=== PATIENT | male | born 1940 | race Caucasian/White ===

== ENCOUNTER 2016-11-05 21:16 | Inpatient (IN) | payer MEDICARE, BC ==
--- NOTE | 2016-11-05 21:35 | ED ---
General Adult HPI - General Chief complaint: Weakness Stated complaint: back pain, weakness, MARGOTH Time Seen by Provider: 11/05/16 21:19 Source: patient, RN notes reviewed, old records reviewed Mode of arrival: EMS Limitations: altered mental status, physical limitation - History of Present Illness Initial comments: This is a 76-year-old male the ER for evaluation. This patient is is reevaluation of continued weakness. Patient has multiple medical problems and multiple medical comorbidities. Patient brought in today by , patient is altered, not speaking or conversing appropriately. Patient's unable to give accurate history of why he is here in the hospital, patient is obtained from the , she states patient has multiple medical comorbidities from renal failure to heart failure to shortness of breath to multiple falls and chronic pain. She states the the heel [place] was unable to get back up. She admits to increasing edema, increasing shortness of breath. Patient's activity level severely decreased - Related Data Home Medications Medication Instructions Recorded Confirmed Albuterol Sulfate [Proair Hfa] 2 puff INHALATION RT-QID PRN 10/16/16 11/05/16 Allopurinol [Zyloprim] 100 mg PO QAM 10/16/16 11/05/16 Amiodarone HCl [Cordarone] 100 mg PO HS 10/16/16 11/05/16 Budesonide [Pulmicort Flexhaler] 2 puff INHALATION RT-DAILY 10/16/16 11/05/16 Cholecalciferol [Vitamin D3] 1,000 unit PO DAILY 10/16/16 11/05/16 Fish Oil/Dha/Epa [Fish Oil 1,200 1 cap PO HS 10/16/16 11/05/16 mg Fish Oil] Furosemide [Lasix] 20 mg PO DAILY 10/16/16 11/05/16 Lansoprazole [Prevacid] 15 mg PO DAILY 10/16/16 11/05/16 Lisinopril [Prinivil] 5 mg PO HS 10/16/16 11/05/16 Magnesium Oxide 400 mg PO BID 10/16/16 11/05/16 Metoprolol Tartrate [Lopressor] 25 mg PO BID 10/16/16 11/05/16 PARoxetine [Paxil] 20 mg PO DAILY 10/16/16 11/05/16 Pravastatin Sodium [Pravachol] 20 mg PO HS 10/16/16 11/05/16 Vit C/E/Zinc/Lutein/Zeaxanthin 1 tab PO BID 10/16/16 11/05/16 [[facility]] Vitamin E (Dl,Tocopheryl Acet) 400 unit PO BID 10/16/16 11/05/16 [Vitamin E] sitaGLIPtin [Januvia] 100 mg PO DAILY 10/16/16 11/05/16 Previous Rx's Medication Instructions Recorded Apixaban [Eliquis] 2.5 mg PO BID #60 tab 10/25/16 Tamsulosin [Flomax] 0.4 mg PO PC-BRKFST #30 cap.er.24h 10/25/16 Allergies Allergy/AdvReac Type Severity Reaction Status Date / Time No Known Allergies Allergy Verified 11/05/16 23:16 Review of Systems ROS Statement: Those systems with pertinent positive or pertinent negative responses have been documented in the HPI. ROS Other: All systems not noted in ROS Statement are negative. Past Medical History Past Medical History: Asthma, Coronary Artery Disease (CAD), Cancer, Heart Failure, COPD, Diabetes Mellitus, GERD/Reflux, Hyperlipidemia, Osteoarthritis ( OA), Sleep Apnea/CPAP/BIPAP Additional Past Medical History / Comment(s): kidney stones macular degeneration pt stated" past afib but none in 4 years", gout, benign polyps, chronic back pain, "disc problems", renal insuff,skin cancer(squamous cell), "trmors", occ trouble holding his bowels.? mvp per pat med hx. History of Any Multi-Drug Resistant Organisms: None Reported Past Surgical History: Coronary Bypass/CABG, Joint Replacement, Orthopedic Surgery, Tonsillectomy Additional Past Surgical History / Comment(s): cabg svg to om1 and svg to om2( as y graft), latoya cataracts,laser sx latoya eyes for macular degeneration, colonoscopy/polypectomy, latoya knee replacment, lower tear duct-implant latoya eyes, rt ankle broken-sx to repair,has a steel plate. Past Anesthesia/Blood Transfusion Reactions: No Reported Reaction Past Psychological History: Anxiety, Depression Additional Psychological History / Comment(s): paxil Smoking Status: Former smoker Past Alcohol Use History: Daily Additional Past Alcohol Use History / Comment(s): started smoking at age 17 later on in life swithced to cigars then quit 2008. pt admits to 3 drinks a day( whiskey) Past Drug Use History: None Reported - Past Family History Mother Family Medical History: Cancer Additional Family Medical History / Comment(s): kidney cancer Father Family Medical History: Cancer, Prostate Disorder Additional Family Medical History / Comment(s): prostate cancer General Exam Limitations: no limitations General appearance: alert, anxious, in distress, obese Head exam: Present: atraumatic, normocephalic, normal inspection Eye exam: Present: normal appearance, PERRL, EOMI. Absent: scleral icterus, conjunctival injection, periorbital swelling ENT exam: Present: normal exam, mucous membranes moist Neck exam: Present: normal inspection. Absent: tenderness, meningismus, lymphadenopathy Respiratory exam: Present: normal lung sounds bilaterally. Absent: respiratory distress, wheezes, rales, rhonchi, stridor Cardiovascular Exam: Present: regular rate, normal rhythm, normal heart sounds. Absent: systolic murmur, diastolic murmur, rubs, gallop, clicks GI/Abdominal exam: Present: soft, normal bowel sounds. Absent: distended, tenderness, guarding, rebound, rigid Extremities exam: Present: normal inspection, full ROM, normal capillary refill. Absent: tenderness, pedal edema, joint swelling, calf tenderness Back exam: Present: normal inspection Neurological exam: Present: alert, oriented X3, CN II-XII intact Psychiatric exam: Present: normal affect, normal mood Skin exam: Present: warm, dry, intact, normal color. Absent: rash Course Vital Signs 11/05/16 11/05/16 11/05/16 21:18 21:31 22:57 Temperature 96.1 F L 94.6 F L Pulse Rate 91 50 L Respiratory 20 18 Rate Blood Pressure 101/59 O2 Sat by Pulse 100 99 Oximetry 11/05/16 23:11 Temperature Pulse Rate 53 L Respiratory 18 Rate Blood Pressure 95/47 O2 Sat by Pulse Oximetry - Reevaluation(s) Reevaluation #1: 11/05/16 22:05 At this time patient's pain appears to be improved Reevaluation #2: 11/05/16 23:39 Blood pressure improving with bolus Reevaluation #3: 11/05/16 23:39 Patient will need admission for monitoring of renal failure and fluid overload EKG Findings - EKG Comments: EKG Findings:: EKG shows junctional rhythm rate of 45, QRS 80, QTC 446 Medical Decision Making - Medical Decision Making 76 veiled ER for evaluation. Patient closely for evaluation of continued weakness, severe weakness renal failure dehydration decreased appetite multiple falls and chronic pain. Patient will be admitted for recurrent evaluation of chronic renal failure continued evaluation rehydration and management of possible infection sepsis secondary to hypothermia, hypotension, symptoms improving with IV fluids. - Lab Data Result diagrams: 11/05/16 21:30 11/05/16 21:30 Lab Results 11/05/16 11/05/16 11/05/16 Range/Units 21:30 21:30 21:30 WBC 5.1 (3.8-10.6) k/uL RBC 3.06 L (4.30-5.90) m/uL Hgb 9.6 L (13.0-17.5) gm/dL Hct 31.3 L (39.0-53.0) % MCV 102.0 H (80.0-100.0) fL MCH 31.4 (25.0-35.0) pg MCHC 30.7 L (31.0-37.0) g/dL RDW 19.6 H (11.5-15.5) % Plt Count 141 L (150-450) k/uL Neutrophils % 74 % Lymphocytes % 15 % Monocytes % 7 % Eosinophils % 1 % Basophils % 0 % Neutrophils # 3.8 (1.3-7.7) k/uL Lymphocytes # 0.8 L (1.0-4.8) k/uL Monocytes # 0.4 (0-1.0) k/uL Eosinophils # 0.1 (0-0.7) k/uL Basophils # 0.0 (0-0.2) k/uL Hypochromasia Marked Anisocytosis Slight Macrocytosis Moderate PT (9.0-12.0) sec INR (<1.1) APTT (22.0-30.0) sec Sodium 144 (137-145) mmol/L Potassium 5.4 H (3.5-5.1) mmol/L Chloride 105 (98-107) mmol/L Carbon Dioxide 23 (22-30) mmol/L Anion Gap 16 mmol/L BUN 59 H (9-20) mg/dL Creatinine 8.23 H* (0.66-1.25) mg/dL Est GFR (MDRD) Af Amer 8 (>60 ml/min/1.73 sqM) Est GFR (MDRD) Non-Af 6 (>60 ml/min/1.73 sqM) Glucose 106 H (74-99) mg/dL Plasma Lactic Acid Raymundo (0.7-2.0) mmol/L Calcium 8.5 (8.4-10.2) mg/dL Phosphorus 6.3 H (2.5-4.5) mg/dL Magnesium 3.6 H (1.6-2.3) mg/dL Total Bilirubin 0.7 (0.2-1.3) mg/dL AST 24 (17-59) U/L ALT 35 (21-72) U/L Alkaline Phosphatase 134 H (38-126) U/L Total Creatine Kinase 38 L (55-170) U/L CK-MB (CK-2) 1.6 (0.0-2.4) ng/mL CK-MB (CK-2) Rel Index 4.2 Troponin I <0.012 (0.000-0.034) ng/mL Total Protein 5.8 L (6.3-8.2) g/dL Albumin 2.9 L (3.5-5.0) g/dL 11/05/16 11/05/16 Range/Units 21:30 21:30 WBC (3.8-10.6) k/uL RBC (4.30-5.90) m/uL Hgb (13.0-17.5) gm/dL Hct (39.0-53.0) % MCV (80.0-100.0) fL MCH (25.0-35.0) pg MCHC (31.0-37.0) g/dL RDW (11.5-15.5) % Plt Count (150-450) k/uL Neutrophils % % Lymphocytes % % Monocytes % % Eosinophils % % Basophils % % Neutrophils # (1.3-7.7) k/uL Lymphocytes # (1.0-4.8) k/uL Monocytes # (0-1.0) k/uL Eosinophils # (0-0.7) k/uL Basophils # (0-0.2) k/uL Hypochromasia Anisocytosis Macrocytosis PT 14.4 H (9.0-12.0) sec INR 1.5 (<1.1) APTT 28.4 (22.0-30.0) sec Sodium (137-145) mmol/L Potassium (3.5-5.1) mmol/L Chloride (98-107) mmol/L Carbon Dioxide (22-30) mmol/L Anion Gap mmol/L BUN (9-20) mg/dL Creatinine (0.66-1.25) mg/dL Est GFR (MDRD) Af Amer (>60 ml/min/1.73 sqM) Est GFR (MDRD) Non-Af (>60 ml/min/1.73 sqM) Glucose (74-99) mg/dL Plasma Lactic Acid Raymundo 1.9 (0.7-2.0) mmol/L Calcium (8.4-10.2) mg/dL Phosphorus (2.5-4.5) mg/dL Magnesium (1.6-2.3) mg/dL Total Bilirubin (0.2-1.3) mg/dL AST (17-59) U/L ALT (21-72) U/L Alkaline Phosphatase (38-126) U/L Total Creatine Kinase (55-170) U/L CK-MB (CK-2) (0.0-2.4) ng/mL CK-MB (CK-2) Rel Index Troponin I (0.000-0.034) ng/mL Total Protein (6.3-8.2) g/dL Albumin (3.5-5.0) g/dL - Radiology Data Radiology results: report reviewed (Chest x-ray and x-ray pelvis is negative for acute disease), image reviewed Disposition Clinical Impression: Weakness, Renal failure, Falls, Dehydration, Hypothermia Disposition: ADMITTED IP TO THIS [facility] Condition: Fair Referrals: Renato Titus MD [Primary Care Provider] - 1-2 days
[2016-11-05] MEDS ORDERED: SODIUM CHLORIDE 0.9% 500 ML IV STA ×2 (21:46→22:24)
[2016-11-05] MEDS ORDERED: SODIUM CHLORIDE 0.9% 1,000 ML IV STA (21:46)
[2016-11-05] MEDS: SODIUM CHLORIDE 0.9% 1,000 ML IV STA (21:50)
[2016-11-05] MEDS ORDERED: MORPHINE SULFATE 4 MG/ML SYRINGE IVP STA (21:54)
[2016-11-05] MEDS ORDERED: ACETAMINOPHEN IV (For NPO) 1,000 MG in EMPTY BAG 1 BAG IVPB STA (21:54)
[2016-11-05] MEDS ORDERED: LORazepam 2 MG/ML SYRINGE IV STA (21:54)
[2016-11-05 22:14] LABS: Anisocytosis Slight; Basophils % (A) 0 %; CH 30.3; Eosinophils # (A) 0.1 k/uL (0-0.7); Eosinophils % (A) 1 %; HCT 31.3 % (39.0-53.0); HDW 2.82; HGB 9.6 gm/dL (13.0-17.5); Hypochromasia Marked; Luc # (Auto) 0.12; Luc % (Auto) 2; Lymphocytes # (A) 0.8 k/uL (1.0-4.8); Lymphocytes % (A) 15 %; MCH 31.4 pg (25.0-35.0); MCHC 30.7 g/dL (31.0-37.0); Macrocytosis Moderate; Mean Platelet Volume 8.9; Monocytes # (A) 0.4 k/uL (0-1.0); Monocytes % (A) 7 %; Neutrophils # (A) 3.8 k/uL (1.3-7.7); Neutrophils % (A) 74 %; RBC 3.06 m/uL (4.30-5.90); RDW 19.6 % (11.5-15.5); WBC 5.1 k/uL (3.8-10.6); WBC (Perox) 5.91
[2016-11-05] MEDS ORDERED: ATROPINE SULFATE 0.1 MG/ML 10ML SYRINGE IV STA (22:24)
[2016-11-05 22:29] LABS: Creatine Kinase 38 U/L (55-170)
[2016-11-05 22:31] LABS: Calcium 8.5 mg/dL (8.4-10.2); Magnesium 3.6 mg/dL (1.6-2.3); Phosphorous 6.3 mg/dL (2.5-4.5); Potassium 5.4 mmol/L (3.5-5.1); Total Bilirubin 0.7 mg/dL (0.2-1.3); Total Protein 5.8 g/dL (6.3-8.2)
[2016-11-05 22:41] LABS: Creatine Kinase MB 1.6 ng/mL (0.0-2.4); Troponin I <0.012 ng/mL (0.000-0.034)
[2016-11-05 23:15] LABS: INR 1.5 (<1.1); Partial Thromboplastin Time 28.4 sec (22.0-30.0); Prothrombin Time 14.4 sec (9.0-12.0)
[2016-11-05] MEDS ORDERED: methylPREDNISolone SOD SUCCI 125 MG/2 ML VIAL IV STA (23:40)
[2016-11-05] MEDS ORDERED: SODIUM CHLORIDE 0.9% 1,000 ML IV ONE (23:52)
[2016-11-06] MEDS ORDERED: ATROPINE SULFATE 0.1 MG/ML 10ML SYRINGE IV STA (00:14)
[2016-11-06] MEDS ORDERED: NOREPINEPHRINE 4 MG in SODIUM CHLORIDE 0.9% 250 ML IV SCH (00:15)
[2016-11-06] MEDS ORDERED: NOREPINEPHRINE 4 MG in SODIUM CHLORIDE 0.9% 250 ML IV STA (01:00)
[2016-11-06] MEDS ORDERED: LEVOTHYROXINE IVP 100 MCG/5 ML VIAL IV STA (01:08)
[2016-11-06] MEDS ORDERED: PIPERACILLIN-TAZOBACTAM 3.375 GM in DEXTROSE/WATER 1 50ML.BAG IVPB STA (01:10)
--- NOTE | 2016-11-06 01:27 | ED ---
Medical Decision Making - Medical Decision Making 36 male the ER for evaluation of weakness, continued to be reevaluated secondary to persistent hypotension, persistent bradycardia, persistent hypothermia. Patient is getting warmed through by control as well as bear hugger, with minimal effect to systemic temperature, patient also tried with atropine for heart rate no improvement, no evidence of heart block on EKG likely junctional rhythm in the 40s, spoke with cardiology regarding probable need for pacemaker placement, patient is dialysis patient he is fluid overloaded although showing no hypoxia at this point. Patient was given copious IV fluids for blood pressure and is recently started on levo fed drip. Patient is remaining alert, able respond to questions. Patient does have right IJ Praveen catheter, secondary to this and probable need for probable possible permanent pacer we'll hold off on central venous access at this point this patient does not have many options. - Lab Data Result diagrams: 11/05/16 21:30 11/05/16 21:30 Lab Results 11/05/16 11/05/16 11/05/16 Range/Units 21:30 21:30 21:30 WBC 5.1 (3.8-10.6) k/uL RBC 3.06 L (4.30-5.90) m/uL Hgb 9.6 L (13.0-17.5) gm/dL Hct 31.3 L (39.0-53.0) % MCV 102.0 H (80.0-100.0) fL MCH 31.4 (25.0-35.0) pg MCHC 30.7 L (31.0-37.0) g/dL RDW 19.6 H (11.5-15.5) % Plt Count 141 L (150-450) k/uL Neutrophils % 74 % Lymphocytes % 15 % Monocytes % 7 % Eosinophils % 1 % Basophils % 0 % Neutrophils # 3.8 (1.3-7.7) k/uL Lymphocytes # 0.8 L (1.0-4.8) k/uL Monocytes # 0.4 (0-1.0) k/uL Eosinophils # 0.1 (0-0.7) k/uL Basophils # 0.0 (0-0.2) k/uL Hypochromasia Marked Anisocytosis Slight Macrocytosis Moderate PT (9.0-12.0) sec INR (<1.1) APTT (22.0-30.0) sec Sodium 144 (137-145) mmol/L Potassium 5.4 H (3.5-5.1) mmol/L Chloride 105 (98-107) mmol/L Carbon Dioxide 23 (22-30) mmol/L Anion Gap 16 mmol/L BUN 59 H (9-20) mg/dL Creatinine 8.23 H* (0.66-1.25) mg/dL Est GFR (MDRD) Af Amer 8 (>60 ml/min/1.73 sqM) Est GFR (MDRD) Non-Af 6 (>60 ml/min/1.73 sqM) Glucose 106 H (74-99) mg/dL Plasma Lactic Acid Raymundo (0.7-2.0) mmol/L Calcium 8.5 (8.4-10.2) mg/dL Phosphorus 6.3 H (2.5-4.5) mg/dL Magnesium 3.6 H (1.6-2.3) mg/dL Total Bilirubin 0.7 (0.2-1.3) mg/dL AST 24 (17-59) U/L ALT 35 (21-72) U/L Alkaline Phosphatase 134 H (38-126) U/L Total Creatine Kinase 38 L (55-170) U/L CK-MB (CK-2) 1.6 (0.0-2.4) ng/mL CK-MB (CK-2) Rel Index 4.2 Troponin I <0.012 (0.000-0.034) ng/mL Total Protein 5.8 L (6.3-8.2) g/dL Albumin 2.9 L (3.5-5.0) g/dL TSH (0.465-4.680) mIU/L Cortisol ug/dL 11/05/16 11/05/16 11/05/16 Range/Units 21:30 21:30 21:30 WBC (3.8-10.6) k/uL RBC (4.30-5.90) m/uL Hgb (13.0-17.5) gm/dL Hct (39.0-53.0) % MCV (80.0-100.0) fL MCH (25.0-35.0) pg MCHC (31.0-37.0) g/dL RDW (11.5-15.5) % Plt Count (150-450) k/uL Neutrophils % % Lymphocytes % % Monocytes % % Eosinophils % % Basophils % % Neutrophils # (1.3-7.7) k/uL Lymphocytes # (1.0-4.8) k/uL Monocytes # (0-1.0) k/uL Eosinophils # (0-0.7) k/uL Basophils # (0-0.2) k/uL Hypochromasia Anisocytosis Macrocytosis PT 14.4 H (9.0-12.0) sec INR 1.5 (<1.1) APTT 28.4 (22.0-30.0) sec Sodium (137-145) mmol/L Potassium (3.5-5.1) mmol/L Chloride (98-107) mmol/L Carbon Dioxide (22-30) mmol/L Anion Gap mmol/L BUN (9-20) mg/dL Creatinine (0.66-1.25) mg/dL Est GFR (MDRD) Af Amer (>60 ml/min/1.73 sqM) Est GFR (MDRD) Non-Af (>60 ml/min/1.73 sqM) Glucose (74-99) mg/dL Plasma Lactic Acid Raymundo 1.9 (0.7-2.0) mmol/L Calcium (8.4-10.2) mg/dL Phosphorus (2.5-4.5) mg/dL Magnesium (1.6-2.3) mg/dL Total Bilirubin (0.2-1.3) mg/dL AST (17-59) U/L ALT (21-72) U/L Alkaline Phosphatase (38-126) U/L Total Creatine Kinase (55-170) U/L CK-MB (CK-2) (0.0-2.4) ng/mL CK-MB (CK-2) Rel Index Troponin I (0.000-0.034) ng/mL Total Protein (6.3-8.2) g/dL Albumin (3.5-5.0) g/dL TSH 26.100 H (0.465-4.680) mIU/L Cortisol 23 ug/dL Critical Care Time Critical Care Time: Yes Total Critical Care Time: 65 Disposition Clinical Impression: Weakness, Renal failure, Falls, Dehydration, Hypothermia, Hypotension, Hypothyroid Disposition: ADMITTED IP TO THIS HOSP Condition: Fair
--- NOTE | 2016-11-06 02:11 | XR ---
EXAMINATION TYPE: XR chest 1V DATE OF EXAM: 11/06/2016 1:59 AM COMPARISON: 10/21/2016 HISTORY: Weakness TECHNIQUE: Single frontal view of the chest is obtained. FINDINGS: There is no heart failure nor confluent pneumonic infiltrate. There are no hilar masses. T here are chest leads. There are sternal wires. There is a right central venous catheter with the tip over the top of the right atrium. Trachea is midline. There is no sign of pleural effusion. IMPRESSION: No active cardiopulmonary disease. No change.
--- NOTE | 2016-11-06 02:12 | XR ---
EXAMINATION TYPE: XR pelvis AP view DATE OF EXAM: 11/06/2016 1:59 AM COMPARISON: 01/22/2012 HISTORY: Weakness and fall TECHNIQUE: Single view FINDINGS: The pelvic ring is intact. Proximal femurs and hip joints appear intact. There is vascular calcification. Sacroiliac joints appear normal. IMPRESSION: No acute abnormality of the pelvis. No fracture. No change. Atherosclerotic vascular dise ase.
--- NOTE | 2016-11-06 02:17 | CT ---
EXAMINATION TYPE: CT brain anabel wo con DATE OF EXAM: 11/06/2016 2:10 AM COMPARISON: 08/14/2010 HISTORY: weakness, fall, AMS, dialysis CT DLP: head 1150.50 [id number] mGycm Automated exposure control for dose reduction was used. TECHNIQUE: CT scan of the head and cervical spine are performed without contrast. FINDINGS: There is cerebral cortical atrophy. There is mild hypodensity in the periventricular whit e matter. There is no mass effect or midline shift. There is no sign of intracranial hemorrhage. The calvarium is intact. There is mild mucosal thickening in the ethmoid air cells. The cervical vertebra have normal alignment. Disc spaces are fairly normal for age. Posterior element s are intact. There is mild anterior spur formation. Skull base appears intact. I see no bony destruc tive process. IMPRESSION: There is cerebral atrophy and chronic small vessel ischemia that has progressed slightly compared to old exam of 08/14/2010. There are spondylotic changes in the cervical spine with anterior osteophyte formation. No fracture.
[2016-11-06 02:49] LABS: Glucose,Whole Blood 118 mg/dL (75-99)
[2016-11-06] MEDS: SODIUM CHLORIDE 0.9% 1,000 ML IV STA (03:45)
[2016-11-06 05:25] LABS: Anisocytosis Slight; Basophils % (A) 0 %; CH 29.6; CHCM 27.6; Eosinophils % (A) 0 %; HCT 34.1 % (39.0-53.0); HDW 2.67; HGB 9.9 gm/dL (13.0-17.5); Hypochromasia Marked; Luc # (Auto) 0.03; Luc % (Auto) 1; Lymphocytes # (A) 0.2 k/uL (1.0-4.8); Lymphocytes % (A) 4 %; MCH 31.5 pg (25.0-35.0); MCHC 29.1 g/dL (31.0-37.0); Macrocytosis Marked; Mean Platelet Volume 8.9; Monocytes # (A) 0.1 k/uL (0-1.0); Monocytes % (A) 1 %; Neutrophils # (A) 4.6 k/uL (1.3-7.7); Neutrophils % (A) 93 %; RBC 3.15 m/uL (4.30-5.90); RDW 19.5 % (11.5-15.5); WBC 4.9 k/uL (3.8-10.6); WBC (Perox) 5.39
[2016-11-06 05:53] LABS: MCV 108.2 fL (80.0-100.0)
[2016-11-06 06:02] LABS: Calcium 8.4 mg/dL (8.4-10.2); Magnesium 3.5 mg/dL (1.6-2.3); Potassium 5.8 mmol/L (3.5-5.1); Total Bilirubin 0.8 mg/dL (0.2-1.3); Total Protein 5.7 g/dL (6.3-8.2)
[2016-11-06] MEDS ORDERED: SODIUM POLYSTYRENE SULFONATE 15 GM/60 ML BOTTLE PO STA (06:23)
[2016-11-06] MEDS: methylPREDNISolone SOD SUCCI 125 MG/2 ML VIAL IV SCH ×4 (07:01→23:38)
[2016-11-06 07:19] LABS: Target Cells Present
[2016-11-06 07:51] LABS: Glucose,Whole Blood 162 mg/dL (75-99)
[2016-11-06] MEDS: PIPERACILLIN-TAZOBACTAM 3.375 GM in DEXTROSE/WATER 1 50ML.BAG IVPB SCH ×2 (09:04→15:41)
[2016-11-06] MEDS: METOPROLOL TARTRATE 25 MG TAB PO SCH ×2 (09:41→20:46)
[2016-11-06 09:42] LABS: Appearance,Urine Turbid (Clear); Bacteria,Urine Many /hpf; Bilirubin,Urine Negative (Negative); Glucose,Urine (UA) Negative (Negative); Ketones,Urine Negative (Negative); Leukocyte Esterase,Urine Large (Negative); Nitrite,Urine Positive (Negative); Particle Count 178972; Protein,Urine 2+ (Negative); RBC,Urine >182 /hpf (0-5); UA Billing (MACRO vs. MICRO) MICRO; Urobilinogen,Urine <2.0 mg/dL (<2.0); WBC,Urine >182 /hpf (0-5)
[2016-11-06 09:44] LABS: Specific Gravity,Urine 1.025 (1.001-1.035)
[2016-11-06] MEDS: PANTOPRAZOLE 40 MG TABLET PO SCH (09:50)
[2016-11-06] MEDS: MAGNESIUM OXIDE 400 MG TAB PO SCH ×3 (09:51→22:54)
[2016-11-06] MEDS: APIXABAN 2.5 MG TABLET PO SCH ×2 (09:51→20:47)
[2016-11-06] MEDS: ALLOPURINOL 100 MG TAB PO SCH (09:51)
[2016-11-06] MEDS: ALBUTEROL NEBULIZED 2.5 MG/3 ML INHALATION PRN ×2 (11:40→16:04)
[2016-11-06 12:10] LABS: Glucose,Whole Blood 185 mg/dL (75-99)
[2016-11-06] MEDS: CHOLECALCIFEROL 1,000 UNIT TAB PO SCH (13:15)
[2016-11-06] MEDS ORDERED: HYDROCORTISONE SUCCINATE 100 MG/2 ML VIAL IV STA (13:32)
--- NOTE | 2016-11-06 13:34 | XR ---
EXAMINATION TYPE: XR chest 1V portable DATE OF EXAM: 11/06/2016 12:39 PM COMPARISON: NONE INDICATION: Possible fluid, effusion TECHNIQUE: Single frontal view of the chest is obtained. FINDINGS: The heart size is normal. The pulmonary vasculature is normal. The lungs are clear. No obvious pleural effusion is evident. Cost phrenic angles are not blunted. Double-lumen catheter is present with tips in the superior vena cava region IMPRESSION: 1. No acute pulmonary process.
[2016-11-06] MEDS ORDERED: NALOXONE 0.4 MG/ML 1 ML VIAL IV PRN (13:38)
--- NOTE | 2016-11-06 14:11 | P.CRDCN ---
History of Present Illness Consult date: 11/06/16 History of present illness: This is a 76-year-old gentleman with history of ischemic heart disease and previous bypass surgery and also persistent atrial fibrillation being maintained in sinus rhythm with combination of amiodarone and beta lucy. He was in this hospital in October with kidney failure and acute kidney injury. His creatinine went up to 8.95 on that admission. Patient was brought to the hospital with weakness. He was found to be bradycardic, hypotensive and hypothermic in the hospital. Patient had a junctional rhythm with heart rates of 40. Patient was treated for her hyperkalemia. Patient was also found to be hypothyroid. This morning patient seemed to be alert but appears to be in respiratory distress. His heart rate has come up to 50-60 and seemed to be in sinus rhythm. Patient has renal failure and is being followed by entry level recruiter and there is a possibility that he may have dialysis done today. I do not see any acute need for temporary pacemaker at this time. His creatinine is in the results 8. He is poor urinary output. Further recommendation will depend upon the clinical course Review of Systems As per the chart Past Medical History Past Medical History: Asthma, Coronary Artery Disease (CAD), Cancer, Heart Failure, COPD, Diabetes Mellitus, GERD/Reflux, Hyperlipidemia, Osteoarthritis ( OA), Sleep Apnea/CPAP/BIPAP Additional Past Medical History / Comment(s): kidney stones macular degeneration pt stated" past afib but none in 4 years", gout, benign polyps, chronic back pain, "disc problems", renal insuff,skin cancer(squamous cell), "trmors", occ trouble holding his bowels.? mvp per pat med hx. History of Any Multi-Drug Resistant Organisms: None Reported Past Surgical History: Coronary Bypass/CABG, Joint Replacement, Orthopedic Surgery, Tonsillectomy Additional Past Surgical History / Comment(s): cabg svg to om1 and svg to om2( as y graft), latoya cataracts,laser sx latoya eyes for macular degeneration, colonoscopy/polypectomy, latoya knee replacment, lower tear duct-implant latoya eyes, rt ankle broken-sx to repair,has a steel plate. Past Anesthesia/Blood Transfusion Reactions: No Reported Reaction Past Psychological History: Anxiety, Depression Additional Psychological History / Comment(s): paxil Smoking Status: Former smoker Past Alcohol Use History: Daily Additional Past Alcohol Use History / Comment(s): started smoking at age 17 later on in life swithced to cigars then quit 2008. pt admits to 3 drinks a day( whiskey) Past Drug Use History: None Reported - Past Family History Mother Family Medical History: Cancer Additional Family Medical History / Comment(s): kidney cancer Father Family Medical History: Cancer, Prostate Disorder Additional Family Medical History / Comment(s): prostate cancer Medications and Allergies Home Medications Medication Instructions Recorded Confirmed Type Albuterol Sulfate [Proair Hfa] 2 puff INHALATION RT-QID PRN 10/16/16 11/05/16 History Allopurinol [Zyloprim] 100 mg PO QAM 10/16/16 11/05/16 History Amiodarone HCl [Cordarone] 100 mg PO HS 10/16/16 11/05/16 History Budesonide [Pulmicort Flexhaler] 2 puff INHALATION RT-DAILY 10/16/16 11/05/16 History Cholecalciferol [Vitamin D3] 1,000 unit PO DAILY 10/16/16 11/05/16 History Fish Oil/Dha/Epa [Fish Oil 1,200 1 cap PO HS 10/16/16 11/05/16 History mg Fish Oil] Furosemide [Lasix] 20 mg PO DAILY 10/16/16 11/05/16 History Lansoprazole [Prevacid] 15 mg PO DAILY 10/16/16 11/05/16 History Lisinopril [Prinivil] 5 mg PO HS 10/16/16 11/05/16 History Magnesium Oxide 400 mg PO BID 10/16/16 11/05/16 History Metoprolol Tartrate [Lopressor] 25 mg PO BID 10/16/16 11/05/16 History PARoxetine [Paxil] 20 mg PO DAILY 10/16/16 11/05/16 History Pravastatin Sodium [Pravachol] 20 mg PO HS 10/16/16 11/05/16 History Vit C/E/Zinc/Lutein/Zeaxanthin 1 tab PO BID 10/16/16 11/05/16 History [[facility]] Vitamin E (Dl,Tocopheryl Acet) 400 unit PO BID 10/16/16 11/05/16 History [Vitamin E] sitaGLIPtin [Januvia] 100 mg PO DAILY 10/16/16 11/05/16 History Allergies Allergy/AdvReac Type Severity Reaction Status Date / Time No Known Allergies Allergy Verified 11/05/16 23:16 Physical Exam Vitals: Vital Signs Temp Pulse Resp BP Pulse Ox 11/06/16 13:30 58 L 15 85/48 97 11/06/16 13:00 58 L 20 86/53 98 11/06/16 12:30 73 29 H 107/62 95 11/06/16 12:00 97.8 F 58 L 25 H 84/41 99 11/06/16 11:55 56 L 11/06/16 11:41 59 L 94 L 11/06/16 11:30 59 L 29 H 99 11/06/16 11:00 59 L 20 111/75 94 L 11/06/16 10:30 57 L 27 H 92/62 92 L 11/06/16 10:00 60 21 86/50 99 11/06/16 09:30 59 L 16 80/61 100 11/06/16 09:00 59 L 11 L 105/52 97 11/06/16 08:30 61 15 100/49 98 11/06/16 08:00 97.7 F 62 21 91/54 97 11/06/16 07:30 63 19 103/69 96 11/06/16 07:00 63 19 105/68 93 L 11/06/16 06:00 66 30 H 116/53 96 11/06/16 05:00 66 22 85/61 97 11/06/16 04:30 64 18 92/41 98 11/06/16 04:00 97.0 F L 61 33 H 91/47 97 11/06/16 03:30 64 27 H 93/82 98 11/06/16 03:05 79 18 122/62 98 11/06/16 03:04 62 18 117/72 11/06/16 03:00 94.6 F L 63 22 91/68 93 L 11/06/16 02:42 92 L 11/06/16 02:35 94.5 F L 68 18 121/75 96 11/06/16 02:29 65 18 140/71 11/06/16 02:15 68 18 117/72 11/06/16 01:45 86 20 126/60 11/05/16 23:59 48 L 18 87/57 100 Intake and Output 11/05/16 11/06/16 11/06/16 22:59 06:59 14:59 Intake Total 520.333 784.836 Output Total 0 23 Balance 520.333 761.836 Intake: IV 400 650 Sodium Chloride 0.9% 1, 400 650 000 ml @ 100 mls/hr IV . Q10H ONE Rx#:[id number] Intake, IV Titration 120.333 134.836 Amount Norepinephrine 4 mg In 84.836 Sodium Chloride 0.9% 250 ml @ Titrate IV .Q0M [facility] Rx#:[id number] Norepinephrine 4 mg In 120.333 Sodium Chloride 0.9% 250 ml @ Titrate IV .Q0M [facility] Rx#:[id number] Piperacillin-Tazobactam 3 50 .375 gm In Dextrose/Water 1 50ml.bag @ 12.5 mls/hr IVPB Q8HR [facility] Rx#: [id number] Output: Urine 0 23 Other: Weight 108.862 kg 108.862 kg Patient Weight 11/07/16 06:59 Weight 108.862 kg GENERAL EXAM: Patient is alert and oriented and in moderate distress HEENT: Normocephalic. Normal reaction of pupils, equal size NECK: No masses, no nuchal rigidity. CHEST: No chest wall deformity. LUNGS: Diminished breath sounds both bases HEART: S1 and S2 normal with no audible mumurs or gallops. Regular rhythm, femorals equal on both sides.. ABDOMEN: Protuberant and possible ascites SKIN: No rashes CENTRAL NERVOUS SYSTEM: No focal deficits. EXTREMITIES: 2+ edema. Results 11/06/16 04:39 11/06/16 04:39 Cardiac Enzymes 11/06/16 Range/Units 04:39 AST 28 (17-59) U/L CBC 11/06/16 Range/Units 04:39 WBC 4.9 (3.8-10.6) k/uL RBC 3.15 L (4.30-5.90) m/uL Hgb 9.9 L (13.0-17.5) gm/dL Hct 34.1 L (39.0-53.0) % Plt Count 149 L (150-450) k/uL Comprehensive Metabolic Panel 11/06/16 Range/Units 04:39 Sodium 142 (137-145) mmol/L Potassium 5.8 H (3.5-5.1) mmol/L Chloride 109 H (98-107) mmol/L Carbon Dioxide 18 L (22-30) mmol/L BUN 56 H (9-20) mg/dL Creatinine 8.00 H* (0.66-1.25) mg/dL Glucose 143 H (74-99) mg/dL Calcium 8.4 (8.4-10.2) mg/dL AST 28 (17-59) U/L ALT 33 (21-72) U/L Alkaline Phosphatase 128 H (38-126) U/L Total Protein 5.7 L (6.3-8.2) g/dL Albumin 2.9 L (3.5-5.0) g/dL Current Medications Generic Name Dose Route Start Last Admin Trade Name Freq PRN Reason Stop Dose Admin Albuterol Sulfate 2.5 mg 11/06/16 09:12 11/06/16 11:40 Ventolin Nebulized INHALATION 2.5 mg RT-QID PRN Administration Shortness Of Breath Allopurinol 100 mg 11/06/16 09:15 11/06/16 09:51 Zyloprim PO 100 mg QAM JAMES Administration Amiodarone HCl 100 mg 11/06/16 21:00 Cordarone PO HS JAMES Apixaban 2.5 mg 11/06/16 09:15 11/06/16 09:51 Eliquis PO 2.5 mg BID JAMES Administration Budesonide 1 mg 11/06/16 20:00 Pulmicort INHALATION RT-BID JAMES Cholecalciferol 1,000 unit 11/06/16 12:00 11/06/16 13:15 Vitamin D3 PO 1,000 unit 1200 JAMES Administration Furosemide 20 mg 11/07/16 09:00 Lasix PO DAILY [facility] Norepinephrine Bitartrate 4 mg 254 mls @ 0 mls/hr 11/06/16 01:15 / Sodium Chloride IV .Q0M [facility] Protocol Titrate Piperacillin/Tazobactam/ 50 mls @ 12.5 mls/hr 11/06/16 09:00 11/06/16 09:04 Dextrose 3.375 gm/ IV Solution IVPB 12.5 mls/hr Q8HR JAMES Administration Sodium Chloride 1,000 mls @ 50 mls/hr 11/06/16 13:45 Saline 0.9% IV .Q20H JAMES Levothyroxine Sodium 100 mcg 11/07/16 09:00 Synthroid Ivp IV DAILY [facility] Lisinopril 5 mg 11/06/16 21:00 Zestril PO HS [facility] Magnesium Oxide 400 mg 11/06/16 09:15 11/06/16 09:53 Mag-Ox PO Not Given BID [facility] Methylprednisolone Sodium Succinate 60 mg 11/06/16 06:00 11/06/16 13:14 Solu-Medrol IV 60 mg Q6HR [facility] Administration Metoprolol Tartrate 25 mg 11/06/16 09:15 11/06/16 09:41 Lopressor PO Not Given BID [facility] Multivitamins/Minerals 1 each 11/06/16 21:00 Ivite PO BID [facility] Naloxone HCl 0.2 mg 11/06/16 13:38 Narcan IV Q2M PRN Opioid Reversal Pantoprazole Sodium 40 mg 11/06/16 09:30 11/06/16 09:50 Protonix PO 40 mg AC-BRKFST [facility] Administration Paroxetine HCl 20 mg 11/07/16 09:00 Paxil PO DAILY [facility] Pravastatin Sodium 20 mg 11/06/16 21:00 Pravachol PO HS [facility] Tamsulosin HCl 0.4 mg 11/07/16 08:30 Flomax PO PC-BRKFST [facility] Vitamin E 400 unit 11/06/16 21:00 Vitamin E PO BID [facility] Intake and Output 11/05/16 11/06/16 11/06/16 22:59 06:59 14:59 Intake Total 520.333 784.836 Output Total 0 23 Balance 520.333 761.836 Intake: IV 400 650 Sodium Chloride 0.9% 1, 400 650 000 ml @ 100 mls/hr IV . Q10H [facility] Rx#:[id number] Intake, IV Titration 120.333 134.836 Amount Norepinephrine 4 mg In 84.836 Sodium Chloride 0.9% 250 ml @ Titrate IV .Q0M [facility] Rx#:[id number] Norepinephrine 4 mg In 120.333 Sodium Chloride 0.9% 250 ml @ Titrate IV .Q0M [facility] Rx#:[id number] Piperacillin-Tazobactam 3 50 .375 gm In Dextrose/Water 1 50ml.bag @ 12.5 mls/hr IVPB Q8HR [facility] Rx#: [id number] Output: Urine 0 23 Other: Weight 108.862 kg 108.862 kg Patient Weight 11/07/16 06:59 Weight 108.862 kg 11/06/16 04:39 11/06/16 04:39 EKG Interpretations (text) Shows junctional rhythm on admission Assessment and Plan (1) Bradycardia Status: Acute (2) Hypotension Status: Acute (3) Hypothermia Status: Acute (4) Hypothyroid Status: Acute (5) Renal failure Status: Acute (6) CAD (coronary artery disease) Status: Acute (7) Persistent atrial fibrillation Status: Acute Plan: Continue with current medical therapy. Patient is being considered for dialysis. No need for temporary pacemaker at this time and we'll hold beta lucy and amiodarone for now and resume them as tolerated in the future. Further recommendations depend upon the clinical course. Prognosis is guarded
--- NOTE | 2016-11-06 15:16 | P.CNPUL ---
History of Present Illness Consult date: 11/06/16 Requesting physician: Renato Titus Reason for consult: other (ICU management) Chief complaint: Generalized weakness History of present illness: This is a 76-year-old white male with history of multiple medical problems including ischemic heart disease and previous CABG, chronic atrial fibrillation , patient has been maintained on amiodarone and beta blockers, history of COPD, moderate to severe but asymptomatic based on previous evaluation in my office. I have actually seen this patient for many years even prior to his previous CABG. At any rate patient was admitted in early October, and for some reason we were not consulted on this patient when he was in the intensive care unit. And the clearly stated to the admitting physician that I usually see her on a regular basis for his pulmonary status. He was also seen in the past by Dr. Nettles for obstructive sleep apnea, and he was advised to go on CPAP. At any rate looking back at his last admission which was 10/16/2016, and he was discharged on 10/15/2016. He was seen by Dr. Benigno briones and I believe there was a confusion and the name by the admitting physician. He was also seen by the biztalk architect for coagulopathy. Based on the discharge summary dictation, patient was admitted at the time with acute renal failure and he required emergent dialysis. Also had some bleeding secondary to Xarelto. Patient was eventually discharged home on adequacy instead of Xarelto. Since his last admission, the patient has been gradually going downhill. He has been on dialysis on 3 times per week basis, history of functioning has been deteriorating, patient has been complaining of weakness all along, and upon this admission he was noted to be weak, bradycardic, hypotensive, hypothermic, and he was in junctional rhythm rate in the 40 range. Patient was also noted to be hyperkalemic, considering the rhythm was junctional, and considering the patient was scheduled for dialysis, no temporary pacemaker was felt to be necessary. Patient had elevated creatinine of 8.0, and he had a very poor urine output. Patient received Solu-Medrol, he was placed on his usual meds including Ventolin, Cordarone, and look was, Lasix, Synthroid, lisinopril, methylprednisolone, metoprolol, and he was placed on norepinephrine for low blood pressure he was also placed empirically on antibiotics in the form of Zosyn and Levaquin. Chest x-ray on this admission showed no evidence of congestive heart failure, no evidence of acute pulmonary process. Review of Systems 12 point review of systems were obtained, please refer to pertinent positives and negatives in HPI. Past Medical History Past Medical History: Asthma, Coronary Artery Disease (CAD), Cancer, Heart Failure, COPD, Diabetes Mellitus, GERD/Reflux, Hyperlipidemia, Osteoarthritis ( OA), Sleep Apnea/CPAP/BIPAP Additional Past Medical History / Comment(s): kidney stones macular degeneration pt stated" past afib but none in 4 years", gout, benign polyps, chronic back pain, "disc problems", renal insuff,skin cancer(squamous cell), "trmors", occ trouble holding his bowels.? mvp per pat med hx. History of Any Multi-Drug Resistant Organisms: None Reported Past Surgical History: Coronary Bypass/CABG, Joint Replacement, Orthopedic Surgery, Tonsillectomy Additional Past Surgical History / Comment(s): cabg svg to om1 and svg to om2( as y graft), latoya cataracts,laser sx latoya eyes for macular degeneration, colonoscopy/polypectomy, latoya knee replacment, lower tear duct-implant latoya eyes, rt ankle broken-sx to repair,has a steel plate. Past Anesthesia/Blood Transfusion Reactions: No Reported Reaction Past Psychological History: Anxiety, Depression Additional Psychological History / Comment(s): paxil Smoking Status: Former smoker Past Alcohol Use History: Daily Additional Past Alcohol Use History / Comment(s): started smoking at age 17 later on in life swithced to cigars then quit 2008. pt admits to 3 drinks a day( whiskey) Past Drug Use History: None Reported - Past Family History Mother Family Medical History: Cancer Additional Family Medical History / Comment(s): kidney cancer Father Family Medical History: Cancer, Prostate Disorder Additional Family Medical History / Comment(s): prostate cancer Medications and Allergies Home Medications Medication Instructions Recorded Confirmed Type Albuterol Sulfate [Proair Hfa] 2 puff INHALATION RT-QID PRN 10/16/16 11/05/16 History Allopurinol [Zyloprim] 100 mg PO QAM 10/16/16 11/05/16 History Amiodarone HCl [Cordarone] 100 mg PO HS 10/16/16 11/05/16 History Budesonide [Pulmicort Flexhaler] 2 puff INHALATION RT-DAILY 10/16/16 11/05/16 History Cholecalciferol [Vitamin D3] 1,000 unit PO DAILY 10/16/16 11/05/16 History Fish Oil/Dha/Epa [Fish Oil 1,200 1 cap PO HS 10/16/16 11/05/16 History mg Fish Oil] Furosemide [Lasix] 20 mg PO DAILY 10/16/16 11/05/16 History Lansoprazole [Prevacid] 15 mg PO DAILY 10/16/16 11/05/16 History Lisinopril [Prinivil] 5 mg PO HS 10/16/16 11/05/16 History Magnesium Oxide 400 mg PO BID 10/16/16 11/05/16 History Metoprolol Tartrate [Lopressor] 25 mg PO BID 10/16/16 11/05/16 History PARoxetine [Paxil] 20 mg PO DAILY 10/16/16 11/05/16 History Pravastatin Sodium [Pravachol] 20 mg PO HS 10/16/16 11/05/16 History Vit C/E/Zinc/Lutein/Zeaxanthin 1 tab PO BID 10/16/16 11/05/16 History [[employer] [facility]] Vitamin E (Dl,Tocopheryl Acet) 400 unit PO BID 10/16/16 11/05/16 History [Vitamin E] sitaGLIPtin [Januvia] 100 mg PO DAILY 10/16/16 11/05/16 History Allergies Allergy/AdvReac Type Severity Reaction Status Date / Time No Known Allergies Allergy Verified 11/05/16 23:16 Physical Exam Vitals: Vital Signs Temp Pulse Resp BP Pulse Ox 11/06/16 15:00 63 24 103/65 97 11/06/16 14:30 59 L 12 96/44 97 11/06/16 14:00 68 24 89/44 93 L 11/06/16 13:30 58 L 15 85/48 97 11/06/16 13:00 58 L 20 86/53 98 11/06/16 12:30 73 29 H 107/62 95 11/06/16 12:00 97.8 F 58 L 25 H 84/41 99 11/06/16 11:55 56 L 11/06/16 11:41 59 L 94 L 11/06/16 11:30 59 L 29 H 99 11/06/16 11:00 59 L 20 111/75 94 L 11/06/16 10:30 57 L 27 H 92/62 92 L 11/06/16 10:00 60 21 86/50 99 11/06/16 09:30 59 L 16 80/61 100 11/06/16 09:00 59 L 11 L 105/52 97 11/06/16 08:30 61 15 100/49 98 11/06/16 08:00 97.7 F 62 21 91/54 97 11/06/16 07:30 63 19 103/69 96 11/06/16 07:00 63 19 105/68 93 L 11/06/16 06:00 66 30 H 116/53 96 11/06/16 05:00 66 22 85/61 97 11/06/16 04:30 64 18 92/41 98 11/06/16 04:00 97.0 F L 61 33 H 91/47 97 11/06/16 03:30 64 27 H 93/82 98 11/06/16 03:05 79 18 122/62 98 11/06/16 03:04 62 18 117/72 11/06/16 03:00 94.6 F L 63 22 91/68 93 L 11/06/16 02:42 92 L 11/06/16 02:35 94.5 F L 68 18 121/75 96 11/06/16 02:29 65 18 140/71 11/06/16 02:15 68 18 117/72 11/06/16 01:45 86 20 126/60 11/05/16 23:59 48 L 18 87/57 100 Intake and Output 11/06/16 11/06/16 11/06/16 06:59 14:59 22:59 Intake Total 520.333 834.836 50 Output Total 0 23 5 Balance 520.333 811.836 45 Intake: IV 400 700 50 Sodium Chloride 0.9% 1, 400 700 50 000 ml @ 100 mls/hr IV . Q10H [facility] Rx#:[id number] Intake, IV Titration 120.333 134.836 Amount Norepinephrine 4 mg In 84.836 Sodium Chloride 0.9% 250 ml @ Titrate IV .Q0M [facility] Rx#:[id number] Norepinephrine 4 mg In 120.333 Sodium Chloride 0.9% 250 ml @ Titrate IV .Q0M [facility] Rx#:[id number] Piperacillin-Tazobactam 3 50 .375 gm In Dextrose/Water 1 50ml.bag @ 12.5 mls/hr IVPB Q8HR [facility] Rx#: [id number] Output: Urine 0 23 5 Other: Weight 108.862 kg 108.862 kg Patient Weight 11/07/16 06:59 Weight 108.862 kg GENERAL EXAM: Patient is alert and oriented and in moderate distress HEENT: Normocephalic. Normal reaction of pupils, equal size NECK: No masses, no nuchal rigidity. CHEST: No chest wall deformity. LUNGS: Diminished breath sounds both bases HEART: S1 and S2 normal with no audible mumurs or gallops. Regular rhythm, femorals equal on both sides.. ABDOMEN: Protuberant and possible ascites SKIN: No rashes CENTRAL NERVOUS SYSTEM: No focal deficits. EXTREMITIES: 2+ edema. Results - Laboratory Findings CBC and BMP: 11/06/16 04:39 11/06/16 04:39 PT/INR, D-dimer PT 14.4 sec (9.0-12.0) H 11/05/16 21:30 INR 1.5 (<1.1) 11/05/16 21:30 Abnormal lab findings: Abnormal Labs 11/06/16 11/06/16 11/06/16 02:46 04:39 04:39 RBC 3.15 L Hgb 9.9 L Hct 34.1 L MCV 108.2 H D MCHC 29.1 L RDW 19.5 H Plt Count 149 L Lymphocytes # 0.2 L Potassium 5.8 H Chloride 109 H Carbon Dioxide 18 L BUN 56 H Creatinine 8.00 H* Glucose 143 H POC Glucose (mg/dL) 118 H Phosphorus 7.0 H Magnesium 3.5 H Alkaline Phosphatase 128 H Total Protein 5.7 L Albumin 2.9 L Urine Protein Urine Blood Ur Leukocyte Esterase Urine RBC Urine WBC Urine WBC Clumps Urine Bacteria 11/06/16 11/06/16 11/06/16 07:47 09:08 12:07 RBC Hgb Hct MCV MCHC RDW Plt Count Lymphocytes # Potassium Chloride Carbon Dioxide BUN Creatinine Glucose POC Glucose (mg/dL) 162 H 185 H Phosphorus Magnesium Alkaline Phosphatase Total Protein Albumin Urine Protein 2+ H Urine Blood Large H Ur Leukocyte Esterase Large H Urine RBC >182 H Urine WBC >182 H Urine WBC Clumps Many H Urine Bacteria Many H - Diagnostic Findings Chest x-ray: image reviewed (No evidence of active disease noted on the chest x- ray) Assessment and Plan Plan: Impression: Acute presentation of chronic and profound weakness which seems to be multifactorial, I believe it is secondary to bradycardia/junctional rhythm on presentation, hypotension, hypothermia, hypothyroidism, acute on chronic renal failure, chronic atrial fibrillation, and history of coronary artery disease as well as history of moderate COPD which is usually asymptomatic based on my previous workup in the office. Possibility of sepsis isn't obtained, but felt to be less likely. Patient will be placed on empiric antibiotics for possible sepsis, most likely source will be urine. Recommendation: Continue present supportive care measures including empiric antibiotics, GI and DVT prophylaxis, hemodynamic support, correction of his renal failure by hemodialysis, stress doses of hydrocortisone, and close follow- up in the ICU. Prognosis is definitely guarded, will continue to follow closely. seem to be very pleased that time involved in the care of this patient on this admission. Time with Patient: Greater than 30
[2016-11-06] MEDS: SODIUM CHLORIDE 0.9% 1,000 ML IV SCH (15:41)
--- NOTE | 2016-11-06 15:55 | P.CONS ---
History of Present Illness - Reason for Consult Consult date: 11/06/16 Jerking - Chief Complaint Upper extremity movements - History of Present Illness This 76-year-old male being evaluated by the neurology service for jerking movements of the upper extremities. He reports this is been going on for at least 3-4 weeks. He is currently in the intensive care unit at [facility] for renal failure bradycardia hypotension and hypothermia. He is currently undergoing renal dialysis. He denies alteration of consciousness or history of seizures. At the time of my exam is resting comfortably in bed in no acute distress. Review of Systems All systems: negative Past Medical History Past Medical History: Asthma, Coronary Artery Disease (CAD), Cancer, Heart Failure, COPD, Diabetes Mellitus, GERD/Reflux, Hyperlipidemia, Osteoarthritis ( OA), Sleep Apnea/CPAP/BIPAP Additional Past Medical History / Comment(s): kidney stones macular degeneration pt stated" past afib but none in 4 years", gout, benign polyps, chronic back pain, "disc problems", renal insuff,skin cancer(squamous cell), "trmors", occ trouble holding his bowels.? mvp per pat med hx. History of Any Multi-Drug Resistant Organisms: None Reported Past Surgical History: Coronary Bypass/CABG, Joint Replacement, Orthopedic Surgery, Tonsillectomy Additional Past Surgical History / Comment(s): cabg svg to om1 and svg to om2( as y graft), latoya cataracts,laser sx latoya eyes for macular degeneration, colonoscopy/polypectomy, latoya knee replacment, lower tear duct-implant latoya eyes, rt ankle broken-sx to repair,has a steel plate. Past Anesthesia/Blood Transfusion Reactions: No Reported Reaction Past Psychological History: Anxiety, Depression Additional Psychological History / Comment(s): paxil Smoking Status: Former smoker Past Alcohol Use History: Daily Additional Past Alcohol Use History / Comment(s): started smoking at age 17 later on in life swithced to cigars then quit 2008. pt admits to 3 drinks a day( whiskey) Past Drug Use History: None Reported - Past Family History Mother Family Medical History: Cancer Additional Family Medical History / Comment(s): kidney cancer Father Family Medical History: Cancer, Prostate Disorder Additional Family Medical History / Comment(s): prostate cancer Medications and Allergies Home Medications Medication Instructions Recorded Confirmed Type Albuterol Sulfate [Proair Hfa] 2 puff INHALATION RT-QID PRN 10/16/16 11/05/16 History Allopurinol [Zyloprim] 100 mg PO QAM 10/16/16 11/05/16 History Amiodarone HCl [Cordarone] 100 mg PO HS 10/16/16 11/05/16 History Budesonide [Pulmicort Flexhaler] 2 puff INHALATION RT-DAILY 10/16/16 11/05/16 History Cholecalciferol [Vitamin D3] 1,000 unit PO DAILY 10/16/16 11/05/16 History Fish Oil/Dha/Epa [Fish Oil 1,200 1 cap PO HS 10/16/16 11/05/16 History mg Fish Oil] Furosemide [Lasix] 20 mg PO DAILY 10/16/16 11/05/16 History Lansoprazole [Prevacid] 15 mg PO DAILY 10/16/16 11/05/16 History Lisinopril [Prinivil] 5 mg PO HS 10/16/16 11/05/16 History Magnesium Oxide 400 mg PO BID 10/16/16 11/05/16 History Metoprolol Tartrate [Lopressor] 25 mg PO BID 10/16/16 11/05/16 History PARoxetine [Paxil] 20 mg PO DAILY 10/16/16 11/05/16 History Pravastatin Sodium [Pravachol] 20 mg PO HS 10/16/16 11/05/16 History Vit C/E/Zinc/Lutein/Zeaxanthin 1 tab PO BID 10/16/16 11/05/16 History [[facility]] Vitamin E (Dl,Tocopheryl Acet) 400 unit PO BID 10/16/16 11/05/16 History [Vitamin E] sitaGLIPtin [Januvia] 100 mg PO DAILY 10/16/16 11/05/16 History Allergies Allergy/AdvReac Type Severity Reaction Status Date / Time No Known Allergies Allergy Verified 11/05/16 23:16 Physical Exam Vitals: Vital Signs Temp Pulse Resp BP Pulse Ox 11/06/16 15:00 63 24 103/65 97 11/06/16 14:30 59 L 12 96/44 97 11/06/16 14:00 68 24 89/44 93 L 11/06/16 13:30 58 L 15 85/48 97 11/06/16 13:00 58 L 20 86/53 98 11/06/16 12:30 73 29 H 107/62 95 11/06/16 12:00 97.8 F 58 L 24 84/41 99 11/06/16 11:55 56 L 11/06/16 11:41 59 L 94 L 11/06/16 11:30 59 L 29 H 99 11/06/16 11:00 59 L 20 111/75 94 L 11/06/16 10:30 57 L 27 H 92/62 92 L 11/06/16 10:00 60 21 86/50 99 11/06/16 09:30 59 L 16 80/61 100 11/06/16 09:00 59 L 11 L 105/52 97 11/06/16 08:30 61 15 100/49 98 11/06/16 08:00 97.7 F 62 21 91/54 97 11/06/16 07:30 63 19 103/69 96 11/06/16 07:00 63 19 105/68 93 L 11/06/16 06:00 66 30 H 116/53 96 11/06/16 05:00 66 22 85/61 97 11/06/16 04:30 64 18 92/41 98 11/06/16 04:00 97.0 F L 61 33 H 91/47 97 11/06/16 03:30 64 27 H 93/82 98 11/06/16 03:05 79 18 122/62 98 11/06/16 03:04 62 18 117/72 11/06/16 03:00 94.6 F L 63 22 91/68 93 L 11/06/16 02:42 92 L 11/06/16 02:35 94.5 F L 68 18 121/75 96 11/06/16 02:29 65 18 140/71 11/06/16 02:15 68 18 117/72 11/06/16 01:45 86 20 126/60 11/05/16 23:59 48 L 18 87/57 100 Intake and Output 11/06/16 11/06/16 11/06/16 06:59 14:59 22:59 Intake Total 520.333 834.836 50 Output Total 0 23 5 Balance 520.333 811.836 45 Intake: IV 400 700 50 Sodium Chloride 0.9% 1, 400 700 50 000 ml @ 100 mls/hr IV . Q10H ONE Rx#:[id number] Intake, IV Titration 120.333 134.836 Amount Norepinephrine 4 mg In 84.836 Sodium Chloride 0.9% 250 ml @ Titrate IV .Q0M [facility] Rx#:[id number] Norepinephrine 4 mg In 120.333 Sodium Chloride 0.9% 250 ml @ Titrate IV .Q0M [facility] Rx#:[id number] Piperacillin-Tazobactam 3 50 .375 gm In Dextrose/Water 1 50ml.bag @ 12.5 mls/hr IVPB Q8HR [facility] Rx#: [id number] Output: Urine 0 23 5 Other: Weight 108.862 kg 108.862 kg Patient Weight 11/07/16 06:59 Weight 108.862 kg - Constitutional General appearance: obese - EENT Eyes: no abnormal pupil, EOMI, PERRLA, no ptosis ENT: hearing grossly normal - Neck Neck: normal ROM, no rigidity Thyroid: bilateral: normal size - Respiratory Respiratory: negative: prolonged expiration, prolonged inspiration - Cardiovascular Rhythm: irregularly irregular - Gastrointestinal General gastrointestinal: distended, no tenderness - Neurologic Patient is alert and oriented 3 speech and language are normal. There is no lateralizing weakness. There is no facial asymmetry. There is generalized weakness in all 4 extremities. Strength in bilateral upper and lower extremities is 4+ out of 5. There is no significant sensory deficit. Mild postural tremor is noticed with intermittent mild jerking movements mainly of the upper extremities and to a lesser extent lower extremities. There is mild dysmetria bilaterally. There is no resting tremor. Results CBC & Chem 7: 11/06/16 04:39 11/06/16 04:39 Labs: Abnormal Lab Results - Last 24 Hours (Table) 11/06/16 11/06/16 11/06/16 Range/Units 02:46 04:39 04:39 RBC 3.15 L (4.30-5.90) m/uL Hgb 9.9 L (13.0-17.5) gm/dL Hct 34.1 L (39.0-53.0) % MCV 108.2 H D (80.0-100.0) fL MCHC 29.1 L (31.0-37.0) g/dL RDW 19.5 H (11.5-15.5) % Plt Count 149 L (150-450) k/uL Lymphocytes # 0.2 L (1.0-4.8) k/uL Potassium 5.8 H (3.5-5.1) mmol/L Chloride 109 H (98-107) mmol/L Carbon Dioxide 18 L (22-30) mmol/L BUN 56 H (9-20) mg/dL Creatinine 8.00 H* (0.66-1.25) mg/dL Glucose 143 H (74-99) mg/dL POC Glucose (mg/dL) 118 H (75-99) mg/dL Phosphorus 7.0 H (2.5-4.5) mg/dL Magnesium 3.5 H (1.6-2.3) mg/dL Alkaline Phosphatase 128 H (38-126) U/L Total Protein 5.7 L (6.3-8.2) g/dL Albumin 2.9 L (3.5-5.0) g/dL Urine Protein (Negative) Urine Blood (Negative) Ur Leukocyte Esterase (Negative) Urine RBC (0-5) /hpf Urine WBC (0-5) /hpf Urine WBC Clumps (None) /hpf Urine Bacteria (None) /hpf 11/06/16 11/06/16 11/06/16 Range/Units 07:47 09:08 12:07 RBC (4.30-5.90) m/uL Hgb (13.0-17.5) gm/dL Hct (39.0-53.0) % MCV (80.0-100.0) fL MCHC (31.0-37.0) g/dL RDW (11.5-15.5) % Plt Count (150-450) k/uL Lymphocytes # (1.0-4.8) k/uL Potassium (3.5-5.1) mmol/L Chloride (98-107) mmol/L Carbon Dioxide (22-30) mmol/L BUN (9-20) mg/dL Creatinine (0.66-1.25) mg/dL Glucose (74-99) mg/dL POC Glucose (mg/dL) 162 H 185 H (75-99) mg/dL Phosphorus (2.5-4.5) mg/dL Magnesium (1.6-2.3) mg/dL Alkaline Phosphatase (38-126) U/L Total Protein (6.3-8.2) g/dL Albumin (3.5-5.0) g/dL Urine Protein 2+ H (Negative) Urine Blood Large H (Negative) Ur Leukocyte Esterase Large H (Negative) Urine RBC >182 H (0-5) /hpf Urine WBC >182 H (0-5) /hpf Urine WBC Clumps Many H (None) /hpf Urine Bacteria Many H (None) /hpf Assessment and Plan (1) Jerking movements of extremities Status: Acute (2) Bradycardia Status: Acute (3) CAD (coronary artery disease) Status: Acute (4) Dehydration Status: Acute (5) Hypotension Status: Acute (6) Hypothermia Status: Acute (7) Hypothyroid Status: Acute (8) Persistent atrial fibrillation Status: Acute Plan: His upper extremity movements are not a new finding. He has been experiencing this for the past month approximately. We feel this may be due to amiodarone which is been discontinued. No further workup is warranted at this point. We will see if his symptoms resolved or improved with discontinuation of amiodarone. Continue and evaluate and treat his multiple other issues in the ICU. We can be consulted on as-needed basis for worsening symptoms.
--- NOTE | 2016-11-06 16:11 | CONS ---
DATE OF CONSULTATION: REASON FOR CONSULTATION: Renal failure. HISTORY OF PRESENT ILLNESS: Patient is a 76-year-old white male who was admitted to the hospital with complaints of generalized weakness and not feeling well. He was found to be severely bradycardic with junctional rhythm; heart rate in the 30s; and he was started on Levophed. Patient's potassium was at 5.5 mEq/L. He currently has an IJ Perm-A-Cath which was placed on his last admission. According to the family, patient had 3 treatments of dialysis on his last admission and he was scheduled to see us as outpatient for further evaluation regarding removal of Perm-A-Cath depending on his renal function and urine output. Currently he has not had any significant urine output. His last creatinine was 4.2 in September. It had gone up to around 8 on his last admission. Creatinine had gone down to about 2.0 mg/dL. It was at 2.04 on 10/25/2016. Patient denies use of any non-steroidal anti-inflammatory agents prior to admission. PAST MEDICAL HISTORY: 1. CKD with acute kidney injury on last admission with serum creatinine going from about 8 to 2 and patient's creatinine stayed at around 2 post discontinuation of dialysis. 2. Coronary artery disease. 3. COPD. 4. Osteoarthritis. 5. Gastroesophageal reflux disease. 6. Obstructive sleep apnea. 7. History of kidney stones. 8. Macular degeneration. 9. Skin cancer. PAST SURGICAL HISTORY: 1. Coronary artery bypass surgery. 2. Colonoscopy. 3. Bilateral knee arthroplasty. 4. Right ankle surgery. SOCIAL HISTORY: Positive for patient being an ex-smoker. No history of drug abuse or alcohol abuse. Medications at home included: 1. Cordarone. 2. Zyloprim. 3. Lasix. 4. Prevacid. 5. Prinivil. 6. Magnesium oxide. 7. Lopressor. 8. Paxil. 9. Pravachol. 10. Januvia. ALLERGIES: NONE. REVIEW OF SYSTEMS: As per HPI. Other systems negative. On examination, patient is awake, comfortable. He is at times confused, not in any acute distress. Blood pressure is 103/65; had been 85/48. Heart rate about 53 to 63 beats per minute. EXAMINATION OF THE HEART: S1 and S2. EXAMINATION OF THE LUNGS: Bilateral breath sounds are heard. Decreased breath sounds in bases. ABDOMEN: Soft, distended, obese, nontender. Examination of lower extremities shows edema 2+ bilaterally. [employer] exam is grossly intact. Labs show sodium 142, potassium 5.8, BUN 56, serum creatinine 8.0; hemoglobin 9.9 g/dL. Phosphorus is 7. Magnesium 3.5. UA shows more than 182 WBCs. ASSESSMENT: 1. Acute kidney injury on top of chronic kidney disease. Serum creatinine is now at 8 mg/dL. Patient's serum creatinine had come down to around 2.0 and he had stayed there without dialysis on his last admission. At this time, given his hyperkalemia and advanced renal failure, we will proceed with dialysis since he does have the IJ Perm-A-Cath still in place. There is also no urine output noted at this time and patient appears to be volume-overloaded. We will re-evaluate again regarding his dialysis based on his response and progress over the next few days this admission. 2. Hyperkalemia associated with advanced renal failure. No history of use of NSAIDs. 3. Bradycardia, possibly related to the hyperkalemia. EF was at about 55% in October of 2016. 4. Volume overload with significant upper extremity edema. Repeat a chest x-ray today. Decrease IV fluids. Will try a small amount of ultrafiltration with hemodialysis today. 5. History of nephrolithiasis. 6. Mental status changes, possibly related to the advanced renal failure. 7. Coronary artery disease with a history of coronary artery bypass surgery. 8. Moderate chronic obstructive pulmonary disease. PLAN: Hemodialysis today. Repeat chest x-ray. Decrease IV fluids. Repeat labs in a.m. Patient may need dialysis again tomorrow.
--- NOTE | 2016-11-06 17:26 | P.HPIM ---
History of Present Illness H&P Date: 11/06/16 Chief Complaint: Acute on chronic renal failure. This is a readmission of 76-year-old white male who saw me in the office yesterday and seems slightly confused but significantly weak. He tried to go home after seeing me but his stated that he had significant weakness. I did do a compress metabolic panel and his creatinine at that time was 7.4. The laboratory called me but it was after he was readmitted by that time. He is still somewhat confused and has significant gesticulating behaviors. Neurology was consulted. No sniffing chest pain or shortness of breath is noted but he seems quite confused still. Yesterday the office, he was ruminating and obsessing about alcohol. Review of Systems ROS unobtainable: due to mental status Past Medical History Past Medical History: Asthma, Coronary Artery Disease (CAD), Cancer, Heart Failure, COPD, Diabetes Mellitus, GERD/Reflux, Hyperlipidemia, Osteoarthritis ( OA), Sleep Apnea/CPAP/BIPAP Additional Past Medical History / Comment(s): kidney stones macular degeneration pt stated" past afib but none in 4 years", gout, benign polyps, chronic back pain, "disc problems", renal insuff,skin cancer(squamous cell), "trmors", occ trouble holding his bowels.? mvp per pat med hx. History of Any Multi-Drug Resistant Organisms: None Reported Past Surgical History: Coronary Bypass/CABG, Joint Replacement, Orthopedic Surgery, Tonsillectomy Additional Past Surgical History / Comment(s): cabg svg to om1 and svg to om2( as y graft), latoya cataracts,laser sx latoya eyes for macular degeneration, colonoscopy/polypectomy, latoya knee replacment, lower tear duct-implant latoya eyes, rt ankle broken-sx to repair,has a steel plate. Past Anesthesia/Blood Transfusion Reactions: No Reported Reaction Past Psychological History: Anxiety, Depression Additional Psychological History / Comment(s): paxil Smoking Status: Former smoker Past Alcohol Use History: Daily Additional Past Alcohol Use History / Comment(s): started smoking at age 17 later on in life swithced to cigars then quit 2008. pt admits to 3 drinks a day( whiskey) Past Drug Use History: None Reported - Past Family History Mother Family Medical History: Cancer Additional Family Medical History / Comment(s): kidney cancer Father Family Medical History: Cancer, Prostate Disorder Additional Family Medical History / Comment(s): prostate cancer Medications and Allergies Home Medications Medication Instructions Recorded Confirmed Type Albuterol Sulfate [Proair Hfa] 2 puff INHALATION RT-QID PRN 10/16/16 11/05/16 History Allopurinol [Zyloprim] 100 mg PO QAM 10/16/16 11/05/16 History Amiodarone HCl [Cordarone] 100 mg PO HS 10/16/16 11/05/16 History Budesonide [Pulmicort Flexhaler] 2 puff INHALATION RT-DAILY 10/16/16 11/05/16 History Cholecalciferol [Vitamin D3] 1,000 unit PO DAILY 10/16/16 11/05/16 History Fish Oil/Dha/Epa [Fish Oil 1,200 1 cap PO HS 10/16/16 11/05/16 History mg Fish Oil] Furosemide [Lasix] 20 mg PO DAILY 10/16/16 11/05/16 History Lansoprazole [Prevacid] 15 mg PO DAILY 10/16/16 11/05/16 History Lisinopril [Prinivil] 5 mg PO HS 10/16/16 11/05/16 History Magnesium Oxide 400 mg PO BID 10/16/16 11/05/16 History Metoprolol Tartrate [Lopressor] 25 mg PO BID 10/16/16 11/05/16 History PARoxetine [Paxil] 20 mg PO DAILY 10/16/16 11/05/16 History Pravastatin Sodium [Pravachol] 20 mg PO HS 10/16/16 11/05/16 History Vit C/E/Zinc/Lutein/Zeaxanthin 1 tab PO BID 10/16/16 11/05/16 History [[facility]] Vitamin E (Dl,Tocopheryl Acet) 400 unit PO BID 10/16/16 11/05/16 History [Vitamin E] sitaGLIPtin [Januvia] 100 mg PO DAILY 10/16/16 11/05/16 History Allergies Allergy/AdvReac Type Severity Reaction Status Date / Time No Known Allergies Allergy Verified 11/05/16 23:16 Physical Exam Vitals: Vital Signs Temp Pulse Resp BP Pulse Ox 11/06/16 16:17 60 11/06/16 16:04 61 97 11/06/16 16:00 97.6 F 60 22 111/59 96 11/06/16 15:30 60 18 103/65 96 11/06/16 15:00 63 24 103/65 97 11/06/16 14:30 59 L 12 96/44 97 11/06/16 14:00 68 24 89/44 93 L 11/06/16 13:30 58 L 15 85/48 97 11/06/16 13:00 58 L 20 86/53 98 11/06/16 12:30 73 29 H 107/62 95 11/06/16 12:00 97.8 F 58 L 24 84/41 99 11/06/16 11:55 56 L 11/06/16 11:41 59 L 94 L 11/06/16 11:30 59 L 29 H 99 11/06/16 11:00 59 L 20 111/75 94 L 11/06/16 10:30 57 L 27 H 92/62 92 L 11/06/16 10:00 60 21 86/50 99 11/06/16 09:30 59 L 16 80/61 100 11/06/16 09:00 59 L 11 L 105/52 97 11/06/16 08:30 61 15 100/49 98 11/06/16 08:00 97.7 F 62 21 91/54 97 11/06/16 07:30 63 19 103/69 96 11/06/16 07:00 63 19 105/68 93 L 11/06/16 06:00 66 30 H 116/53 96 11/06/16 05:00 66 22 85/61 97 11/06/16 04:30 64 18 92/41 98 11/06/16 04:00 97.0 F L 61 33 H 91/47 97 11/06/16 03:30 64 27 H 93/82 98 11/06/16 03:05 79 18 122/62 98 11/06/16 03:04 62 18 117/72 11/06/16 03:00 94.6 F L 63 22 91/68 93 L 11/06/16 02:42 92 L 11/06/16 02:35 94.5 F L 68 18 121/75 96 11/06/16 02:29 65 18 140/71 11/06/16 02:15 68 18 117/72 11/06/16 01:45 86 20 126/60 11/05/16 23:59 48 L 18 87/57 100 Intake and Output 11/06/16 11/06/16 11/06/16 06:59 14:59 22:59 Intake Total 520.333 834.836 100 Output Total 0 23 5 Balance 520.333 811.836 95 Intake: IV 400 700 100 Sodium Chloride 0.9% 1, 400 700 100 000 ml @ 100 mls/hr IV . Q10H ONE Rx#:[id number] Intake, IV Titration 120.333 134.836 Amount Norepinephrine 4 mg In 84.836 Sodium Chloride 0.9% 250 ml @ Titrate IV .Q0M [facility] Rx#:[id number] Norepinephrine 4 mg In 120.333 Sodium Chloride 0.9% 250 ml @ Titrate IV .Q0M [facility] Rx#:[id number] Piperacillin-Tazobactam 3 50 .375 gm In Dextrose/Water 1 50ml.bag @ 12.5 mls/hr IVPB Q8HR [facility] Rx#: [id number] Output: Urine 0 23 5 Other: Weight 108.862 kg 108.862 kg 108.862 kg Patient Weight 11/07/16 06:59 Weight 108.862 kg - Constitutional General appearance: obese - EENT Eyes: no abnormal pupil - Respiratory Respiratory: bilateral: CTA - Cardiovascular Rhythm: irregularly irregular Heart sounds: normal: S1, S2 - Gastrointestinal General gastrointestinal: soft, no tenderness - Neurologic Neurologic: CNII-XII intact Results CBC & Chem 7: 11/06/16 04:39 11/06/16 04:39 Labs: Abnormal Lab Results - Last 24 Hours (Table) 11/06/16 11/06/16 11/06/16 Range/Units 02:46 04:39 04:39 RBC 3.15 L (4.30-5.90) m/uL Hgb 9.9 L (13.0-17.5) gm/dL Hct 34.1 L (39.0-53.0) % MCV 108.2 H D (80.0-100.0) fL MCHC 29.1 L (31.0-37.0) g/dL RDW 19.5 H (11.5-15.5) % Plt Count 149 L (150-450) k/uL Lymphocytes # 0.2 L (1.0-4.8) k/uL Potassium 5.8 H (3.5-5.1) mmol/L Chloride 109 H (98-107) mmol/L Carbon Dioxide 18 L (22-30) mmol/L BUN 56 H (9-20) mg/dL Creatinine 8.00 H* (0.66-1.25) mg/dL Glucose 143 H (74-99) mg/dL POC Glucose (mg/dL) 118 H (75-99) mg/dL Phosphorus 7.0 H (2.5-4.5) mg/dL Magnesium 3.5 H (1.6-2.3) mg/dL Alkaline Phosphatase 128 H (38-126) U/L Total Protein 5.7 L (6.3-8.2) g/dL Albumin 2.9 L (3.5-5.0) g/dL Urine Protein (Negative) Urine Blood (Negative) Ur Leukocyte Esterase (Negative) Urine RBC (0-5) /hpf Urine WBC (0-5) /hpf Urine WBC Clumps (None) /hpf Urine Bacteria (None) /hpf 11/06/16 11/06/16 11/06/16 Range/Units 07:47 09:08 12:07 RBC (4.30-5.90) m/uL Hgb (13.0-17.5) gm/dL Hct (39.0-53.0) % MCV (80.0-100.0) fL MCHC (31.0-37.0) g/dL RDW (11.5-15.5) % Plt Count (150-450) k/uL Lymphocytes # (1.0-4.8) k/uL Potassium (3.5-5.1) mmol/L Chloride (98-107) mmol/L Carbon Dioxide (22-30) mmol/L BUN (9-20) mg/dL Creatinine (0.66-1.25) mg/dL Glucose (74-99) mg/dL POC Glucose (mg/dL) 162 H 185 H (75-99) mg/dL Phosphorus (2.5-4.5) mg/dL Magnesium (1.6-2.3) mg/dL Alkaline Phosphatase (38-126) U/L Total Protein (6.3-8.2) g/dL Albumin (3.5-5.0) g/dL Urine Protein 2+ H (Negative) Urine Blood Large H (Negative) Ur Leukocyte Esterase Large H (Negative) Urine RBC >182 H (0-5) /hpf Urine WBC >182 H (0-5) /hpf Urine WBC Clumps Many H (None) /hpf Urine Bacteria Many H (None) /hpf Microbiology - Last 24 Hours (Table) 11/06/16 09:08 Urine Culture - Preliminary Urine,Catheterized Thrombosis Risk Factor Assmnt - Choose All That Apply Each Risk Factor Represents 3 Points: Age 75 years or older Thrombosis Risk Factor Assessment Total Risk Factor Score: 3 Thrombosis Risk Factor Assessment Level: Moderate Risk Assessment and Plan (1) Kjpkh-[id number]-jpediwd renal failure Status: Acute (2) Bradycardia Status: Acute (3) Dehydration Status: Acute (4) Hypotension Status: Acute (5) Hypothermia Status: Acute (6) Jerking movements of extremities Status: Acute Plan: Agree with appropriate admission. Multiple consultants including neurology, intensivists and nephrology. Serial CMP and dialysis. Prognosis is guarded secondary to his multiple comorbidities. Dr. Escamilla's group will be covering for me for the weekend.
[2016-11-06 17:44] LABS: Glucose,Whole Blood 162 mg/dL (75-99)
[2016-11-06] MEDS: CALCIUM ACETATE 667 MG CAP PO SCH (18:55)
[2016-11-06] MEDS: BUDESONIDE 1 MG/2 ML NEBU INHALATION SCH (19:08)
[2016-11-06] MEDS ORDERED: HEPARIN SODIUM,PORCINE 5,000 UNIT/ML 1 ML VIAL ONE (20:00)
[2016-11-06] MEDS: VIT A,C & E-LUTEIN-MINERALS 1 EACH TAB PO SCH (20:46)
[2016-11-06 20:47] LABS: Glucose,Whole Blood 152 mg/dL (75-99)
[2016-11-06] MEDS: VITAMIN E (DL,TOCOPHERYL ACET) 400 UNIT CAP PO SCH (20:47)
[2016-11-06] MEDS: PRAVASTATIN SODIUM 20 MG TAB PO SCH (20:47)
[2016-11-06] MEDS: NOREPINEPHRINE 4 MG in SODIUM CHLORIDE 0.9% 250 ML IV SCH (20:55)
[2016-11-06] MEDS ORDERED: LISINOPRIL 5 MG TAB PO SCH (21:00)
[2016-11-06] MEDS ORDERED: AMIODARONE 100 MG TAB PO SCH (21:00)
[2016-11-06] MEDS ORDERED: NON-FORMULARY DRUG (Fish Oil/Dha/Epa [Fish Oil 1,200 Mg Fish Oil] 1 CAP) PO SCH (21:00)
[2016-11-07] MEDS ORDERED: HEPARIN SODIUM,PORCINE 5,000 UNIT/ML 1 ML VIAL ONE (00:20)
[2016-11-07 06:07] LABS: Anisocytosis Slight; Basophils % (A) 0 %; CHCM 28.9; Eosinophils % (A) 0 %; HCT 34.1 % (39.0-53.0); HDW 2.65; HGB 10.4 gm/dL (13.0-17.5); Hypochromasia Marked; Luc # (Auto) 0.04; Luc % (Auto) 1; Lymphocytes # (A) 0.4 k/uL (1.0-4.8); Lymphocytes % (A) 6 %; MCH 31.8 pg (25.0-35.0); MCHC 30.3 g/dL (31.0-37.0); MCV 104.8 fL (80.0-100.0); Macrocytosis Marked; Mean Platelet Volume 8.1; Monocytes # (A) 0.4 k/uL (0-1.0); Monocytes % (A) 5 %; Neutrophils # (A) 5.9 k/uL (1.3-7.7); Neutrophils % (A) 88 %; RBC 3.26 m/uL (4.30-5.90); RDW 19.3 % (11.5-15.5); WBC 6.7 k/uL (3.8-10.6); WBC (Perox) 7.15
[2016-11-07 06:23] LABS: Calcium 8.1 mg/dL (8.4-10.2); Magnesium 2.9 mg/dL (1.6-2.3); Potassium 4.9 mmol/L (3.5-5.1); Total Bilirubin 0.8 mg/dL (0.2-1.3); Total Protein 5.7 g/dL (6.3-8.2)
[2016-11-07] MEDS: methylPREDNISolone SOD SUCCI 125 MG/2 ML VIAL IV SCH (06:40)
--- NOTE | 2016-11-07 07:12 | XR ---
EXAMINATION TYPE: XR chest 1V DATE OF EXAM: 11/07/2016 6:32 AM COMPARISON: 11/06/2016 HISTORY: Shortness of breath FINDINGS: There are bilateral pleural effusions with cardiomegaly and bibasilar infiltrate. There is a diffuse interstitial pattern. Postsurgical change and dialysis catheter noted. Arthropathy shoulders and vas cular calcification noted IMPRESSION: 1. Small bilateral effusions and basilar infiltrate seen. Correlate for mild venous congestion
[2016-11-07 07:54] LABS: Glucose,Whole Blood 159 mg/dL (75-99)
[2016-11-07] MEDS: BUDESONIDE 1 MG/2 ML NEBU INHALATION SCH ×2 (08:35→19:37)
[2016-11-07] MEDS: ALBUTEROL NEBULIZED 2.5 MG/3 ML INHALATION PRN ×3 (08:35→15:48)
[2016-11-07] MEDS: PIPERACILLIN-TAZOBACTAM 3.375 GM in DEXTROSE/WATER 1 50ML.BAG IVPB SCH (08:36)
[2016-11-07] MEDS: VIT A,C & E-LUTEIN-MINERALS 1 EACH TAB PO SCH (08:36)
[2016-11-07] MEDS: VITAMIN E (DL,TOCOPHERYL ACET) 400 UNIT CAP PO SCH (08:36)
[2016-11-07] MEDS: CALCIUM ACETATE 667 MG CAP PO SCH ×3 (08:37→17:28)
[2016-11-07] MEDS: ALLOPURINOL 100 MG TAB PO SCH (08:38)
[2016-11-07] MEDS: TAMSULOSIN 0.4 MG CAP.ER.24H PO SCH (08:38)
[2016-11-07] MEDS: PANTOPRAZOLE 40 MG TABLET PO SCH (08:38)
[2016-11-07] MEDS: METOPROLOL TARTRATE 25 MG TAB PO SCH ×2 (08:39→18:39)
[2016-11-07] MEDS: FUROSEMIDE 20 MG TAB PO SCH (08:39)
[2016-11-07] MEDS: MAGNESIUM OXIDE 400 MG TAB PO SCH ×2 (08:39→21:25)
[2016-11-07] MEDS: APIXABAN 2.5 MG TABLET PO SCH (08:39)
[2016-11-07] MEDS: PARoxetine 20 MG TAB PO SCH (08:40)
[2016-11-07] MEDS ORDERED: LEVOTHYROXINE IVP 100 MCG/5 ML VIAL IV SCH (09:00)
[2016-11-07] MEDS: CHOLECALCIFEROL 1,000 UNIT TAB PO SCH (11:39)
[2016-11-07 12:44] LABS: Glucose,Whole Blood 176 mg/dL (75-99)
--- NOTE | 2016-11-07 12:55 | P.PN ---
Subjective Principal diagnosis: Generalized weakness, acute on chronic renal failure, hypertension, possible sepsis. This is a 76-year-old white male with history of multiple medical problems including ischemic heart disease and previous CABG, chronic atrial fibrillation , patient has been maintained on amiodarone and beta blockers, history of COPD, moderate to severe but asymptomatic based on previous evaluation in my office. I have actually seen this patient for many years even prior to his previous CABG. At any rate patient was admitted in early October, and for some reason we were not consulted on this patient when he was in the intensive care unit. And the clearly stated to the admitting physician that I usually see her on a regular basis for his pulmonary status. He was also seen in the past by Dr. Nettles for obstructive sleep apnea, and he was advised to go on CPAP. At any rate looking back at his last admission which was 10/16/2016, and he was discharged on 10/15/2016. He was seen by Dr. Benigno briones and I believe there was a confusion and the name by the admitting physician. He was also seen by the office analyst for coagulopathy. Based on the discharge summary dictation, patient was admitted at the time with acute renal failure and he required emergent dialysis. Also had some bleeding secondary to Xarelto. Patient was eventually discharged home on adequacy instead of Xarelto. Since his last admission, the patient has been gradually going downhill. He has been on dialysis on 3 times per week basis, history of functioning has been deteriorating, patient has been complaining of weakness all along, and upon this admission he was noted to be weak, bradycardic, hypotensive, hypothermic, and he was in junctional rhythm rate in the 40 range. Patient was also noted to be hyperkalemic, considering the rhythm was junctional, and considering the patient was scheduled for dialysis, no temporary pacemaker was felt to be necessary. Patient had elevated creatinine of 8.0, and he had a very poor urine output. Patient received Solu-Medrol, he was placed on his usual meds including Ventolin, Cordarone, and look was, Lasix, Synthroid, lisinopril, methylprednisolone, metoprolol, and he was placed on norepinephrine for low blood pressure he was also placed empirically on antibiotics in the form of Zosyn and Levaquin. Chest x-ray on this admission showed no evidence of congestive heart failure, no evidence of acute pulmonary process. Patient was reevaluated today on 11/07/2016, he feels a bit better today compared to yesterday. Less weakness, no shortness of breath, no chest pain, no nausea no vomiting no abdominal pain, however the patient remains relatively hypotensive requiring 10 g of norepinephrine per minute, patient is a bit confused but not as confused as he was yesterday. I went ahead and cut down the dose of his Solu-Medrol. And I plan to cut it down further. His myoclonic jerks have improved since amiodarone was discontinued. Patient is scheduled to undergo dialysis today, his labs were all reviewed, CBC is normal except for hemoglobin of 10.4. Electrolytes showed anion gap metabolic acidosis of 15 however his BUN is 41 and creatinine is 5.6 urine cultures and blood cultures are negative so far. His medications were all reviewed. His Synthroid was switched to oral form, and his Solu-Medrol was cut down to 40 mg every 8 instead of 60 mg every 6. Objective - Vital Signs Vital signs: Vital Signs Temp 97.8 F 11/07/16 11:30 Pulse 66 11/07/16 12:22 Resp 25 H 11/07/16 11:30 BP 147/85 11/07/16 11:30 Pulse Ox 95 11/07/16 11:30 Intake & Output 11/06/16 11/07/16 11/07/16 18:59 06:59 18:59 Intake Total 1064.836 760 779.0 Output Total 33 90 50 Balance 1031.836 670 729.0 Weight 108.862 kg 109 kg 109 kg Intake: IV 880 580 200 Sodium Chloride 0.9% 1, 880 580 200 000 ml @ 100 mls/hr IV . Q10H [facility] Rx#:[id number] Intake, IV Titration 184.836 339.0 Amount Norepinephrine 4 mg In 84.836 Sodium Chloride 0.9% 250 ml @ Titrate IV .Q0M [facility] Rx#:[id number] Norepinephrine 4 mg In 261.5 Sodium Chloride 0.9% 250 ml @ Titrate IV .Q0M [facility] Rx#:[id number] Piperacillin-Tazobactam 3 37.5 .375 gm In Dextrose/Water 1 50ml.bag @ 12.5 mls/hr IVPB Q12HR [facility] Rx#: [id number] Piperacillin-Tazobactam 3 100 .375 gm In Dextrose/Water 1 50ml.bag @ 12.5 mls/hr IVPB Q8HR [facility] Rx#: [id number] Sodium Chloride 0.9% 1, 40 000 ml @ 50 mls/hr IV . Q20H [facility] Rx#:[id number] Oral 180 240 Output: Urine 33 90 50 Other: Voiding Method Indwelling Catheter Indwelling Catheter - Exam GENERAL EXAM: Patient is alert and oriented and in moderate distress HEENT: Normocephalic. Normal reaction of pupils, equal size NECK: No masses, no nuchal rigidity. CHEST: No chest wall deformity. LUNGS: Diminished breath sounds both bases HEART: S1 and S2 normal with no audible mumurs or gallops. Regular rhythm, femorals equal on both sides.. ABDOMEN: Protuberant and possible ascites SKIN: No rashes CENTRAL NERVOUS SYSTEM: No focal deficits. Except for the fact the patient is slightly confused EXTREMITIES: 2+ edema. - Labs CBC & Chem 7: 11/07/16 05:11 11/07/16 05:11 Labs: Abnormal Lab Results - Last 24 Hours (Table) 11/06/16 11/06/16 11/07/16 Range/Units 17:43 20:45 05:11 RBC 3.26 L (4.30-5.90) m/uL Hgb 10.4 L (13.0-17.5) gm/dL Hct 34.1 L (39.0-53.0) % MCV 104.8 H (80.0-100.0) fL MCHC 30.3 L (31.0-37.0) g/dL RDW 19.3 H (11.5-15.5) % Lymphocytes # 0.4 L (1.0-4.8) k/uL Carbon Dioxide (22-30) mmol/L BUN (9-20) mg/dL Creatinine (0.66-1.25) mg/dL Glucose (74-99) mg/dL POC Glucose (mg/dL) 162 H 152 H (75-99) mg/dL Calcium (8.4-10.2) mg/dL Phosphorus (2.5-4.5) mg/dL Magnesium (1.6-2.3) mg/dL Total Protein (6.3-8.2) g/dL Albumin (3.5-5.0) g/dL 11/07/16 11/07/16 11/07/16 Range/Units 05:11 07:52 12:42 RBC (4.30-5.90) m/uL Hgb (13.0-17.5) gm/dL Hct (39.0-53.0) % MCV (80.0-100.0) fL MCHC (31.0-37.0) g/dL RDW (11.5-15.5) % Lymphocytes # (1.0-4.8) k/uL Carbon Dioxide 19 L (22-30) mmol/L BUN 41 H (9-20) mg/dL Creatinine 5.60 H* (0.66-1.25) mg/dL Glucose 175 H (74-99) mg/dL POC Glucose (mg/dL) 159 H 176 H (75-99) mg/dL Calcium 8.1 L (8.4-10.2) mg/dL Phosphorus 6.0 H (2.5-4.5) mg/dL Magnesium 2.9 H (1.6-2.3) mg/dL Total Protein 5.7 L (6.3-8.2) g/dL Albumin 2.9 L (3.5-5.0) g/dL Microbiology - Last 24 Hours (Table) 11/06/16 09:08 Urine Culture - Preliminary Urine,Catheterized Assessment and Plan Plan: Impression: Acute presentation of chronic and profound weakness which seems to be multifactorial, I believe it is secondary to bradycardia/junctional rhythm on presentation, hypotension, hypothermia, hypothyroidism, acute on chronic renal failure, chronic atrial fibrillation, and history of coronary artery disease as well as history of moderate COPD which is usually asymptomatic based on my previous workup in the office. Possibility of sepsis isn't entirely ruled out but felt to be less likely. Patient will be placed on empiric antibiotics for possible sepsis, most likely source will be urine. Recommendation: Continue present supportive care measures including empiric antibiotics, GI and DVT prophylaxis, hemodynamic support, correction of his renal failure by hemodialysis, serum cortisone level on admission was normal. Continue close follow-up in the ICU. Prognosis is definitely guarded, will continue to follow closely. seem to be very pleased that time involved in the care of this patient on this admission. Time with Patient: Greater than 30
[2016-11-07] MEDS: NOREPINEPHRINE 4 MG in SODIUM CHLORIDE 0.9% 250 ML IV SCH (13:40)
--- NOTE | 2016-11-07 14:28 | PN ---
Patient is seen for followup for acute kidney injury on top of chronic kidney disease. He was admitted to the hospital with weakness, hypotension, severe bradycardia with a heart rate in the 30s. Patient has acute kidney injury and hyperkalemia at the time of admission. He has had no urine output. He did have hemodialysis yesterday, since he had the Perm-A-Cath from his last admission, which was placed for acute kidney injury. His serum creatinine at that time had come down to around 2 mg/dL on 10/25/2016 and on this admission he had been at about 8.2 mg/dL. Patient tolerated his treatment fairly well yesterday. He remains on a small dose of Levophed. His creatinine is now down to 5.6 and potassium is at 4.9. He has a lot of edema in the upper and lower extremities and chest x-ray from yesterday did not show significant CHF. Initially patient did receive IV fluids, but this has been decreased. On examination, blood pressure is 85/45, heart rate 95 per minute. He is afebrile. HEART: S1 and S2. LUNGS: Bilateral breath sounds are heard. Decreased breath sounds in bases with basal crackles heard. Abdomen is soft, nontender. Lower extremities show edema 3+ bilaterally in the upper and lower extremities. [employer] shows patient has been moving all 4 extremities. Labs show sodium 139, potassium 4.9, chloride 105. Hemoglobin 10.4. Calcium 8.1. phosphorus is at 6.0. ASSESSMENT: 1. Acute kidney injury, most likely acute tubular necrosis with serum creatinine going up from around 2 at the time of discharge to 8 mg/dL and no urine output. Patient will be dialyzed again today and we will try to increase ultrafiltration as tolerated. I will Hep-Lock the IV fluids and we can maintain him on a little bit higher dose of Lasix. 2. Hyperphosphatemia secondary to renal failure, maintained on PhosLo. 3. Bradycardia, status post atropine, currently doing fairly well. 4. History of atrial fibrillation. Patient had been on amiodarone and beta blockers. Amiodarone has been discontinued. PLAN: Hemodialysis today. Increase UF as tolerated today.
[2016-11-07] MEDS: methylPREDNISolone SOD SUCCI 40 MG/ML 1 ML VIAL IV SCH (16:51)
[2016-11-07 17:14] LABS: Glucose,Whole Blood 188 mg/dL (75-99)
--- NOTE | 2016-11-07 17:15 | P.PN ---
Subjective Principal diagnosis: Upper extremity movements This 76-year-old male continues to be evaluated by the neurology service for jerking movements of the upper extremities. He had reported these symptoms for at least 3-4 weeks. He is still currently in the intensive care unit for multiple other medical problems. He reports no problems with upper extremity movements today. We did believe that this may have been due to amiodarone which is been discontinued. At the time my exam he is resting comfortably in bed and very rare small twitching can be observed in bilateral upper extremities, which he says he doesn't even notice. Objective - Vital Signs Vital signs: Vital Signs Temp 98.2 F 11/07/16 16:30 Pulse 70 11/07/16 16:30 Resp 35 H 11/07/16 16:30 BP 84/39 11/07/16 16:30 Pulse Ox 96 11/07/16 16:30 Intake & Output 11/06/16 11/07/16 11/07/16 18:59 06:59 18:59 Intake Total 1064.836 760 972.016 Output Total 33 90 65 Balance 1031.836 670 907.016 Weight 108.862 kg 109 kg 109 kg Intake: IV 880 580 200 Sodium Chloride 0.9% 1, 880 580 200 000 ml @ 100 mls/hr IV . Q10H [facility] Rx#:[id number] Intake, IV Titration 184.836 492.016 Amount Norepinephrine 4 mg In 84.836 Sodium Chloride 0.9% 250 ml @ Titrate IV .Q0M [facility] Rx#:[id number] Norepinephrine 4 mg In 322.016 Sodium Chloride 0.9% 250 ml @ Titrate IV .Q0M [facility] Rx#:[id number] Piperacillin-Tazobactam 3 50.0 .375 gm In Dextrose/Water 1 50ml.bag @ 12.5 mls/hr IVPB Q12HR [facility] Rx#: [id number] Piperacillin-Tazobactam 3 100 .375 gm In Dextrose/Water 1 50ml.bag @ 12.5 mls/hr IVPB Q8HR [facility] Rx#: [id number] Sodium Chloride 0.9% 1, 120 000 ml @ 50 mls/hr IV . Q20H [facility] Rx#:[id number] Oral 180 280 Output: Urine 33 90 65 Other: Voiding Method Indwelling Catheter Indwelling Catheter - Constitutional General appearance: Present: obese - EENT Eyes: Present: PERRLA. Absent: abnormal pupil, ptosis ENT: Present: hearing grossly normal - Respiratory Respiratory: negative: prolonged expiration, prolonged inspiration - Neurologic Neurologic Comment(s): Patient is alert awake and oriented 3. Speech-language are normal. There is no lateralizing weakness. No seizures or tremors are seen. Mild intermittent twitching is observed in bilateral upper extremities. - Labs CBC & Chem 7: 11/07/16 05:11 11/07/16 05:11 Labs: Abnormal Lab Results - Last 24 Hours (Table) 11/06/16 11/06/16 11/07/16 Range/Units 17:43 20:45 05:11 RBC 3.26 L (4.30-5.90) m/uL Hgb 10.4 L (13.0-17.5) gm/dL Hct 34.1 L (39.0-53.0) % MCV 104.8 H (80.0-100.0) fL MCHC 30.3 L (31.0-37.0) g/dL RDW 19.3 H (11.5-15.5) % Lymphocytes # 0.4 L (1.0-4.8) k/uL Carbon Dioxide (22-30) mmol/L BUN (9-20) mg/dL Creatinine (0.66-1.25) mg/dL Glucose (74-99) mg/dL POC Glucose (mg/dL) 162 H 152 H (75-99) mg/dL Calcium (8.4-10.2) mg/dL Phosphorus (2.5-4.5) mg/dL Magnesium (1.6-2.3) mg/dL Total Protein (6.3-8.2) g/dL Albumin (3.5-5.0) g/dL 11/07/16 11/07/16 11/07/16 Range/Units 05:11 07:52 12:42 RBC (4.30-5.90) m/uL Hgb (13.0-17.5) gm/dL Hct (39.0-53.0) % MCV (80.0-100.0) fL MCHC (31.0-37.0) g/dL RDW (11.5-15.5) % Lymphocytes # (1.0-4.8) k/uL Carbon Dioxide 19 L (22-30) mmol/L BUN 41 H (9-20) mg/dL Creatinine 5.60 H* (0.66-1.25) mg/dL Glucose 175 H (74-99) mg/dL POC Glucose (mg/dL) 159 H 176 H (75-99) mg/dL Calcium 8.1 L (8.4-10.2) mg/dL Phosphorus 6.0 H (2.5-4.5) mg/dL Magnesium 2.9 H (1.6-2.3) mg/dL Total Protein 5.7 L (6.3-8.2) g/dL Albumin 2.9 L (3.5-5.0) g/dL Microbiology - Last 24 Hours (Table) 11/06/16 09:08 Urine Culture - Preliminary Urine,Catheterized Gram Neg Bacilli Assessment and Plan (1) Jerking movements of extremities Status: Acute (2) Bradycardia Status: Acute (3) CAD (coronary artery disease) Status: Acute (4) Dehydration Status: Acute (5) Hypotension Status: Acute (6) Hypothermia Status: Acute (7) Hypothyroid Status: Acute (8) Persistent atrial fibrillation Status: Acute Plan: His upper extremity movements are not a new finding. He has been experiencing this for the past month approximately. We feel this may be due to amiodarone which is been discontinued. His symptoms are resolving. No further workup is warranted at this point. Continue and evaluate and treat his multiple other issues in the ICU. We can be consulted on as-needed basis for worsening symptoms.
[2016-11-07] MEDS: INSULIN LISPRO (humaLOG) 300 UNIT/3 ML VIAL SQ SCH ×2 (17:28→21:25)
--- NOTE | 2016-11-07 18:00 | PN ---
Mr. Zayas is a 76-year-old male with a known history of coronary artery bypass grafting, history of paroxysmal atrial fibrillation, chronic kidney disease, who presented with episode of bradycardia and generalized fatigue. He underwent dialysis yesterday and is scheduled to undergo further dialysis today. Hemodynamically, he is more stable. He had no further episode of bradycardia. He denies any chest pain. His breathing has been stable. He denies any dizziness, palpitation. He denies any nausea. He continues to be on: 1. Eliquis 2.5 mg twice a day. 2. Pravastatin 20 mg daily. 3. Flomax 0.4 mg daily. 4. Metoprolol tartrate 25 mg twice a day. 5. His amiodarone has been on hold. PHYSICAL EXAMINATION: Blood pressure running in the high 90s to low 100s, heart rate in the 70s. LUNGS: With mild decreased breath sounds. HEART: Regular rate rhythm. S1, S2. No S3 with systolic ejection murmur. No rub. ABDOMEN: Soft, nontender. EXTREMITIES: +2 edema bilaterally. Lab data revealed BUN and creatinine 41 and 5.6 which is improved compared to yesterday. Potassium 4.9. Hemoglobin of 10.4. IMPRESSION: 1. Renal failure, end-stage, scheduled for dialysis today. 2. Status post coronary artery bypass grafting. 3. Bradycardia, resolved. 4. Prior history of paroxysmal atrial fibrillation, remains in sinus mechanism. RECOMMENDATIONS: At this time because of the worsening renal failure, I will stop his Plavix. With a GFR that low, he is not a good candidate for that. Depending on the progress of his renal function, then further recommendations can be made.
[2016-11-07] MEDS: SODIUM CHLORIDE 0.9% 1,000 ML IV SCH (18:25)
--- NOTE | 2016-11-07 19:34 | PN ---
DATE OF SERVICE: 11/07/2016 I am covering for Dr. Titus. This 76-year-old gentleman who was admitted with hypothermia also had acute on chronic renal failure. The patient is being closely monitored in ICU. The patient also has mild confusion. The patient also had severe bradycardia with heart rate in the 30s. The patient is undergoing hemodialysis. The patient had renal failure and hemodynamically previously, but the patient apparently lost for followup. Currently the patient is being closely monitored in ICU. PAST MEDICAL HISTORY: Reviewed. REVIEW OF SYSTEMS: CARDIOVASCULAR: No angina, palpitations. RESPIRATORY: As mentioned earlier. GI: As mentioned earlier. : As mentioned earlier. NERVOUS: Mild diffuse weakness. Current medications reviewed and include: 1. Ventolin 2.5 q.i.d. p.r.n. 2. Zyloprim 100 mg q.a.m. 3. Pulmicort 1 mg b.i.d. 4. PhosLo 667 p.o. t.i.d. 5. Vitamin D3 1000 units. 6. Lasix 20 mg daily. 7. Humalog. 8. Synthroid 200 mcg p.o. daily. 9. Magnesium oxide 400 mg b.i.d. 10. Solu-Medrol 40 IV q.8. 12. Multivitamin 1 daily. 13. Narcan 0.2 q.2 p.r.n. 14. Levophed drip. 15. Protonix 40 mg daily. 16. Paxil 20 mg daily. 17. Zosyn 3.375. 18. Flomax 4.4 mcg p.o. daily. 19. Vitamin E 400 mg daily. PHYSICAL EXAM: Patient is alert and oriented x2. Pulse 68, blood pressure 93/59, respirations 19, temperature normal, pulse ox 92% on 3L. HEENT: Conjunctivae normal. Oral mucosa is NECK: No jugular venous distension. No carotid bruits. No lymph node enlargement. PermCath present. CARDIOVASCULAR: S1 and S2 muffled. RESPIRATORY: Breath sounds diminished in the bases. A few scattered rhonchi and crackles. ABDOMEN: Soft, obese, nontender. LEGS: No edema. NERVOUS SYSTEM: Diffusely weak. Labs are WBC 6.6, hemoglobin is 10.4. Creatinine is 5.6. Magnesium is 2.1. Albumin is 2.9. ASSESSMENT: 1. Acute on chronic renal failure. 2. On hemodialysis. 3. Sinus bradycardia. 4. Dehydration. 5. Hypotension. 6. Hypothermia. 7. Jerky movements of the extremities. 8. Mild hypoalbuminemia. 9. Anemia, microcytic, possibly secondary from renal failure. 10. FULL CODE. RECOMMENDATIONS AND DISCUSSION: In this 76-year-old gentleman who presented with multiple complex medical issues, at this time I recommend to continue current medications. Continue symptomatic treatment. Continue with pressor support. Monitor blood pressure closely. Monitor blood sugars closely. Otherwise, continue with the hemodialysis, fluid- electrolyte balance. Closely follow with Nephrology, ICU. Guarded prognosis. Further recommendations to follow. MTDD
[2016-11-07] MEDS: PRAVASTATIN SODIUM 20 MG TAB PO SCH (21:25)
[2016-11-07 21:26] LABS: Glucose,Whole Blood 238 mg/dL (75-99)
[2016-11-08] MEDS: VIT A,C & E-LUTEIN-MINERALS 1 EACH TAB PO SCH ×3 (00:34→21:31)
[2016-11-08] MEDS: VITAMIN E (DL,TOCOPHERYL ACET) 400 UNIT CAP PO SCH ×3 (00:34→21:31)
[2016-11-08] MEDS: PIPERACILLIN-TAZOBACTAM 3.375 GM in DEXTROSE/WATER 1 50ML.BAG IVPB SCH ×3 (00:36→21:37)
[2016-11-08] MEDS: methylPREDNISolone SOD SUCCI 40 MG/ML 1 ML VIAL IV SCH ×3 (00:36→16:58)
--- NOTE | 2016-11-08 07:28 | XR ---
EXAMINATION TYPE: XR chest 1V DATE OF EXAM: 11/08/2016 6:06 AM COMPARISON: 11/07/2016 HISTORY: 76-year-old male assess fluid status TECHNIQUE: Single frontal view of the chest is obtained. FINDINGS: Double-lumen hemodialysis catheter on the right with tips in the lower SVC and cavoatrial junction. M edian sternotomy wires are present. Continued mild interstitial densities and hazy right greater than left lung basilar opacities. IMPRESSION: Overall stable findings suggesting mild pulmonary vascular congestion with small pleural effusions.
[2016-11-08 07:34] LABS: Glucose,Whole Blood 102 mg/dL (75-99)
[2016-11-08] MEDS: INSULIN LISPRO (humaLOG) 300 UNIT/3 ML VIAL SQ SCH ×4 (08:37→21:29)
[2016-11-08] MEDS: PANTOPRAZOLE 40 MG TABLET PO SCH (08:57)
[2016-11-08] MEDS: CALCIUM ACETATE 667 MG CAP PO SCH ×3 (08:57→17:31)
[2016-11-08] MEDS: TAMSULOSIN 0.4 MG CAP.ER.24H PO SCH (08:58)
[2016-11-08] MEDS: LEVOTHYROXINE 100 MCG TAB PO SCH (08:58)
[2016-11-08] MEDS: ALLOPURINOL 100 MG TAB PO SCH (08:58)
[2016-11-08] MEDS: METOPROLOL TARTRATE 25 MG TAB PO SCH ×2 (08:59→21:30)
[2016-11-08] MEDS: MAGNESIUM OXIDE 400 MG TAB PO SCH ×2 (08:59→21:30)
[2016-11-08] MEDS: FUROSEMIDE 20 MG TAB PO SCH (08:59)
[2016-11-08] MEDS: PARoxetine 20 MG TAB PO SCH (09:00)
[2016-11-08] MEDS ORDERED: LEVOFLOXACIN 500 MG TAB PO SCH (09:00)
[2016-11-08] MEDS: BUDESONIDE 1 MG/2 ML NEBU INHALATION SCH ×2 (09:15→21:27)
[2016-11-08] MEDS: ALBUTEROL NEBULIZED 2.5 MG/3 ML INHALATION PRN (09:15)
[2016-11-08 09:33] LABS: Anisocytosis Slight; Basophils % (A) 0 %; CH 30.3; CHCM 30.2; Eosinophils % (A) 1 %; HCT 29.2 % (39.0-53.0); HDW 2.72; HGB 9.1 gm/dL (13.0-17.5); Hypochromasia Marked; Luc # (Auto) 0.04; Luc % (Auto) 1; Lymphocytes # (A) 0.2 k/uL (1.0-4.8); Lymphocytes % (A) 4 %; MCH 31.6 pg (25.0-35.0); MCHC 31.2 g/dL (31.0-37.0); MCV 101.3 fL (80.0-100.0); Macrocytosis Moderate; Mean Platelet Volume 7.7; Monocytes # (A) 0.2 k/uL (0-1.0); Monocytes % (A) 4 %; Neutrophils # (A) 5.1 k/uL (1.3-7.7); Neutrophils % (A) 91 %; RBC 2.88 m/uL (4.30-5.90); RDW 19.4 % (11.5-15.5); WBC 5.7 k/uL (3.8-10.6)
[2016-11-08 09:41] LABS: Calcium 7.9 mg/dL (8.4-10.2); Magnesium 2.4 mg/dL (1.6-2.3); Phosphorous 3.9 mg/dL (2.5-4.5); Potassium 3.8 mmol/L (3.5-5.1)
[2016-11-08] MEDS: CHOLECALCIFEROL 1,000 UNIT TAB PO SCH (11:58)
[2016-11-08 12:03] LABS: Glucose,Whole Blood 178 mg/dL (75-99)
--- NOTE | 2016-11-08 13:09 | P.PN ---
Subjective Principal diagnosis: Generalized weakness, acute on chronic renal failure, hypertension, possible sepsis. This is a 76-year-old white male with history of multiple medical problems including ischemic heart disease and previous CABG, chronic atrial fibrillation , patient has been maintained on amiodarone and beta blockers, history of COPD, moderate to severe but asymptomatic based on previous evaluation in my office. I have actually seen this patient for many years even prior to his previous CABG. At any rate patient was admitted in early October, and for some reason we were not consulted on this patient when he was in the intensive care unit. And the clearly stated to the admitting physician that I usually see her on a regular basis for his pulmonary status. He was also seen in the past by Dr. Nettles for obstructive sleep apnea, and he was advised to go on CPAP. At any rate looking back at his last admission which was 10/16/2016, and he was discharged on 10/15/2016. He was seen by Dr. Benigno briones and I believe there was a confusion and the name by the admitting physician. He was also seen by the facing end trimmer for coagulopathy. Based on the discharge summary dictation, patient was admitted at the time with acute renal failure and he required emergent dialysis. Also had some bleeding secondary to Xarelto. Patient was eventually discharged home on adequacy instead of Xarelto. Since his last admission, the patient has been gradually going downhill. He has been on dialysis on 3 times per week basis, history of functioning has been deteriorating, patient has been complaining of weakness all along, and upon this admission he was noted to be weak, bradycardic, hypotensive, hypothermic, and he was in junctional rhythm rate in the 40 range. Patient was also noted to be hyperkalemic, considering the rhythm was junctional, and considering the patient was scheduled for dialysis, no temporary pacemaker was felt to be necessary. Patient had elevated creatinine of 8.0, and he had a very poor urine output. Patient received Solu-Medrol, he was placed on his usual meds including Ventolin, Cordarone, and look was, Lasix, Synthroid, lisinopril, methylprednisolone, metoprolol, and he was placed on norepinephrine for low blood pressure he was also placed empirically on antibiotics in the form of Zosyn and Levaquin. Chest x-ray on this admission showed no evidence of congestive heart failure, no evidence of acute pulmonary process. Patient was reevaluated today on 11/07/2016, he feels a bit better today compared to yesterday. Less weakness, no shortness of breath, no chest pain, no nausea no vomiting no abdominal pain, however the patient remains relatively hypotensive requiring 10 g of norepinephrine per minute, patient is a bit confused but not as confused as he was yesterday. I went ahead and cut down the dose of his Solu-Medrol. And I plan to cut it down further. His myoclonic jerks have improved since amiodarone was discontinued. Patient is scheduled to undergo dialysis today, his labs were all reviewed, CBC is normal except for hemoglobin of 10.4. Electrolytes showed anion gap metabolic acidosis of 15 however his BUN is 41 and creatinine is 5.6 urine cultures and blood cultures are negative so far. His medications were all reviewed. His Synthroid was switched to oral form, and his Solu-Medrol was cut down to 40 mg every 8 instead of 60 mg every 6. Reevaluated on 11/08/2016, patient is feeling much better today, he is completely off norepinephrine, and he seems to be hemodynamically stable in spite of no pressors. Labs were reviewed CBC is relatively unremarkable except for hemoglobin of 9.1 his renal profile showed a BUN of 3 to creatinine of 4.13 electrolytes are normal. Chest x-ray is showing mild pulmonary vascular congestion and tiny pleural effusion. Objective - Vital Signs Vital signs: Vital Signs Temp 98.1 F 11/08/16 12:00 Pulse 82 11/08/16 12:00 Resp 20 11/08/16 12:00 BP 92/55 11/08/16 12:00 Pulse Ox 97 11/08/16 12:00 Intake & Output 11/07/16 11/08/16 11/08/16 18:59 06:59 18:59 Intake Total 1040.020 395.217 120 Output Total 72 71 5 Balance 968.020 324.217 115 Weight 109 kg 108.6 kg 108.6 kg Intake: IV 200 Sodium Chloride 0.9% 1, 200 000 ml @ 100 mls/hr IV . Q10H [facility] Rx#:[id number] Intake, IV Titration 560.020 395.217 120 Amount Norepinephrine 4 mg In 350.020 85.217 Sodium Chloride 0.9% 250 ml @ Titrate IV .Q0M [facility] Rx#:[id number] Piperacillin-Tazobactam 3 50.0 50.0 50 .375 gm In Dextrose/Water 1 50ml.bag @ 12.5 mls/hr IVPB Q12HR [facility] Rx#: [id number] Sodium Chloride 0.9% 1, 160 260 70 000 ml @ 50 mls/hr IV . Q20H [facility] Rx#:[id number] Oral 280 Output: Urine 72 71 5 Other: Voiding Method Indwelling Catheter Indwelling Catheter Indwelling Catheter # Bowel Movements 1 1 - Exam GENERAL EXAM: Patient is alert and oriented and in moderate distress HEENT: Normocephalic. Normal reaction of pupils, equal size NECK: No masses, no nuchal rigidity. CHEST: No chest wall deformity. LUNGS: Diminished breath sounds both bases HEART: S1 and S2 normal with no audible mumurs or gallops. Regular rhythm, femorals equal on both sides.. ABDOMEN: Protuberant and possible ascites SKIN: No rashes CENTRAL NERVOUS SYSTEM: No focal deficits. Except for the fact the patient is slightly confused EXTREMITIES: 1+ edema. - Labs CBC & Chem 7: 11/08/16 09:03 11/08/16 09:03 Labs: Abnormal Lab Results - Last 24 Hours (Table) 11/07/16 11/07/16 11/08/16 Range/Units 17:13 21:23 07:32 RBC (4.30-5.90) m/uL Hgb (13.0-17.5) gm/dL Hct (39.0-53.0) % MCV (80.0-100.0) fL RDW (11.5-15.5) % Plt Count (150-450) k/uL Lymphocytes # (1.0-4.8) k/uL BUN (9-20) mg/dL Creatinine (0.66-1.25) mg/dL Glucose (74-99) mg/dL POC Glucose (mg/dL) 188 H 238 H 102 H (75-99) mg/dL Calcium (8.4-10.2) mg/dL Magnesium (1.6-2.3) mg/dL 11/08/16 11/08/16 11/08/16 Range/Units 09:03 09:03 12:02 RBC 2.88 L (4.30-5.90) m/uL Hgb 9.1 L (13.0-17.5) gm/dL Hct 29.2 L (39.0-53.0) % MCV 101.3 H (80.0-100.0) fL RDW 19.4 H (11.5-15.5) % Plt Count 101 L (150-450) k/uL Lymphocytes # 0.2 L (1.0-4.8) k/uL BUN 32 H (9-20) mg/dL Creatinine 4.13 H (0.66-1.25) mg/dL Glucose 156 H (74-99) mg/dL POC Glucose (mg/dL) 178 H (75-99) mg/dL Calcium 7.9 L (8.4-10.2) mg/dL Magnesium 2.4 H (1.6-2.3) mg/dL Microbiology - Last 24 Hours (Table) 11/06/16 09:08 Urine Culture - Final Urine,Catheterized Escherichia coli Assessment and Plan Plan: Impression: Acute presentation of chronic and profound weakness which seems to be multifactorial, I believe it is secondary to bradycardia/junctional rhythm on presentation, hypotension, hypothermia, hypothyroidism, acute on chronic renal failure, chronic atrial fibrillation, and history of coronary artery disease as well as history of moderate COPD which is usually asymptomatic based on my previous workup in the office. Possibility of sepsis isn't entirely ruled out but felt to be less likely. Patient will be placed on empiric antibiotics for possible sepsis, most likely source will be urine. His urine culture came back positive for E. coli, sensitive to most antibiotics. Resistant to quinolones. Hence I will go ahead and discontinue Levaquin. Recommendation: Continue present supportive care measures including empiric antibiotics, GI and DVT prophylaxis, hemodynamic support, correction of his renal failure by hemodialysis, serum cortisol level on admission was normal. Continue close follow-up in the ICU. Prognosis is definitely guarded, will continue to follow closely. Considering the patient is feeling much better today, and he is off pressors, I will likely transfer the patient to a monitored bed on selective today. Time with Patient: Less than 30
--- NOTE | 2016-11-08 14:35 | PN ---
Patient is seen for follow-up for acute kidney injury and chronic kidney disease. He was admitted to the hospital with a creatinine of 8, bradycardia, hypokalemia and severe oliguria. Patient was dialyzed 2 days in a row. He also had significant edema and fluid overload. Patient had been on pressors, which are now discontinued. He is currently feeling better. He is sitting up, awake. He is not in any acute distress; however, there continues to be no significant urine output. Patient does have an IJ Perm-A-Cath and he will be dialyzed again tomorrow. On examination today, blood pressure is 92/55, heart rate 82 per minute. He is afebrile. Examination of the heart S1 and S2 diminished. LUNGS: Decreased breath sounds in bases. ABDOMEN: Soft, nontender, obese. Examination of lower extremities shows edema 2+ bilaterally with chronic skin changes noted. Labs show sodium 139, potassium 3.8. Hemoglobin 9.1 g/dL. ASSESSMENT: 1. Acute kidney injury on top of chronic kidney disease. Currently patient remains oliguric. He will continue to remain hemodialysis dependent until there is some evidence of recovery of renal function. 2. Volume overload, slowly improving. Patient will be dialyzed again tomorrow with ultrafiltration as tolerated. I will start him on IV Lasix as well. 3. Bradycardia currently resolved. 4. Hypothyroidism. PLAN: Maintain patient on Lasix and maintain patient on IV push Lasix and arrange for hemodialysis in a.m.
[2016-11-08 16:51] LABS: Glucose,Whole Blood 131 mg/dL (75-99)
--- NOTE | 2016-11-08 17:47 | PN ---
DATE OF SERVICE: 11/08/2016 I am covering for Dr. Titus. This 76 -year-old gentleman who was admitted with hypothyroidism, also had acute on chronic renal failure, the patient had acute tubular necrosis and the patient and is on hemodialysis at this time. The patient also had abnormal movements of the extremities. The patient also has shortness of breath. The patient had severe bradycardia, heart rate was 130s. The patient seemed to be gradually improving. Multiple consultants including Dr. Romeo as well as Dr. Obando are following the patient closely. The most recent labs are hemoglobin 9.1, creatinine is still elevated at 4.13. PAST MEDICAL HISTORY: Reviewed. REVIEW OF SYSTEMS: CARDIOVASCULAR: S1, S2 muffled. RESPIRATORY: As mentioned earlier. GI: No nausea. No vomiting. : No dysuria. Nervous system: No numbness or weakness. Current medications are reviewed and include: 1. Ventolin 2.5 q.i.d. p.r.n. 2. Zyloprim 100 mg each morning. 3. Pulmicort 1 mg b.i.d. 4. PhosLo t.i.d. 5. Vitamin D3 1000 daily. 6. Lasix 60 mg b.i.d. 7. Synthroid 200 mcg p.o. daily. 8. Magnesium oxide. 9. Solu-Medrol 40 IV q8h. 10. Multivitamins. 11. Narcan. 12. Paxil. 13. Zosyn. 14. IV Pravachol. 15. Flomax. 16. Vitamin E. PHYSICAL EXAMINATION: The patient is alert and oriented times two. Pulse 82. Blood pressure 92/54. Respiratory rate 20, temperature 98.1. Pulse ox 97% on room air. HEENT: Conjunctivae normal. Oral mucosa moist. NECK: No jugular venous distention. No carotid bruit. No lymph node enlargement. CARDIOVASCULAR: S1, S2 muffled. RESPIRATORY: Breath sounds diminished at the bases. Bilateral scattered rhonchi and crackles. Expiratory wheezing also present. ABDOMEN: Soft, obese, nontender. No mass palpable. LEGS: No edema. No swelling. CENTRAL NERVOUS SYSTEM: No focal deficits. Labs: WBC 5.7, hemoglobin 9.1, creatinine is 4.12. Other labs are noted. ASSESSMENT: 1. Acute tubular necrosis with acute renal failure, possibly multifactorial. 2. History of chronic kidney disease. 3. On hemodialysis. 4. Sinus bradycardia. 5. Dehydration present on admission. 6. Hypotension. 8. Jerking movements of the extremities. 9. Mild hypoalbuminemia. 10. Anemia, microcytic possibly secondary to renal failure. 11. Obesity with body mass index of 34.4. 12. FULL CODE. RECOMMENDATIONS AND DISCUSSION: In this 76-year-old gentleman who presented with multiple complex medical issues, we will monitor the patient closely, continue the current medications, continue symptomatic treatment, resume the home medication. DVT prophylaxis. Otherwise, monitor blood sugars closely. Steroids, tapering steroids, bronchodilators. Closely follow with pulmonary. Further recommendations to follow. Prognosis guarded. Discussed with the patient. Monitor creatinine closely. Continue the hemodialysis for now. Dr. Titus will follow. [facility]
--- NOTE | 2016-11-08 17:52 | PN ---
Mr. Zayas is a 76-year-old male with known history of coronary artery disease, history of paroxysmal atrial fibrillation and who had evidence of progressive renal failure and end-stage renal disease. He is getting dialysis. He is feeling much better overall. His energy is better. His breathing is better. He has no further episode of bradyarrhythmia. He is on no pressors and his blood pressure is remaining stable. He continues to be at this time on: 1. Allopurinol. 2. Furosemide 60 mg IV q.12 hours. 3. He is on metoprolol 25 mg twice a day. 4. He is off his amiodarone. 5. His Eliquis was stopped yesterday because of the renal end-stage renal failure. PHYSICAL EXAMINATION: Blood pressure running in the 90s. Heart rate in the 70s. LUNGS: Clear. HEART: Regular rate rhythm. S1, S2, no S3, with systolic murmur and diastolic murmur. ABDOMEN: Soft, nontender. EXTREMITIES: With 1+ edema. Lab data revealed BUN and creatinine 32 and 4.13. Potassium 3.8. Hemoglobin of 9.1. IMPRESSION: 1. End-stage renal disease, receiving hemodialysis. 2. Bradycardia, resolved. 3. History of coronary artery disease. 4. Paroxysmal atrial fibrillation, remains in sinus mechanism. 5. Hyperlipidemia. RECOMMENDATIONS: From the cardiac standpoint, we will continue present therapy. Patient will require anticoagulation and Coumadin will be his only option since the novel anticoagulant are not preferred in end-stage renal disease, but we will observe his renal function and probably initiate anticoagulation depending on his status as soon.
[2016-11-08 20:46] LABS: Glucose,Whole Blood 211 mg/dL (75-99)
[2016-11-08] MEDS: FUROSEMIDE 10 MG/ML 10 ML VIAL IV SCH (21:30)
[2016-11-08] MEDS: PRAVASTATIN SODIUM 20 MG TAB PO SCH (21:31)
[2016-11-09] MEDS: methylPREDNISolone SOD SUCCI 40 MG/ML 1 ML VIAL IV SCH ×3 (00:29→23:23)
[2016-11-09] MEDS: INSULIN LISPRO (humaLOG) 300 UNIT/3 ML VIAL SQ SCH ×4 (06:40→23:24)
--- NOTE | 2016-11-09 07:34 | XR ---
EXAMINATION TYPE: XR chest 1V DATE OF EXAM: 11/09/2016 7:30 AM COMPARISON: NONE HISTORY: 76-year-old male assess fluid status TECHNIQUE: Single frontal view of the chest is obtained. FINDINGS: Double-lumen hemodialysis catheter on the right with tips in the lower SVC and cavoatrial j unction. Median sternotomy wires are present. Continued mild interstitial densities and hazy right gr eater than left lung basilar opacities. IMPRESSION: 1. Overall stable findings suggesting mild pulmonary vascular congestion with small pleural effusions .
[2016-11-09] MEDS: BUDESONIDE 1 MG/2 ML NEBU INHALATION SCH ×2 (08:04→19:31)
[2016-11-09] MEDS: HYDROcodone/APAP 5-325MG 1 EACH TAB PO PRN ×2 (08:56→15:11)
[2016-11-09] MEDS: LEVOTHYROXINE 100 MCG TAB PO SCH (08:58)
[2016-11-09] MEDS: CALCIUM ACETATE 667 MG CAP PO SCH ×3 (08:59→23:21)
[2016-11-09] MEDS: PANTOPRAZOLE 40 MG TABLET PO SCH (08:59)
[2016-11-09] MEDS: TAMSULOSIN 0.4 MG CAP.ER.24H PO SCH (09:01)
[2016-11-09] MEDS: ALLOPURINOL 100 MG TAB PO SCH (09:01)
[2016-11-09] MEDS: PIPERACILLIN-TAZOBACTAM 3.375 GM in DEXTROSE/WATER 1 50ML.BAG IVPB SCH ×2 (09:02→21:00)
[2016-11-09] MEDS: VITAMIN E (DL,TOCOPHERYL ACET) 400 UNIT CAP PO SCH ×2 (09:02→23:23)
[2016-11-09] MEDS: FUROSEMIDE 10 MG/ML 10 ML VIAL IV SCH ×2 (09:02→23:22)
[2016-11-09] MEDS: VIT A,C & E-LUTEIN-MINERALS 1 EACH TAB PO SCH ×2 (09:02→23:23)
[2016-11-09] MEDS: MAGNESIUM OXIDE 400 MG TAB PO SCH ×2 (09:03→23:22)
[2016-11-09] MEDS: METOPROLOL TARTRATE 25 MG TAB PO SCH ×2 (09:03→23:24)
[2016-11-09] MEDS: PARoxetine 20 MG TAB PO SCH (09:04)
[2016-11-09 11:12] LABS: Anisocytosis Slight; Basophils % (A) 0 %; CH 30.8; CHCM 30.7; Eosinophils % (A) 0 %; HCT 30.7 % (39.0-53.0); HGB 9.4 gm/dL (13.0-17.5); Hypochromasia Moderate; Luc # (Auto) 0.03; Luc % (Auto) 1; Lymphocytes # (A) 0.2 k/uL (1.0-4.8); Lymphocytes % (A) 4 %; MCH 30.9 pg (25.0-35.0); MCHC 30.5 g/dL (31.0-37.0); MCV 101.4 fL (80.0-100.0); Macrocytosis Moderate; Mean Platelet Volume 9.2; Monocytes # (A) 0.3 k/uL (0-1.0); Monocytes % (A) 7 %; Neutrophils # (A) 4.3 k/uL (1.3-7.7); Neutrophils % (A) 89 %; RBC 3.03 m/uL (4.30-5.90); RDW 19.6 % (11.5-15.5); WBC 4.9 k/uL (3.8-10.6); WBC (Perox) 5.19
[2016-11-09 11:22] LABS: Calcium 8.5 mg/dL (8.4-10.2); Magnesium 2.4 mg/dL (1.6-2.3); Potassium 3.8 mmol/L (3.5-5.1)
[2016-11-09 11:32] LABS: Manual Review Performed
[2016-11-09 11:34] LABS: Target Cells Present
[2016-11-09 11:45] LABS: Glucose,Whole Blood 123 mg/dL (75-99)
--- NOTE | 2016-11-09 12:01 | P.PN ---
Subjective Principal diagnosis: Acute on chronic renal failure. This continue progress on a 76-year-old white male essentially admitted for acute on chronic renal failure. Dialysis was instituted this past weekend. He is now much more stable. Last creatinine was 4.79. No significant chest pain or shortness of breath. We will transfer him to telemetry general medical floor because of his history of atrial fibrillation. No voiding symptoms noted. No sniffing nausea, vomiting or diarrhea. Objective - Vital Signs Vital signs: Vital Signs Temp 96.8 F L 11/09/16 08:00 Pulse 61 11/09/16 08:00 Resp 16 11/09/16 08:00 BP 114/57 11/09/16 08:00 Pulse Ox 92 L 11/09/16 08:04 Intake & Output 11/08/16 11/09/16 11/09/16 18:59 06:59 18:59 Intake Total 260 60 Output Total 305 Balance -45 60 Weight 108.6 kg 111 kg Intake: Intake, IV Titration 140 Amount Piperacillin-Tazobactam 3 50 .375 gm In Dextrose/Water 1 50ml.bag @ 12.5 mls/hr IVPB Q12HR [facility] Rx#: [id number] Sodium Chloride 0.9% 1, 90 000 ml @ 50 mls/hr IV . Q20H [facility] Rx#:[id number] Oral 120 60 Output: Urine 305 Other: Voiding Method Indwelling Catheter Indwelling Catheter Indwelling Catheter # Bowel Movements 1 3 - Constitutional General appearance: Present: average body habitus - EENT Eyes: Absent: abnormal pupil - Respiratory Respiratory: bilateral: CTA - Cardiovascular Rhythm: regular Heart sounds: normal: S1, S2 - Gastrointestinal General gastrointestinal: Present: soft. Absent: tenderness - Neurologic Neurologic: Present: focal deficits - Labs CBC & Chem 7: 11/09/16 10:53 11/09/16 10:53 Labs: Abnormal Lab Results - Last 24 Hours (Table) 11/08/16 11/08/16 11/08/16 Range/Units 12:02 16:47 20:45 RBC (4.30-5.90) m/uL Hgb (13.0-17.5) gm/dL Hct (39.0-53.0) % MCV (80.0-100.0) fL MCHC (31.0-37.0) g/dL RDW (11.5-15.5) % Plt Count (150-450) k/uL Lymphocytes # (1.0-4.8) k/uL BUN (9-20) mg/dL Creatinine (0.66-1.25) mg/dL Glucose (74-99) mg/dL POC Glucose (mg/dL) 178 H 131 H 211 H (75-99) mg/dL Magnesium (1.6-2.3) mg/dL 11/09/16 11/09/16 11/09/16 Range/Units 10:53 10:53 11:43 RBC 3.03 L (4.30-5.90) m/uL Hgb 9.4 L (13.0-17.5) gm/dL Hct 30.7 L (39.0-53.0) % MCV 101.4 H (80.0-100.0) fL MCHC 30.5 L (31.0-37.0) g/dL RDW 19.6 H (11.5-15.5) % Plt Count 83 L (150-450) k/uL Lymphocytes # 0.2 L (1.0-4.8) k/uL BUN 42 H (9-20) mg/dL Creatinine 4.78 H (0.66-1.25) mg/dL Glucose 126 H (74-99) mg/dL POC Glucose (mg/dL) 123 H (75-99) mg/dL Magnesium 2.4 H (1.6-2.3) mg/dL Microbiology - Last 24 Hours (Table) 11/06/16 09:08 Urine Culture - Final Urine,Catheterized Escherichia coli Assessment and Plan (1) [id number] renal failure Status: Acute (2) Bradycardia Status: Acute (3) Dehydration Status: Acute (4) Hypotension Status: Acute (5) Hypothermia Status: Acute (6) Jerking movements of extremities Status: Acute Plan: Continue check CMP. Multiple consultants are noted. See orders otherwise. Time with Patient: Less than 30
[2016-11-09] MEDS: CHOLECALCIFEROL 1,000 UNIT TAB PO SCH (12:03)
[2016-11-09 12:24] LABS: Hemoglobin A1C 5.1 % (4.2-6.1)
[2016-11-09] MEDS: SODIUM CHLORIDE 0.9% 1,000 ML IV SCH (14:47)
[2016-11-09 16:46] LABS: Glucose,Whole Blood 198 mg/dL (75-99)
[2016-11-09] MEDS ORDERED: WARFARIN 5 MG TAB PO ONE (18:00)
[2016-11-09] MEDS: ALBUTEROL NEBULIZED 2.5 MG/3 ML INHALATION PRN (19:31)
--- NOTE | 2016-11-09 19:42 | PN ---
Patient is seen for follow-up for acute kidney injury on top of chronic kidney disease. He was admitted to the hospital with severe advanced renal failure and oliguria. Patient has had dialysis since admission. His urine output remains poor. However, it seems to have picked up over the last 8 hours. He is scheduled for dialysis today. Patient is being transferred out of the ICU. He had been hypotensive and was maintained on pressors previously. On examination, blood pressure 93/50, heart rate 56 per minute. He is afebrile. Examination of the heart S1 and S2. Examination of the lungs decreased breath sounds at the bases. ABDOMEN: Soft obese. Examination of lower extremities shows edema 2+ bilaterally, upper and lower extremities. FOLDER INSPECTOR exam is grossly intact. Patient has been moving all 4 extremities. Labs show sodium 139, potassium 3.8, BUN 42, serum creatinine 4.78. Hemoglobin 9.4 g/dL. ASSESSMENT: 1. Acute kidney injury on top of chronic kidney disease, with oliguric renal failure, most likely acute tubular necrosis, currently with improved urine output; however, patient remains hemodialysis dependent and he will be dialyzed again today. We will continue to monitor over the course of his stay for any recovery of renal function. 2. History of dialysis-dependent renal failure on his last admission. 3. Fluid overload, slowly improving. 4. Chronic kidney disease, bone mineral disorder, maintained on PhosLo PLAN: 5. Continue with Lasix hemodialysis today. 6. Continue PhosLo.
[2016-11-09 20:10] LABS: Glucose,Whole Blood 116 mg/dL (75-99)
[2016-11-09] MEDS ORDERED: HEPARIN SODIUM,PORCINE 5,000 UNIT/ML 1 ML VIAL ONE (20:30)
--- NOTE | 2016-11-09 21:47 | PN ---
Mr. Zayas is a 76-year-old male with a known history of coronary artery disease, history of paroxysmal atrial fibrillation who presented with end stage renal disease, received hemodialysis. He is feeling better today. He still has some peripheral edema. He denies any chest pain. His appetite is better. His energy is better. He continues to be on Lasix 60 mg IV every 12 hours, insulin, metoprolol tartrate 25 mg twice a day, Protonix, pravastatin 20 mg daily, methylprednisolone. PHYSICAL EXAMINATION: Blood pressure 114/50 with a heart rate in 60s. LUNGS: No wheezes. HEART: Regular rate rhythm. S1, S2, no S3, no rub. ABDOMEN: Soft, nontender. EXTREMITIES: +1 edema. Lab data revealed BUN and creatinine 42 and 4.78. Potassium 3.8. Hemoglobin 9.4. IMPRESSION: 1. End-stage renal disease on hemodialysis. 2. History of coronary artery disease. 3. Paroxysmal atrial fibrillation. RECOMMENDATIONS: From the cardiac standpoint, I will start him on Coumadin since his Eliquis had to be stopped. Continue the rest of his medical regimen. Follow his INR and depending on his progress, further recommendations will be made.
[2016-11-09] MEDS: PRAVASTATIN SODIUM 20 MG TAB PO SCH (23:23)
[2016-11-10] MEDS: LEVOTHYROXINE 100 MCG TAB PO SCH (06:25)
[2016-11-10] MEDS: ALBUTEROL NEBULIZED 2.5 MG/3 ML INHALATION PRN ×2 (08:00→20:48)
[2016-11-10] MEDS: BUDESONIDE 1 MG/2 ML NEBU INHALATION SCH ×2 (08:00→20:48)
[2016-11-10 08:22] LABS: Glucose,Whole Blood 122 mg/dL (75-99)
[2016-11-10 08:30] LABS: Anisocytosis Slight; Basophils % (A) 0 %; CH 30.3; CHCM 30.3; Eosinophils % (A) 0 %; HCT 32.9 % (39.0-53.0); HDW 2.73; Hypochromasia Marked; Luc # (Auto) 0.03; Luc % (Auto) 1; Lymphocytes # (A) 0.3 k/uL (1.0-4.8); Lymphocytes % (A) 5 %; MCH 30.7 pg (25.0-35.0); MCHC 30.4 g/dL (31.0-37.0); Macrocytosis Moderate; Mean Platelet Volume 8.6; Monocytes # (A) 0.3 k/uL (0-1.0); Monocytes % (A) 6 %; Neutrophils # (A) 4.4 k/uL (1.3-7.7); Neutrophils % (A) 88 %; RBC 3.26 m/uL (4.30-5.90); RDW 19.1 % (11.5-15.5); WBC (Perox) 5.54
[2016-11-10 08:41] LABS: Calcium 8.4 mg/dL (8.4-10.2); Magnesium 2.2 mg/dL (1.6-2.3); Phosphorous 3.7 mg/dL (2.5-4.5); Potassium 3.6 mmol/L (3.5-5.1); Total Bilirubin 0.7 mg/dL (0.2-1.3); Total Protein 5.7 g/dL (6.3-8.2)
[2016-11-10 08:44] LABS: INR 1.4 (<1.1); Prothrombin Time 13.3 sec (9.0-12.0)
[2016-11-10] MEDS: INSULIN LISPRO (humaLOG) 300 UNIT/3 ML VIAL SQ SCH ×4 (09:05→21:03)
[2016-11-10] MEDS: TAMSULOSIN 0.4 MG CAP.ER.24H PO SCH (09:06)
[2016-11-10] MEDS: CALCIUM ACETATE 667 MG CAP PO SCH ×3 (09:06→16:49)
[2016-11-10] MEDS: CHOLECALCIFEROL 1,000 UNIT TAB PO SCH (09:06)
[2016-11-10] MEDS: METOPROLOL TARTRATE 25 MG TAB PO SCH ×2 (09:06→21:03)
[2016-11-10] MEDS: methylPREDNISolone SOD SUCCI 40 MG/ML 1 ML VIAL IV SCH (09:07)
[2016-11-10] MEDS: FUROSEMIDE 10 MG/ML 10 ML VIAL IV SCH (09:07)
[2016-11-10] MEDS: MAGNESIUM OXIDE 400 MG TAB PO SCH ×2 (09:07→21:03)
[2016-11-10] MEDS: ALLOPURINOL 100 MG TAB PO SCH (09:07)
[2016-11-10] MEDS: PANTOPRAZOLE 40 MG TABLET PO SCH (09:07)
[2016-11-10] MEDS: VITAMIN E (DL,TOCOPHERYL ACET) 400 UNIT CAP PO SCH ×2 (09:08→21:03)
[2016-11-10] MEDS: PARoxetine 20 MG TAB PO SCH (09:08)
[2016-11-10] MEDS: VIT A,C & E-LUTEIN-MINERALS 1 EACH TAB PO SCH ×2 (09:08→21:03)
[2016-11-10] MEDS: PIPERACILLIN-TAZOBACTAM 3.375 GM in DEXTROSE/WATER 1 50ML.BAG IVPB SCH ×2 (09:52→21:09)
--- NOTE | 2016-11-10 10:14 | P.PN ---
Subjective Principal diagnosis: Acute on chronic renal failure. This is a continue progress note on a 76-year-old white male essentially admitted for acute on chronic renal failure with history diabetes and atrial fibrillation. The patient is slowly recovering. He remains hemodialysis dependent at this time. No sniffing chest pain or shortness of breath. He seems more alert and oriented compared to his admission status. Objective - Vital Signs Vital signs: Vital Signs Temp 98.1 F 11/10/16 07:00 Pulse 68 11/10/16 08:10 Resp 16 11/10/16 07:00 BP 119/53 11/10/16 07:00 Pulse Ox 91 L 11/10/16 08:00 Intake & Output 11/09/16 11/10/16 11/10/16 18:59 06:59 18:59 Intake Total 1380 Balance 1380 Weight 111 kg Intake: Oral 1380 Other: Voiding Method Indwelling Catheter Indwelling Catheter # Bowel Movements 1 - Constitutional General appearance: Present: obese - EENT Eyes: Absent: abnormal pupil - Respiratory Respiratory: bilateral: CTA - Cardiovascular Rhythm: irregularly irregular Heart sounds: normal: S1, S2 - Gastrointestinal General gastrointestinal: Present: soft. Absent: tenderness - Integumentary Integumentary: Absent: cellulitis - Labs CBC & Chem 7: 11/10/16 07:55 11/10/16 07:55 Labs: Abnormal Lab Results - Last 24 Hours (Table) 11/09/16 11/09/16 11/09/16 Range/Units 10:53 10:53 11:43 RBC 3.03 L (4.30-5.90) m/uL Hgb 9.4 L (13.0-17.5) gm/dL Hct 30.7 L (39.0-53.0) % MCV 101.4 H (80.0-100.0) fL MCHC 30.5 L (31.0-37.0) g/dL RDW 19.6 H (11.5-15.5) % Plt Count 83 L (150-450) k/uL Lymphocytes # 0.2 L (1.0-4.8) k/uL PT (9.0-12.0) sec Chloride (98-107) mmol/L BUN 42 H (9-20) mg/dL Creatinine 4.78 H (0.66-1.25) mg/dL Glucose 126 H (74-99) mg/dL POC Glucose (mg/dL) 123 H (75-99) mg/dL Magnesium 2.4 H (1.6-2.3) mg/dL Total Protein (6.3-8.2) g/dL Albumin (3.5-5.0) g/dL 11/09/16 11/09/16 11/10/16 Range/Units 16:44 20:08 07:07 RBC (4.30-5.90) m/uL Hgb (13.0-17.5) gm/dL Hct (39.0-53.0) % MCV (80.0-100.0) fL MCHC (31.0-37.0) g/dL RDW (11.5-15.5) % Plt Count (150-450) k/uL Lymphocytes # (1.0-4.8) k/uL PT (9.0-12.0) sec Chloride (98-107) mmol/L BUN (9-20) mg/dL Creatinine (0.66-1.25) mg/dL Glucose (74-99) mg/dL POC Glucose (mg/dL) 198 H 116 H 122 H (75-99) mg/dL Magnesium (1.6-2.3) mg/dL Total Protein (6.3-8.2) g/dL Albumin (3.5-5.0) g/dL 11/10/16 11/10/16 11/10/16 Range/Units 07:55 07:55 07:55 RBC 3.26 L (4.30-5.90) m/uL Hgb 10.0 L (13.0-17.5) gm/dL Hct 32.9 L (39.0-53.0) % MCV 101.0 H (80.0-100.0) fL MCHC 30.4 L (31.0-37.0) g/dL RDW 19.1 H (11.5-15.5) % Plt Count 91 L (150-450) k/uL Lymphocytes # 0.3 L (1.0-4.8) k/uL PT 13.3 H (9.0-12.0) sec Chloride 97 L (98-107) mmol/L BUN 30 H (9-20) mg/dL Creatinine 3.45 H (0.66-1.25) mg/dL Glucose 147 H (74-99) mg/dL POC Glucose (mg/dL) (75-99) mg/dL Magnesium (1.6-2.3) mg/dL Total Protein 5.7 L (6.3-8.2) g/dL Albumin 2.8 L (3.5-5.0) g/dL Assessment and Plan (1) [id number] renal failure Status: Acute (2) Bradycardia Status: Acute (3) Dehydration Status: Acute (4) Hypotension Status: Acute (5) Hypothermia Status: Acute (6) Jerking movements of extremities Status: Acute Plan: Continue to follow with nephrology. From a cardiac standpoint he seems to be stabilizing. Creatinine is slowly going down. Check CMP in a.m. Prognosis is is definitely improving. Once cleared by cardiology and nephrology, we'll anticipate discharge in next 24 -48 hours. We will wean to oral Lasix and prednisone today. Diabetes-stable. Time with Patient: Less than 30
--- NOTE | 2016-11-10 10:31 | XR ---
EXAMINATION TYPE: XR chest 1V DATE OF EXAM: 11/10/2016 10:26 AM COMPARISON: Prior chest x-ray 09 November 2016 HISTORY: Renal failure, fluid status, abnormal chest x-ray TECHNIQUE: Single frontal view of the chest is obtained. FINDINGS: No significant interval change is evident. Right jugular central venous catheter is again noted with the distal tip overlying the right atrium. Patient is post median sternotomy. Abnormal inc reased density present at the lung bases, there is no evident pneumothorax. Pulmonary vascularity and benedicto are within normal limits. IMPRESSION: There may be basilar effusions and associated atelectasis, correlate to exclude pneumonia , edema. Follow-up as indicated.
[2016-11-10 11:15] LABS: Glucose,Whole Blood 176 mg/dL (75-99)
[2016-11-10] MEDS: predniSONE 20 MG TAB PO SCH (11:15)
--- NOTE | 2016-11-10 13:05 | CDI ---
In responding to this query, please exercise your independent professional judgment. The [facility] Coding Staff and Clinical Documentation Specialists appreciate your assistance in clarifying documentation, maintaining compliance with coding guidelines, accurately documenting patients condition and capturing severity of illness. The fact that a question is asked does not imply that any particular answer is desired or expected. Communication forms are a method of clarifying documentation and are not made part of the Legal Health Record. Thank you in advance for your clarification. Last Revision, January 2016 Eugene Hartman [address] [facility] [place] [address] Documentation Clarification Form Date: 11/10/2016 12:55:00 PM From: Klaudia Francois Admit Date: 11/05/2016 11:52:00 PM Patient Name: Shyam Zayas Visit Number: [id number] Dr. Renato Titus Patient history/risk factors: End stage Renal Failure Atrial Fibrillation CHF COPD DM Clinical Indicators: Vitals: bp 82/58, hr 45 on 11/05 Treatment: IV Levophed IV fluids with boluses x3 In your professional opinion, can you please specify if this signifies a diagnosis listed below: Septic Shock o Suspected or known causative organism o Any associated organ failure Cardiogenic Shock o Cause Hypovolemic Shock o Cause Other, please specify Unable to determine Please document in your progress notes and discharge summary in order to capture severity of illness and risk of mortality. Include clinical findings that support your diagnosis. FYI: Press F11 to launch patient chart. Place X here if this finding has no clinical significance, is not applicable or if you are not able to provide any additional documentation. MABLE
--- NOTE | 2016-11-10 13:18 | CDI ---
In responding to this query, please exercise your independent professional judgment. The [facility] Coding Staff and Clinical Documentation Specialists appreciate your assistance in clarifying documentation, maintaining compliance with coding guidelines, accurately documenting patients condition and capturing severity of illness. The fact that a question is asked does not imply that any particular answer is desired or expected. Communication forms are a method of clarifying documentation and are not made part of the Legal Health Record. Thank you in advance for your clarification. Last Revision, January 2016 Eugene Hartman [address] [facility] [place] [address] Documentation Clarification Form Date: 11/10/2016 1:06:00 PM From: Klaudia Francois Admit Date: 11/05/2016 11:52:00 PM Patient Name: Shyam Zayas Visit Number: [id number] Dr. Renato Titus 'Confusion' noted in the H&P. Patient history/risk factors: Renal Failure Diabetes Mellitus CHF COPD Hypotension Dehydration Bradycardia Clinical Indicators: Labs on admission: hgb 9.6, hct 31.3, bun 59, cr 8.23, Phosphorus 6.3, Magnesium 3.6, TSH 26.100 Urinalysis on 11/06: turbid, 2+ protein, large blood, + nitrate, large leuks, wbc >182 Urine Culture from 11/06: Escherichia Coli >100,000 X Ray: negative Treatment: IV fluids with boluses Updrafts IV Solu-Cortef IV Synthroid IV Levophed IV Zosyn In your professional opinion, please clarify the etiology of the altered mental status, if known. Dementia (if know, specify Type and if with/without Behavioral Disturbance) Encephalopathy (specify Type and Underlying Medical Illness) Other condition (please specify) Unable to determine Please document in your progress notes and discharge summary in order to capture severity of illness and risk of mortality. Include clinical findings that support your diagnosis. FYI: Press F11 to launch patient chart. Place X here if this finding has no clinical significance, is not applicable or if you are not able to provide any additional documentation. MTDD
--- NOTE | 2016-11-10 13:24 | CDI ---
In responding to this query, please exercise your independent professional judgment. The [facility] Coding Staff and Clinical Documentation Specialists appreciate your assistance in clarifying documentation, maintaining compliance with coding guidelines, accurately documenting patients condition and capturing severity of illness. The fact that a question is asked does not imply that any particular answer is desired or expected. Communication forms are a method of clarifying documentation and are not made part of the Legal Health Record. Thank you in advance for your clarification. Last Revision, September 2015 Eugeneghulam Hartman [address] [facility] [place] [address] Documentation Clarification Form Date: 11/10/2016 1:19:00 PM From: Klaudia Francois Admit Date: 11/05/2016 11:52:00 PM Patient Name: Shyam Zayas Visit Number: [id number] Dr. Renato Titus History/Risk Factors: Diabetes Mellitus Renal Failure on hemodialysis Clinical Indicators: Vital Signs: temp 96.1, hr 91, rr20, bp 101/59, sats 100% on 2L WBC: 5.1 Lactic Acid: 1.9 Urinalysis: turbid, 2+ protein, large blood, large leuks, wbc >182 Urine Culture: >100,000 Escherichia Coli Treatment: Antibiotics: IV Zosyn IV fluids with boluses x3 Please document the condition that these clinical indicators signify, whether Present on Admission, and cause if known: UTI Specify organism, if known Contaminated specimen Unable to determine Other (please specify) Please document in your progress notes and discharge summary in order to capture severity of illness and risk of mortality. Include clinical findings that support your diagnosis. FYI: Press F11 to launch patient chart. Place X here if this finding has no clinical significance, is not applicable or if you are not able to provide any additional documentation. MABLE
--- NOTE | 2016-11-10 15:20 | PN ---
This is a 75-year-old gentleman admitted by Dr. Renato Titus. Patient is doing reasonably well. Patient is known to have atherosclerotic heart disease, status post aortocoronary bypass surgery done in 2007 admitted to the hospital with history of paroxysmal atrial fibrillation, converted to sinus rhythm, remaining in sinus rhythm. Patient is known to have hypertension, hyperlipidemia, renal failure on dialysis. Patient still has some peripheral edema, receiving IV diuretics responding very well to urine output. Patient will be continued on current medications, which include Lasix 60 mg IV push every 12 hours, metoprolol 25 mg, Protonix and atorvastatin 20 mg methylprednisolone. Vital signs are stable. The patient denies any chest pain or pressure. The patient is moderately obese with a pulse rate of 61 beats per minute and regular, blood pressure of 119/53, respirations of 16. Head normocephalic. HEENT unremarkable. Neck is supple. No JVD. CARDIAC EXAMINATION: S1 and S2. Irregular rate and rhythm. No gallops or murmurs. LUNGS: Clinically clear to auscultation and percussion. ABDOMEN: Soft and nontender. EXTREMITIES: 1+ pedal edema. Patient is on dialysis ( ). IMPRESSION: 1. End stage renal disease on dialysis. 2. Atherosclerotic heart disease, status post aortocoronary bypass surgery ( ). 3. Paroxysmal atrial fibrillation, converted to sinus rhythm remaining in sinus rhythm on Coumadin for pro time. Patient's INR still not therapeutic yet. Patient will be seen ( ) in the future.
--- NOTE | 2016-11-10 15:52 | P.PN ---
Subjective Progress note dated 11/10/2016 76-year-old gentleman seen by Dr. Romeo last on the first. It appears that Dr. Lazo has sign off this patient at that time. His initial presentation was that of profound weakness which seemed to be multifactorial in part related to underlying bradycardia hypotension hypothermia hypothyroidism acute on chronic renal fire and chronic atrial fibrillation. Anyway the patient is doing much much better. Dr. Lazo thought sepsis is less likely a cause of his underlying medical problems. Anyway the antibiotic for begun and his urine culture did come back positive for E. coli. The patient was moved out of the ICU when he became more stable he was off pressors. He is currently on the oncology floor. Doing much better. Feeling much better. Objective - Vital Signs Vital signs: Vital Signs Temp 97.9 F 11/10/16 14:51 Pulse 60 11/10/16 14:51 Resp 16 11/10/16 14:51 BP 90/53 11/10/16 14:51 Pulse Ox 95 11/10/16 14:51 Intake & Output 11/09/16 11/10/16 11/10/16 18:59 06:59 18:59 Intake Total 1380 50 Balance 1380 50 Weight 111 kg 111 kg Intake: Intake, IV Titration 50 Amount Piperacillin-Tazobactam 3 50 .375 gm In Dextrose/Water 1 50ml.bag @ 12.5 mls/hr IVPB Q12HR [facility] Rx#: [id number] Oral 1380 Other: Voiding Method Indwelling Catheter Indwelling Catheter Indwelling Catheter # Bowel Movements 1 1 - Exam No acute distress, oriented 3. Laying flat in bed. No respiratory distress. HEENT examination is grossly unremarkable. Mucous membranes are moist. There are no oral lesions. TMs EACs are normal. Supple. Full range of motion. No adenopathy or thyromegaly. Cardiovascular examination reveals regular rhythm rate. S1-S2 normal. Lungs reveal a few scattered rhonchi. No wheezes or crackles. Abdomen soft bowel sounds are heard. Extremities are intact. - Labs CBC & Chem 7: 11/10/16 07:55 11/10/16 07:55 Labs: Abnormal Lab Results - Last 24 Hours (Table) 11/09/16 11/09/16 11/10/16 Range/Units 16:44 20:08 07:07 RBC (4.30-5.90) m/uL Hgb (13.0-17.5) gm/dL Hct (39.0-53.0) % MCV (80.0-100.0) fL MCHC (31.0-37.0) g/dL RDW (11.5-15.5) % Plt Count (150-450) k/uL Lymphocytes # (1.0-4.8) k/uL PT (9.0-12.0) sec Chloride (98-107) mmol/L BUN (9-20) mg/dL Creatinine (0.66-1.25) mg/dL Glucose (74-99) mg/dL POC Glucose (mg/dL) 198 H 116 H 122 H (75-99) mg/dL Total Protein (6.3-8.2) g/dL Albumin (3.5-5.0) g/dL 11/10/16 11/10/16 11/10/16 Range/Units 07:55 07:55 07:55 RBC 3.26 L (4.30-5.90) m/uL Hgb 10.0 L (13.0-17.5) gm/dL Hct 32.9 L (39.0-53.0) % MCV 101.0 H (80.0-100.0) fL MCHC 30.4 L (31.0-37.0) g/dL RDW 19.1 H (11.5-15.5) % Plt Count 91 L (150-450) k/uL Lymphocytes # 0.3 L (1.0-4.8) k/uL PT 13.3 H (9.0-12.0) sec Chloride 97 L (98-107) mmol/L BUN 30 H (9-20) mg/dL Creatinine 3.45 H (0.66-1.25) mg/dL Glucose 147 H (74-99) mg/dL POC Glucose (mg/dL) (75-99) mg/dL Total Protein 5.7 L (6.3-8.2) g/dL Albumin 2.8 L (3.5-5.0) g/dL 11/10/16 Range/Units 11:08 RBC (4.30-5.90) m/uL Hgb (13.0-17.5) gm/dL Hct (39.0-53.0) % MCV (80.0-100.0) fL MCHC (31.0-37.0) g/dL RDW (11.5-15.5) % Plt Count (150-450) k/uL Lymphocytes # (1.0-4.8) k/uL PT (9.0-12.0) sec Chloride (98-107) mmol/L BUN (9-20) mg/dL Creatinine (0.66-1.25) mg/dL Glucose (74-99) mg/dL POC Glucose (mg/dL) 176 H (75-99) mg/dL Total Protein (6.3-8.2) g/dL Albumin (3.5-5.0) g/dL Assessment and Plan (1) [id number] renal failure Status: Acute (2) Bradycardia Status: Acute (3) CAD (coronary artery disease) Status: Acute (4) Hypotension Status: Acute (5) Hypothermia Status: Acute (6) Hypothyroid Status: Acute (7) Persistent atrial fibrillation Status: Acute (8) Coagulopathy Status: Acute Plan: Plan dated 11/10/2016 The patient seemed be doing much better. We'll continue to follow. No additional recommendations are made. The patient's on appropriate antibiotics. Labs x-rays and so forth are reviewed. Time with Patient: Less than 30
[2016-11-10] MEDS: FUROSEMIDE 40 MG TAB PO SCH ×2 (16:49→21:03)
[2016-11-10 16:55] LABS: Glucose,Whole Blood 221 mg/dL (75-99)
--- NOTE | 2016-11-10 19:23 | PN ---
Patient is seen for follow-up for acute kidney injury on top of chronic kidney disease. Currently he remained on dialysis. Urine output has improved but his creatinine remains elevated. This morning, patient is sitting up in bed, comfortable. He is having his lunch. He denies any significant complaints of nausea or vomiting. On examination, blood pressure is 119/53, heart rate 60 per minute. He is afebrile. Examination of the heart S1 and S2. Examination of the lungs: Bilateral breath sounds are heard. Decreased breath sounds in bases. ABDOMEN: Soft, obese. Examination of lower extremities shows edema 2+ bilaterally with chronic skin changes. Labs show sodium 138, potassium 3.6, BUN 30, serum creatinine 3.5. Hemoglobin 10.0 g/dL. ASSESSMENT: 1. Acute kidney injury on top of chronic kidney disease, initially oliguric currently been improved urine output; however, patient remains on dialysis as her serum creatinine remains elevated. It is down to 3.5 from 4.7 yesterday without dialysis. I will arrange for dialysis tomorrow in the morning. 2. Volume overload, maintained on Lasix which had been IV and has been changed to p.o. at 40 mg b.i.d. 3. Repeat labs in a.m. PLAN: Repeat labs in a.m. Schedule for hemodialysis in a.m. Add 60 mg IV q.12 hours previously.
[2016-11-10 20:38] LABS: Glucose,Whole Blood 307 mg/dL (75-99)
[2016-11-10] MEDS: PRAVASTATIN SODIUM 20 MG TAB PO SCH (21:03)
[2016-11-11] MEDS: LEVOTHYROXINE 100 MCG TAB PO SCH (06:14)
[2016-11-11 07:15] LABS: Glucose,Whole Blood 128 mg/dL (75-99)
[2016-11-11 07:43] LABS: Anisocytosis Slight; Basophils % (A) 0 %; CH 30.3; CHCM 30.3; Eosinophils % (A) 1 %; HDW 2.73; Hypochromasia Marked; Luc # (Auto) 0.06; Luc % (Auto) 1; Lymphocytes # (A) 0.2 k/uL (1.0-4.8); Lymphocytes % (A) 4 %; MCH 31.4 pg (25.0-35.0); MCHC 31.1 g/dL (31.0-37.0); Macrocytosis Moderate; Mean Platelet Volume 8.1; Monocytes # (A) 0.4 k/uL (0-1.0); Monocytes % (A) 7 %; Neutrophils # (A) 5.4 k/uL (1.3-7.7); Neutrophils % (A) 88 %; RBC 3.17 m/uL (4.30-5.90); RDW 19.2 % (11.5-15.5); WBC 6.2 k/uL (3.8-10.6); WBC (Perox) 6.65
--- NOTE | 2016-11-11 07:56 | P.DS ---
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 Do you want consulting provider notified?: Yes 11/06/16 13:33 Consult Physician Routine Consulting Provider: Michelle Jensen Consult Reason/Comments: myoclonic jerking Do you want consulting provider notified?: Yes Primary care physician: Renato Titus - Discharge Diagnosis(es) (1) [id number] renal failure Current Visit: Yes Status: Acute (2) Bradycardia Current Visit: Yes Status: Acute (3) Dehydration Current Visit: Yes Status: Acute (4) Hypotension Current Visit: Yes Status: Acute (5) Hypothermia Current Visit: Yes Status: Acute (6) Jerking movements of extremities Current Visit: Yes Status: Acute Hospital Course: This is a discharge summary on a 76-year-old white male essentially admitted for acute on chronic renal failure. The patient was again dialyzed. He has not underlying history of atrial fibrillation. Diabetes also is noted. The patient will be discontinued on any type of nephrotoxic drugs. We will probably restart him on Tradjenta as an outpatient. He will restart Eliquis at the renal dosing. He is discharged once cleared by nephrology. Patient Condition at Discharge: Fair Plan - Discharge Summary New Discharge Prescriptions: predniSONE 40 mg PO DAILY #5 tab Discharge Medication List Albuterol Sulfate [Proair Hfa] 2 puff INHALATION RT-QID PRN 10/16/16 [History] Allopurinol [Zyloprim] 100 mg PO QAM 10/16/16 [History] Amiodarone HCl [Cordarone] 100 mg PO HS 10/16/16 [History] Budesonide [Pulmicort Flexhaler] 2 puff INHALATION RT-DAILY 10/16/16 [History] Cholecalciferol [Vitamin D3] 1,000 unit PO DAILY 10/16/16 [History] Fish Oil/Dha/Epa [Fish Oil 1,200 mg Fish Oil] 1 cap PO HS 10/16/16 [History] Furosemide [Lasix] 20 mg PO DAILY 10/16/16 [History] Lansoprazole [Prevacid] 15 mg PO DAILY 10/16/16 [History] Lisinopril [Prinivil] 5 mg PO HS 10/16/16 [History] Magnesium Oxide 400 mg PO BID 10/16/16 [History] Metoprolol Tartrate [Lopressor] 25 mg PO BID 10/16/16 [History] PARoxetine [Paxil] 20 mg PO DAILY 10/16/16 [History] Pravastatin Sodium [Pravachol] 20 mg PO HS 10/16/16 [History] Vit C/E/Zinc/Lutein/Zeaxanthin [[facility]] 1 tab PO BID [History] Vitamin E (Dl,Tocopheryl Acet) [Vitamin E] 400 unit PO BID 10/16/16 [History] Apixaban [Eliquis] 2.5 mg PO BID #60 tab 10/25/16 [Rx] Tamsulosin [Flomax] 0.4 mg PO PC-BRKFST #30 cap.er.24h 10/25/16 [Rx] predniSONE 40 mg PO DAILY #5 tab 11/11/16 [Rx] Follow up Appointment(s)/Referral(s): Renato Titus MD [Primary Care Provider] - 3 Days
[2016-11-11] MEDS: INSULIN LISPRO (humaLOG) 300 UNIT/3 ML VIAL SQ SCH ×4 (07:59→22:33)
[2016-11-11] MEDS: METOPROLOL TARTRATE 25 MG TAB PO SCH ×2 (08:00→22:50)
[2016-11-11] MEDS: FUROSEMIDE 40 MG TAB PO SCH ×3 (08:00→22:36)
[2016-11-11] MEDS: PANTOPRAZOLE 40 MG TABLET PO SCH (08:00)
[2016-11-11] MEDS: MAGNESIUM OXIDE 400 MG TAB PO SCH ×2 (08:01→22:34)
[2016-11-11] MEDS: TAMSULOSIN 0.4 MG CAP.ER.24H PO SCH (08:01)
[2016-11-11] MEDS: CALCIUM ACETATE 667 MG CAP PO SCH ×3 (08:01→17:37)
[2016-11-11] MEDS: ALLOPURINOL 100 MG TAB PO SCH (08:01)
[2016-11-11] MEDS: VIT A,C & E-LUTEIN-MINERALS 1 EACH TAB PO SCH ×2 (08:02→22:35)
[2016-11-11] MEDS: predniSONE 20 MG TAB PO SCH (08:02)
[2016-11-11] MEDS: PARoxetine 20 MG TAB PO SCH (08:02)
[2016-11-11] MEDS: VITAMIN E (DL,TOCOPHERYL ACET) 400 UNIT CAP PO SCH ×2 (08:03→22:35)
[2016-11-11] MEDS: PIPERACILLIN-TAZOBACTAM 3.375 GM in DEXTROSE/WATER 1 50ML.BAG IVPB SCH ×2 (08:06→23:52)
[2016-11-11 08:15] LABS: Calcium 8.7 mg/dL (8.4-10.2); Magnesium 2.3 mg/dL (1.6-2.3); Phosphorous 3.5 mg/dL (2.5-4.5); Potassium 3.3 mmol/L (3.5-5.1); Total Bilirubin 0.7 mg/dL (0.2-1.3); Total Protein 5.5 g/dL (6.3-8.2)
[2016-11-11] MEDS: BUDESONIDE 1 MG/2 ML NEBU INHALATION SCH ×2 (08:39→19:24)
[2016-11-11] MEDS: ALBUTEROL NEBULIZED 2.5 MG/3 ML INHALATION PRN ×2 (08:39→19:24)
--- NOTE | 2016-11-11 09:23 | XR ---
EXAMINATION TYPE: XR chest 1V DATE OF EXAM: 11/11/2016 8:24 AM HISTORY: Fluid overload. REFERENCE: Previous study dated 11/10/2016. FINDINGS: There has been a midline sternotomy. There is a large-bore, double-lumen catheter in place via a right internal jugular approach. Its tip is in the superior vena cava at the level of the cavoatrial junction. The lungs are clear. Pleural spaces are clear. There is no evidence of vascular congestion. Heart siz e is upper limits of normal. IMPRESSION: NO ACUTE INTRATHORACIC ABNORMALITY.
[2016-11-11 11:43] LABS: Glucose,Whole Blood 136 mg/dL (75-99)
[2016-11-11] MEDS: CHOLECALCIFEROL 1,000 UNIT TAB PO SCH (15:03)
[2016-11-11 15:30] LABS: Hepatitis B Surface Ag Index 0.05
--- NOTE | 2016-11-11 15:33 | P.PN ---
Subjective Progress note dated 11/10/2016 76-year-old gentleman seen by Dr. Romeo last on the first. It appears that Dr. Lazo has sign off this patient at that time. His initial presentation was that of profound weakness which seemed to be multifactorial in part related to underlying bradycardia hypotension hypothermia hypothyroidism acute on chronic renal fire and chronic atrial fibrillation. Anyway the patient is doing much much better. Dr. Lazo thought sepsis is less likely a cause of his underlying medical problems. Anyway the antibiotic for begun and his urine culture did come back positive for E. coli. The patient was moved out of the ICU when he became more stable he was off pressors. He is currently on the oncology floor. Doing much better. Feeling much better. Progress note dated 11/11/2016. The patient was admitted with a diagnosis of profound diffuse weakness. Relates a number of issues including bradycardia hypotension hypothermia hypothyroidism and renal failure. In addition he has history of chronic atrial fibrillation. The patient was in the ICU on pressors. Was discharged to couple days ago. He did develop an Escherichia coli urinary tract infection with urosepsis. The patient may be discharged home today. He looks much better. Sitting up in bed. No particular complaints. He was getting hemodialysis at the time of our evaluation today. Objective - Vital Signs Vital signs: Vital Signs Temp 97.3 F L 11/11/16 07:00 Pulse 66 11/11/16 08:55 Resp 18 11/11/16 07:00 BP 104/57 11/11/16 07:00 Pulse Ox 96 11/11/16 07:00 Intake & Output 11/10/16 11/11/16 11/11/16 18:59 06:59 18:59 Intake Total 50 170 50 Output Total 300 100 Balance 50 -130 -50 Weight 111 kg 109.5 kg Intake: IV 120 50 .9@20 120 Piperacillin-Tazobactam 3 50 .375 gm In Dextrose/Water 1 50ml.bag @ 12.5 mls/hr IVPB Q12HR [facility] Rx#: [id number] Intake, IV Titration 50 50 Amount Piperacillin-Tazobactam 3 50 50 .375 gm In Dextrose/Water 1 50ml.bag @ 12.5 mls/hr IVPB Q12HR [facility] Rx#: [id number] Output: Urine 300 100 Uretheral (Simeon) 300 100 Other: Voiding Method Indwelling Catheter Indwelling Catheter Indwelling Catheter # Bowel Movements 1 1 1 - Exam No acute distress, oriented 3. Laying flat in bed. No respiratory distress. HEENT examination is grossly unremarkable. Mucous membranes are moist. There are no oral lesions. TMs EACs are normal. Supple. Full range of motion. No adenopathy or thyromegaly. Cardiovascular examination reveals regular rhythm rate. S1-S2 normal. Lungs reveal a few scattered rhonchi. No wheezes or crackles. Abdomen soft bowel sounds are heard. Extremities are intact. - Labs CBC & Chem 7: 11/11/16 07:19 11/11/16 07:19 Labs: Abnormal Lab Results - Last 24 Hours (Table) 11/10/16 11/10/16 11/11/16 Range/Units 16:48 20:36 07:02 RBC (4.30-5.90) m/uL Hgb (13.0-17.5) gm/dL Hct (39.0-53.0) % MCV (80.0-100.0) fL RDW (11.5-15.5) % Plt Count (150-450) k/uL Lymphocytes # (1.0-4.8) k/uL Potassium (3.5-5.1) mmol/L BUN (9-20) mg/dL Creatinine (0.66-1.25) mg/dL Glucose (74-99) mg/dL POC Glucose (mg/dL) 221 H 307 H 128 H (75-99) mg/dL Total Protein (6.3-8.2) g/dL Albumin (3.5-5.0) g/dL 11/11/16 11/11/16 11/11/16 Range/Units 07:19 07:19 11:37 RBC 3.17 L (4.30-5.90) m/uL Hgb 10.0 L (13.0-17.5) gm/dL Hct 32.0 L (39.0-53.0) % MCV 101.0 H (80.0-100.0) fL RDW 19.2 H (11.5-15.5) % Plt Count 79 L (150-450) k/uL Lymphocytes # 0.2 L (1.0-4.8) k/uL Potassium 3.3 L (3.5-5.1) mmol/L BUN 41 H (9-20) mg/dL Creatinine 4.10 H (0.66-1.25) mg/dL Glucose 130 H (74-99) mg/dL POC Glucose (mg/dL) 136 H (75-99) mg/dL Total Protein 5.5 L (6.3-8.2) g/dL Albumin 2.7 L (3.5-5.0) g/dL Assessment and Plan (1) Xyncy-up-fusvuok renal failure Status: Acute (2) Bradycardia Status: Acute (3) CAD (coronary artery disease) Status: Acute (4) Hypotension Status: Acute (5) Hypothermia Status: Acute (6) Hypothyroid Status: Acute (7) Persistent atrial fibrillation Status: Acute (8) Coagulopathy Status: Acute Plan: Plan dated 11/10/2016 The patient seemed be doing much better. We'll continue to follow. No additional recommendations are made. The patient's on appropriate antibiotics. Labs x-rays and so forth are reviewed. Plan dated 11/11/2016 The patient is doing much better. Much more awake and alert. Lung sounds were excellent today. The patient is receiving hemodialysis. I noted that the primary service has discharged the patient. Time with Patient: Less than 30
[2016-11-11 15:36] LABS: Hepatitis B Core IgM Index 0.05
[2016-11-11 15:47] LABS: Hepatitis C Virus IgG Index 0.02
[2016-11-11 15:50] LABS: Hepatitis C Virus IgG Ab Negative (Negative)
[2016-11-11 17:12] LABS: Glucose,Whole Blood 173 mg/dL (75-99)
--- NOTE | 2016-11-11 18:12 | PN ---
Patient is seen for follow-up for acute kidney injury on top of chronic kidney disease. He is scheduled for hemodialysis today. Patient remains with some degree of edema. Overall his volume status has improved, renal function appears to be improving as well with significant improvement in his urine output. On examination, blood pressure is 117/54, heart rate 65 per minute. He is afebrile. Examination of the heart S1 and S2. Examination of the lungs: Bilateral breath sounds are heard. ABDOMEN: Soft, obese, nontender. Lower extremities shows edema 1+ bilaterally with chronic skin changes noted. LACEWORKER exam is grossly intact. Patient is moving all 4 extremities. Labs show sodium of 140, potassium 3.3, BUN 41, serum creatinine 4.1 mg/dL. ASSESSMENT: 1. Chronic kidney disease, currently at stage V and hemodialysis dependent. It seemed that there was some improvement in renal function; however, his serum creatinine is back up to 4.1 today, although his urine output has improved but we will continue to maintain patient on dialysis for now and we will continue to monitor his renal function as outpatient. 2. Volume overload, improved since admission. Continue with the Lasix and UF as tolerated. 3. Hyperphosphatemia, maintained on PhosLo. 4. Escherichia coli urinary tract infection, currently on Zosyn. PLAN: The patient will be maintained on dialysis as outpatient. He will be dialyzed today and we will monitor his labs as outpatient. Continue with the Lasix upon discharge.
[2016-11-11 21:16] LABS: Glucose,Whole Blood 203 mg/dL (75-99)
[2016-11-11] MEDS: PRAVASTATIN SODIUM 20 MG TAB PO SCH (22:35)
[2016-11-12] MEDS: APIXABAN 2.5 MG TABLET PO SCH ×2 (01:10→08:08)
[2016-11-12] MEDS: LEVOTHYROXINE 100 MCG TAB PO SCH (06:27)
[2016-11-12 07:59] LABS: Glucose,Whole Blood 99 mg/dL (75-99)
[2016-11-12] MEDS: INSULIN LISPRO (humaLOG) 300 UNIT/3 ML VIAL SQ SCH ×2 (08:05→12:00)
[2016-11-12] MEDS: METOPROLOL TARTRATE 25 MG TAB PO SCH (08:07)
[2016-11-12] MEDS: CALCIUM ACETATE 667 MG CAP PO SCH ×2 (08:07→12:50)
[2016-11-12] MEDS: predniSONE 20 MG TAB PO SCH (08:07)
[2016-11-12] MEDS: ALLOPURINOL 100 MG TAB PO SCH (08:08)
[2016-11-12] MEDS: FUROSEMIDE 40 MG TAB PO SCH (08:08)
[2016-11-12] MEDS: PANTOPRAZOLE 40 MG TABLET PO SCH (08:08)
[2016-11-12] MEDS: MAGNESIUM OXIDE 400 MG TAB PO SCH (08:08)
[2016-11-12] MEDS: VIT A,C & E-LUTEIN-MINERALS 1 EACH TAB PO SCH (08:08)
[2016-11-12] MEDS: TAMSULOSIN 0.4 MG CAP.ER.24H PO SCH (08:08)
[2016-11-12] MEDS: VITAMIN E (DL,TOCOPHERYL ACET) 400 UNIT CAP PO SCH (08:08)
[2016-11-12] MEDS: PARoxetine 20 MG TAB PO SCH (08:08)
[2016-11-12] MEDS: PIPERACILLIN-TAZOBACTAM 3.375 GM in DEXTROSE/WATER 1 50ML.BAG IVPB SCH (08:10)
[2016-11-12 08:25] VITALS: BP 118/59; PULSE 64; RESP 20; TEMP 97.8
[2016-11-12 11:47] LABS: Glucose,Whole Blood 107 mg/dL (75-99)
[2016-11-12] MEDS: CHOLECALCIFEROL 1,000 UNIT TAB PO SCH (12:49)
[2016-11-12] MEDS: BUDESONIDE 1 MG/2 ML NEBU INHALATION SCH (12:58)
--- NOTE | 2016-11-12 14:03 | P.PN ---
Subjective Progress note dated 11/10/2016 76-year-old gentleman seen by Dr. Romeo last on the first. It appears that Dr. Lazo has sign off this patient at that time. His initial presentation was that of profound weakness which seemed to be multifactorial in part related to underlying bradycardia hypotension hypothermia hypothyroidism acute on chronic renal fire and chronic atrial fibrillation. Anyway the patient is doing much much better. Dr. Lazo thought sepsis is less likely a cause of his underlying medical problems. Anyway the antibiotic for begun and his urine culture did come back positive for E. coli. The patient was moved out of the ICU when he became more stable he was off pressors. He is currently on the oncology floor. Doing much better. Feeling much better. Progress note dated 11/11/2016. The patient was admitted with a diagnosis of profound diffuse weakness. Relates a number of issues including bradycardia hypotension hypothermia hypothyroidism and renal failure. In addition he has history of chronic atrial fibrillation. The patient was in the ICU on pressors. Was discharged to couple days ago. He did develop an Escherichia coli urinary tract infection with urosepsis. The patient may be discharged home today. He looks much better. Sitting up in bed. No particular complaints. He was getting hemodialysis at the time of our evaluation today. Progress note dated 11/12/2016 The patient is doing much better. I the patient did not receive dialysis today. The patient will probably receive dialysis tomorrow. The patient is being discharged to [facility]. He likely will go today. The is at the bedside. He's feeling much better. Objective - Vital Signs Vital signs: Vital Signs Temp 97.8 F 11/12/16 07:00 Pulse 64 11/12/16 07:00 Resp 20 11/12/16 07:00 BP 118/59 11/12/16 07:00 Pulse Ox 97 11/12/16 07:00 Intake & Output 11/11/16 11/12/16 11/12/16 18:59 06:59 18:59 Intake Total 50 200 Output Total 100 200 Balance -50 0 Weight 110 kg Intake: IV 50 0 .9@20 0 Piperacillin-Tazobactam 3 50 0 .375 gm In Dextrose/Water 1 50ml.bag @ 12.5 mls/hr IVPB Q12HR [facility] Rx#: [id number] Oral 200 Output: Urine 100 200 Uretheral (Simeon) 100 Other: Voiding Method Bedpan Bedpan Bedpan Urinal Urinal Urinal # Voids 2 # Bowel Movements 1 3 - Exam No acute distress, oriented 3. Laying flat in bed. No respiratory distress. HEENT examination is grossly unremarkable. Mucous membranes are moist. There are no oral lesions. TMs EACs are normal. Supple. Full range of motion. No adenopathy or thyromegaly. Cardiovascular examination reveals regular rhythm rate. S1-S2 normal. Lungs reveal a few scattered rhonchi. No wheezes or crackles. Abdomen soft bowel sounds are heard. Extremities are intact. - Labs CBC & Chem 7: 11/11/16 07:19 11/11/16 18:08 Labs: Abnormal Lab Results - Last 24 Hours (Table) 11/11/16 11/11/16 11/12/16 Range/Units 17:06 21:14 11:45 POC Glucose (mg/dL) 173 H 203 H 107 H (75-99) mg/dL Assessment and Plan (1) [id number] renal failure Status: Acute (2) Bradycardia Status: Acute (3) CAD (coronary artery disease) Status: Acute (4) Hypotension Status: Acute (5) Hypothermia Status: Acute (6) Hypothyroid Status: Acute (7) Persistent atrial fibrillation Status: Acute (8) Coagulopathy Status: Acute Plan: Plan dated 11/10/2016 The patient seemed be doing much better. We'll continue to follow. No additional recommendations are made. The patient's on appropriate antibiotics. Labs x-rays and so forth are reviewed. Plan dated 11/11/2016 The patient is doing much better. Much more awake and alert. Lung sounds were excellent today. The patient is receiving hemodialysis. I noted that the primary service has discharged the patient. Plan dated 11/12/2016 The patient probably will be discharged today. He likely will go to [facility]. When he for bed there. His dialysis days of be Wednesday. He did receive dialysis yesterday. No dialysis today. He's feeling better. No additional recommendations are made. Time with Patient: Less than 30
[2016-11-12 14:40] VITALS: BMI 34.7
--- NOTE | 2016-11-12 19:33 | PN ---
Patient is seen for followup for chronic kidney disease and an element of acute kidney injury which did not improve and now patient is maintained on hemodialysis. He remains hemodialysis dependent. He did have CKD stage 4 with previous creatinine at about 2 mg/dL at the time of discharge from his last hospitalization. On examination today, blood pressure is 118/59, heart rate 58 per minute. He is afebrile. HEART: S1 and S2. LUNGS: Bilateral breath sounds are heard. Abdomen is soft, nontender. Lower extremities show edema 1+ bilaterally with chronic skin changes noted. Labs reviewed from yesterday. Serum potassium was 3.2. Repeat was 4.2. Serum creatinine 4.1 mg/dL. ASSESSMENT: 1. Chronic kidney disease, currently hemodialysis dependent. Will maintain patient on hemodialysis for now and we will monitor the renal function as outpatient. At this time given his volume overload and advanced chronic kidney disease of stage 4 prior to admission, he will be maintained on continued hemodialysis treatments. 2. Volume overload. Increase ultrafiltration as tolerated with hemodialysis as outpatient. 3. Hypokalemia, status post replacement. 4. Generalized debility. PLAN: Patient can be discharged from nephrology standpoint. He will be maintained on hemodialysis as outpatient on a Wednesday, Wednesday, Wednesday schedule. He will be going to [facility] and he will be coming to the [facility] unit for continued dialysis.
== END 2016-11-12 16:10 | DRG 871 ==
LOC: EC 21:16 → 6ICU 23:52 → 6SEL 11-08 15:21 → 5ONC 11-09 13:08
PROVIDERS: ADMIT Family Medicine; ATTEND Family Medicine
PROC: 5A1D60Z (ICD-10-PCS; principal; 2016-11-05)
DX: A41.9 Sepsis, unspecified organism (principal); N17.0 Acute kidney failure with tubular necrosis; R65.21 Severe sepsis with septic shock; G93.41 Metabolic encephalopathy; N18.6 End stage renal disease; I13.2 Hypertensive heart and chronic kidney disease with heart failure and with stage 5 chronic kidney disease, or end stage renal disease; E87.2 Acidosis; I48.1 Persistent atrial fibrillation; N39.0 Urinary tract infection, site not specified; I48.0 Paroxysmal atrial fibrillation; G25.3 Myoclonus; E11.22 Type 2 diabetes mellitus with diabetic chronic kidney disease; I50.9 Heart failure, unspecified; E88.09 Other disorders of plasma-protein metabolism, not elsewhere classified; E83.39 Other disorders of phosphorus metabolism; E87.5 Hyperkalemia; E86.0 Dehydration; B96.20 Unspecified Escherichia coli [E. coli] as the cause of diseases classified elsewhere; D50.9 Iron deficiency anemia, unspecified; E03.9 Hypothyroidism, unspecified; E66.9 Obesity, unspecified; E78.5 Hyperlipidemia, unspecified; E87.6 Hypokalemia; F32.9 Major depressive disorder, single episode, unspecified; F41.9 Anxiety disorder, unspecified; G47.33 Obstructive sleep apnea (adult) (pediatric); G89.29 Other chronic pain; M54.9 Dorsalgia, unspecified; H35.30 Unspecified macular degeneration; I25.10 Atherosclerotic heart disease of native coronary artery without angina pectoris; I48.2 Chronic atrial fibrillation; J44.9 Chronic obstructive pulmonary disease, unspecified; J45.909 Unspecified asthma, uncomplicated; K21.9 Gastro-esophageal reflux disease without esophagitis; M10.9 Gout, unspecified; M19.90 Unspecified osteoarthritis, unspecified site; R29.6 Repeated falls; D63.1 Anemia in chronic kidney disease; Z68.34 Body mass index [BMI] 34.0-34.9, adult; Z85.828 Personal history of other malignant neoplasm of skin; Z87.891 Personal history of nicotine dependence; Z95.1 Presence of aortocoronary bypass graft; Z99.2 Dependence on renal dialysis; Z96.653 Presence of artificial knee joint, bilateral; Z79.01 Long term (current) use of anticoagulants; Z79.84 Long term (current) use of oral hypoglycemic drugs; Z79.899 Other long term (current) drug therapy
CPT/HCPCS: 36415; 51702; 70450; 71010; 72125; 72170; 80048; 80053; 80074; 80299; 81001; 82533; 82550; 82553; 83036; 83605; 83735; 84100; 84132; 84439; 84443; 84484; 85025; 85610; 85730; 87040; 87077; 87086; 87186; 87324; 90935; 93005; 94640; 94760; 96361; 96365; 96375; 96376; 99285

== ENCOUNTER 2016-11-26 15:23 | Inpatient (IN) | payer MEDICARE, BC ==
[2016-11-26] MEDS ORDERED: ONDANSETRON 4 MG/2 ML VIAL IVP STA (15:42)
--- NOTE | 2016-11-26 15:53 | ED ---
Nausea/Vomiting/Diarrhea HPI - General Chief complaint: Nausea/Vomiting/Diarrhea Stated complaint: Hypertension Time Seen by Provider: 11/26/16 15:42 Source: patient, EMS Mode of arrival: EMS Limitations: no limitations - History of Present Illness Initial comments: Patient complains of generalized weakness. He has nausea, vomiting, diarrhea. He is a dialysis patient. He had a run of dialysis yesterday. He has no chest or back pain. He has no change in vision or hearing. He has not taken any medication for the symptoms. He does not recall any sick contacts. He has not been traveling anywhere. He has no palpitations. He has no blood in the stool. He has no black or tarry stool. He is unaware of anything different that he might of the. - Related Data Home Medications Medication Instructions Recorded Confirmed Albuterol Sulfate [Proair Hfa] 2 puff INHALATION RT-QID PRN 10/16/16 11/26/16 Allopurinol [Zyloprim] 100 mg PO QAM 10/16/16 11/26/16 Amiodarone HCl [Cordarone] 100 mg PO HS 10/16/16 11/26/16 Budesonide [Pulmicort Flexhaler] 2 puff INHALATION RT-DAILY 10/16/16 11/26/16 Cholecalciferol [Vitamin D3] 1,000 unit PO DAILY 10/16/16 11/26/16 Fish Oil/Dha/Epa [Fish Oil 1,200 1 cap PO HS 10/16/16 11/26/16 mg Fish Oil] Furosemide [Lasix] 20 mg PO SUTUTHSA 10/16/16 11/26/16 Lansoprazole [Prevacid] 15 mg PO DAILY 10/16/16 11/26/16 Lisinopril [Prinivil] 5 mg PO SUTUTHFR 10/16/16 11/26/16 Magnesium Oxide 400 mg PO BID 10/16/16 11/26/16 Metoprolol Tartrate [Lopressor] 25 mg PO SUTUTHSA 10/16/16 11/26/16 PARoxetine [Paxil] 20 mg PO DAILY 10/16/16 11/26/16 Pravastatin Sodium [Pravachol] 20 mg PO HS 10/16/16 11/26/16 Vit C/E/Zinc/Lutein/Zeaxanthin 1 tab PO BID 10/16/16 11/26/16 [Ocuvite [facility]] Vitamin E (Dl,Tocopheryl Acet) 400 unit PO BID 10/16/16 11/26/16 [Vitamin E] Albuterol Nebulized [Ventolin 2.5 mg INHALATION Q6H PRN 11/26/16 11/26/16 Nebulized] Hydrocodone/Acetaminophen [[place] 1 tab PO BID PRN 11/26/16 11/26/16 5-325] Previous Rx's Medication Instructions Recorded Apixaban [Eliquis] 2.5 mg PO BID #60 tab 10/25/16 Tamsulosin [Flomax] 0.4 mg PO PC-BRKFST #30 cap.er.24h 10/25/16 Allergies Allergy/AdvReac Type Severity Reaction Status Date / Time No Known Allergies Allergy Verified 11/26/16 16:00 Review of Systems ROS Statement: Those systems with pertinent positive or pertinent negative responses have been documented in the HPI. ROS Other: All systems not noted in ROS Statement are negative. Past Medical History Past Medical History: Asthma, Coronary Artery Disease (CAD), Cancer, Heart Failure, COPD, Diabetes Mellitus, GERD/Reflux, Hyperlipidemia, Osteoarthritis ( OA), Sleep Apnea/CPAP/BIPAP Additional Past Medical History / Comment(s): kidney stones macular degeneration pt stated" past afib but none in 4 years", gout, benign polyps, chronic back pain, "disc problems", renal insuff,skin cancer(squamous cell), "trmors", occ trouble holding his bowels.? mvp per pat med hx. History of Any Multi-Drug Resistant Organisms: None Reported Past Surgical History: Coronary Bypass/CABG, Joint Replacement, Orthopedic Surgery, Tonsillectomy Additional Past Surgical History / Comment(s): cabg svg to om1 and svg to om2( as y graft), latoya cataracts,laser sx latoya eyes for macular degeneration, colonoscopy/polypectomy, latoya knee replacment, lower tear duct-implant latoya eyes, rt ankle broken-sx to repair,has a steel plate. Past Anesthesia/Blood Transfusion Reactions: No Reported Reaction Past Psychological History: Anxiety, Depression Additional Psychological History / Comment(s): paxil Smoking Status: Former smoker Past Alcohol Use History: Daily Additional Past Alcohol Use History / Comment(s): started smoking at age 17 later on in life swithced to cigars then quit 2008. pt admits to 3 drinks a day( whiskey) Past Drug Use History: None Reported - Past Family History Mother Family Medical History: Cancer Additional Family Medical History / Comment(s): kidney cancer Father Family Medical History: Cancer, Prostate Disorder Additional Family Medical History / Comment(s): prostate cancer General Exam Limitations: no limitations General appearance: alert, in no apparent distress Head exam: Present: atraumatic, normocephalic, normal inspection Eye exam: Present: normal appearance, PERRL, EOMI. Absent: scleral icterus, conjunctival injection, periorbital swelling ENT exam: Present: normal exam, mucous membranes moist Neck exam: Present: normal inspection. Absent: tenderness, meningismus, lymphadenopathy Respiratory exam: Present: normal lung sounds bilaterally. Absent: respiratory distress, wheezes, rales, rhonchi, stridor Cardiovascular Exam: Present: regular rate, normal rhythm, normal heart sounds. Absent: systolic murmur, diastolic murmur, rubs, gallop, clicks GI/Abdominal exam: Present: soft, normal bowel sounds. Absent: distended, tenderness, guarding, rebound, rigid Extremities exam: Present: normal inspection, full ROM, normal capillary refill. Absent: tenderness, pedal edema, joint swelling, calf tenderness Back exam: Present: normal inspection Neurological exam: Present: alert, oriented X3, CN II-XII intact Psychiatric exam: Present: normal affect, normal mood Skin exam: Present: warm, dry, intact, normal color. Absent: rash Course Vital Signs 11/26/16 11/26/16 11/26/16 15:34 15:53 16:31 Temperature 97 F L Pulse Rate 55 L 60 56 L Respiratory 20 18 17 Rate Blood Pressure 89/45 84/45 96/50 O2 Sat by Pulse 99 100 Oximetry 11/26/16 11/26/16 17:48 18:05 Temperature Pulse Rate 61 62 Respiratory 16 16 Rate Blood Pressure 71/47 81/42 O2 Sat by Pulse 100 100 Oximetry Medical Decision Making - Medical Decision Making Patient presents with vomiting and diarrhea. He is intermittently hypotensive, however he is responded well to fluids. Patient will be admitted to the hospital. - Lab Data Result diagrams: 11/26/16 15:52 11/26/16 17:02 Lab Results 11/26/16 11/26/1617 Range/Units 15:52 15:52 17:02 WBC 5.8 (3.8-10.6) k/uL RBC 3.39 L (4.30-5.90) m/uL Hgb 10.8 L (13.0-17.5) gm/dL Hct 34.4 L (39.0-53.0) % MCV 101.4 H (80.0-100.0) fL MCH 31.9 (25.0-35.0) pg MCHC 31.4 (31.0-37.0) g/dL RDW 18.4 H (11.5-15.5) % Plt Count 122 L (150-450) k/uL Neutrophils % 80 % Lymphocytes % 12 % Monocytes % 5 % Eosinophils % 1 % Basophils % 0 % Neutrophils # 4.6 (1.3-7.7) k/uL Lymphocytes # 0.7 L (1.0-4.8) k/uL Monocytes # 0.3 (0-1.0) k/uL Eosinophils # 0.0 (0-0.7) k/uL Basophils # 0.0 (0-0.2) k/uL Hypochromasia Marked Anisocytosis Slight Macrocytosis Moderate Sodium 139 (137-145) mmol/L Potassium 4.1 (3.5-5.1) mmol/L Chloride 103 (98-107) mmol/L Carbon Dioxide 28 (22-30) mmol/L Anion Gap 8 mmol/L BUN 11 (9-20) mg/dL Creatinine 3.71 H (0.66-1.25) mg/dL Est GFR (MDRD) Af Amer 19 (>60 ml/min/1.73 sqM) Est GFR (MDRD) Non-Af 16 (>60 ml/min/1.73 sqM) Glucose 110 H (74-99) mg/dL Calcium 8.1 L (8.4-10.2) mg/dL Total Bilirubin 0.9 (0.2-1.3) mg/dL AST 213 H (17-59) U/L ALT 277 H (21-72) U/L Alkaline Phosphatase 122 (38-126) U/L Troponin I 0.046 H* (0.000-0.034) ng/mL Total Protein 5.2 L (6.3-8.2) g/dL Albumin 2.5 L (3.5-5.0) g/dL Lipase 29 (23-300) U/L 11/26/16 16:31 Twelve-lead EKG is obtained, interpreted by me showing ventricular rate 61 bpm, normal VT interval and QRS complexes, no ST elevation or depression, interpreted by me as sinus rhythm. Disposition Clinical Impression: Hypotension Disposition: ADMITTED IP TO THIS HOSP Condition: Serious Time of Disposition: 18:23
[2016-11-26] MEDS: SODIUM CHLORIDE 0.9% 500 ML IV STA ×2 (15:58→17:47)
[2016-11-26 16:28] LABS: Anisocytosis Slight; Basophils % (A) 0 %; CH 30.2; Eosinophils % (A) 1 %; HCT 34.4 % (39.0-53.0); HGB 10.8 gm/dL (13.0-17.5); Hypochromasia Marked; Luc # (Auto) 0.11; Luc % (Auto) 2; Lymphocytes # (A) 0.7 k/uL (1.0-4.8); Lymphocytes % (A) 12 %; MCH 31.9 pg (25.0-35.0); MCHC 31.4 g/dL (31.0-37.0); MCV 101.4 fL (80.0-100.0); Macrocytosis Moderate; Monocytes # (A) 0.3 k/uL (0-1.0); Monocytes % (A) 5 %; Neutrophils # (A) 4.6 k/uL (1.3-7.7); Neutrophils % (A) 80 %; RBC 3.39 m/uL (4.30-5.90); RDW 18.4 % (11.5-15.5); WBC 5.8 k/uL (3.8-10.6)
--- NOTE | 2016-11-26 16:35 | XR ---
EXAMINATION TYPE: XR chest 2V DATE OF EXAM: 11/26/2016 4:29 PM COMPARISON: 11/11/2016 HISTORY: Shortness of breath TECHNIQUE: Frontal and lateral views of the chest are obtained. FINDINGS: Central venous line is unchanged in position. Scattered senescent parenchymal changes noted. Hyperinflation compatible with COPD. No evidence for infiltrate. No evidence for atelectasis. Small right-sided pleural effusion. Heart size is stable. Mediastinal structures are stable and grossly unremarkable. No evidence for hilar prominence. Degenerative changes dorsal spine. IMPRESSION: 1. Small right-sided pleural effusion. Otherwise unremarkable study.
[2016-11-26 17:34] LABS: Calcium 8.1 mg/dL (8.4-10.2); Potassium 4.1 mmol/L (3.5-5.1); Total Bilirubin 0.9 mg/dL (0.2-1.3); Total Protein 5.2 g/dL (6.3-8.2)
[2016-11-26] MEDS ORDERED: NALOXONE 0.4 MG/ML 1 ML VIAL IV PRN (18:23)
[2016-11-26] MEDS ORDERED: ONDANSETRON 4 MG/2 ML VIAL IVP PRN (18:23)
[2016-11-26] MEDS ORDERED: ALBUTEROL NEBULIZED 2.5 MG/3 ML INHALATION PRN (18:26)
[2016-11-26] MEDS ORDERED: VANCOMYCIN 1,500 MG in SODIUM CHLORIDE 0.9% 250 ML IVPB STA (18:27)
--- NOTE | 2016-11-26 18:34 | CT ---
EXAMINATION TYPE: CT brain wo con DATE OF EXAM: 11/26/2016 6:15 PM COMPARISON: NONE HISTORY: Pt states of weakness. CT DLP: 926.5 mGycm Automated exposure control for dose reduction was used. FINDINGS: There is no acute intracranial hemorrhage, mass effect, or midline shift identified. A few nonspecif ic low attenuation foci are noted within the vasquez radiata and centrum semiovale bilaterally. Entire ly nonspecific, these usually reflect small vessel ischemic change seen frequently in this age group. The ventricles and sulci are within normal limits in size. The globes are intact and the visualized sinuses are clear. IMPRESSION: No acute process.
[2016-11-27] MEDS: PRAVASTATIN SODIUM 20 MG TAB PO SCH (00:09)
[2016-11-27] MEDS: APIXABAN 2.5 MG TABLET PO SCH ×2 (00:09→11:25)
[2016-11-27] MEDS: FAMOTIDINE 20 MG TAB PO SCH ×2 (00:09→11:26)
[2016-11-27] MEDS: AMIODARONE 100 MG TAB PO SCH (00:09)
[2016-11-27] MEDS ORDERED: HEPARIN SODIUM,PORCINE 5,000 UNIT/ML 1 ML VIAL ONE (00:25)
[2016-11-27] MEDS: ALBUTEROL NEBULIZED 2.5 MG/3 ML INHALATION PRN ×4 (08:30→20:39)
[2016-11-27] MEDS: BUDESONIDE 1 MG/2 ML NEBU INHALATION SCH (08:31)
--- NOTE | 2016-11-27 08:52 | P.HPIM ---
History of Present Illness H&P Date: 11/27/16 Chief Complaint: Generalized weakness with nausea and hypotension. This is a history of physical and a 76-year-old white male with known history of atrial fibrillation. The patient has renal failure requiring dialysis. He was recently discharged for similar readmission secondary to generalized weakness. At that visit, he had significant acute on chronic renal failure with creatinine of 8. He has been having dialysis intermittently at this time. He also has an underlying history diabetes which is fairly well-controlled otherwise. He has been at [facility] for the last week or so but is now having difficulty with generalized weakness and keeping by mouth intake down. No fever or chills are stated. But because of his comorbidities, he is admitted for hypotension weakness and renal failure. Again, underlying history of diabetes and atrial fibrillation as otherwise noted. He's having difficulty ambulating. We'll ask physical therapy to come and see the patient today. Review of Systems Constitutional: Reports weakness Eyes: denies blurred vision, denies pain Ears, nose, mouth and throat: Denies headache, Denies sore throat Cardiovascular: Denies chest pain, Denies shortness of breath Respiratory: Denies cough Gastrointestinal: Denies abdominal pain, Denies diarrhea, Denies nausea, Denies vomiting Musculoskeletal: Denies myalgias Integumentary: Denies pruritus, Denies rash Neurological: Denies numbness, Denies weakness Past Medical History Past Medical History: Asthma, Coronary Artery Disease (CAD), Cancer, Heart Failure, COPD, Diabetes Mellitus, GERD/Reflux, Hyperlipidemia, Osteoarthritis ( OA), Sleep Apnea/CPAP/BIPAP Additional Past Medical History / Comment(s): kidney stones macular degeneration pt stated" past afib but none in 4 years", gout, benign polyps, chronic back pain, "disc problems", renal insuff,skin cancer(squamous cell), "trmors", occ trouble holding his bowels.? mvp per pat med hx. History of Any Multi-Drug Resistant Organisms: None Reported Past Surgical History: Coronary Bypass/CABG, Joint Replacement, Orthopedic Surgery, Tonsillectomy Additional Past Surgical History / Comment(s): cabg svg to om1 and svg to om2( as y graft), latoya cataracts,laser sx latoya eyes for macular degeneration, colonoscopy/polypectomy, latoya knee replacment, lower tear duct-implant latoya eyes, rt ankle broken-sx to repair,has a steel plate. Past Anesthesia/Blood Transfusion Reactions: No Reported Reaction Past Psychological History: Anxiety, Depression Additional Psychological History / Comment(s): paxil Smoking Status: Former smoker Past Alcohol Use History: Daily Additional Past Alcohol Use History / Comment(s): started smoking at age 17 later on in life swithced to cigars then quit 2008. pt admits to 3 drinks a day( whiskey) Past Drug Use History: None Reported - Past Family History Mother Family Medical History: Cancer Additional Family Medical History / Comment(s): kidney cancer Father Family Medical History: Cancer, Prostate Disorder Additional Family Medical History / Comment(s): prostate cancer Brother(s) History Unknown: Yes Medications and Allergies Home Medications Medication Instructions Recorded Confirmed Type Albuterol Sulfate [Proair Hfa] 2 puff INHALATION RT-QID PRN 10/16/16 11/26/16 History Allopurinol [Zyloprim] 100 mg PO QAM 10/16/16 11/26/16 History Amiodarone HCl [Cordarone] 100 mg PO HS 10/16/16 11/26/16 History Budesonide [Pulmicort Flexhaler] 2 puff INHALATION RT-DAILY 10/16/16 11/26/16 History Cholecalciferol [Vitamin D3] 1,000 unit PO DAILY 10/16/16 11/26/16 History Fish Oil/Dha/Epa [Fish Oil 1,200 1 cap PO HS 10/16/16 11/26/16 History mg Fish Oil] Furosemide [Lasix] 20 mg PO SUTUTHSA 10/16/16 11/26/16 History Lansoprazole [Prevacid] 15 mg PO DAILY 10/16/16 11/26/16 History Lisinopril [Prinivil] 5 mg PO SUTUTHFR 10/16/16 11/26/16 History Magnesium Oxide 400 mg PO BID 10/16/16 11/26/16 History Metoprolol Tartrate [Lopressor] 25 mg PO SUTUTHSA 10/16/16 11/26/16 History PARoxetine [Paxil] 20 mg PO DAILY 10/16/16 11/26/16 History Pravastatin Sodium [Pravachol] 20 mg PO HS 10/16/16 11/26/16 History Vit C/E/Zinc/Lutein/Zeaxanthin 1 tab PO BID 10/16/16 11/26/16 History [Ocuvite [facility]umm[facility]] Vitamin E (Dl,Tocopheryl Acet) 400 unit PO BID 10/16/16 11/26/16 History [Vitamin E] Albuterol Nebulized [Ventolin 2.5 mg INHALATION Q6H PRN 11/26/16 11/26/16 History Nebulized] Hydrocodone/Acetaminophen [[place] 1 tab PO BID PRN 11/26/16 11/26/16 History 5-325] Allergies Allergy/AdvReac Type Severity Reaction Status Date / Time No Known Allergies Allergy Verified 11/26/16 16:00 Physical Exam Vitals: Vital Signs Temp Pulse Pulse Resp BP BP Pulse Ox 11/27/16 08:30 76 11/27/16 04:00 97.3 F L 62 18 104/50 98 11/27/16 01:00 97.8 F 62 18 104/54 97 11/27/16 00:58 97.7 F 64 20 101/53 97 11/26/16 23:59 97.4 F L 59 L 18 93/50 100 11/26/16 23:00 60 18 88/49 100 11/26/16 22:00 58 L 18 86/51 100 11/26/16 21:00 58 L 18 97/52 100 11/26/16 20:00 66 18 85/45 100 11/26/16 19:11 58 L 17 86/49 98 Intake and Output 11/26/16 11/27/16 11/27/16 22:59 06:59 14:59 Intake Total 490 Output Total 1 Balance 490 -1 Intake: Intake, IV Titration 250 Amount Vancomycin 1,500 mg In 250 Sodium Chloride 0.9% 250 ml @ 125 mls/hr IVPB ONCE [facility] Rx#:[id number] Oral 240 Output: Stool 1 Other: Voiding Method Urinal - Constitutional General appearance: average body habitus - EENT Eyes: EOMI - Neck Neck: no lymphadenopathy - Respiratory Respiratory: bilateral: CTA - Cardiovascular Rhythm: regular Heart sounds: normal: S1, S2 - Gastrointestinal General gastrointestinal: soft, no tenderness - Neurologic Neurologic: CNII-XII intact - Psychiatric Psychiatric: A&O x's 3 Results CBC & Chem 7: 11/26/16 15:52 11/26/16 17:02 Thrombosis Risk Factor Assmnt - Choose All That Apply Any of the Below Risk Factors Present?: Yes Each Factor Represents 1 point: Abnormal pulmonary function (COPD), Obesity ( BMI >25), Swollen legs (current) Other Risk Factors: Yes Each Risk Factor Represents 3 Points: Age 75 years or older Thrombosis Risk Factor Assessment Total Risk Factor Score: 6 Thrombosis Risk Factor Assessment Level: High Risk Assessment and Plan Plan: Hypertension. Chronic renal failure. Diabetes. Atrial fibrillation. We'll go ahead and check CMP in a.m. Dr. Escamilla's group will be covering for the weekend. Order discharge planning for probable placement. The family seems to be somewhat dissatisfied with his current ECF. Start physical therapy again. See orders otherwise
--- NOTE | 2016-11-27 08:53 | P.NPCON ---
History of Present Illness - Reason for Consult end stage renal disease - History of Present Illness Reason for consult: End-stage renal disease History of present illness: Patient is a 76-year-old male seen in renal consultation for end- stage renal disease. Patient was recently started on hemodialysis earlier this month. His last hemodialysis treatment was on Wednesday. Patient presented to the hospital with generalized weakness. States he was unable to stand. He also admits to having some diarrhea. Denies any nausea or vomiting. No fever or chills. Denies chest pain. Does get dyspneic with mild exertion. He does have diastolic CHF with moderate pulmonary hypertension. He hasn't made any significant urine this admission so far. He was also noted to be hypotensive with systolic blood pressure as low as 71/47 this admission. Currently improved. Overall feels better since admission. Vital signs are stable. General: The patient appeared well nourished and normally developed. HEENT: Head exam is unremarkable. Neck is without jugular venous distension. LUNGS: Lungs are clear to auscultation and percussion. Breath sounds decreased. HEART: Rate and Rhythm are regular. First and second heart sounds normal. No murmurs, rubs or gallops. ABDOMEN: Abdominal exam reveals normal bowel sounds. Mildly distended. No evidence of peritonitis. EXTREMITITES: No clubbing, cyanosis, or edema. Past Medical History Past Medical History: Asthma, Coronary Artery Disease (CAD), Cancer, Heart Failure, COPD, Diabetes Mellitus, GERD/Reflux, Hyperlipidemia, Osteoarthritis ( OA), Sleep Apnea/CPAP/BIPAP Additional Past Medical History / Comment(s): kidney stones macular degeneration pt stated" past afib but none in 4 years", gout, benign polyps, chronic back pain, "disc problems", renal insuff,skin cancer(squamous cell), "trmors", occ trouble holding his bowels.? mvp per pat med hx. History of Any Multi-Drug Resistant Organisms: None Reported Past Surgical History: Coronary Bypass/CABG, Joint Replacement, Orthopedic Surgery, Tonsillectomy Additional Past Surgical History / Comment(s): cabg svg to om1 and svg to om2( as y graft), latoya cataracts,laser sx latoya eyes for macular degeneration, colonoscopy/polypectomy, latoya knee replacment, lower tear duct-implant latoya eyes, rt ankle broken-sx to repair,has a steel plate. Past Anesthesia/Blood Transfusion Reactions: No Reported Reaction Past Psychological History: Anxiety, Depression Additional Psychological History / Comment(s): paxil Smoking Status: Former smoker Past Alcohol Use History: Daily Additional Past Alcohol Use History / Comment(s): started smoking at age 17 later on in life swithced to cigars then quit 2008. pt admits to 3 drinks a day( whiskey) Past Drug Use History: None Reported - Past Family History Mother Family Medical History: Cancer Additional Family Medical History / Comment(s): kidney cancer Father Family Medical History: Cancer, Prostate Disorder Additional Family Medical History / Comment(s): prostate cancer Brother(s) History Unknown: Yes Medications and Allergies Home Medications Medication Instructions Recorded Confirmed Type Albuterol Sulfate [Proair Hfa] 2 puff INHALATION RT-QID PRN 10/16/16 11/26/16 History Allopurinol [Zyloprim] 100 mg PO QAM 10/16/16 11/26/16 History Amiodarone HCl [Cordarone] 100 mg PO HS 10/16/16 11/26/16 History Budesonide [Pulmicort Flexhaler] 2 puff INHALATION RT-DAILY 10/16/16 11/26/16 History Cholecalciferol [Vitamin D3] 1,000 unit PO DAILY 10/16/16 11/26/16 History Fish Oil/Dha/Epa [Fish Oil 1,200 1 cap PO HS 10/16/16 11/26/16 History mg Fish Oil] Furosemide [Lasix] 20 mg PO SUTUTHSA 10/16/16 11/26/16 History Lansoprazole [Prevacid] 15 mg PO DAILY 10/16/16 11/26/16 History Lisinopril [Prinivil] 5 mg PO SUTUTHFR 10/16/16 11/26/16 History Magnesium Oxide 400 mg PO BID 10/16/16 11/26/16 History Metoprolol Tartrate [Lopressor] 25 mg PO SUTUTHSA 10/16/16 11/26/16 History PARoxetine [Paxil] 20 mg PO DAILY 10/16/16 11/26/16 History Pravastatin Sodium [Pravachol] 20 mg PO HS 10/16/16 11/26/16 History Vit C/E/Zinc/Lutein/Zeaxanthin 1 tab PO BID 10/16/16 11/26/16 History [uv[facility] Gummies] Vitamin E (Dl,Tocopheryl Acet) 400 unit PO BID 10/16/16 11/26/16 History [Vitamin E] Albuterol Nebulized [Ventolin 2.5 mg INHALATION Q6H PRN 11/26/16 11/26/16 History Nebulized] Hydrocodone/Acetaminophen [Marana 1 tab PO BID PRN 11/26/16 11/26/16 History 5-325] Allergies Allergy/AdvReac Type Severity Reaction Status Date / Time No Known Allergies Allergy Verified 11/26/16 16:00 Physical Exam Vitals: Vital Signs Temp Pulse Pulse Resp BP BP Pulse Ox 11/27/16 08:30 76 11/27/16 04:00 97.3 F L 62 18 104/50 98 11/27/16 01:00 97.8 F 62 18 104/54 97 11/27/16 00:58 97.7 F 64 20 101/53 97 11/26/16 23:59 97.4 F L 59 L 18 93/50 100 11/26/16 23:00 60 18 88/49 100 11/26/16 22:00 58 L 18 86/51 100 11/26/16 21:00 58 L 18 97/52 100 11/26/16 20:00 66 18 85/45 100 11/26/16 19:11 58 L 17 86/49 98 Intake and Output 11/26/16 11/27/16 11/27/16 22:59 06:59 14:59 Intake Total 490 Output Total 1 Balance 490 -1 Intake: Intake, IV Titration 250 Amount Vancomycin 1,500 mg In 250 Sodium Chloride 0.9% 250 ml @ 125 mls/hr IVPB ONCE STA Rx#:[id number] Oral 240 Output: Stool 1 Other: Voiding Method Urinal Results - Lab Results Most recent lab results Calcium 8.1 mg/dL (8.4-10.2) L 11/26/16 17:02 11/26/16 15:52 11/26/16 17:02 Assessment and Plan Plan: Assessment: #1. End-stage renal disease maintained on hemodialysis on a Wednesday schedule. He has a permacath. Relatively new to dialysis that was started earlier this month due to significant volume overload and and urea. He did have chronic kidney disease stage IV prior. #2. Hypotension. This may be related to his underlying cardiac status and intravascular volume depletion. Improved. #3. Diastolic CHF with moderate pulmonary hypertension. #4. Anemia of chronic kidney disease. Hemoglobin at goal. Plan: Hemodialysis today and again tomorrow with ultrafiltration as tolerated. Start Midodrin 5 mg 3 times daily. Check cortisol level. Check phosphorus level. Nephrocaps daily. Check postvoid residual and monitor urine output. Thank you for the consultation. I will continue to follow the patient with you during his hospital stay.
[2016-11-27 10:37] VITALS: BMI 34.8
[2016-11-27] MEDS: MIDODRINE 5 MG TAB PO SCH ×2 (11:26→15:44)
[2016-11-27] MEDS: FOLIC ACID-VIT B COMPLEX-VIT C 1 CAP PO SCH (11:26)
[2016-11-27] MEDS: PARoxetine 20 MG TAB PO SCH (11:27)
[2016-11-27] MEDS: ALLOPURINOL 100 MG TAB PO SCH (11:27)
[2016-11-27 11:29] LABS: Appearance,Urine Cloudy (Clear); Bacteria,Urine Occasional /hpf; Bilirubin,Urine 1+ (Negative); Glucose,Urine (UA) Negative (Negative); Ketones,Urine Trace (Negative); Leukocyte Esterase,Urine Large (Negative); Mucus,Urine Rare /hpf; Nitrite,Urine Negative (Negative); PH, Urine 5.5 (5.0-8.0); Particle Count 10535; Protein,Urine 1+ (Negative); RBC,Urine 4 /hpf (0-5); Specific Gravity,Urine 1.022 (1.001-1.035); UA Billing (MACRO vs. MICRO) MICRO; WBC,Urine 68 /hpf (0-5)
[2016-11-27] MEDS: metroNIDAZOLE 500 MG TAB PO SCH ×2 (13:03→15:44)
[2016-11-27 16:52] LABS: Glucose,Whole Blood 136 mg/dL (75-99)
[2016-11-27 22:15] LABS: Glucose,Whole Blood 120 mg/dL (75-99)
[2016-11-28] MEDS: AMIODARONE 100 MG TAB PO SCH (00:25)
[2016-11-28] MEDS: PRAVASTATIN SODIUM 20 MG TAB PO SCH ×2 (00:27→21:48)
[2016-11-28] MEDS: metroNIDAZOLE 500 MG TAB PO SCH ×5 (00:27→21:48)
[2016-11-28] MEDS: APIXABAN 2.5 MG TABLET PO SCH ×3 (02:04→21:48)
[2016-11-28 05:55] LABS: Anisocytosis Slight; CH 30.6; CHCM 30.2; HCT 30.6 % (39.0-53.0); HDW 2.57; HGB 9.5 gm/dL (13.0-17.5); Hypochromasia Moderate; MCH 31.6 pg (25.0-35.0); Macrocytosis Moderate; Mean Platelet Volume 8.4; RDW 18.4 % (11.5-15.5); WBC 4.9 k/uL (3.8-10.6)
[2016-11-28 06:09] LABS: ALT 236 U/L (21-72); AST 114 U/L (17-59); Alkaline Phosphatase 113 U/L (38-126); Anion Gap 8 mmol/L; Blood Urea Nitrogen 8 mg/dL (9-20); Calcium 7.8 mg/dL (8.4-10.2); Carbon Dioxide 27 mmol/L (22-30); Chloride 102 mmol/L (98-107); Glucose 109 mg/dL (74-99); Non-African American GFR(MDRD) 21 (>60 ml/min/1.73 sqM); Potassium 3.3 mmol/L (3.5-5.1); Sodium 137 mmol/L (137-145); Total Bilirubin 0.7 mg/dL (0.2-1.3); Total Protein 4.5 g/dL (6.3-8.2)
[2016-11-28] MEDS: MIDODRINE 5 MG TAB PO SCH ×4 (06:37→17:31)
[2016-11-28 06:38] LABS: Hepatitis B Surface Ag Index 0.07
[2016-11-28 06:43] LABS: Hepatitis B Core IgM Index 0.04
[2016-11-28 06:58] LABS: Hepatitis B Surface Antibody Negative (Negative)
--- NOTE | 2016-11-28 07:01 | P.PN ---
Subjective Shyam is feeling well. Had HD late last night, only 1500ml out. Cronin placed for presumed Urinary retention but minimal UOP all night. He is + Cdiff. Objective - Vital Signs Vital signs: Vital Signs Temp 98.5 F 11/28/16 04:00 Pulse 68 11/28/16 04:00 Resp 16 11/28/16 04:00 BP 86/50 11/28/16 04:00 Pulse Ox 94 L 11/28/16 04:00 Intake & Output 11/27/16 11/27/16 11/28/16 06:59 18:59 06:59 Intake Total 490 720 360 Output Total 501 200 Balance 490 219 160 Weight 97.976 kg 97 kg Intake: Intake, IV Titration 250 Amount Vancomycin 1,500 mg In 250 Sodium Chloride 0.9% 250 ml @ 125 mls/hr IVPB ONCE STA Rx#:[id number] Oral 240 720 360 Output: Urine 100 Post Void Residual 200 Stool 301 100 Other: Voiding Method Urinal Indwelling Catheter Indwelling Catheter # Voids 0 # Bowel Movements 0 1 - Constitutional General appearance: Present: cooperative, no acute distress - Respiratory Respiratory: bilateral: CTA - Cardiovascular Rhythm: regular Heart sounds: normal: S1, S2 - Peripheral edema leg Peripheral Edema: bilateral: 3+ - Gastrointestinal General gastrointestinal: Present: distended, soft - Labs CBC & Chem 7: 11/28/16 05:23 11/26/16 17:02 Labs: Abnormal Lab Results - Last 24 Hours (Table) 11/27/16 11/27/16 11/27/16 Range/Units 10:00 16:38 22:12 RBC (4.30-5.90) m/uL Hgb (13.0-17.5) gm/dL Hct (39.0-53.0) % MCV (80.0-100.0) fL RDW (11.5-15.5) % Plt Count (150-450) k/uL POC Glucose (mg/dL) 136 H 120 H (75-99) mg/dL Urine Protein 1+ H (Negative) Urine Ketones Trace H (Negative) Urine Blood Moderate H (Negative) Urine Bilirubin 1+ H (Negative) Ur Leukocyte Esterase Large H (Negative) Urine WBC 68 H (0-5) /hpf Urine WBC Clumps Many H (None) /hpf Urine Bacteria Occasional H (None) /hpf Hyaline Casts 37 H (0-2) /lpf Urine Mucus Rare H (None) /hpf 11/28/16 Range/Units 05:23 RBC 3.00 L (4.30-5.90) m/uL Hgb 9.5 L (13.0-17.5) gm/dL Hct 30.6 L (39.0-53.0) % MCV 102.0 H (80.0-100.0) fL RDW 18.4 H (11.5-15.5) % Plt Count 114 L (150-450) k/uL POC Glucose (mg/dL) (75-99) mg/dL Urine Protein (Negative) Urine Ketones (Negative) Urine Blood (Negative) Urine Bilirubin (Negative) Ur Leukocyte Esterase (Negative) Urine WBC (0-5) /hpf Urine WBC Clumps (None) /hpf Urine Bacteria (None) /hpf Hyaline Casts (0-2) /lpf Urine Mucus (None) /hpf Assessment and Plan Plan: #1. End-stage renal disease maintained on hemodialysis on a Wednesday schedule. He has a permacath. --Will dialyze again today. He has significant anasarca. #2. Hypotension- Chronic. --BP is still low. Will increase midodrine to 10mg tid. #3. Urinary Retention. PVR is a false positive. Likely due to ascites. --Overnight he has made only minimal urine output. Will d/c the cronin. #3. Diastolic CHF with moderate pulmonary hypertension. #4. Anemia of chronic kidney disease. Hemoglobin at goal.
[2016-11-28 07:08] LABS: Glucose,Whole Blood 110 mg/dL (75-99)
[2016-11-28] MEDS: BUDESONIDE 1 MG/2 ML NEBU INHALATION SCH (08:51)
[2016-11-28] MEDS: ALLOPURINOL 100 MG TAB PO SCH (11:14)
[2016-11-28] MEDS: PARoxetine 20 MG TAB PO SCH (11:15)
[2016-11-28] MEDS: FOLIC ACID-VIT B COMPLEX-VIT C 1 CAP PO SCH (11:15)
[2016-11-28] MEDS: FAMOTIDINE 20 MG TAB PO SCH (11:15)
[2016-11-28 11:53] LABS: Glucose,Whole Blood 89 mg/dL (75-99)
[2016-11-28] MEDS: ALBUTEROL NEBULIZED 2.5 MG/3 ML INHALATION PRN (15:59)
[2016-11-28 16:59] LABS: Glucose,Whole Blood 102 mg/dL (75-99)
[2016-11-28 20:49] LABS: Glucose,Whole Blood 123 mg/dL (75-99)
[2016-11-28] MEDS: VANCOMYCIN ORAL SOLUTION 250 MG/5 ML BOTTLE PO SCH (21:46)
[2016-11-29] MEDS: VANCOMYCIN ORAL SOLUTION 250 MG/5 ML BOTTLE PO SCH ×5 (00:25→23:28)
[2016-11-29 05:53] LABS: Glucose,Whole Blood 93 mg/dL (75-99)
[2016-11-29 05:55] LABS: Anisocytosis Slight; Basophils % (A) 0 %; CH 30.4; CHCM 29.9; Eosinophils # (A) 0.1 k/uL (0-0.7); Eosinophils % (A) 3 %; HCT 31.2 % (39.0-53.0); HDW 2.56; HGB 9.4 gm/dL (13.0-17.5); Hypochromasia Marked; Luc # (Auto) 0.15; Luc % (Auto) 4; Lymphocytes # (A) 1.1 k/uL (1.0-4.8); Lymphocytes % (A) 27 %; MCH 30.9 pg (25.0-35.0); MCHC 30.2 g/dL (31.0-37.0); MCV 102.5 fL (80.0-100.0); Macrocytosis Moderate; Mean Platelet Volume 8.2; Monocytes # (A) 0.4 k/uL (0-1.0); Monocytes % (A) 10 %; Neutrophils # (A) 2.2 k/uL (1.3-7.7); Neutrophils % (A) 57 %; RBC 3.04 m/uL (4.30-5.90); RDW 18.1 % (11.5-15.5); WBC (Perox) 4.04
[2016-11-29 06:15] LABS: Calcium 7.9 mg/dL (8.4-10.2); Potassium 3.5 mmol/L (3.5-5.1); Total Bilirubin 0.7 mg/dL (0.2-1.3); Total Protein 4.6 g/dL (6.3-8.2)
[2016-11-29] MEDS: MIDODRINE 5 MG TAB PO SCH ×3 (06:17→17:47)
--- NOTE | 2016-11-29 06:54 | P.PN ---
Subjective No issues overnight. Only 1000ml removed with HD due to hypotension. Increased midodrine to 10mg tid. Objective - Vital Signs Vital signs: Vital Signs Temp 97.8 F 11/29/16 04:00 Pulse 61 11/29/16 04:00 Resp 16 11/29/16 04:00 BP 88/45 11/29/16 04:00 Pulse Ox 94 L 11/28/16 04:00 Intake & Output 11/28/16 11/28/16 11/29/16 06:59 18:59 06:59 Intake Total 360 240 Output Total 200 50 300 Balance 160 -50 -60 Weight 97 kg 98 kg Intake: Oral 360 240 Output: Urine 100 50 100 Uretheral (Simeon) 50 Stool 100 200 Other: Voiding Method Indwelling Catheter Indwelling Catheter # Voids 0 # Bowel Movements 1 3 - Constitutional General appearance: Present: cooperative, no acute distress - Respiratory Respiratory: bilateral: CTA - Cardiovascular Rhythm: regular Heart sounds: normal: S1, S2 - Peripheral edema leg Peripheral Edema: bilateral: 2+ - Gastrointestinal General gastrointestinal: Present: soft - Labs CBC & Chem 7: 11/29/16 05:41 11/29/16 05:41 Labs: Abnormal Lab Results - Last 24 Hours (Table) 11/28/16 11/28/16 11/28/16 Range/Units 05:23 07:03 16:52 RBC (4.30-5.90) m/uL Hgb (13.0-17.5) gm/dL Hct (39.0-53.0) % MCV (80.0-100.0) fL MCHC (31.0-37.0) g/dL RDW (11.5-15.5) % Plt Count (150-450) k/uL Potassium 3.3 L (3.5-5.1) mmol/L BUN 8 L (9-20) mg/dL Creatinine 2.93 H (0.66-1.25) mg/dL Glucose 109 H (74-99) mg/dL POC Glucose (mg/dL) 110 H 102 H (75-99) mg/dL Calcium 7.8 L (8.4-10.2) mg/dL AST 114 H (17-59) U/L ALT 236 H (21-72) U/L Total Protein 4.5 L (6.3-8.2) g/dL Albumin 2.2 L (3.5-5.0) g/dL 11/28/16 11/29/16 11/29/16 Range/Units 20:47 05:41 05:41 RBC 3.04 L (4.30-5.90) m/uL Hgb 9.4 L (13.0-17.5) gm/dL Hct 31.2 L (39.0-53.0) % MCV 102.5 H (80.0-100.0) fL MCHC 30.2 L (31.0-37.0) g/dL RDW 18.1 H (11.5-15.5) % Plt Count 120 L (150-450) k/uL Potassium (3.5-5.1) mmol/L BUN 5 L (9-20) mg/dL Creatinine 2.49 H (0.66-1.25) mg/dL Glucose (74-99) mg/dL POC Glucose (mg/dL) 123 H (75-99) mg/dL Calcium 7.9 L (8.4-10.2) mg/dL AST 80 H (17-59) U/L ALT 194 H (21-72) U/L Total Protein 4.6 L (6.3-8.2) g/dL Albumin 2.2 L (3.5-5.0) g/dL Assessment and Plan Plan: #1. End-stage renal disease maintained on hemodialysis on a Wednesday schedule. He has a permacath. --Will dialyze on Wednesday. Cold bath, sodium modeling, all in an attempt to improve UF. #2. Hypotension- Chronic. --BP is still low. On midodrine to 10mg tid. #3. Urinary Retention. PVR is a false positive. Likely due to ascites. --Simeon removed yesterday. #3. Diastolic CHF with moderate pulmonary hypertension. #4. Anemia of chronic kidney disease. Hemoglobin at goal. #5. Cdiff colitis. On PO vanco and Flagyl. #6. Anasarca due to hypoalbuminemia. Limited with UF on HD due to hypotension.
[2016-11-29] MEDS: BUDESONIDE 1 MG/2 ML NEBU INHALATION SCH (09:07)
--- NOTE | 2016-11-29 09:21 | PN ---
DATE OF SERVICE: 11/28/2016 I am covering for Dr. Titus. This 76-year-old gentleman with a past medical history of multiple medical problems including coronary artery disease, history of COPD, CHF, GERD, history of degenerative joint disease, sleep apnea, history of renal stones, CAD, CABG, anxiety and depression. Patient also had stage V kidney failure and hemodialysis. The patient follows with Dr. Titus in the outpatient setting. The patient was admitted with generalized weakness and nausea and diarrhea and hypotension. The patient is found to have Clostridium difficile colitis and the patient is closely monitored at this time. The patient is complaining of continued diarrhea. PAST MEDICAL HISTORY: Reviewed. REVIEW OF SYSTEMS: CARDIOVASCULAR: No angina. RESPIRATORY: As mentioned earlier. GI: As mentioned earlier. : No dysuria. NERVOUS SYSTEM: As mentioned earlier. Current medications reviewed and include: 1. Ventolin 2.5 q.i.d. 3. [id number] mg q.h.s. 4. Eliquis 2.5 mg daily. 5. Pulmicort 1 b.i.d. 6. Pepcid 20 mg daily. 7. Flagyl 500 mg p.o. t.i.d. 8. ProAmatine. 9. Nephrocaps. 10. Narcan. 11. Zofran. 12. Paxil. 13. Pravachol. PHYSICAL EXAMINATION: Patient is alert and oriented x3. Pulse 68, blood pressure 86/50, respirations 16, temperature 98.4, pulse ox 94% on room air. HEENT: Conjunctivae normal. NECK: No jugular venous distention. CARDIOVASCULAR: S1 and S2, muffled. RESPIRATORY: Breath sounds diminished at the bases. Bilateral scattered rhonchi and crackles. ABDOMEN: Soft, obese, nontender. LEGS: No edema, no swelling. NERVOUS SYSTEM: Diffusely weak. LABS: WBC 4.5, hemoglobin 9.5, sodium 137, potassium 3.3, AST is 114 and ALT is 236. UA noted. ASSESSMENT: 1. Acute Clostridium difficile colitis with hypotension and dehydration prerenal. 2. Acute on chronic renal failure. 3. Chronic kidney disease, stage V on hemodialysis. 4. Hypokalemia. 5. Increased AST, ALT. 6. Hypoalbuminemia with mild to moderate protein calorie malnutrition. 7. Rule out urinary tract infection. 8. Urinary retention. 9. Anemia, macrocytic, 10. Thrombocytopenia. 11. History of asthma. 12. History of coronary artery disease. 13. History of congestive heart failure. 14. History of chronic obstructive pulmonary disease. 15. Diabetes mellitus type 2. 16. Gastroesophageal reflux disease. 17. Hypertensions. 18. Hyperlipidemia. 19. History of sleep apnea. 20. History of atrial fibrillation. 21. History of degenerative joint disease. 22. History of coronary artery disease, coronary artery bypass grafting. 23. Anxiety, depression. 24. Remote history of nicotine dependence. 25. FULL CODE. RECOMMENDATIONS AND DISCUSSION: In this 76-year-old gentleman who presented with multiple complex medical issues, we will monitor the patient closely. Continue the current medications, continue with symptomatic treatment. Otherwise at this time, I would continue with Nephrology consultation and cautious hydration. Otherwise, dialysis. Guarded prognosis because of multiple complex medical issues. Will check serum cortisol. Vancomycin. Further recommendations to follow. MTDD
[2016-11-29] MEDS: FOLIC ACID-VIT B COMPLEX-VIT C 1 CAP PO SCH (09:55)
[2016-11-29] MEDS: APIXABAN 2.5 MG TABLET PO SCH ×2 (09:55→20:38)
[2016-11-29] MEDS: FAMOTIDINE 20 MG TAB PO SCH (09:55)
[2016-11-29] MEDS: TAMSULOSIN 0.4 MG CAP.ER.24H PO SCH (09:55)
[2016-11-29] MEDS: ALLOPURINOL 100 MG TAB PO SCH (09:55)
[2016-11-29] MEDS: PARoxetine 20 MG TAB PO SCH (09:56)
[2016-11-29] MEDS: metroNIDAZOLE 500 MG TAB PO SCH ×4 (09:56→20:38)
[2016-11-29] MEDS: CHERRY FLAVOR 60 ML BOTTLE PO PRN ×3 (11:39→23:29)
[2016-11-29 12:18] LABS: Glucose,Whole Blood 79 mg/dL (75-99)
[2016-11-29 16:47] LABS: Glucose,Whole Blood 103 mg/dL (75-99)
[2016-11-29] MEDS: PRAVASTATIN SODIUM 20 MG TAB PO SCH (20:38)
[2016-11-29 20:51] LABS: Glucose,Whole Blood 125 mg/dL (75-99)
--- NOTE | 2016-11-29 22:38 | PN ---
DATE OF SERVICE: 11/29/2016 I am covering for Dr. Titus. This 76-year-old gentleman was admitted with acute C. Dif colitis, is being closely monitored. The patient is on Vancomycin and Flagyl and the diarrhea output is reducing at this time. Nephrology also following the patient closely. No chest pain. No palpitations. No fever. The patient also had relative hypotension, which is improving at this time. On exam, alert and oriented x3. Pulse 70, blood pressure 105/52, respirations 18, temperature 97.9, pulse ox 94% on room air. CARDIOVASCULAR: S1, S2 muffled. No S3, no S4. RESPIRATORY: Breath sounds diminished at the bases. A few scattered rhonchi. ABDOMEN: Soft, obese. Nontender. No mass palpable. No guarding, rigidity. Legs: Minimal edema. CENTRAL NERVOUS SYSTEM: No focal deficits. Labs: WBC 4, hemoglobin 9.4, creatinine 2.49. ASSESSMENT: 1. Acute Clostridium difficile colitis with hypotension and dehydration, prerenal. 2. Acute on chronic renal failure. 3. Chronic kidney disease, stage V on hemodialysis. 4. Hypokalemia. 5. Increased AST, ALT. 6. Hypoalbuminemia with mild to moderate protein calorie malnutrition. 7. Rule out urinary tract infection. 8. Urinary retention. 9. Anemia, macrocytic. 10. Thrombocytopenia. 11. History of asthma. 12. History of coronary artery disease. 13. History of congestive heart failure. 14. History of chronic obstructive pulmonary disease. 15. Diabetes mellitus type 2. 16. Gastroesophageal reflux disease. 17. Hypertension. 18. Hyperlipidemia. 19. History of sleep apnea. 20. History of atrial fibrillation. 21. History of degenerative joint disease . 22. History of coronary artery disease, coronary artery bypass grafting. 23. Anxiety, depression. 24. Remote history of nicotine dependence. 25. FULL CODE. RECOMMENDATIONS AND DISCUSSION: In this 76-year-old gentleman who presented with multiple complex medical issues, we will monitor the patient closely. Continue the current medications. Continue symptomatic treatment. Continue with vancomycin and Flagyl. Otherwise continue lactose-free diet and continue to monitor. Otherwise, Dr. Titus will follow. See orders for further details. Nephrology input appreciated.
[2016-11-30] MEDS: VANCOMYCIN ORAL SOLUTION 250 MG/5 ML BOTTLE PO SCH ×3 (06:16→18:40)
[2016-11-30] MEDS: CHERRY FLAVOR 60 ML BOTTLE PO PRN ×2 (06:16→12:38)
[2016-11-30] MEDS: MIDODRINE 5 MG TAB PO SCH ×3 (06:17→18:43)
[2016-11-30 06:19] LABS: Glucose,Whole Blood 91 mg/dL (75-99)
[2016-11-30 06:47] LABS: Potassium 3.3 mmol/L (3.5-5.1); Total Bilirubin 0.5 mg/dL (0.2-1.3); Total Protein 4.2 g/dL (6.3-8.2)
--- NOTE | 2016-11-30 08:02 | P.PN ---
Subjective Principal diagnosis: Clostridium difficile colitis with chronic renal failure. This is a continue process and 6-year-old white male essentially admitted for renal failure. The patient has had significant diarrhea which showed Clostridium difficile colitis. The patient is doing quite well but still not ambulating. He still probably needs to go to ECF. Objective - Vital Signs Vital signs: Vital Signs Temp 98.1 F 11/30/16 04:00 Pulse 57 L 11/30/16 04:00 Resp 18 11/30/16 04:00 BP 87/48 11/30/16 04:00 Pulse Ox 94 L 11/28/16 04:00 Intake & Output 11/29/16 11/30/16 11/30/16 18:59 06:59 18:59 Intake Total 200 Balance 200 Weight 97.5 kg Intake: Oral 200 Other: # Voids 1 # Bowel Movements 1 - Constitutional General appearance: Present: obese - EENT Eyes: Absent: abnormal pupil - Respiratory Respiratory: bilateral: CTA - Cardiovascular Rhythm: irregularly irregular Heart sounds: normal: S1, S2 Abnormal Heart Sounds: Absent: S3 Gallop - Gastrointestinal General gastrointestinal: Present: soft. Absent: tenderness - Labs CBC & Chem 7: 11/29/16 05:41 11/30/16 05:35 Labs: Abnormal Lab Results - Last 24 Hours (Table) 11/29/16 11/29/16 11/30/16 Range/Units 16:44 20:48 05:35 Potassium 3.3 L (3.5-5.1) mmol/L BUN 6 L (9-20) mg/dL Creatinine 3.20 H (0.66-1.25) mg/dL POC Glucose (mg/dL) 103 H 125 H (75-99) mg/dL Calcium 8.0 L (8.4-10.2) mg/dL ALT 154 H (21-72) U/L Total Protein 4.2 L (6.3-8.2) g/dL Albumin 1.9 L (3.5-5.0) g/dL Microbiology - Last 24 Hours (Table) 11/29/16 06:00 Urine Culture - Preliminary Urine,Catheterized Assessment and Plan (1) Hypotension Status: Acute (2) [id number] renal failure Status: Acute (3) Falls Status: Acute (4) Clostridium difficile colitis Status: Acute Plan: We'll continue to follow. He has element of hypokalemia but is going to be dialyzed today. Otherwise, most likely need ECF placement to different facility, as the patient was somewhat dissatisfied with the rehab at [facility]. Check CMP in a.m. Anticipate discharge in next 24-48 hours. Time with Patient: Less than 30
[2016-11-30] MEDS ORDERED: POTASSIUM CHLORIDE ER 20 MEQ TAB.ER PO STA (08:07)
[2016-11-30] MEDS: APIXABAN 2.5 MG TABLET PO SCH ×2 (08:29→20:12)
[2016-11-30] MEDS: metroNIDAZOLE 500 MG TAB PO SCH ×4 (08:29→20:12)
[2016-11-30] MEDS: FAMOTIDINE 20 MG TAB PO SCH (08:29)
[2016-11-30 08:32] LABS: Anisocytosis Slight; CH 30.4; CHCM 29.9; HCT 31.5 % (39.0-53.0); HDW 2.57; HGB 9.5 gm/dL (13.0-17.5); Hypochromasia Marked; MCH 30.9 pg (25.0-35.0); MCHC 30.2 g/dL (31.0-37.0); MCV 102.4 fL (80.0-100.0); Macrocytosis Moderate; RBC 3.07 m/uL (4.30-5.90); WBC 3.1 k/uL (3.8-10.6); WBC (Perox) 3.21
[2016-11-30] MEDS: BUDESONIDE 1 MG/2 ML NEBU INHALATION SCH (08:56)
--- NOTE | 2016-11-30 09:08 | P.PN ---
Subjective Patient is seen in follow-up for end-stage renal disease. He is maintained on hemodialysis on a Wednesday schedule via permacath. Currently being treated for C. diff colitis. Appetite is improved. Denies any vomiting. Denies chest pain or shortness of breath. Still feels quite weak. Vital signs are stable. General: The patient appeared well nourished and normally developed. HEENT: Head exam is unremarkable. Neck is without jugular venous distension. LUNGS: Lungs are clear to auscultation and percussion. Breath sounds decreased. HEART: Rate and Rhythm are regular. First and second heart sounds normal. No murmurs, rubs or gallops. ABDOMEN: Abdominal exam reveals normal bowel sounds. Moderately distended. No evidence of peritonitis. EXTREMITITES: 1+ edema. Objective - Vital Signs Vital signs: Vital Signs Temp 98 F 11/30/16 08:20 Pulse 68 11/30/16 08:20 Resp 20 11/30/16 08:20 BP 94/50 11/30/16 08:20 Pulse Ox 97 11/30/16 08:20 Intake & Output 11/29/16 11/30/16 11/30/16 18:59 06:59 18:59 Intake Total 200 120 Balance 200 120 Weight 97.5 kg Intake: Oral 200 120 Other: # Voids 1 # Bowel Movements 1 - Labs CBC & Chem 7: 11/30/16 05:35 11/30/16 05:35 Labs: Abnormal Lab Results - Last 24 Hours (Table) 11/29/16 11/29/16 11/30/16 Range/Units 16:44 20:48 05:35 WBC 3.1 L (3.8-10.6) k/uL RBC 3.07 L (4.30-5.90) m/uL Hgb 9.5 L (13.0-17.5) gm/dL Hct 31.5 L (39.0-53.0) % MCV 102.4 H (80.0-100.0) fL MCHC 30.2 L (31.0-37.0) g/dL RDW 18.0 H (11.5-15.5) % Plt Count 134 L (150-450) k/uL Potassium (3.5-5.1) mmol/L BUN (9-20) mg/dL Creatinine (0.66-1.25) mg/dL POC Glucose (mg/dL) 103 H 125 H (75-99) mg/dL Calcium (8.4-10.2) mg/dL ALT (21-72) U/L Total Protein (6.3-8.2) g/dL Albumin (3.5-5.0) g/dL 11/30/16 Range/Units 05:35 WBC (3.8-10.6) k/uL RBC (4.30-5.90) m/uL Hgb (13.0-17.5) gm/dL Hct (39.0-53.0) % MCV (80.0-100.0) fL MCHC (31.0-37.0) g/dL RDW (11.5-15.5) % Plt Count (150-450) k/uL Potassium 3.3 L (3.5-5.1) mmol/L BUN 6 L (9-20) mg/dL Creatinine 3.20 H (0.66-1.25) mg/dL POC Glucose (mg/dL) (75-99) mg/dL Calcium 8.0 L (8.4-10.2) mg/dL ALT 154 H (21-72) U/L Total Protein 4.2 L (6.3-8.2) g/dL Albumin 1.9 L (3.5-5.0) g/dL Microbiology - Last 24 Hours (Table) 11/29/16 06:00 Urine Culture - Preliminary Urine,Catheterized Assessment and Plan Plan: Assessment: #1. End-stage renal disease maintained on hemodialysis on a Wednesday schedule. He has a permacath. Relatively new to dialysis that was started earlier this month due to significant volume overload. He did have chronic kidney disease stage IV prior. #2. Hypotension. This may be related to his underlying cardiac status and intravascular volume depletion. Improved. #3. Diastolic CHF with moderate pulmonary hypertension. #4. Anemia of chronic kidney disease. Hemoglobin at goal. #5. Hypokalemia related to GI losses. #6. C. diff colitis maintained on antibiotics. Plan: Hemodialysis today with ultrafiltration as tolerated. Continue Midodrine. Replace potassium. 20 mEq today. Nephrocaps daily.
[2016-11-30] MEDS ORDERED: MIDODRINE 5 MG TAB PO STA (10:45)
[2016-11-30 11:42] VITALS: RESP 16
[2016-11-30 11:53] LABS: Glucose,Whole Blood 102 mg/dL (75-99)
[2016-11-30 12:04] LABS: Add Differential Manual Differential
[2016-11-30 12:07] LABS: Nucleated Red Blood Cells 0 /100 WBC (0-0); Total Cells Counted 100
[2016-11-30 12:11] LABS: Target Cells Present
[2016-11-30] MEDS: PARoxetine 20 MG TAB PO SCH (13:40)
[2016-11-30] MEDS: FOLIC ACID-VIT B COMPLEX-VIT C 1 CAP PO SCH (13:40)
[2016-11-30] MEDS: TAMSULOSIN 0.4 MG CAP.ER.24H PO SCH (13:40)
[2016-11-30] MEDS: ALLOPURINOL 100 MG TAB PO SCH (13:40)
[2016-11-30 17:33] LABS: Glucose,Whole Blood 83 mg/dL (75-99)
[2016-11-30] MEDS: PRAVASTATIN SODIUM 20 MG TAB PO SCH (20:12)
[2016-12-01] MEDS: VANCOMYCIN ORAL SOLUTION 250 MG/5 ML BOTTLE PO SCH ×3 (00:58→13:43)
[2016-12-01 07:29] LABS: Glucose,Whole Blood 101 mg/dL (75-99)
--- NOTE | 2016-12-01 08:01 | P.DS ---
Providers Date of admission: 11/26/16 18:23 Attending physician: Renato Titus Primary care physician: Renato Titus - Discharge Diagnosis(es) (1) Hypotension Current Visit: Yes Status: Acute (2) [id number] renal failure Current Visit: No Status: Acute (3) Falls Current Visit: No Status: Acute (4) Clostridium difficile colitis Current Visit: Yes Status: Acute Hospital Course: This is a discharge transfer summary on a 76-year-old white male with acute on chronic renal failure with significant weakness. He still has significant weakness requiring rehabilitation element. However, he has developed Clostridium difficile and super infection with Charley albicans in the urine secondary to multiple courses of antibiotic treatment which was necessary for his infection. He is now stabilizing. He still requires dialysis but because of his weakness he will transferred to [facility]. We will continue to follow as an outpatient hopefully in a couple of weeks once she is discharged. Patient Condition at Discharge: Serious Plan - Discharge Summary New Discharge Prescriptions: Fluconazole [Diflucan] 100 mg PO DAILY #10 tab Hydrocodone/Acetaminophen [[place] 5-325] 1 tab PO BID PRN #60 tablet PRN Reason: Pain metroNIDAZOLE [Flagyl] 500 mg PO QID #28 tab Discharge Medication List Albuterol Sulfate [Proair Hfa] 2 puff INHALATION RT-QID PRN 10/16/16 [History] Allopurinol [Zyloprim] 100 mg PO QAM 10/16/16 [History] Amiodarone HCl [Cordarone] 100 mg PO HS 10/16/16 [History] Budesonide [Pulmicort Flexhaler] 2 puff INHALATION RT-DAILY 10/16/16 [History] Cholecalciferol [Vitamin D3] 1,000 unit PO DAILY 10/16/16 [History] Fish Oil/Dha/Epa [Fish Oil 1,200 mg Fish Oil] 1 cap PO HS 10/16/16 [History] Furosemide [Lasix] 20 mg PO SUTUTHSA 10/16/16 [History] Lansoprazole [Prevacid] 15 mg PO DAILY 10/16/16 [History] Lisinopril [Prinivil] 5 mg PO SUTUTHFR 10/16/16 [History] Magnesium Oxide 400 mg PO BID 10/16/16 [History] Metoprolol Tartrate [Lopressor] 25 mg PO SUTUTHSA 10/16/16 [History] PARoxetine [Paxil] 20 mg PO DAILY 10/16/16 [History] Pravastatin Sodium [Pravachol] 20 mg PO HS 10/16/16 [History] Vit C/E/Zinc/Lutein/Zeaxanthin [Ocuvite Eye [facility] Gummies] 1 tab PO BID [History] Vitamin E (Dl,Tocopheryl Acet) [Vitamin E] 400 unit PO BID 10/16/16 [History] Apixaban [Eliquis] 2.5 mg PO BID #60 tab 10/25/16 [Rx] Tamsulosin [Flomax] 0.4 mg PO PC-BRKFST #30 cap.er.24h 10/25/16 [Rx] Albuterol Nebulized [Ventolin Nebulized] 2.5 mg INHALATION Q6H PRN 11/26/16 [ History] Fluconazole [Diflucan] 100 mg PO DAILY #10 tab 12/01/16 [Rx] Hydrocodone/Acetaminophen [[place] 5-325] 1 tab PO BID PRN #60 tablet 12/01/16 [Rx ] metroNIDAZOLE [Flagyl] 500 mg PO QID #28 tab 12/01/16 [Rx] Follow up Appointment(s)/Referral(s): Renato Titus MD [Primary Care Provider] - 2 Weeks Discharge Disposition: TRANSFER TO SNF/ECF
[2016-12-01] MEDS: ALLOPURINOL 100 MG TAB PO SCH (08:08)
[2016-12-01] MEDS: APIXABAN 2.5 MG TABLET PO SCH (08:08)
[2016-12-01] MEDS: MIDODRINE 5 MG TAB PO SCH ×2 (08:08→13:43)
[2016-12-01] MEDS: TAMSULOSIN 0.4 MG CAP.ER.24H PO SCH (08:08)
[2016-12-01] MEDS: FOLIC ACID-VIT B COMPLEX-VIT C 1 CAP PO SCH (08:09)
[2016-12-01] MEDS: metroNIDAZOLE 500 MG TAB PO SCH ×2 (08:09→13:43)
[2016-12-01] MEDS: PARoxetine 20 MG TAB PO SCH (08:09)
[2016-12-01] MEDS: FAMOTIDINE 20 MG TAB PO SCH (08:09)
[2016-12-01 08:47] LABS: Calcium 8.1 mg/dL (8.4-10.2); Potassium 3.8 mmol/L (3.5-5.1); Total Bilirubin 0.6 mg/dL (0.2-1.3); Total Protein 4.6 g/dL (6.3-8.2)
[2016-12-01 09:13] LABS: Anisocytosis Slight; Aty Lym Flag Slight; CH 30.4; CHCM 29.8; HCT 33.9 % (39.0-53.0); HDW 2.59; HGB 10.3 gm/dL (13.0-17.5); Hypochromasia Marked; MCHC 30.2 g/dL (31.0-37.0); MCV 102.7 fL (80.0-100.0); Macrocytosis Moderate; Mean Platelet Volume 8.2; RDW 18.1 % (11.5-15.5); WBC 3.1 k/uL (3.8-10.6); WBC (Perox) 3.16
[2016-12-01 10:41] LABS: Add Differential Manual Differential
[2016-12-01 10:47] LABS: Band Neutrophils % 0.5 %; Manual Review Performed; Myelocytes % 0.5 %; Nucleated Red Blood Cells 0 /100 WBC (0-0); Target Cells Present; Total Cells Counted 200
--- NOTE | 2016-12-01 11:19 | P.PN ---
Subjective Patient is seen in follow-up for end-stage renal disease. He is maintained on hemodialysis on a Wednesday schedule via permacath. Currently being treated for C. diff colitis. Appetite is improved. Denies any vomiting. Denies chest pain or shortness of breath. No active complaints at this time. Vital signs are stable. General: The patient appeared well nourished and normally developed. HEENT: Head exam is unremarkable. Neck is without jugular venous distension. LUNGS: Lungs are clear to auscultation and percussion. Breath sounds decreased. HEART: Rate and Rhythm are regular. First and second heart sounds normal. No murmurs, rubs or gallops. ABDOMEN: Abdominal exam reveals normal bowel sounds. Moderately distended. No evidence of peritonitis. EXTREMITITES: 1+ edema. Objective - Vital Signs Vital signs: Vital Signs Temp 97.5 F L 12/01/16 07:00 Pulse 69 12/01/16 08:00 Resp 16 12/01/16 08:00 BP 86/45 12/01/16 07:00 Pulse Ox 95 12/01/16 07:00 Intake & Output 11/30/16 12/01/16 12/01/16 18:59 06:59 18:59 Intake Total 320 380 Output Total 1100 100 Balance -780 380 -100 Weight 98.5 kg Intake: Oral 320 380 Output: Stool 100 100 Other 1000 Other: Voiding Method Indwelling Catheter Indwelling Catheter Indwelling Catheter # Voids 2 # Bowel Movements 1 - Labs CBC & Chem 7: 12/01/16 08:15 12/01/16 08:15 Labs: Abnormal Lab Results - Last 24 Hours (Table) 11/30/16 11/30/16 12/01/16 Range/Units 05:35 11:28 07:20 WBC 3.1 L (3.8-10.6) k/uL RBC 3.07 L (4.30-5.90) m/uL Hgb 9.5 L (13.0-17.5) gm/dL Hct 31.5 L (39.0-53.0) % MCV 102.4 H (80.0-100.0) fL MCHC 30.2 L (31.0-37.0) g/dL RDW 18.0 H (11.5-15.5) % Plt Count 134 L (150-450) k/uL Lymphocytes # (Manual) (1.0-4.8) k/uL BUN (9-20) mg/dL Creatinine (0.66-1.25) mg/dL Glucose (74-99) mg/dL POC Glucose (mg/dL) 102 H 101 H (75-99) mg/dL Calcium (8.4-10.2) mg/dL ALT (21-72) U/L Total Protein (6.3-8.2) g/dL Albumin (3.5-5.0) g/dL 12/01/16 12/01/16 Range/Units 08:15 08:15 WBC 3.1 L (3.8-10.6) k/uL RBC 3.30 L (4.30-5.90) m/uL Hgb 10.3 L (13.0-17.5) gm/dL Hct 33.9 L (39.0-53.0) % MCV 102.7 H (80.0-100.0) fL MCHC 30.2 L (31.0-37.0) g/dL RDW 18.1 H (11.5-15.5) % Plt Count 146 L (150-450) k/uL Lymphocytes # (Manual) 0.9 L (1.0-4.8) k/uL BUN 5 L (9-20) mg/dL Creatinine 2.99 H (0.66-1.25) mg/dL Glucose 101 H (74-99) mg/dL POC Glucose (mg/dL) (75-99) mg/dL Calcium 8.1 L (8.4-10.2) mg/dL ALT 143 H (21-72) U/L Total Protein 4.6 L (6.3-8.2) g/dL Albumin 2.1 L (3.5-5.0) g/dL Microbiology - Last 24 Hours (Table) 11/29/16 06:00 Urine Culture - Final Urine,Catheterized Charley albicans Assessment and Plan Plan: Assessment: #1. End-stage renal disease maintained on hemodialysis on a Wednesday schedule. He has a permacath. Relatively new to dialysis that was started earlier this month due to significant volume overload. He did have chronic kidney disease stage IV prior. #2. Hypotension. This may be related to his underlying cardiac status and intravascular volume depletion. Improved. #3. Diastolic CHF with moderate pulmonary hypertension. #4. Anemia of chronic kidney disease. Hemoglobin at goal. #5. Hypokalemia related to GI losses. Improved. #6. C. diff colitis maintained on antibiotics. Plan: Hemodialysis tomorrow with ultrafiltration as tolerated. Continue Midodrine. Nephrocaps stable to be discharged to rehab from nephrology standpoint.
[2016-12-01 11:31] LABS: Glucose,Whole Blood 90 mg/dL (75-99)
[2016-12-01] MEDS: BUDESONIDE 1 MG/2 ML NEBU INHALATION SCH (12:01)
[2016-12-01 16:14] VITALS: BP 86/46; PULSE 83; TEMP 98.4
== END 2016-12-01 17:10 | DRG 371 ==
LOC: EC 15:23 → 6SEL 18:23 → 3SUR 23:06 → 6SEL 11-27 14:21 → 5MS5E 11-30 14:15
PROVIDERS: ADMIT Family Medicine; ATTEND Family Medicine
PROC: 5A1D00Z (ICD-10-PCS; principal; 2016-11-29)
DX: A04.7 Enterocolitis due to Clostridium difficile (principal); N18.6 End stage renal disease; I13.2 Hypertensive heart and chronic kidney disease with heart failure and with stage 5 chronic kidney disease, or end stage renal disease; N17.9 Acute kidney failure, unspecified; E44.0 Moderate protein-calorie malnutrition; E11.22 Type 2 diabetes mellitus with diabetic chronic kidney disease; D69.6 Thrombocytopenia, unspecified; I50.32 Chronic diastolic (congestive) heart failure; B37.49 Other urogenital candidiasis; I27.2 Other secondary pulmonary hypertension; E86.0 Dehydration; D53.9 Nutritional anemia, unspecified; D63.1 Anemia in chronic kidney disease; E78.5 Hyperlipidemia, unspecified; E87.6 Hypokalemia; F32.9 Major depressive disorder, single episode, unspecified; F41.9 Anxiety disorder, unspecified; G47.30 Sleep apnea, unspecified; H35.30 Unspecified macular degeneration; Z99.2 Dependence on renal dialysis; I25.10 Atherosclerotic heart disease of native coronary artery without angina pectoris; I48.91 Unspecified atrial fibrillation; J44.9 Chronic obstructive pulmonary disease, unspecified; J45.909 Unspecified asthma, uncomplicated; K21.9 Gastro-esophageal reflux disease without esophagitis; M10.9 Gout, unspecified; M19.90 Unspecified osteoarthritis, unspecified site; R33.9 Retention of urine, unspecified; Z85.828 Personal history of other malignant neoplasm of skin; Z87.442 Personal history of urinary calculi; Z87.891 Personal history of nicotine dependence; Z95.1 Presence of aortocoronary bypass graft; Z79.899 Other long term (current) drug therapy
CPT/HCPCS: 36415; 70450; 71020; 80053; 80299; 81001; 82533; 83690; 84100; 84484; 85025; 85027; 86705; 86706; 87086; 87324; 87340; 90935; 93005; 94640; 96361; 96365; 96366; 96375; 99285

== ENCOUNTER 2016-12-09 10:30 | Inpatient (IN) | payer MEDICARE, BC ==
--- NOTE | 2016-12-09 10:57 | ED ---
General Adult HPI - General Stated complaint: Low B/P Time Seen by Provider: 12/09/16 10:48 Source: patient, family, RN notes reviewed Mode of arrival: EMS Limitations: no limitations - History of Present Illness Initial comments: Patient is a pleasant 76-year-old male presenting to the emergency Department with reported low blood pressure. Patient has been dealing with low blood pressure issues since the beginning of October. Patient was diagnosed with renal failure and has started dialysis. Last dialysis was Wednesday. Patient does normally have low blood pressure. This has been over the past couple of months. Patient does not normally get up to 100 systolic blood pressure. Patient otherwise feels fine. No chest pain. No dyspnea. No abdominal pain. No weakness or fatigue or confusion. - Related Data Home Medications Medication Instructions Recorded Confirmed Albuterol Sulfate [Proair Hfa] 2 puff INHALATION RT-QID PRN 10/16/16 12/09/16 Allopurinol [Zyloprim] 100 mg PO QAM 10/16/16 12/09/16 Amiodarone HCl [Cordarone] 100 mg PO HS 10/16/16 12/09/16 Budesonide [Pulmicort Flexhaler] 2 puff INHALATION RT-DAILY 10/16/16 12/09/16 Cholecalciferol [Vitamin D3] 1,000 unit PO DAILY 10/16/16 12/09/16 Fish Oil/Dha/Epa [Fish Oil 1,200 1 cap PO HS 10/16/16 12/09/16 mg Fish Oil] Furosemide [Lasix] 20 mg PO SUTUTHSA 10/16/16 12/09/16 Lansoprazole [Prevacid] 15 mg PO DAILY 10/16/16 12/09/16 Lisinopril [Prinivil] 5 mg PO SUTUTHFR 10/16/16 12/09/16 Magnesium Oxide 400 mg PO BID 10/16/16 12/09/16 Metoprolol Tartrate [Lopressor] 25 mg PO SUTUTHSA 10/16/16 12/09/16 PARoxetine [Paxil] 20 mg PO DAILY 10/16/16 12/09/16 Pravastatin Sodium [Pravachol] 20 mg PO HS 10/16/16 12/09/16 Vit C/E/Zinc/Lutein/Zeaxanthin 1 tab PO BID 10/16/16 12/09/16 [[facility]] Vitamin E (Dl,Tocopheryl Acet) 400 unit PO BID 10/16/16 12/09/16 [Vitamin E] Albuterol Nebulized [Ventolin 2.5 mg INHALATION RT-Q6H PRN 11/26/16 12/09/16 Nebulized] Ondansetron [Zofran] 4 mg PO Q8H PRN 12/09/16 12/09/16 Periguard Oint 1 applic TOPICAL TID 12/09/16 12/09/16 Previous Rx's Medication Instructions Recorded Apixaban [Eliquis] 2.5 mg PO BID #60 tab 10/25/16 Tamsulosin [Flomax] 0.4 mg PO PC-BRKFST #30 cap.er.24h 10/25/16 Fluconazole [Diflucan] 100 mg PO DAILY #10 tab 12/01/16 Hydrocodone/Acetaminophen [[place] 1 tab PO BID PRN #60 tablet 12/01/16 5-325] metroNIDAZOLE [Flagyl] 500 mg PO QID #28 tab 12/01/16 Allergies Allergy/AdvReac Type Severity Reaction Status Date / Time No Known Allergies Allergy Verified 12/09/16 10:35 Review of Systems ROS Statement: Those systems with pertinent positive or pertinent negative responses have been documented in the HPI. ROS Other: All systems not noted in ROS Statement are negative. Constitutional: Denies: fever Eyes: Denies: eye pain ENT: Denies: ear pain Respiratory: Denies: cough Cardiovascular: Denies: chest pain Endocrine: Denies: fatigue Gastrointestinal: Denies: abdominal pain Genitourinary: Denies: dysuria Musculoskeletal: Denies: back pain Skin: Denies: rash Neurological: Denies: weakness Past Medical History Past Medical History: Asthma, Coronary Artery Disease (CAD), Cancer, Heart Failure, COPD, Diabetes Mellitus, GERD/Reflux, Hyperlipidemia, Osteoarthritis ( OA), Sleep Apnea/CPAP/BIPAP Additional Past Medical History / Comment(s): kidney stones macular degeneration pt stated" past afib but none in 4 years", gout, benign polyps, chronic back pain, "disc problems", renal insuff,skin cancer(squamous cell), "trmors", occ trouble holding his bowels.? mvp per pat med hx. renal failure with dialysis History of Any Multi-Drug Resistant Organisms: C-DIFF Date of last positivie culture/infection: 11/27/16 MDRO Source:: Stool Past Surgical History: Coronary Bypass/CABG, Joint Replacement, Orthopedic Surgery, Tonsillectomy Additional Past Surgical History / Comment(s): cabg svg to om1 and svg to om2( as y graft), latoya cataracts,laser sx latoya eyes for macular degeneration, colonoscopy/polypectomy, latoya knee replacment, lower tear duct-implant latoya eyes, rt ankle broken-sx to repair,has a steel plate. hemodialysis port Past Anesthesia/Blood Transfusion Reactions: No Reported Reaction Past Psychological History: Anxiety, Depression Additional Psychological History / Comment(s): paxil Smoking Status: Former smoker Past Alcohol Use History: Daily Additional Past Alcohol Use History / Comment(s): started smoking at age 17 later on in life swithced to cigars then quit 2008. pt admits to 3 drinks a day( whiskey) Past Drug Use History: None Reported - Past Family History Mother Family Medical History: Cancer Additional Family Medical History / Comment(s): kidney cancer Father Family Medical History: Cancer, Prostate Disorder Additional Family Medical History / Comment(s): prostate cancer Brother(s) History Unknown: Yes General Exam Limitations: no limitations General appearance: alert, in no apparent distress Head exam: Present: atraumatic Eye exam: Present: normal appearance, PERRL ENT exam: Present: normal oropharynx Neck exam: Present: normal inspection Respiratory exam: Present: normal lung sounds bilaterally Cardiovascular Exam: Present: regular rate, normal rhythm GI/Abdominal exam: Present: soft. Absent: tenderness Extremities exam: Present: normal inspection Back exam: Present: normal inspection Neurological exam: Present: alert, oriented X3, CN II-XII intact. Absent: motor sensory deficit Expanded Speech: Present: fluid speech Motor strength exam: RUE: 5, LUE: 5, RLE: 5, LLE: 5 Psychiatric exam: Present: normal affect, normal mood Skin exam: Absent: rash Course Vital Signs 12/09/16 12/09/16 12/09/16 10:47 11:04 11:14 Temperature 97.0 F L Pulse Rate 83 71 Respiratory 18 18 16 Rate Blood Pressure 65/55 70/46 70/43 O2 Sat by Pulse 95 93 L 93 L Oximetry 12/09/16 12/09/1617 11:26 11:45 12:15 Temperature Pulse Rate 74 77 78 Respiratory 16 16 16 Rate Blood Pressure 64/31 85/49 74/47 O2 Sat by Pulse 97 96 97 Oximetry 12/09/16 12/09/16 12/09/16 13:07 13:26 13:33 Temperature Pulse Rate 73 73 68 Respiratory 16 16 18 Rate Blood Pressure 66/41 84/49 94/57 O2 Sat by Pulse 97 99 98 Oximetry 12/09/16 12/09/16 13:43 13:54 Temperature 97.4 F L Pulse Rate 76 Respiratory 18 Rate Blood Pressure 84/49 O2 Sat by Pulse 96 Oximetry EKG Findings - EKG Comments: EKG Findings:: Normal sinus rhythm at 80. MN 194. QRS 74. QT 440. QTc 507. Normal axis. Low voltage QRS. Inverted T waves leads V2 through V V6. Medical Decision Making - Medical Decision Making Patient reexamined and resting comfortably in bed. Patient remained symptom- free. Systolic blood pressure has increased to 84 following nearly 2 L fluid bolus. Case was discussed in detail with Dr. Titus, who will admit his patient with consult for nephrology. - Lab Data Result diagrams: 12/09/16 11:30 12/09/16 11:30 Lab Results 12/09/16 12/09/16 12/09/16 Range/Units 11:30 11:30 11:30 WBC 5.2 (3.8-10.6) k/uL RBC 3.41 L (4.30-5.90) m/uL Hgb 10.5 L (13.0-17.5) gm/dL Hct 34.9 L (39.0-53.0) % MCV 102.4 H (80.0-100.0) fL MCH 30.9 (25.0-35.0) pg MCHC 30.2 L (31.0-37.0) g/dL RDW 17.8 H (11.5-15.5) % Plt Count 151 (150-450) k/uL Neutrophils % 61 % Lymphocytes % 23 % Monocytes % 13 % Eosinophils % 1 % Basophils % 1 % Neutrophils # 3.2 (1.3-7.7) k/uL Lymphocytes # 1.2 (1.0-4.8) k/uL Monocytes # 0.7 (0-1.0) k/uL Eosinophils # 0.0 (0-0.7) k/uL Basophils # 0.0 (0-0.2) k/uL Manual Slide Review Performed Hypochromasia Moderate Poikilocytosis (manual Present Anisocytosis Slight Macrocytosis Moderate Target Cells Present PT (9.0-12.0) sec INR (<1.1) APTT (22.0-30.0) sec Sodium 137 (137-145) mmol/L Potassium 3.1 L (3.5-5.1) mmol/L Chloride 101 (98-107) mmol/L Carbon Dioxide 26 (22-30) mmol/L Anion Gap 10 mmol/L BUN 9 (9-20) mg/dL Creatinine 4.70 H (0.66-1.25) mg/dL Est GFR (MDRD) Af Amer 15 (>60 ml/min/1.73 sqM) Est GFR (MDRD) Non-Af 12 (>60 ml/min/1.73 sqM) Glucose 107 H (74-99) mg/dL Calcium 8.0 L (8.4-10.2) mg/dL Phosphorus 2.4 L (2.5-4.5) mg/dL Magnesium 2.0 (1.6-2.3) mg/dL Total Bilirubin 0.6 (0.2-1.3) mg/dL AST 29 (17-59) U/L ALT 70 (21-72) U/L Alkaline Phosphatase 97 (38-126) U/L Total Creatine Kinase 35 L (55-170) U/L CK-MB (CK-2) 7.2 H* (0.0-2.4) ng/mL CK-MB (CK-2) Rel Index 20.6 Troponin I <0.012 (0.000-0.034) ng/mL Total Protein 4.5 L (6.3-8.2) g/dL Albumin 2.1 L (3.5-5.0) g/dL TSH 15.900 H (0.465-4.680) mIU/L Free T4 1.35 (0.78-2.19) ng/dL Free T3 pg/mL 3.1 (2.8-5.3) pg/ml 02/01/17 Range/Units 11:30 WBC (3.8-10.6) k/uL RBC (4.30-5.90) m/uL Hgb (13.0-17.5) gm/dL Hct (39.0-53.0) % MCV (80.0-100.0) fL MCH (25.0-35.0) pg MCHC (31.0-37.0) g/dL RDW (11.5-15.5) % Plt Count (150-450) k/uL Neutrophils % % Lymphocytes % % Monocytes % % Eosinophils % % Basophils % % Neutrophils # (1.3-7.7) k/uL Lymphocytes # (1.0-4.8) k/uL Monocytes # (0-1.0) k/uL Eosinophils # (0-0.7) k/uL Basophils # (0-0.2) k/uL Manual Slide Review Hypochromasia Poikilocytosis (manual Anisocytosis Macrocytosis Target Cells PT 18.9 H (9.0-12.0) sec INR 2.0 (<1.1) APTT 29.6 (22.0-30.0) sec Sodium (137-145) mmol/L Potassium (3.5-5.1) mmol/L Chloride (98-107) mmol/L Carbon Dioxide (22-30) mmol/L Anion Gap mmol/L BUN (9-20) mg/dL Creatinine (0.66-1.25) mg/dL Est GFR (MDRD) Af Amer (>60 ml/min/1.73 sqM) Est GFR (MDRD) Non-Af (>60 ml/min/1.73 sqM) Glucose (74-99) mg/dL Calcium (8.4-10.2) mg/dL Phosphorus (2.5-4.5) mg/dL Magnesium (1.6-2.3) mg/dL Total Bilirubin (0.2-1.3) mg/dL AST (17-59) U/L ALT (21-72) U/L Alkaline Phosphatase (38-126) U/L Total Creatine Kinase (55-170) U/L CK-MB (CK-2) (0.0-2.4) ng/mL CK-MB (CK-2) Rel Index Troponin I (0.000-0.034) ng/mL Total Protein (6.3-8.2) g/dL Albumin (3.5-5.0) g/dL TSH (0.465-4.680) mIU/L Free T4 (0.78-2.19) ng/dL Free T3 pg/mL (2.8-5.3) pg/ml - Radiology Data Radiology results: image reviewed (Chest x-ray shows possible small effusion) Disposition Clinical Impression: Hypotension Disposition: ADMITTED IP TO THIS HOSP
[2016-12-09] MEDS: SODIUM CHLORIDE 0.9% 1,000 ML IV STA ×2 (11:17→13:05)
[2016-12-09 11:50] LABS: Phosphorous 2.4 mg/dL (2.5-4.5); Potassium 3.1 mmol/L (3.5-5.1); Total Bilirubin 0.6 mg/dL (0.2-1.3); Total Protein 4.5 g/dL (6.3-8.2)
--- NOTE | 2016-12-09 11:54 | XR ---
EXAMINATION TYPE: XR chest 2V DATE OF EXAM: 12/09/2016 11:47 AM HISTORY: Low blood pressure. REFERENCE: Previous study dated 11/26/2016. FINDINGS: There has been a midline sternotomy. There is a large bore double-lumen catheter in place v ia a right internal jugular approach. Its tip is at the cavoatrial junction. There is sclerotic change in the costochondral junction of the first rib on the right. The lungs are clear. There is a left-sided pleural effusion. This is small.. Heart size is normal. IMPRESSION: SMALL LEFT PLEURAL EFFUSION.
[2016-12-09 12:07] LABS: Partial Thromboplastin Time 29.6 sec (22.0-30.0); Prothrombin Time 18.9 sec (9.0-12.0)
[2016-12-09 12:08] LABS: Creatine Kinase 35 U/L (55-170)
[2016-12-09 12:16] LABS: Anisocytosis Slight; Basophils % (A) 1 %; CH 31.4; CHCM 30.9; Eosinophils % (A) 1 %; HCT 34.9 % (39.0-53.0); HDW 2.87; HGB 10.5 gm/dL (13.0-17.5); Hypochromasia Moderate; Luc # (Auto) 0.11; Luc % (Auto) 2; Lymphocytes # (A) 1.2 k/uL (1.0-4.8); Lymphocytes % (A) 23 %; MCH 30.9 pg (25.0-35.0); MCHC 30.2 g/dL (31.0-37.0); MCV 102.4 fL (80.0-100.0); Macrocytosis Moderate; Mean Platelet Volume 9.3; Monocytes # (A) 0.7 k/uL (0-1.0); Monocytes % (A) 13 %; Neutrophils # (A) 3.2 k/uL (1.3-7.7); Neutrophils % (A) 61 %; RBC 3.41 m/uL (4.30-5.90); RDW 17.8 % (11.5-15.5); WBC 5.2 k/uL (3.8-10.6); WBC (Perox) 4.94
[2016-12-09 12:22] LABS: Troponin I <0.012 ng/mL (0.000-0.034)
[2016-12-09 12:32] LABS: Manual Review Performed
[2016-12-09 12:33] LABS: Target Cells Present
[2016-12-09] MEDS ORDERED: HYDROcodone/APAP 5-325MG 1 EACH TAB PO STA (12:35)
[2016-12-09 12:37] LABS: Creatine Kinase MB 7.2 ng/mL (0.0-2.4)
[2016-12-09] MEDS ORDERED: NALOXONE 0.4 MG/ML 1 ML VIAL IV PRN (14:13)
[2016-12-09] MEDS ORDERED: POTASSIUM CHLORIDE ER 20 MEQ TAB.ER PO STA (14:15)
[2016-12-09] MEDS: SODIUM CHLORIDE 0.9% 1,000 ML IV SCH (14:37)
[2016-12-09 17:15] LABS: Glucose,Whole Blood 101 mg/dL (75-99)
[2016-12-09] MEDS ORDERED: ONDANSETRON 4 MG TAB PO PRN (18:12)
[2016-12-09] MEDS ORDERED: ALBUTEROL INHALER 60 PUFF/8 GM INHALER INHALATION PRN (18:12)
[2016-12-09 20:00] LABS: Hemoglobin A1C 5.4 % (4.2-6.1)
[2016-12-09] MEDS ORDERED: MIDODRINE 5 MG TAB PO ONE (20:18)
[2016-12-09] MEDS ORDERED: SODIUM CHLORIDE 0.9% 1,000 ML IV ONE (20:49)
[2016-12-09] MEDS: PRAVASTATIN SODIUM 20 MG TAB PO SCH (21:01)
[2016-12-09] MEDS: VITAMIN E (DL,TOCOPHERYL ACET) 400 UNIT CAP PO SCH (21:01)
[2016-12-09] MEDS: MAGNESIUM OXIDE 400 MG TAB PO SCH (21:02)
[2016-12-09] MEDS: VIT A,C & E-LUTEIN-MINERALS 1 EACH TAB PO SCH (21:02)
[2016-12-09] MEDS: APIXABAN 2.5 MG TABLET PO SCH (21:02)
[2016-12-09 21:06] LABS: Glucose,Whole Blood 129 mg/dL (75-99)
[2016-12-09] MEDS: INSULIN LISPRO (humaLOG) 300 UNIT/3 ML VIAL SQ SCH (21:07)
[2016-12-09] MEDS ORDERED: PERIGUARD TOPICAL SCH (22:00)
[2016-12-10] MEDS: AMIODARONE 100 MG TAB PO SCH ×2 (00:01→20:18)
[2016-12-10 00:20] LABS: Glucose,Whole Blood 116 mg/dL (75-99)
[2016-12-10] MEDS: NOREPINEPHRINE 4 MG in SODIUM CHLORIDE 0.9% 250 ML IV SCH ×2 (02:35→21:19)
[2016-12-10] MEDS: SODIUM CHLORIDE 0.9% 1,000 ML IV SCH ×2 (04:20→10:27)
[2016-12-10 05:26] LABS: Anisocytosis Slight; Basophils % (A) 1 %; CH 30.7; CHCM 29.7; Eosinophils # (A) 0.1 k/uL (0-0.7); Eosinophils % (A) 1 %; HCT 36.7 % (39.0-53.0); HDW 2.67; HGB 11.1 gm/dL (13.0-17.5); Hypochromasia Marked; Luc # (Auto) 0.18; Luc % (Auto) 4; Lymphocytes # (A) 1.4 k/uL (1.0-4.8); Lymphocytes % (A) 30 %; MCH 31.5 pg (25.0-35.0); MCHC 30.3 g/dL (31.0-37.0); Macrocytosis Moderate; Mean Platelet Volume 7.7; Monocytes # (A) 0.4 k/uL (0-1.0); Monocytes % (A) 9 %; Neutrophils # (A) 2.6 k/uL (1.3-7.7); Neutrophils % (A) 55 %; RBC 3.52 m/uL (4.30-5.90); RDW 17.4 % (11.5-15.5); WBC 4.8 k/uL (3.8-10.6); WBC (Perox) 5.48
[2016-12-10 05:35] LABS: Magnesium 1.9 mg/dL (1.6-2.3); Phosphorous 2.5 mg/dL (2.5-4.5); Potassium 3.4 mmol/L (3.5-5.1); Total Bilirubin 0.7 mg/dL (0.2-1.3); Total Protein 4.8 g/dL (6.3-8.2)
[2016-12-10 05:58] LABS: Manual Review Performed; Target Cells Present
[2016-12-10] MEDS: MAGNESIUM SULFATE-D5W PMX 1 GM in DEXTROSE/WATER 1 100ML.BAG IVPB SCH ×2 (06:46→08:35)
[2016-12-10] MEDS ORDERED: POTASSIUM CHLORIDE ER 20 MEQ TAB.ER PO SCH (07:00)
[2016-12-10] MEDS ORDERED: MIDODRINE 5 MG TAB PO SCH (07:30)
--- NOTE | 2016-12-10 07:41 | P.HPIM ---
History of Present Illness H&P Date: 12/10/16 Chief Complaint: Hypotension This is a 76-year-old white male very well-known to my practice who has been hospitalized multiple times in the last 6 months secondary to renal failure. He has an underlying history of atrial fibrillation. He has had significant mobility issues and he has been in the ECF. Significant hypertension was noticed and he was admitted because of his multiplicity of comorbidities. He is significantly tired this morning and arousable but not answering questions. Blood pressure is now stable after being admitted and started on Levothroid secondary to his significant hypotension. He has been on dialysis. Multiple consultants including nephrology, pulmonology and cardiology consulted. He has elevated CK and MB. The patient is not complaining of any chest pain. Review of Systems Constitutional: Denies chills, Denies fever Cardiovascular: Reports as per HPI Respiratory: Denies dyspnea Musculoskeletal: Denies myalgias Integumentary: Denies pruritus, Denies rash Past Medical History Past Medical History: Asthma, Coronary Artery Disease (CAD), Cancer, Heart Failure, COPD, Diabetes Mellitus, GERD/Reflux, Hyperlipidemia, Osteoarthritis ( OA), Sleep Apnea/CPAP/BIPAP Additional Past Medical History / Comment(s): kidney stones macular degeneration pt stated" past afib but none in 4 years", gout, benign polyps, chronic back pain, "disc problems", renal insuff,skin cancer(squamous cell), "trmors", occ trouble holding his bowels.? mvp per pat med hx. renal failure with dialysis History of Any Multi-Drug Resistant Organisms: C-DIFF Date of last positivie culture/infection: 11/27/16 MDRO Source:: Stool Past Surgical History: Coronary Bypass/CABG, Joint Replacement, Orthopedic Surgery, Tonsillectomy Additional Past Surgical History / Comment(s): cabg svg to om1 and svg to om2( as y graft), latoya cataracts,laser sx latoya eyes for macular degeneration, colonoscopy/polypectomy, latoya knee replacment, lower tear duct-implant latoya eyes, rt ankle broken-sx to repair,has a steel plate. hemodialysis port Past Anesthesia/Blood Transfusion Reactions: No Reported Reaction Past Psychological History: Anxiety, Depression Additional Psychological History / Comment(s): paxil Smoking Status: Former smoker Past Alcohol Use History: Daily Additional Past Alcohol Use History / Comment(s): started smoking at age 17 later on in life swithced to cigars then quit 2008. pt admits to 3 drinks a day( whiskey) Past Drug Use History: None Reported - Past Family History Mother Family Medical History: Cancer Additional Family Medical History / Comment(s): kidney cancer Father Family Medical History: Cancer, Prostate Disorder Additional Family Medical History / Comment(s): prostate cancer Brother(s) History Unknown: Yes Medications and Allergies Home Medications Medication Instructions Recorded Confirmed Type Albuterol Sulfate [Proair Hfa] 2 puff INHALATION RT-QID PRN 10/16/16 12/09/16 History Allopurinol [Zyloprim] 100 mg PO QAM 10/16/16 12/09/16 History Amiodarone HCl [Cordarone] 100 mg PO HS 10/16/16 12/09/16 History Budesonide [Pulmicort Flexhaler] 2 puff INHALATION RT-DAILY 10/16/16 12/09/16 History Cholecalciferol [Vitamin D3] 1,000 unit PO DAILY 10/16/16 12/09/16 History Fish Oil/Dha/Epa [Fish Oil 1,200 1 cap PO HS 10/16/16 12/09/16 History mg Fish Oil] Furosem[facility] [Lasix] [facility] 12/09/16 History Lansoprazole [Prevacid] 15 mg PO DAILY 10/16/16 12/09/16 History Lisinopril [Prinivil] 5 mg PO [facility] 10/16/16 12/09/16 History Magnesium Oxide 400 mg PO BID 10/16/16 12/09/16 History Metoprolol Tartrate [Lopressor] 25 mg PO [facility] 10/16/16 12/09/16 History PARoxetine [Paxil] 20 mg PO DAILY 10/16/16 12/09/16 History Pravastatin Sodium [Pravachol] 20 mg PO HS 10/16/16 12/09/16 History Vit C/E/Zinc/Lutein/Zeaxanthin 1 tab PO BID 10/16/16 12/09/16 History [Ocuvite [facility]] Vitamin E (Dl,Tocopheryl Acet) 400 unit PO BID 10/16/16 12/09/16 History [Vitamin E] Albuterol Nebulized [Ventolin 2.5 mg INHALATION RT-Q6H PRN 11/26/16 12/09/16 History Nebulized] Ondansetron [Zofran] 4 mg PO Q8H PRN 12/09/16 12/09/16 History Periguard Oint 1 applic TOPICAL TID 12/09/16 12/09/16 History Allergies Allergy/AdvReac Type Severity Reaction Status Date / Time No Known Allergies Allergy Verified 12/09/16 10:35 Physical Exam Vitals: Vital Signs Temp Pulse Pulse Resp BP BP BP 12/10/16 06:00 98 18 95/55 12/10/16 05:30 97 13 85/52 12/10/16 05:00 100 14 86/50 12/10/16 04:00 97.8 F 112 H 96 12 86/55 12/10/16 03:30 90 19 95/49 12/10/16 03:00 86 25 H 87/57 12/10/16 02:30 79 18 74/51 12/10/16 02:00 109 H 26 H 83/58 12/10/16 01:30 76 15 83/58 12/10/16 01:00 110 H 15 83/58 12/10/16 00:35 111 H 16 83/58 12/09/16 23:56 97.8 F 74 18 70/40 74/37 12/09/16 22:30 69/42 12/09/16 21:30 74 71/44 12/09/16 21:00 78 80/41 12/09/16 20:30 112 H 72/46 12/09/16 20:15 64/32 12/09/16 20:00 96.1 F L 72 18 61/38 12/09/16 18:59 81 18 12/09/16 18:00 81 18 67/44 12/09/16 16:00 97.5 F L 79 18 83/45 12/09/16 14:44 97.8 F 76 18 84/48 BP Pulse Ox 12/10/16 06:00 93 L 12/10/16 05:30 94 L 12/10/16 05:00 90 L 12/10/16 04:00 95 12/10/16 03:30 94 L 12/10/16 03:00 93 L 12/10/16 02:30 95 12/10/16 02:00 95 12/10/16 01:30 94 L 12/10/16 01:00 93 L 12/10/16 00:35 94 L 12/09/16 23:56 72/42 95 12/09/16 22:30 72/47 12/09/16 21:30 12/09/16 21:00 12/09/16 20:30 12/09/16 20:15 12/09/16 20:00 67/44 96 12/09/16 18:59 71/36 96 12/09/16 18:00 65/38 96 12/09/16 16:00 96 12/09/16 14:44 93 L Intake and Output 12/09/16 12/10/16 12/10/16 22:59 06:59 14:59 Intake Total 540 464.605 Output Total 0 Balance 540 464.605 Intake: IV 450 Sodium Chloride 0.9% 1, 450 000 ml @ 75 mls/hr IV . [id number] JAMES Rx#:[id number] Intake, IV Titration 14.605 Amount Norepinephrine 4 mg In 14.605 Sodium Chloride 0.9% 250 ml @ Titrate IV .Q0M JAMES Rx#:[id number] Oral 540 Output: Urine 0 Other: # Voids 0 # Bowel Movements 1 - Constitutional General appearance: obese - EENT Eyes: EOMI - Neck Neck: no lymphadenopathy - Respiratory Respiratory: bilateral: diminished - Cardiovascular Rhythm: irregularly irregular - Gastrointestinal General gastrointestinal: soft, no tenderness - Integumentary Edema noted in lower extremities. - Musculoskeletal Musculoskeletal: generalized weakness Results CBC & Chem 7: 12/10/16 05:01 12/10/16 05:01 Labs: Abnormal Lab Results - Last 24 Hours (Table) 12/09/16 12/09/16 12/10/16 Range/Units 17:12 21:04 00:19 RBC (4.30-5.90) m/uL Hgb (13.0-17.5) gm/dL Hct (39.0-53.0) % MCV (80.0-100.0) fL MCHC (31.0-37.0) g/dL RDW (11.5-15.5) % Potassium (3.5-5.1) mmol/L Creatinine (0.66-1.25) mg/dL Glucose (74-99) mg/dL POC Glucose (mg/dL) 101 H 129 H 116 H (75-99) mg/dL Calcium (8.4-10.2) mg/dL Total Protein (6.3-8.2) g/dL Albumin (3.5-5.0) g/dL 12/10/16 12/10/16 Range/Units 05:01 05:01 RBC 3.52 L (4.30-5.90) m/uL Hgb 11.1 L (13.0-17.5) gm/dL Hct 36.7 L (39.0-53.0) % MCV 104.0 H (80.0-100.0) fL MCHC 30.3 L (31.0-37.0) g/dL RDW 17.4 H (11.5-15.5) % Potassium 3.4 L (3.5-5.1) mmol/L Creatinine 4.95 H (0.66-1.25) mg/dL Glucose 111 H (74-99) mg/dL POC Glucose (mg/dL) (75-99) mg/dL Calcium 8.0 L (8.4-10.2) mg/dL Total Protein 4.8 L (6.3-8.2) g/dL Albumin 2.2 L (3.5-5.0) g/dL Thrombosis Risk Factor Assmnt - Choose All That Apply Any of the Below Risk Factors Present?: Yes Each Factor Represents 1 point: Abnormal pulmonary function (COPD), Medical pt on bed rest, Obesity (BMI >25), Swollen legs (current) Each Risk Factor Represents 2 Points: Malignancy Each Risk Factor Represents 3 Points: Age 75 years or older Thrombosis Risk Factor Assessment Total Risk Factor Score: 9 Thrombosis Risk Factor Assessment Level: High Risk Assessment and Plan (1) Hypotension Status: Acute (2) Ntlqi-ym-nfrldur renal failure Status: Acute (3) CAD (coronary artery disease) Status: Acute (4) Falls Status: Acute (5) Persistent atrial fibrillation Status: Acute (6) Weakness Status: Acute Plan: Continue Levophed at this time. Slowly wean per consultants. Watch PT/INR closely. History of atrial fibrillation. Now on Eliquis. Check CBC, CMP with magnesium level. Prognosis is guarded secondary to multiple comorbidities. Dialyze per nephrology given his edema and renal failure. Time with Patient: Greater than 30
[2016-12-10] MEDS: VIT A,C & E-LUTEIN-MINERALS 1 EACH TAB PO SCH ×2 (08:35→20:20)
[2016-12-10] MEDS: FLUCONAZOLE 100 MG TAB PO SCH (08:36)
[2016-12-10] MEDS: PANTOPRAZOLE 40 MG TABLET PO SCH (08:36)
[2016-12-10] MEDS: PARoxetine 20 MG TAB PO SCH (08:36)
[2016-12-10] MEDS: APIXABAN 2.5 MG TABLET PO SCH ×2 (08:36→20:19)
[2016-12-10] MEDS: MAGNESIUM OXIDE 400 MG TAB PO SCH ×2 (08:36→20:18)
[2016-12-10] MEDS: TAMSULOSIN 0.4 MG CAP.ER.24H PO SCH (08:37)
[2016-12-10] MEDS: ALLOPURINOL 100 MG TAB PO SCH (08:37)
[2016-12-10] MEDS: VITAMIN E (DL,TOCOPHERYL ACET) 400 UNIT CAP PO SCH ×2 (08:37→20:20)
[2016-12-10 08:43] LABS: Glucose,Whole Blood 154 mg/dL (75-99)
[2016-12-10 08:47] LABS: INR 1.9 (<1.1); Prothrombin Time 18.7 sec (9.0-12.0)
[2016-12-10] MEDS: BUDESONIDE 0.5 MG/2 ML NEBU INHALATION SCH ×2 (09:03→20:30)
[2016-12-10] MEDS: INSULIN LISPRO (humaLOG) 300 UNIT/3 ML VIAL SQ SCH ×4 (09:04→20:19)
[2016-12-10] MEDS: ALBUTEROL NEBULIZED 2.5 MG/3 ML INHALATION PRN (09:04)
--- NOTE | 2016-12-10 10:15 | CDI ---
In responding to this query, please exercise your independent professional judgment. The [facility] Coding Staff and Clinical Documentation Specialists appreciate your assistance in clarifying documentation, maintaining compliance with coding guidelines, accurately documenting patients condition and capturing severity of illness. The fact that a question is asked does not imply that any particular answer is desired or expected. Communication forms are a method of clarifying documentation and are not made part of the Legal Health Record. Thank you in advance for your clarification. Last Revision, January 2016 Eugene Hartman [address] [facility] [place] [address] Documentation Clarification Form Date: 12/10/2016 10:06:00 AM From: Klaudia Francois Admit Date: 12/09/2016 2:15:00 PM Patient Name: Shyam Zayas Visit Number: [id number] Dr. Renato Titus 'Hypotension' is documented in the H&P. Patient history/risk factors: Atrial Fibrillation Renal Failure on dialysis Diabetes Mellitus CHF Clinical Indicators: Vitals: bp 65/55 on presentation to ED Labs: hgb 10.5, hct 34.9, K+ 3.1, BUN 9, Cr 4.70, GFR 12, ckmb 7.2, protein 4.5, alb 2.1, TSH 15.900 Treatment: IV Levophed IV fluid boluses ICU placement In your professional opinion, can you please specify if this signifies a diagnosis listed below: Cardiogenic Shock o Cause (please specify) Hypovolemic Shock o Cause (please specify) Other Shock (please specify) Unable to determine Please document in your progress notes and discharge summary in order to capture severity of illness and risk of mortality. Include clinical findings that support your diagnosis. FYI: Press F11 to launch patient chart. Place X here if this finding has no clinical significance, is not applicable or if you are not able to provide any additional documentation. FRANCISCOD
--- NOTE | 2016-12-10 10:22 | CDI ---
In responding to this query, please exercise your independent professional judgment. The [facility] Coding Staff and Clinical Documentation Specialists appreciate your assistance in clarifying documentation, maintaining compliance with coding guidelines, accurately documenting patients condition and capturing severity of illness. The fact that a question is asked does not imply that any particular answer is desired or expected. Communication forms are a method of clarifying documentation and are not made part of the Legal Health Record. Thank you in advance for your clarification. Last Revision, January 2016 Eugene Hartman [address] [place] [address] Documentation Clarification Form Date: 12/10/2016 10:16:00 AM From: Klaudia Knoxmicky Admit Date: 12/09/2016 2:15:00 PM Patient Name: Shyam Zayas Visit Number: [id number] Discharge Date: Dr. Renato Titus Hypotension is documented in the H&P. History/Risk Factors: Atrial Fibrillation Renal Failure on dialysis Diabetes Mellitus CHF Clinical Indicators: Patients B/P: 65/55 Labs: hgb 10.5, hct 34.9, K+ 3.1, BUN 9, Cr 4.70, GFR 12, ckmb 7.2, protein 4.5, alb 2.1, TSH 15.900 Treatment: IV Levophed IV fluid boluses ICU placement In your professional opinion, can you please specify the etiology of the hypotension if known? Iatrogenic Hypotension Neurogenic Orthostatic Hypotension Orthostatic Hypotension Postural Hypotension Idiopathic Hypotension Drug Induced Hypotension Chronic Hypotension Hypotension due to hemodialysis Other Condition, please specify Unable to determine Please document in your progress notes and discharge summary in order to capture severity of illness and risk of mortality. Include clinical findings that support your diagnosis. FYI: Press F11 to launch patient chart Place X here if this finding has no clinical significance, is not applicable or if you are not able to provide any additional documentation. MABLE
[2016-12-10] MEDS: MIDODRINE 5 MG TAB PO SCH ×3 (10:27→20:19)
[2016-12-10] MEDS ORDERED: RX INFO: IV CONTRAST WAS GIVEN 1 EACH MISC MISCELLANE PRN (11:08)
[2016-12-10] MEDS ORDERED: IOHEXOL 350 MG/ML 25 ML BOTTLE (ORAL USE) PO PRN (11:08)
[2016-12-10] MEDS ORDERED: POTASSIUM CHLORIDE ER 20 MEQ TAB.ER PO STA (12:13)
[2016-12-10 12:14] LABS: Amylase <30 U/L (30-110)
[2016-12-10 12:35] LABS: Glucose,Whole Blood 139 mg/dL (75-99)
[2016-12-10] MEDS: CHOLECALCIFEROL 1,000 UNIT TAB PO SCH (12:40)
--- NOTE | 2016-12-10 13:49 | CONS ---
DATE OF CONSULTATION: 12/10/2016 HISTORY OF PRESENT ILLNESS: Patient is a 76-year-old white male with a history of end-stage renal disease, currently on dialysis on a Wednesday, Wednesday, Wednesday schedule. Patient was admitted to the hospital with hypotension. He was not dialyzed yesterday. He denies any other significant complaints. No chest pain. No significant shortness of breath. The patient had significant lower extremity edema and it has been challenging to dialyze him as outpatient. He denies any new rashes, no major abdominal pain. Patient's blood pressure systolic has been in the 60's yesterday and therefore he was transferred to the ICU and he is now maintained on Levophed which is down to about 4 mcg, systolic blood pressure at about 85 mm systolic. There is no discharge noted from his right IJ Perm-A-Cath. PAST MEDICAL HISTORY: End-stage renal disease, coronary artery disease, COPD, gastroesophageal reflux disease, osteoarthritis, obstructive sleep apnea, macular degeneration, history of C. diff. PAST SURGICAL HISTORY: Coronary artery bypass surgery, IJ Perm-A-Cath placement, tonsillectomy, colonoscopy, bilateral knee arthroplasty, ankle surgery. SOCIAL HISTORY: Patient is an ex-smoker. No history of drug abuse or alcohol abuse. Medications prior to admission included Zyloprim, amiodarone, fish oil, Lasix, Pravachol, Prinivil, Lopressor, Paxil, Prevacid, vitamin E. ALLERGIES: None. REVIEW OF SYSTEMS: As per HPI. Other systems negative. On examination, patient is currently comfortable, awake. He is not in any acute distress. Systolic blood pressure at 85 mmHg, heart rate 105 to 84 per minute. He is afebrile. Examination of the heart S1 and S2. Examination of the lungs, bilateral breath sounds are heard. Abdomen is soft, distended, nontender. Examination of lower extremities shows chronic edema bilaterally with some chronic skin changes noted. No draining wounds are noted at this time. SENIOR CONSTRUCTION ESTIMATOR exam shows patient has been moving all 4 extremities. Labs show sodium 138, potassium 3.4, chloride 103, BUN 11, serum creatinine 4.95, hemoglobin 11.1. UA has not been sent as we are awaiting for urine output. Chest x-ray shows small left pleural effusion. ASSESSMENT: 1. End-stage renal disease on hemodialysis on a Wednesday, Wednesday, Wednesday schedule. Patient was not dialyzed yesterday secondary to low blood pressure. We will attempt to dialyze him today as his blood pressure appears to be improved. He remains on Levophed, we will increase the midodrine to 10 mg t.i.d. that he was taking at home and try to wean down the Levophed. I will also check blood cultures, check urine culture, and I will order an echocardiogram to rule out pericardial effusion as an etiology for his hypotension. 2. Hypokalemia, will replace. 3. Generalized debility. 4. Lower extremity edema which is chronic. PLAN: Try hemodialysis today. Obtain work-up for hypotension, rule out underlying infection, try to wean off Levophed, increase midodrine to 10 mg t.i.d. Thank you for this consultation. Will continue to follow the patient during his hospitalization.
--- NOTE | 2016-12-10 15:02 | P.CNPUL ---
History of Present Illness Consult date: 12/10/16 Chief complaint: Hypotension History of present illness: 76-year-old male patient with end-stage renal disease is currently on hemodialysis. Note that the patient was started on hemodialysis earlier this year and he was being dialyzed 3 times a week. He is known to run a low blood pressure in general and his systolic blood pressure had been in the mid 80s and the patient had been treated with midodrine. He has a permacath in his right upper chest area/subclavian and the patient was being treated recently for a candidal urine checked infection with Diflucan and C. diff colitis with oral Flagyl. The patient comes in yesterday to the hospital because of feeling weak and he was also noted to be hypotensive above and beyond his usual blood pressure. At one point he was noted to have a systolic blood pressure in the mid 60s. His admission blood pressure was 71/47. Despite this, he was not having any significant change in mental status. He was given IV fluids and he was on a 75 mL an hour of normal saline which nephrology cut down to 50 mL an hour and he was started on norepinephrine infusion which was running this morning as 7 g. A critically consultation was requested. The patient was evaluated to the bedside. No change in mental status. He reported that he still had become more firm and less watery. However, the patient was noted to have exceeded abdominal distention with some increased firmness. No nausea. No vomiting. No fever. No chills. No change in mental status. No headaches. No cough or sputum production. No chest tightness. No wheezing. Chest x-ray shows limited effusion the lung bases bilaterally otherwise there is no evidence of any pneumonia or airspace disease. The patient had an echocardiogram earlier this morning that showed preserved LV function and the rest of the full report is still pending for now. No evidence of any pericardial effusion. He was not placed on any antibiotics. Blood cultures of been sent this morning. Diflucan was resumed. Review of Systems Full review of system was done and the positive findings are almost above in history of present illness Past Medical History Past Medical History: Asthma, Coronary Artery Disease (CAD), Cancer, Heart Failure, COPD, Diabetes Mellitus, GERD/Reflux, Hyperlipidemia, Osteoarthritis ( OA), Sleep Apnea/CPAP/BIPAP Additional Past Medical History / Comment(s): Coronary artery disease with a previous coronary artery bypass surgery, chronic atrial fibrillation maintained on anticoagulation, COPD, end-stage renal disease and the currently the patient is on hemodialysis, nephrolithiasis and kidney stones, Charley urinary tract infection along with previous E. coli urinary tract infection, macular degeneration, gout, chronic back pain, chronic degenerative disc disease, skin cancer of a squamous cell type, osteoarthritis, obstructive sleep apnea maintained on CPAP on outpatient basis, hyperlipidemia, diabetes mellitus, chronic hypotension maintained on midodrine on outpatient basis History of Any Multi-Drug Resistant Organisms: C-DIFF Date of last positivie culture/infection: 11/27/16 MDRO Source:: Stool Past Surgical History: Coronary Bypass/CABG, Joint Replacement, Orthopedic Surgery, Tonsillectomy Additional Past Surgical History / Comment(s): Coronary artery bypass surgery bilateral cataract surgery, laser eye surgery for macular degeneration, colonoscopy with polypectomy, bilateral knee replacement, eye surgery involving the tear ducts with placement of implants, ORIF for a right ankle fracture with insertion of plate and screws, insertion of a permacath for dialysis access. Past Anesthesia/Blood Transfusion Reactions: No Reported Reaction Past Psychological History: Anxiety, Depression Additional Psychological History / Comment(s): paxil Smoking Status: Former smoker Past Alcohol Use History: Daily Additional Past Alcohol Use History / Comment(s): started smoking at age 17 later on in life swithced to cigars then quit 2008. pt admits to 3 drinks a day( whiskey) Past Drug Use History: None Reported - Past Family History Mother Family Medical History: Cancer Additional Family Medical History / Comment(s): kidney cancer Father Family Medical History: Cancer, Prostate Disorder Additional Family Medical History / Comment(s): prostate cancer Brother(s) History Unknown: Yes Medications and Allergies Home Medications Medication Instructions Recorded Confirmed Type Albuterol Sulfate [Proair Hfa] 2 puff INHALATION RT-QID PRN 10/16/16 12/09/16 History Allopurinol [Zyloprim] 100 mg PO QAM 10/16/16 12/09/16 History Amiodarone HCl [Cordarone] 100 mg PO HS 10/16/16 12/09/16 History Budesonide [Pulmicort Flexhaler] 2 puff INHALATION RT-DAILY 10/16/16 12/09/16 History Cholecalciferol [Vitamin D3] 1,000 unit PO DAILY 10/16/16 12/09/16 History Fish Oil/Dha/Epa [Fish Oil 1,200 1 cap PO HS 10/16/16 12/09/16 History mg Fish Oil] Furosemide [Lasix] 20 mg PO SUTUTHSA 10/16/16 12/09/16 History Lansoprazole [Prevacid] 15 mg PO DAILY 10/16/16 12/09/16 History Lisinopril [Prinivil] 5 mg PO SUTUTHFR 10/16/16 12/09/16 History Magnesium Oxide 400 mg PO BID 10/16/16 12/09/16 History Metoprolol Tartrate [Lopressor] 25 mg PO SUTUTHSA 10/16/16 12/09/16 History PARoxetine [Paxil] 20 mg PO DAILY 10/16/16 12/09/16 History Pravastatin Sodium [Pravachol] 20 mg PO HS 10/16/16 12/09/16 History Vit C/E/Zinc/Lutein/Zeaxanthin 1 tab PO BID 10/16/16 12/09/16 History [[facility]] Vitamin E (Dl,Tocopheryl Acet) 400 unit PO BID 10/16/16 12/09/16 History [Vitamin E] Albuterol Nebulized [Ventolin 2.5 mg INHALATION RT-Q6H PRN 11/26/16 12/09/16 History Nebulized] Ondansetron [Zofran] 4 mg PO Q8H PRN 12/09/16 12/09/16 History Periguard Oint 1 applic TOPICAL TID 12/09/16 12/09/16 History Allergies Allergy/AdvReac Type Severity Reaction Status Date / Time No Known Allergies Allergy Verified 12/09/16 10:35 Physical Exam Vitals: Vital Signs Temp Pulse Pulse Resp BP BP BP 12/10/16 13:00 115 H 12 103/75 12/10/16 12:30 100 18 91/61 12/10/16 12:00 97.4 F L 127 H 18 91/61 12/10/16 11:30 106 H 32 H 91/52 12/10/16 11:00 105 H 17 96/55 12/10/16 10:30 84 16 77/43 12/10/16 10:00 95 18 85/51 12/10/16 09:30 93 24 77/46 12/10/16 09:20 104 H 12/10/16 09:04 94 12/10/16 09:00 99 11 L 93/52 12/10/16 08:30 104 H 14 109/60 12/10/16 08:00 97.8 F 88 14 102/56 12/10/16 07:30 93 14 105/54 12/10/16 07:00 124 H 23 106/65 12/10/16 06:30 99 12 111/51 12/10/16 06:00 98 18 95/55 12/10/16 05:30 97 13 85/52 12/10/16 05:00 100 14 86/50 12/10/16 04:00 97.8 F 112 H 96 12 86/55 12/10/16 03:30 90 19 95/49 12/10/16 03:00 86 25 H 87/57 12/10/16 02:30 79 18 74/51 12/10/16 02:00 109 H 26 H 83/58 12/10/16 01:30 76 15 83/58 12/10/16 01:00 110 H 15 83/58 12/10/16 00:35 111 H 16 83/58 12/09/16 23:56 97.8 F 74 18 70/40 74/37 12/09/16 22:30 69/42 12/09/16 21:30 74 71/44 12/09/16 21:00 78 80/41 12/09/16 20:30 112 H 72/46 12/09/16 20:15 64/32 12/09/16 20:00 96.1 F L 72 18 61/38 12/09/16 18:59 81 18 12/09/16 18:00 81 18 67/44 12/09/16 16:00 97.5 F L 79 18 83/45 BP Pulse Ox 12/10/16 13:00 92 L 12/10/16 12:30 96 12/10/16 12:00 96 12/10/16 11:30 96 12/10/16 11:00 95 12/10/16 10:30 94 L 12/10/16 10:00 93 L 12/10/16 09:30 95 12/10/16 09:20 12/10/16 09:04 12/10/16 09:00 94 L 12/10/16 08:30 94 L 12/10/16 08:00 93 L 12/10/16 07:30 93 L 12/10/16 07:00 93 L 12/10/16 06:30 94 L 12/10/16 06:00 93 L 12/10/16 05:30 94 L 12/10/16 05:00 90 L 12/10/16 04:00 95 12/10/16 03:30 94 L 12/10/16 03:00 93 L 12/10/16 02:30 95 12/10/16 02:00 95 12/10/16 01:30 94 L 12/10/16 01:00 93 L 12/10/16 00:35 94 L 12/09/16 23:56 72/42 95 12/09/16 22:30 72/47 12/09/16 21:30 12/09/16 21:00 12/09/16 20:30 12/09/16 20:15 12/09/16 20:00 67/44 96 12/09/16 18:59 71/36 96 12/09/16 18:00 65/38 96 12/09/16 16:00 96 Intake and Output 12/09/16 12/10/16 12/10/16 22:59 06:59 14:59 Intake Total 540 464.605 475 Output Total 0 3 Balance 540 464.605 472 Intake: IV 450 475 Magnesium Sulfate-D5w Pmx 100 1 gm In Dextrose/Water 1 100ml.bag @ 100 mls/hr IVPB Q1H JAMES Rx#: [id number] Sodium Chloride 0.9% 1, 150 000 ml @ 50 mls/hr IV . Q20H JAMES Rx#:[id number] Sodium Chloride 0.9% 1, 450 225 000 ml @ 75 mls/hr IV . [id number] JAMES Rx#:[id number] Intake, IV Titration 14.605 Amount Norepinephrine 4 mg In 14.605 Sodium Chloride 0.9% 250 ml @ Titrate IV .Q0M JAMES Rx#:[id number] Oral 540 Output: Urine 0 0 Stool 3 Other: # Voids 0 # Bowel Movements 1 Weight 97.069 kg Patient Weight 12/11/16 06:59 Weight 97.069 kg Head exam was generally normal. There was no scleral icterus or corneal arcus. Mucous membranes were moist.Neck was supple and without jugular venous distension, thyromegaly, or carotid bruits. Carotids were easily palpable bilaterally. There was no adenopathy. The permacath exit site over the right anterior chest is clean and intact.Cardiac exam revealed the PMI to be normally situated and sized. The rhythm was irregular and no extrasystoles were noted during several minutes of auscultation. The first and second heart sounds were normal and physiologic splitting of the second heart sound was noted. There were no murmurs, rubs, clicks, or gallops. Patient's rhythm is irregular secondary to atrial fibrillation.Lungs were clear to auscultation and percussion , and with normal diaphragmatic excursion. No wheezes or rales were noted. Abdomen is distended soft there is mild direct tenderness no rebound tenderness or guarding. Bowel sounds are hypoactive.Examination of the extremities revealed easily palpable radial, femoral and pedal pulses. There was no cyanosis , clubbing or edema. Results - Laboratory Findings CBC and BMP: 12/10/16 05:01 12/10/16 08:05 PT/INR, D-dimer PT 18.7 sec (9.0-12.0) H 12/10/16 08:11 INR 1.9 (<1.1) 12/10/16 08:11 Abnormal lab findings: Abnormal Labs 12/09/16 12/09/16 12/10/16 17:12 21:04 00:19 RBC Hgb Hct MCV MCHC RDW PT Potassium Creatinine Glucose POC Glucose (mg/dL) 101 H 129 H 116 H Plasma Lactic Acid Raymundo Calcium Total Protein Albumin Amylase 12/10/16 12/10/16 12/10/16 05:01 05:01 08:05 RBC 3.52 L Hgb 11.1 L Hct 36.7 L MCV 104.0 H MCHC 30.3 L RDW 17.4 H PT Potassium 3.4 L 3.1 L Creatinine 4.95 H Glucose 111 H POC Glucose (mg/dL) Plasma Lactic Acid Raymundo Calcium 8.0 L Total Protein 4.8 L Albumin 2.2 L Amylase 12/10/16 12/10/16 12/10/16 08:11 08:41 11:38 RBC Hgb Hct MCV MCHC RDW PT 18.7 H Potassium Creatinine Glucose POC Glucose (mg/dL) 154 H Plasma Lactic Acid Raymundo 3.2 H* Calcium Total Protein Albumin Amylase 12/10/16 12/10/16 11:38 12:33 RBC Hgb Hct MCV MCHC RDW PT Potassium Creatinine Glucose POC Glucose (mg/dL) 139 H Plasma Lactic Acid Raymundo Calcium Total Protein Albumin Amylase <30 L - Diagnostic Findings Chest x-ray: image reviewed Assessment and Plan Plan: Assessment 1 acute hypotension. The patient runs a low blood pressure at baseline however there has been further drop in his blood pressure and this obviously raises some concerns knowing that the patient become more weak and somewhat symptomatic. Currently the patient is on pressors and norepinephrine infusion is running at 7 mics. The exact cause for this further drop in the blood pressure is not known. Obviously septic causes need to be ruled out. Hypovolemia is not the cause specially the patient was having C. diff colitis and possibly getting intravascularly depleted. Cardiogenic causes of felt to be less likely. In terms of sepsis, potential sources could be lines, skin, abdomen nontender the patient's abdomen is somewhat distended compared to his baseline. This is to be further investigated in one concern is colitis secondary to C. diff. 2 coronary artery disease with previous bypass surgery 3 chronic atrial fibrillation 4 COPD 5 End stage renal disease on hemodialysis 6 nephrolithiasis and kidney stones 7 urine checked infection with previous infections with Charley and E. coli 8 macular degeneration 9 got 10 chronic back pain 11 COPD 12 diabetes mellitus 13 hyperlipidemia 14 skin cancer 15 impaired performance and functional status secondary to above-mentioned comorbidities. Plan Obtain urine Gram stain and culture. Obtain blood cultures. Continue Diflucan for now covering for the previous candidal UTI. No further antibiotics will be added for now. We'll obtain a CAT scan of the abdomen with by mouth contrast evaluating this patient's abdominal distention. Send stool for C. diff evaluation. Wean off levo fed as tolerated. Continue the normal saline infusion at the rate of 50 mL an hour. The rest of the outpatient medication will be ordered resume. We'll continue to follow this case along with aggressive the consultants.
--- NOTE | 2016-12-10 15:57 | CT ---
EXAMINATION TYPE: CT abdomen pelvis wo con DATE OF EXAM: 12/10/2016 3:21 PM COMPARISON: NONE HISTORY: Abdominal distension CT DLP: 1014.1 mGycm Automated exposure control for dose reduction was used. TECHNIQUE: Helical acquisition of images from the lung bases through the pelvis. No intravenous cont rast. Patient received oral contrast. FINDINGS: Lack of contrast may compromise sensitivity. LUNG BASES: There are bilateral pleural effusions right greater than left with associated atelectasis . Coronary artery calcifications are present. There is central venous catheter coursing towards the r ight atrium. Patient is post median sternotomy. AORTA: Extensive atheromatous change, no evident aneurysm. LIVER/GB: The liver is small and nodular. Gallbladder shows dependent hyperdensity compatible with st ones. PANCREAS: No significant abnormality is seen. SPLEEN: No significant abnormality is seen. ADRENALS: No significant abnormality is seen. KIDNEYS: No significant abnormality is seen. REPRODUCTIVE ORGANS: No significant abnormality is seen. URINARY BLADDER: Contracted BOWEL: Bowel loops show some areas of wall thickening. FREE AIR: No Free Air is visible. ASCITES: Extensive ascites is noted. PELVIC ADENOPATHY: None visualized. RETROPERITONEAL ADENOPATHY: No Retroperitoneal Adenopathy visible. OSSEOUS STRUCTURES: Degenerative disc changes in the visualized spine. Facet arthropathy changes als o present. IMPRESSION: CORRELATE FOR CIRRHOSIS, ASCITES. CHOLELITHIASIS. THERE MAY BE BOWEL WALL THICKENING DUE TO HYPOPROTE INEMIA, ASCITES. NONCONTRAST EXAM. PLEURAL EFFUSIONS RIGHT GREATER THAN LEFT, CORONARY ARTERY DISEASE . ADDITIONAL FINDINGS ABOVE.
[2016-12-10] MEDS ORDERED: ALBUMIN HUMAN 25% 50 ML in EMPTY BAG 1 BAG IVPB SCH (16:30)
[2016-12-10] MEDS ORDERED: HEPARIN SODIUM,PORCINE 5,000 UNIT/ML 1 ML VIAL ONE (16:30)
[2016-12-10] MEDS ORDERED: ALBUMIN HUMAN 25% 50 ML VIAL ONE (16:30)
[2016-12-10] MEDS: LEVOTHYROXINE 50 MCG TAB PO SCH (18:11)
[2016-12-10 19:27] LABS: Glucose,Whole Blood 82 mg/dL (75-99)
[2016-12-10 19:29] LABS: Hepatitis B Surface Ag Index 0.06
[2016-12-10 19:35] LABS: Hepatitis B Core IgM Index 0.05
[2016-12-10 20:09] LABS: Hepatitis B Surface Antibody Negative (Negative)
[2016-12-10 20:19] LABS: Glucose,Whole Blood 86 mg/dL (75-99)
[2016-12-10] MEDS: PRAVASTATIN SODIUM 20 MG TAB PO SCH (20:20)
[2016-12-11] MEDS ORDERED: DEXTROSE 5% IN WATER 100 ML with AMIODARONE 150 MG IV ONE (03:57)
[2016-12-11 05:18] LABS: Anisocytosis Slight; CH 30.7; CHCM 30.1; HCT 32.6 % (39.0-53.0); HDW 2.72; HGB 9.9 gm/dL (13.0-17.5); Hypochromasia Marked; MCH 31.3 pg (25.0-35.0); MCHC 30.4 g/dL (31.0-37.0); MCV 102.9 fL (80.0-100.0); Macrocytosis Moderate; Mean Platelet Volume 8.1; RBC 3.17 m/uL (4.30-5.90); RDW 17.6 % (11.5-15.5); WBC 3.7 k/uL (3.8-10.6)
[2016-12-11 05:29] LABS: Calcium 7.5 mg/dL (8.4-10.2); Magnesium 2.1 mg/dL (1.6-2.3); Total Bilirubin 0.7 mg/dL (0.2-1.3); Total Protein 4.6 g/dL (6.3-8.2)
[2016-12-11 05:30] LABS: Potassium 3.7 mmol/L (3.5-5.1)
[2016-12-11] MEDS ORDERED: Potassium Replacement Protocol 1 EACH MISC MISCELLANE PRN (05:49)
[2016-12-11] MEDS ORDERED: POTASSIUM CHLORIDE ER 20 MEQ TAB.ER PO SCH (06:00)
[2016-12-11] MEDS: AMIODARONE 450 MG in DEXTROSE 5% IN WATER 250 ML IV SCH ×6 (06:32→18:57)
[2016-12-11] MEDS: LEVOTHYROXINE 50 MCG TAB PO SCH (06:33)
[2016-12-11] MEDS: SODIUM CHLORIDE 0.9% 1,000 ML IV SCH (06:33)
--- NOTE | 2016-12-11 07:56 | XR ---
EXAMINATION TYPE: XR chest 1V DATE OF EXAM: 12/11/2016 6:40 AM CLINICAL HISTORY: Difficulty breathing progress study. History of COPD and cardiac bypass. TECHNIQUE: Single AP portable upright view of the chest is obtained. COMPARISON: Chest x-ray from 2 days earlier FINDINGS: Sternal wires are redemonstrated. There is right internal jugular dual-lumen dialysis cath eter which is stable. Cardiac silhouette size is stable and upper limits of normal with atherosclerot ic thoracic aorta. Lungs remain grossly clear without suspicious focal airspace opacity or pneumothor ax seen bilaterally. Tiny bilateral pleural effusions are likely still present. Osseous structures ar e intact. IMPRESSION: Overall stable findings, suspect tiny bilateral pleural effusions but no suspicious foc al infiltrate.
[2016-12-11] MEDS: ALBUTEROL NEBULIZED 2.5 MG/3 ML INHALATION PRN (07:58)
[2016-12-11] MEDS: BUDESONIDE 0.5 MG/2 ML NEBU INHALATION SCH ×2 (07:58→20:04)
--- NOTE | 2016-12-11 08:12 | P.HPIM ---
History of Present Illness H&P Date: 12/11/16 Chief Complaint: Weakness renal failure This is a continue process on 6-year-old white male essentially with chronic renal failure who was recently started dialysis in the last several months. Significant weakness is noted but, he is now in ICU secondary hypertension. I appreciate billing rep input. Appropriate workup for sepsis is noted. Cultures are pending. He seems more arousable today but states that he has no significant energy to increase ambulation or transfer. No voiding difficulties. No significant pain stated. Review of Systems Constitutional: Reports weakness Eyes: denies blurred vision, denies pain Ears, nose, mouth and throat: Denies headache, Denies sore throat Cardiovascular: Denies chest pain, Denies shortness of breath Respiratory: Denies cough Gastrointestinal: Denies abdominal pain, Denies diarrhea, Denies nausea, Denies vomiting Musculoskeletal: Denies myalgias Integumentary: Denies pruritus, Denies rash Neurological: Denies numbness, Denies weakness Past Medical History Past Medical History: Asthma, Coronary Artery Disease (CAD), Cancer, Heart Failure, COPD, Diabetes Mellitus, GERD/Reflux, Hyperlipidemia, Osteoarthritis ( OA), Sleep Apnea/CPAP/BIPAP Additional Past Medical History / Comment(s): Coronary artery disease with a previous coronary artery bypass surgery, chronic atrial fibrillation maintained on anticoagulation, COPD, end-stage renal disease and the currently the patient is on hemodialysis, nephrolithiasis and kidney stones, Charley urinary tract infection along with previous E. coli urinary tract infection, macular degeneration, gout, chronic back pain, chronic degenerative disc disease, skin cancer of a squamous cell type, osteoarthritis, obstructive sleep apnea maintained on CPAP on outpatient basis, hyperlipidemia, diabetes mellitus, chronic hypotension maintained on midodrine on outpatient basis History of Any Multi-Drug Resistant Organisms: C-DIFF Date of last positivie culture/infection: 11/27/16 MDRO Source:: Stool Past Surgical History: Coronary Bypass/CABG, Joint Replacement, Orthopedic Surgery, Tonsillectomy Additional Past Surgical History / Comment(s): Coronary artery bypass surgery bilateral cataract surgery, laser eye surgery for macular degeneration, colonoscopy with polypectomy, bilateral knee replacement, eye surgery involving the tear ducts with placement of implants, ORIF for a right ankle fracture with insertion of plate and screws, insertion of a permacath for dialysis access. Past Anesthesia/Blood Transfusion Reactions: No Reported Reaction Past Psychological History: Anxiety, Depression Additional Psychological History / Comment(s): paxil Smoking Status: Former smoker Past Alcohol Use History: Daily Additional Past Alcohol Use History / Comment(s): started smoking at age 17 later on in life swithced to cigars then quit 2008. pt admits to 3 drinks a day( whiskey) Past Drug Use History: None Reported - Past Family History Mother Family Medical History: Cancer Additional Family Medical History / Comment(s): kidney cancer Father Family Medical History: Cancer, Prostate Disorder Additional Family Medical History / Comment(s): prostate cancer Brother(s) History Unknown: Yes Medications and Allergies Home Medications Medication Instructions Recorded Confirmed Type Albuterol Sulfate [Proair Hfa] 2 puff INHALATION RT-QID PRN 10/16/16 12/09/16 History Allopurinol [Zyloprim] 100 mg PO QAM 10/16/16 12/09/16 History Amiodarone HCl [Cordarone] 100 mg PO HS 10/16/16 12/09/16 History Budesonide [Pulmicort Flexhaler] 2 puff INHALATION RT-DAILY 10/16/16 12/09/16 History Cholecalciferol [Vitamin D3] 1,000 unit PO DAILY 10/16/16 12/09/16 History Fish Oil/Dha/Epa [Fish Oil 1,200 1 cap PO HS 10/16/16 12/09/16 History mg Fish Oil] Furosemide [Lasix] 20 mg PO SUTUTHSA 10/16/16 12/09/16 History Lansoprazole [Prevacid] 15 mg PO DAILY 10/16/16 12/09/16 History Lisinopril [Prinivil] 5 mg PO SUTUTHFR 10/16/16 12/09/16 History Magnesium Oxide 400 mg PO BID 10/16/16 12/09/16 History Metoprolol Tartrate [Lopressor] 25 mg PO SUTUTHSA 10/16/16 12/09/16 History PARoxetine [Paxil] 20 mg PO DAILY 10/16/16 12/09/16 History Pravastatin Sodium [Pravachol] 20 mg PO HS 10/16/16 12/09/16 History Vit C/E/Zinc/Lutein/Zeaxanthin 1 tab PO BID 10/16/16 12/09/16 History [I AND [employer]] Vitamin E (Dl,Tocopheryl Acet) 400 unit PO BID 10/16/16 12/09/16 History [Vitamin E] Albuterol Nebulized [Ventolin 2.5 mg INHALATION RT-Q6H PRN 11/26/16 12/09/16 History Nebulized] Ondansetron [Zofran] 4 mg PO Q8H PRN 12/09/16 12/09/16 History Periguard Oint 1 applic TOPICAL TID 12/09/16 12/09/16 History Allergies Allergy/AdvReac Type Severity Reaction Status Date / Time No Known Allergies Allergy Verified 12/09/16 10:35 Physical Exam Vitals: Vital Signs Temp Pulse Resp BP Pulse Ox 12/11/16 08:00 74 98 12/11/16 07:00 86 14 86/60 98 12/11/16 06:00 81 92/58 95 12/11/16 05:00 82 10 L 98/60 99 12/11/16 04:00 97.3 F L 91 19 102/64 96 12/11/16 03:00 91 24 84/58 98 12/11/16 02:00 74 14 74/54 98 12/11/16 01:00 92 12 102/64 97 12/11/16 00:00 97.9 F 90 14 100/60 97 12/10/16 23:00 139 H 18 96/62 97 12/10/16 22:00 112 H 18 82/60 98 12/10/16 21:20 70 18 99 12/10/16 21:00 81 12 70/42 99 12/10/16 20:39 94 12/10/16 20:30 93 12/10/16 20:00 75.3 F L 86 20 82/56 91 L 12/10/16 19:00 71 14 95/60 95 12/10/16 18:30 75 12 98 12/10/16 18:00 73 12 75/50 96 12/10/16 17:30 76 14 86/58 96 12/10/16 17:00 86 23 78/60 95 12/10/16 16:30 75 15 80/59 96 12/10/16 16:00 79 15 72/46 96 12/10/16 15:30 90 15 85/52 95 12/10/16 15:00 95 14 94/59 96 12/10/16 14:30 118 H 19 82/56 93 L 12/10/16 14:00 98 15 95/52 96 12/10/16 13:30 99 12 87/53 95 12/10/16 13:00 115 H 12 103/75 92 L 12/10/16 12:30 100 18 91/61 96 12/10/16 12:00 97.4 F L 127 H 18 91/61 96 12/10/16 11:30 106 H 32 H 91/52 96 12/10/16 11:00 105 H 17 96/55 95 12/10/16 10:30 84 16 77/43 94 L 12/10/16 10:00 95 18 85/51 93 L 12/10/16 09:30 93 24 77/46 95 12/10/16 09:20 104 H 12/10/16 09:04 94 12/10/16 09:00 99 11 L 93/52 94 L 12/10/16 08:30 104 H 14 109/60 94 L Intake and Output 12/10/16 12/11/16 12/11/16 22:59 06:59 14:59 Intake Total 764.395 515.252 50 Output Total 1001 0 Balance -236.605 515.252 50 Intake: IV 400 400 50 Sodium Chloride 0.9% 1, 400 400 50 000 ml @ 50 mls/hr IV . Q20H JAMES Rx#:[id number] Intake, IV Titration 239.395 115.252 Amount Norepinephrine 4 mg In 239.395 115.252 Sodium Chloride 0.9% 250 ml @ Titrate IV .Q0M JAMES Rx#:[id number] Oral 125 Output: Urine 0 0 Stool 1 Other 1000 Other: Weight 104.2 kg - Constitutional General appearance: obese - EENT Eyes: no abnormal pupil - Neck Neck: no lymphadenopathy - Respiratory Respiratory: bilateral: diminished - Cardiovascular Rhythm: irregularly irregular Heart sounds: normal: S1, S2 - Gastrointestinal General gastrointestinal: soft, no tenderness Results CBC & Chem 7: 12/11/16 05:04 12/11/16 05:04 Labs: Abnormal Lab Results - Last 24 Hours (Table) 12/10/16 12/10/16 12/10/16 Range/Units 08:05 08:11 08:41 WBC (3.8-10.6) k/uL RBC (4.30-5.90) m/uL Hgb (13.0-17.5) gm/dL Hct (39.0-53.0) % MCV (80.0-100.0) fL MCHC (31.0-37.0) g/dL RDW (11.5-15.5) % Plt Count (150-450) k/uL PT 18.7 H (9.0-12.0) sec Sodium (137-145) mmol/L Potassium 3.1 L (3.5-5.1) mmol/L BUN (9-20) mg/dL Creatinine (0.66-1.25) mg/dL POC Glucose (mg/dL) 154 H (75-99) mg/dL Plasma Lactic Acid Raymundo (0.7-2.0) mmol/L Calcium (8.4-10.2) mg/dL Total Protein (6.3-8.2) g/dL Albumin (3.5-5.0) g/dL Amylase (30-110) U/L 12/10/16 12/10/16 12/10/16 Range/Units 11:38 11:38 12:33 WBC (3.8-10.6) k/uL RBC (4.30-5.90) m/uL Hgb (13.0-17.5) gm/dL Hct (39.0-53.0) % MCV (80.0-100.0) fL MCHC (31.0-37.0) g/dL RDW (11.5-15.5) % Plt Count (150-450) k/uL PT (9.0-12.0) sec Sodium (137-145) mmol/L Potassium (3.5-5.1) mmol/L BUN (9-20) mg/dL Creatinine (0.66-1.25) mg/dL POC Glucose (mg/dL) 139 H (75-99) mg/dL Plasma Lactic Acid Raymundo 3.2 H* (0.7-2.0) mmol/L Calcium (8.4-10.2) mg/dL Total Protein (6.3-8.2) g/dL Albumin (3.5-5.0) g/dL Amylase <30 L (30-110) U/L 12/11/16 12/11/16 Range/Units 05:04 05:04 WBC 3.7 L (3.8-10.6) k/uL RBC 3.17 L (4.30-5.90) m/uL Hgb 9.9 L (13.0-17.5) gm/dL Hct 32.6 L (39.0-53.0) % MCV 102.9 H (80.0-100.0) fL MCHC 30.4 L (31.0-37.0) g/dL RDW 17.6 H (11.5-15.5) % Plt Count 137 L (150-450) k/uL PT (9.0-12.0) sec Sodium 134 L (137-145) mmol/L Potassium (3.5-5.1) mmol/L BUN 7 L (9-20) mg/dL Creatinine 3.20 H (0.66-1.25) mg/dL POC Glucose (mg/dL) (75-99) mg/dL Plasma Lactic Acid Raymundo (0.7-2.0) mmol/L Calcium 7.5 L (8.4-10.2) mg/dL Total Protein 4.6 L (6.3-8.2) g/dL Albumin 2.2 L (3.5-5.0) g/dL Amylase (30-110) U/L Thrombosis Risk Factor Assmnt - Choose All That Apply Any of the Below Risk Factors Present?: Yes Each Factor Represents 1 point: Abnormal pulmonary function (COPD), Medical pt on bed rest, Obesity (BMI >25), Swollen legs (current) Each Risk Factor Represents 2 Points: Malignancy Each Risk Factor Represents 3 Points: Age 75 years or older Thrombosis Risk Factor Assessment Total Risk Factor Score: 9 Thrombosis Risk Factor Assessment Level: High Risk Assessment and Plan (1) Hypotension Status: Acute (2) Ilxaa-[id number] renal failure Status: Acute (3) CAD (coronary artery disease) Status: Acute (4) Falls Status: Acute (5) Persistent atrial fibrillation Status: Acute (6) Weakness Status: Acute Plan: Continue pressors at this time. We'll defer weaning parameter for this with pulmonology. Check CMP in a.m. with CBC. Dr. Avalos will be covering for the weekend. Otherwise, we will await cultures. Continue current regimen of treatment. See orders otherwise.
--- NOTE | 2016-12-11 08:40 | ECHOF ---
Referral Reason:r/o pericardial effusion MEASUREMENTS -------- HEIGHT: 167.6 cm WEIGHT: 97.1 kg BP: 99/58 RVIDd: 3.5 cm (< 3.3) IVSd: 1.2 cm (0.6 - 1.1) LVIDd: 4.4 cm (3.9 - 5.3) LVPWd: 1.1 cm (0.6 - 1.1) IVSs: 1.6 cm LVIDs: 2.9 cm LVPWs: 2.7 cm LA Diam: 4.3 cm (2.7 - 3.8) FINDINGS -------- Sinus rhythm. This was a technically difficult study with suboptimal views. Limited Study There is borderline concentric left ventricular hypertrophy. Overall left ventricular systolic function is low-normal with, an EF between 50 - 55 %. The right ventricle is mildly enlarged. The left atrium is mildly dilated. area of interest seen in subcostal view near MV Large Pleural Effusion. CONCLUSIONS -------- 1. Sinus rhythm. 2. This was a technically difficult study with suboptimal views. 3. Limited Study 4. There is borderline concentric left ventricular hypertrophy. 5. Overall left ventricular systolic function is low-normal with, an EF between 50 - 55 %. 6. The right ventricle is mildly enlarged. 7. The left atrium is mildly dilated. 8. Large Pleural Effusion. FUEL VERIFICATION TECHNICIAN: Lucian Trotter RDCS
[2016-12-11] MEDS: INSULIN LISPRO (humaLOG) 300 UNIT/3 ML VIAL SQ SCH ×3 (09:22→17:43)
[2016-12-11 09:23] LABS: Glucose,Whole Blood 99 mg/dL (75-99)
[2016-12-11] MEDS: MIDODRINE 5 MG TAB PO SCH ×3 (09:43→17:41)
[2016-12-11] MEDS: APIXABAN 2.5 MG TABLET PO SCH (09:43)
[2016-12-11] MEDS: PARoxetine 20 MG TAB PO SCH (09:43)
[2016-12-11] MEDS: ALLOPURINOL 100 MG TAB PO SCH (09:43)
[2016-12-11] MEDS: TAMSULOSIN 0.4 MG CAP.ER.24H PO SCH (09:43)
[2016-12-11] MEDS: VITAMIN E (DL,TOCOPHERYL ACET) 400 UNIT CAP PO SCH (09:43)
[2016-12-11] MEDS: VIT A,C & E-LUTEIN-MINERALS 1 EACH TAB PO SCH (09:43)
[2016-12-11] MEDS: MAGNESIUM OXIDE 400 MG TAB PO SCH (09:44)
[2016-12-11] MEDS: PANTOPRAZOLE 40 MG TABLET PO SCH (09:44)
[2016-12-11] MEDS: FLUCONAZOLE 100 MG TAB PO SCH (09:44)
--- NOTE | 2016-12-11 11:22 | PN ---
Patient is seen for followup for end-stage renal disease. He was dialyzed yesterday; however, we were not able to get much fluid off. Patient had been on Levophed, which was eventually discontinued and was restarted back as systolic blood pressure had dropped again. Currently patient is at 2 mcg on the Levophed. He is awake, comfortable, not in any acute distress. His belly seems to be more distended today. Patient did have a CT of the abdomen yesterday, which shows evidence of ascites. On examination today, patient is comfortable, awake. He is not in any acute distress. Blood pressure 90/50, heart rate 76 per minute. He is afebrile. EXAMINATION OF THE HEART: S1 and S2. EXAMINATION OF THE LUNGS: Decreased breath sounds at the bases. Abdomen is soft, distended, nontender. Examination of lower extremities shows edema 2+ bilaterally. Labs show sodium 134, potassium 3.7, chloride 101. Hemoglobin 9.9 g/dL. ASSESSMENT: 1. End-stage renal disease on hemodialysis. Patient was dialyzed yesterday. We will try again tomorrow; however, we have not been able to get much fluid off given his persistent hypotension. 2. Hypotension. No evidence of infection yet. Perm-A-Cath site seems a bit erythematous. We will check blood cultures with dialysis again tomorrow. 3. Abdominal distention, status post CAT scan, which showed evidence of ascites. He may need paracentesis. PLAN: Try hemodialysis again tomorrow, follow up on all the cultures and try to wean off Levophed.
--- NOTE | 2016-12-11 12:29 | CONS ---
DATE OF CONSULTATION: A 76-year-old gentleman we were consulted for shortness of breath. He has swelling in his belly and is undergoing thoracentesis. He denies any chest discomfort. No dizziness or lightheadedness. He is legally blind. On examination, his heart sounds are normal. Lungs sounds are reduced bilaterally. His abdomen is distended and fluid is being drained. IMPRESSION: 1. Acute on chronic renal failure. 2. Persistent rate controlled atrial fibrillation. 3. Liver disease. 4. Underlying coronary artery disease. SUGGEST: From a cardiac standpoint, I would not pursue any further cardiac evaluation. He is being treated for his liver disease and for his kidney disease. I will sign off and please call only if there are any specific cardiac questions.
[2016-12-11 12:40] LABS: Glucose,Whole Blood 136 mg/dL (75-99)
[2016-12-11] MEDS: CHOLECALCIFEROL 1,000 UNIT TAB PO SCH (12:41)
[2016-12-11 14:07] LABS: RBC, Body Fluid 18 /uL
[2016-12-11 15:02] LABS: HCV Qualitative Result Not detected (Not detected)
--- NOTE | 2016-12-11 16:39 | P.PN ---
Subjective 76-year-old male patient with end-stage renal disease is currently on hemodialysis. Note that the patient was started on hemodialysis earlier this year and he was being dialyzed 3 times a week. He is known to run a low blood pressure in general and his systolic blood pressure had been in the mid 80s and the patient had been treated with midodrine. He has a permacath in his right upper chest area/subclavian and the patient was being treated recently for a candidal urine checked infection with Diflucan and C. diff colitis with oral Flagyl. The patient comes in yesterday to the hospital because of feeling weak and he was also noted to be hypotensive above and beyond his usual blood pressure. At one point he was noted to have a systolic blood pressure in the mid 60s. His admission blood pressure was 71/47. Despite this, he was not having any significant change in mental status. He was given IV fluids and he was on a 75 mL an hour of normal saline which nephrology cut down to 50 mL an hour and he was started on norepinephrine infusion which was running this morning as 7 g. A critically consultation was requested. The patient was evaluated to the bedside. No change in mental status. He reported that he still had become more firm and less watery. However, the patient was noted to have exceeded abdominal distention with some increased firmness. No nausea. No vomiting. No fever. No chills. No change in mental status. No headaches. No cough or sputum production. No chest tightness. No wheezing. Chest x-ray shows limited effusion the lung bases bilaterally otherwise there is no evidence of any pneumonia or airspace disease. The patient had an echocardiogram earlier this morning that showed preserved LV function and the rest of the full report is still pending for now. No evidence of any pericardial effusion. He was not placed on any antibiotics. Blood cultures of been sent this morning. Diflucan was resumed. On 12/11/2016 the patient is being seen in follow-up. After coming off pressors , this morning the patient was placed back on 2 mics of norepinephrine infusion. His systolic blood pressures the mid 90s. His abdomen is still distended and there is large amount of ascites on the CAT scan of the abdomen along with changes consistent with liver cirrhosis. As such, a large fold and paracentesis was done in total of 6 L of ascitic fluid was drained. The fluid will be sent for analysis. We will also check for spontaneous bacterial bacterial peritonitis. The patient is afebrile. The stool for C. diff came back negative. The candidal urinary tract infection is being treated with Diflucan. The patient has normalized his lactic acid level. No other significant events over the past 24 hours. Objective - Vital Signs Vital signs: Vital Signs Temp 97.6 F 12/11/16 16:00 Pulse 134 H 12/11/16 16:00 Resp 28 H 12/11/16 16:00 BP 78/41 12/11/16 16:00 Pulse Ox 92 L 12/11/16 16:00 Intake & Output 12/10/16 12/11/16 12/11/16 18:59 06:59 18:59 Intake Total 1014.395 815.252 602.108 Output Total 3 1001 1 Balance 1011.395 -185.748 601.108 Weight 97.069 kg 104.2 kg Intake: IV 725 600 500 Magnesium Sulfate-D5w Pmx 100 1 gm In Dextrose/Water 1 100ml.bag @ 100 mls/hr IVPB Q1H JAMES Rx#: [id number] Sodium Chloride 0.9% 1, 400 600 500 000 ml @ 50 mls/hr IV . Q20H JAMES Rx#:[id number] Sodium Chloride 0.9% 1, 225 000 ml @ 75 mls/hr IV . [id number] JAMES Rx#:[id number] Intake, IV Titration 239.395 115.252 102.108 Amount Norepinephrine 4 mg In 239.395 115.252 102.108 Sodium Chloride 0.9% 250 ml @ Titrate IV .Q0M JAMES Rx#:[id number] Oral 50 100 Output: Urine 0 0 0 Stool 3 1 1 Other 1000 Other: # Bowel Movements 1 - Exam Head exam was generally normal. There was no scleral icterus or corneal arcus. Mucous membranes were moist.Neck was supple and without jugular venous distension, thyromegaly, or carotid bruits. Carotids were easily palpable bilaterally. There was no adenopathy. The permacath exit site over the right anterior chest is clean and intact.Cardiac exam revealed the PMI to be normally situated and sized. The rhythm was irregular and no extrasystoles were noted during several minutes of auscultation. The first and second heart sounds were normal and physiologic splitting of the second heart sound was noted. There were no murmurs, rubs, clicks, or gallops. Patient's rhythm is irregular secondary to atrial fibrillation.Lungs were clear to auscultation and percussion , and with normal diaphragmatic excursion. No wheezes or rales were noted. Abdomen is less distended soft there is mild direct tenderness no rebound tenderness or guarding. Bowel sounds are hypoactive.Examination of the extremities revealed easily palpable radial, femoral and pedal pulses. There was no cyanosis, clubbing or edema. - Labs CBC & Chem 7: 12/11/16 05:04 12/11/16 05:04 Labs: Abnormal Lab Results - Last 24 Hours (Table) 12/11/16 12/11/16 12/11/16 Range/Units 05:04 05:04 12:38 WBC 3.7 L (3.8-10.6) k/uL RBC 3.17 L (4.30-5.90) m/uL Hgb 9.9 L (13.0-17.5) gm/dL Hct 32.6 L (39.0-53.0) % MCV 102.9 H (80.0-100.0) fL MCHC 30.4 L (31.0-37.0) g/dL RDW 17.6 H (11.5-15.5) % Plt Count 137 L (150-450) k/uL Sodium 134 L (137-145) mmol/L BUN 7 L (9-20) mg/dL Creatinine 3.20 H (0.66-1.25) mg/dL POC Glucose (mg/dL) 136 H (75-99) mg/dL Calcium 7.5 L (8.4-10.2) mg/dL Total Protein 4.6 L (6.3-8.2) g/dL Albumin 2.2 L (3.5-5.0) g/dL Microbiology - Last 24 Hours (Table) 12/10/16 10:09 Blood Culture - Preliminary Blood No Growth after 24 hours Assessment and Plan Plan: Assessment 1 acute hypotension. The patient runs a low blood pressure at baseline however there has been further drop in his blood pressure and this obviously raises some concerns knowing that the patient become more weak and somewhat symptomatic. Currently the patient is on pressors and norepinephrine infusion is running at 7 mics. The exact cause for this further drop in the blood pressure is not known. Obviously septic causes need to be ruled out. Hypovolemia is not the cause specially the patient was having C. diff colitis and possibly getting intravascularly depleted. Cardiogenic causes of felt to be less likely. In terms of sepsis, potential sources could be lines, skin, abdomen nontender the patient's abdomen is somewhat distended compared to his baseline. This is to be further investigated in one concern is colitis secondary to C. diff. On 12/11/2016, the patient is on minimal amount of pressors. He is well resuscitated. No evidence of any underlying septicemia. Echocardiogram was done and there is no evidence of any LV dysfunction or pericardial effusion. We are in the process of weaning the pressors at this point. 2 coronary artery disease with previous bypass surgery 3 chronic atrial fibrillation 4 COPD 5 End stage renal disease on hemodialysis 6 nephrolithiasis and kidney stones 7 urine checked infection with previous infections with Charley and E. coli 8 macular degeneration 9 gout 10 chronic back pain 11 COPD 12 diabetes mellitus 13 hyperlipidemia 14 skin cancer 15 impaired performance and functional status secondary to above-mentioned comorbidities. 16 abdominal distention with liver cirrhosis and massive ascites status post large volume paracentesis. The abdominal fluid was sent for analysis. Plan Still awaiting the final cultures. The abdominal fluid was sent for analysis and the culture is still pending for now. We'll check for spontaneous bacterial peritoniti. Continue Diflucan for now covering for the previous candidal UTI. The C. diff evaluation was negative. We will wean off the pressors. Keep patient in ICU for another 24 hours for further monitoring.
--- NOTE | 2016-12-11 16:41 | P.PCN ---
Date of Procedure: 12/11/16 Preoperative Diagnosis: Ascites Postoperative Diagnosis: Ascites Procedure(s) Performed: Paracentesis Anesthesia: local Surgeon: Valdo Nettles Supervisor [employer]: Marian Estevez Estimated Blood Loss (ml): 0 Condition: stable Disposition: ICU Operative Findings: The procedure including the potential Complications were expected to the patient at length. A consent was signed. Under sterile techniques, the right lower quadrant area of the abdomen was cleaned using chlorhexidine to is in a surgical percent lidocaine. Following that a safety thoracentesis/paracentesis catheter was inserted into the abdominal cavity and a total of 6 days of ascitic fluid was drained. The fluid was turbid dark yellowish in color. No bleeding. The drainage stopped spontaneously and the patient felt significantly better and abdomen was quite deflated following the procedure. Appropriate dressing was applied after the catheter was removed. The patient remained hemodynamically stable without any hypotension at the time of the procedure.
[2016-12-11 17:43] LABS: Glucose,Whole Blood 160 mg/dL (75-99)
[2016-12-11] MEDS: NOREPINEPHRINE 4 MG in SODIUM CHLORIDE 0.9% 250 ML IV SCH (18:57)
[2016-12-11 23:36] LABS: Glucose,Whole Blood 136 mg/dL (75-99)
[2016-12-12] MEDS: VIT A,C & E-LUTEIN-MINERALS 1 EACH TAB PO SCH ×3 (02:10→20:18)
[2016-12-12] MEDS: MAGNESIUM OXIDE 400 MG TAB PO SCH ×3 (02:10→20:17)
[2016-12-12] MEDS: APIXABAN 2.5 MG TABLET PO SCH ×3 (02:10→20:17)
[2016-12-12] MEDS: AMIODARONE 100 MG TAB PO SCH (02:10)
[2016-12-12] MEDS: VITAMIN E (DL,TOCOPHERYL ACET) 400 UNIT CAP PO SCH ×3 (02:10→20:18)
[2016-12-12] MEDS: PRAVASTATIN SODIUM 20 MG TAB PO SCH ×2 (02:10→20:17)
[2016-12-12] MEDS: AMIODARONE 450 MG in DEXTROSE 5% IN WATER 250 ML IV SCH ×6 (02:18→22:14)
[2016-12-12] MEDS: INSULIN LISPRO (humaLOG) 300 UNIT/3 ML VIAL SQ SCH ×5 (02:19→20:18)
[2016-12-12 05:26] LABS: Calcium 7.7 mg/dL (8.4-10.2); Phosphorous 2.3 mg/dL (2.5-4.5); Potassium 3.3 mmol/L (3.5-5.1)
[2016-12-12 05:34] LABS: Anisocytosis Slight; Basophils % (A) 1 %; CH 30.8; CHCM 29.7; Eosinophils % (A) 1 %; HCT 34.7 % (39.0-53.0); HDW 2.64; HGB 10.5 gm/dL (13.0-17.5); Hypochromasia Marked; Luc # (Auto) 0.18; Luc % (Auto) 4; Lymphocytes # (A) 1.4 k/uL (1.0-4.8); Lymphocytes % (A) 29 %; MCH 31.5 pg (25.0-35.0); MCHC 30.2 g/dL (31.0-37.0); MCV 104.4 fL (80.0-100.0); Macrocytosis Moderate; Mean Platelet Volume 7.8; Monocytes # (A) 0.5 k/uL (0-1.0); Monocytes % (A) 12 %; Neutrophils # (A) 2.5 k/uL (1.3-7.7); Neutrophils % (A) 54 %; RBC 3.32 m/uL (4.30-5.90); RDW 17.4 % (11.5-15.5); WBC 4.7 k/uL (3.8-10.6); WBC (Perox) 5.06
[2016-12-12] MEDS: LEVOTHYROXINE 50 MCG TAB PO SCH (05:59)
[2016-12-12] MEDS: SODIUM CHLORIDE 0.9% 1,000 ML IV SCH ×2 (06:00→22:00)
[2016-12-12 06:29] LABS: Manual Review Performed
[2016-12-12 06:30] LABS: Target Cells Present
[2016-12-12 07:32] LABS: Glucose,Whole Blood 154 mg/dL (75-99)
--- NOTE | 2016-12-12 07:42 | XR ---
EXAMINATION TYPE: XR chest 1V DATE OF EXAM: 12/12/2016 6:57 AM HISTORY: Shortness of breath. COMPARISON: 12/11/2016 TECHNIQUE: Single view of the chest is submitted. FINDINGS: Demonstrated are scattered senescent parenchymal change. Large bore central venous line is unchanged in position. There is no evidence for focal infiltrate. The heart is stable. Hilar and mediastinal structures are within normal limits. Degenerative changes are seen of the dorsal spine. IMPRESSION: 1. Chronic changes without evidence for acute pulmonary disease.
[2016-12-12] MEDS: BUDESONIDE 0.5 MG/2 ML NEBU INHALATION SCH ×2 (08:22→19:29)
[2016-12-12] MEDS: TAMSULOSIN 0.4 MG CAP.ER.24H PO SCH (08:53)
[2016-12-12] MEDS: PANTOPRAZOLE 40 MG TABLET PO SCH (08:53)
[2016-12-12] MEDS: FLUCONAZOLE 100 MG TAB PO SCH (08:53)
[2016-12-12] MEDS: ALLOPURINOL 100 MG TAB PO SCH (08:53)
[2016-12-12] MEDS: MIDODRINE 5 MG TAB PO SCH ×3 (08:53→17:57)
[2016-12-12] MEDS: PARoxetine 20 MG TAB PO SCH (08:54)
--- NOTE | 2016-12-12 10:07 | P.PN ---
Subjective this is a very pleasant 76-year-old gentleman who presented here in 12/09/2016 with complaints of progressive weakness. He does have end-stage renal disease and is on hemodialysis 3 days a week. He had recently been treated for candidal urinary tract infection with Diflucan and C. difficile colitis with oral Flagyl. Upon admission he was found to be quite hypotensive and required fluid resuscitation and norepinephrine infusions. He is seen again today in follow-up in the intensive care unit. He is awake and alert in no acute distress. The patient did have significant ascites and a paracentesis was performed by Dr. Nettles yesterday in 6 L of fluid was removed. Analysis is pending. He is seen again today in follow-up. He is awake and alert in no acute distress. He is currently receiving hemodialysis. He does have ongoing issues with hypotension and is currently on norepinephrine at 2 mcg/m. He denies any chest discomfort, lightheadedness or dizziness. He denies any significant shortness of breath, cough or congestion. Today's chest x-ray revealed no acute pulmonary process. He is maintaining good O2 saturations in the upper 90s on 2 L/m per nasal cannula. He is afebrile. Current creatinine 3.71. Hemoglobin 10.5. Follow-up C. difficile toxin screen was negative. Objective - Vital Signs Vital signs: Vital Signs Temp 97.4 F L 12/12/16 09:00 Pulse 88 12/12/16 09:30 Resp 18 12/12/16 09:30 BP 63/42 12/12/16 09:30 Pulse Ox 96 12/12/16 09:30 Intake & Output 12/11/16 12/12/16 12/12/16 18:59 06:59 18:59 Intake Total 788.748 974.023 412.098 Output Total 2 5 0 Balance 786.748 969.023 412.098 Weight 106.2 kg Intake: IV 650 550 150 Sodium Chloride 0.9% 1, 650 550 150 000 ml @ 50 mls/hr IV . Q20H JAMES Rx#:[id number] Intake, IV Titration 138.748 184.023 22.098 Amount Norepinephrine 4 mg In 138.748 184.023 22.098 Sodium Chloride 0.9% 250 ml @ Titrate IV .Q0M JAMES Rx#:[id number] Oral 240 240 Output: Urine 0 0 0 Stool 2 5 Other: # Voids 0 # Bowel Movements 1 1 - Exam GENERAL EXAM: Alert, comfortable in no apparent distress. HEAD: Normocephalic. EYES: Normal reaction of pupils, equal size. NOSE: Clear with pink turbinates. THROAT: No erythema or exudates. NECK: No masses, no JVD. CHEST: No chest wall deformity. Right permacath dressing dry and intact. LUNGS: Equal air entry with no crackles, wheeze, rhonchi or dullness. CVS: S1 and S2 normal with no audible murmurs, irregular rhythm. ABDOMEN: Soft, normal bowel sounds, no guarding or rigidity. Extremities: There is trace peripheral edema. No clubbing, no cyanosis. Peripheral pulses are intact. - Labs CBC & Chem 7: 12/12/16 04:46 12/12/16 04:46 Labs: Abnormal Lab Results - Last 24 Hours (Table) 12/11/16 12/11/16 12/11/16 Range/Units 12:38 17:40 23:35 RBC (4.30-5.90) m/uL Hgb (13.0-17.5) gm/dL Hct (39.0-53.0) % MCV (80.0-100.0) fL MCHC (31.0-37.0) g/dL RDW (11.5-15.5) % Plt Count (150-450) k/uL Potassium (3.5-5.1) mmol/L Creatinine (0.66-1.25) mg/dL Glucose (74-99) mg/dL POC Glucose (mg/dL) 136 H 160 H 136 H (75-99) mg/dL Calcium (8.4-10.2) mg/dL Phosphorus (2.5-4.5) mg/dL 12/12/16 12/12/16 12/12/16 Range/Units 04:46 04:46 07:32 RBC 3.32 L (4.30-5.90) m/uL Hgb 10.5 L (13.0-17.5) gm/dL Hct 34.7 L (39.0-53.0) % MCV 104.4 H (80.0-100.0) fL MCHC 30.2 L (31.0-37.0) g/dL RDW 17.4 H (11.5-15.5) % Plt Count 148 L (150-450) k/uL Potassium 3.3 L (3.5-5.1) mmol/L Creatinine 3.71 H (0.66-1.25) mg/dL Glucose 136 H (74-99) mg/dL POC Glucose (mg/dL) 154 H (75-99) mg/dL Calcium 7.7 L (8.4-10.2) mg/dL Phosphorus 2.3 L (2.5-4.5) mg/dL Microbiology - Last 24 Hours (Table) 12/11/16 12:02 Gram Stain - Preliminary Ascites Fluid Body Fluid Culture - Preliminary 12/11/16 12:02 Anaerobic Culture - Preliminary Ascites Fluid 12/10/16 10:09 Blood Culture - Preliminary Blood No Growth after 24 hours Assessment and Plan Plan: i BiPAP impression: #1 Acute hypotension. The patient runs a low blood pressure at baseline and there is none further drops requiring norepinephrine currently at 2 mics. He is currently receiving hemodialysis. There was some concern regarding sepsis. C. difficile screen was ruled out. Cardiogenic causes were felt to be less likely. The patient is awake and alert and in no acute distress. His clinical picture does not always correlate with his cuff blood pressures. #2 Ascites, status post paracentesis with 6 L of fluid removed yesterday. Fluid analysis is pending. No clear evidence of SIPP. #3 Coronary artery disease with previous coronary artery bypass grafting. Two- dimensional echocardiogram did not reveal any significant LV dysfunction or pericardial effusion. #4 Chronic atrial fibrillation, anticoagulated with Eliquis. #5 End-stage renal disease currently receiving hemodialysis. #6 Nephrolithiasis. #7 Urinary tract infections with previous infections with Chalrey and E. coli. #8 Macular degeneration. #9 History of gout. #10 Chronic back pain. #11 Chronic obstructive pulmonary disease, currently inactive and stable. Plan: The patient was seen and evaluated by Dr. Nettles. Today's chest x-ray reveals no acute process. Blood cultures reveal no growth to date. We will attempt to wean off the norepinephrine infusion. We will continue his other current medications. We will increase his activity as tolerated. We'll continue to follow make further recommendations based on his clinical status.
[2016-12-12 11:49] LABS: Glucose,Whole Blood 110 mg/dL (75-99)
[2016-12-12] MEDS: CHOLECALCIFEROL 1,000 UNIT TAB PO SCH (12:59)
[2016-12-12] MEDS: NOREPINEPHRINE 4 MG in SODIUM CHLORIDE 0.9% 250 ML IV SCH (13:00)
--- NOTE | 2016-12-12 13:51 | PN ---
Patient is seen for followup for end-stage renal disease. He is currently seen on dialysis. Levophed is at about 2 mcg. Patient was admitted with hypotension. He has been maintained on pressors as well as IV fluids. He had paracentesis yesterday, with about 6 L of fluid that was removed. Patient is otherwise awake, comfortable. He has been eating. He is not in any acute distress. On examination, blood pressure is 85/55, heart rate 94 per minute. He is afebrile. EXAMINATION OF THE HEART: S1 and S2. EXAMINATION OF THE LUNGS: Decreased breath sounds at the bases. Abdomen is soft, obese, nontender with decreased distention. Examination of lower extremities shows chronic skin changes with edema 2 to 3+ bilaterally. Labs show sodium 139, potassium 3.3, BUN 9, creatinine 3.7. Hemoglobin 10.5 g/dL. Phosphorus is at 2.3. ASSESSMENT: 1. End-stage renal disease on hemodialysis on a Wednesday, Wednesday, Wednesday schedule. 2. Hypotension, slightly improved, etiology unclear. Patient is maintained on Diflucan for urinary tract infection from previous admission. He is also maintained on maximum dose of midodrine. There was no evidence of pericardial effusion noted on echocardiogram and all cultures are so far negative. 3. Ascites, status post paracentesis with 6 L. 4. Coronary artery disease with previous history of coronary artery bypass surgery. 5. Chronic atrial fibrillation, maintained on Eliquis. 6. Chronic obstructive pulmonary disease. 7. History of urinary tract infection from previous admission with Chraley and Escherichia coli. PLAN: Hemodialysis today. We will likely not be able to get much fluid off because of the low blood pressure.
[2016-12-12] MEDS ORDERED: DEXTROSE 5% IN WATER 100 ML with AMIODARONE 150 MG IV ONE (14:13)
[2016-12-12] MEDS: HYDROcodone/APAP 5-325MG 1 EACH TAB PO PRN (16:23)
[2016-12-12 16:46] LABS: Glucose,Whole Blood 179 mg/dL (75-99)
[2016-12-12 17:28] LABS: ALT 55 U/L (21-72); AST 26 U/L (17-59); Alkaline Phosphatase 114 U/L (38-126); Amylase <30 U/L (30-110); Anion Gap 8 mmol/L; Bilirubin, Delta 0.4 mg/dL (0.0-0.2); Blood Urea Nitrogen 6 mg/dL (9-20); Calcium 7.4 mg/dL (8.4-10.2); Carbon Dioxide 27 mmol/L (22-30); Chloride 100 mmol/L (98-107); Glucose 179 mg/dL (74-99); Non-African American GFR(MDRD) 26 (>60 ml/min/1.73 sqM); Potassium 3.3 mmol/L (3.5-5.1); Sodium 135 mmol/L (137-145); Total Bilirubin 0.7 mg/dL (0.2-1.3); Total Protein 4.7 g/dL (6.3-8.2)
[2016-12-12 17:38] LABS: Anisocytosis Slight; Basophils % (A) 1 %; CH 30.8; CHCM 29.4; Eosinophils % (A) 1 %; HCT 36.2 % (39.0-53.0); HDW 2.65; HGB 10.7 gm/dL (13.0-17.5); Hypochromasia Marked; Luc # (Auto) 0.17; Luc % (Auto) 4; Lymphocytes # (A) 1.2 k/uL (1.0-4.8); Lymphocytes % (A) 27 %; MCH 31.1 pg (25.0-35.0); MCHC 29.5 g/dL (31.0-37.0); MCV 105.5 fL (80.0-100.0); Macrocytosis Marked; Mean Platelet Volume 7.7; Monocytes # (A) 0.5 k/uL (0-1.0); Monocytes % (A) 11 %; Neutrophils # (A) 2.5 k/uL (1.3-7.7); Neutrophils % (A) 57 %; RBC 3.43 m/uL (4.30-5.90); RDW 17.3 % (11.5-15.5); WBC 4.4 k/uL (3.8-10.6); WBC (Perox) 4.52
[2016-12-12] MEDS: PIPERACILLIN-TAZOBACTAM 3.375 GM in DEXTROSE/WATER 1 50ML.BAG IVPB SCH (17:57)
[2016-12-12 18:17] LABS: Manual Review Performed
[2016-12-12 18:18] LABS: Target Cells Present
--- NOTE | 2016-12-12 18:27 | CT ---
EXAMINATION TYPE: CT abdomen pelvis wo con DATE OF EXAM: 12/12/2016 6:19 PM COMPARISON: 12/10/2016 HISTORY: Right side abdominal pain. CT DLP: 927.6 mGycm Automated exposure control for dose reduction was used. TECHNIQUE: Helical acquisition of images was performed from the lung bases through the pelvis. FINDINGS: There are bilateral pleural effusions larger on the right side. Heart size is normal. There is atelectasis at the right lung base. Liver is somewhat irregular consistent with cirrhosis. There is moderately large amount of ascites fluid. There is subcutaneous edema throughout the abdomen. Spleen appears normal. There is no evidence of pancreatic mass. There is no adrenal mass. Kidneys hav e normal size and contour. There is no hydronephrosis. There is no retroperitoneal adenopathy. Abdomi nal aorta is atheromatous. Bladder is obscured somewhat by the ascites fluid. Bladder is almost empty . I see no evidence of a bowel obstruction. There is no free air. There is mild compression deformity of the lumbar vertebra. IMPRESSION: THERE ARE BILATERAL PLEURAL EFFUSIONS WITH BASILAR ATELECTASIS. CHANGES IN THE LIVER CONSISTENT WITH CIRRHOSIS. MASSIVE ASCITES. NO SIGNIFICANT CHANGE COMPARED TO LAST EXAM. ATHEROSCLEROTIC VASCULAR DIS EASE.
[2016-12-12 20:18] LABS: Glucose,Whole Blood 124 mg/dL (75-99)
[2016-12-13] MEDS: PIPERACILLIN-TAZOBACTAM 3.375 GM in DEXTROSE/WATER 1 50ML.BAG IVPB SCH ×2 (05:26→18:22)
[2016-12-13] MEDS: LEVOTHYROXINE 50 MCG TAB PO SCH (05:29)
[2016-12-13] MEDS: AMIODARONE 450 MG in DEXTROSE 5% IN WATER 250 ML IV SCH ×4 (05:31→10:59)
[2016-12-13 05:32] LABS: Anisocytosis Slight; Basophils % (A) 1 %; CH 30.9; CHCM 29.9; Eosinophils # (A) 0.1 k/uL (0-0.7); Eosinophils % (A) 2 %; HCT 30.7 % (39.0-53.0); HDW 2.69; HGB 9.3 gm/dL (13.0-17.5); Hypochromasia Marked; Luc # (Auto) 0.13; Luc % (Auto) 4; Lymphocytes % (A) 27 %; MCH 31.5 pg (25.0-35.0); MCHC 30.2 g/dL (31.0-37.0); Macrocytosis Moderate; Mean Platelet Volume 8.1; Monocytes # (A) 0.4 k/uL (0-1.0); Monocytes % (A) 11 %; Neutrophils % (A) 56 %; RBC 2.95 m/uL (4.30-5.90); RDW 17.3 % (11.5-15.5); WBC 3.6 k/uL (3.8-10.6); WBC (Perox) 3.79
[2016-12-13 05:38] LABS: Calcium 7.1 mg/dL (8.4-10.2); Magnesium 1.7 mg/dL (1.6-2.3); Phosphorous 1.9 mg/dL (2.5-4.5); Potassium 3.6 mmol/L (3.5-5.1)
--- NOTE | 2016-12-13 07:08 | XR ---
EXAMINATION TYPE: XR chest 1V DATE OF EXAM: 12/13/2016 6:47 AM HISTORY: Shortness of breath. COMPARISON: December 12, 2016 TECHNIQUE: Single view of the chest is submitted. FINDINGS: Demonstrated are scattered senescent parenchymal change. There is no evidence for focal infiltrate. The heart is stable. Hilar and mediastinal structures are within normal limits. Degenerative changes are seen of the dorsal spine. IMPRESSION: 1. Chronic changes without evidence for acute pulmonary disease.
[2016-12-13 07:48] LABS: Glucose,Whole Blood 138 mg/dL (75-99)
[2016-12-13] MEDS: BUDESONIDE 0.5 MG/2 ML NEBU INHALATION SCH ×2 (07:55→19:55)
[2016-12-13] MEDS: PANTOPRAZOLE 40 MG TABLET PO SCH (08:44)
[2016-12-13] MEDS: PARoxetine 20 MG TAB PO SCH (08:44)
[2016-12-13] MEDS: ALLOPURINOL 100 MG TAB PO SCH (08:44)
[2016-12-13] MEDS: VITAMIN E (DL,TOCOPHERYL ACET) 400 UNIT CAP PO SCH ×2 (08:44→20:22)
[2016-12-13] MEDS: TAMSULOSIN 0.4 MG CAP.ER.24H PO SCH (08:44)
[2016-12-13] MEDS: MIDODRINE 5 MG TAB PO SCH ×3 (08:44→18:22)
[2016-12-13] MEDS: INSULIN LISPRO (humaLOG) 300 UNIT/3 ML VIAL SQ SCH ×4 (08:45→20:22)
[2016-12-13] MEDS: APIXABAN 2.5 MG TABLET PO SCH ×2 (08:45→20:22)
[2016-12-13] MEDS: FLUCONAZOLE 100 MG TAB PO SCH (08:45)
[2016-12-13] MEDS: VIT A,C & E-LUTEIN-MINERALS 1 EACH TAB PO SCH ×2 (08:45→20:22)
[2016-12-13] MEDS: MAGNESIUM OXIDE 400 MG TAB PO SCH ×2 (08:46→20:22)
[2016-12-13] MEDS ORDERED: MAGNESIUM SULFATE-D5W PMX 1 GM in DEXTROSE/WATER 1 100ML.BAG IVPB ONE (09:00)
[2016-12-13] MEDS: SODIUM CHLORIDE 0.9% 1,000 ML IV SCH ×2 (09:51→10:15)
--- NOTE | 2016-12-13 09:59 | PN ---
Patient is seen for follow-up for end-stage renal disease. He was admitted to the hospital with hypotension. He has been maintained on empiric antibiotics. He was on ( ) which is now down to 1 mcg. Patient has been eating and drinking well. On examination, blood pressure is 80/40, heart rate 71 per minute. He is afebrile. Examination of the heart S1 and S2. Examination of the lungs: Bilateral breath sounds are heard. ABDOMEN: Soft, distended with the fluid draining from the site of paracentesis. Lower extremities shows chronic skin changes with significant edema bilaterally. Labs show sodium 134, potassium 3.6. Hemoglobin 9.3 g/dL. ASSESSMENT: 1. End-stage renal disease on hemodialysis on a Wednesday, Wednesday, Wednesday schedule. Will arrange for hemodialysis tomorrow. 2. Hypotension, which is chronic and has been worked up previously. No cardiac causes identified. No evidence of infection. 3. Hypophosphatemia patient is encouraged to eat, we do not need to maintain him on a renal diet. If his phosphorus remains low then we will start Neutra-Phos.
[2016-12-13 11:21] LABS: Glucose,Whole Blood 158 mg/dL (75-99)
--- NOTE | 2016-12-13 11:22 | P.GSCN ---
History of Present Illness Consult date: 12/13/16 Reason for Consult: Abdominal pain History of present illness: This a 76-year-old male with a history of alcoholic cirrhosis. Patient had a large volume paracentesis performed yesterday. 6 L of fluid was removed. Patient had valve some pain after the procedure. The pain this morning is totally resolved. Past Medical History Past Medical History: Asthma, Coronary Artery Disease (CAD), Cancer, Heart Failure, COPD, Diabetes Mellitus, GERD/Reflux, Hyperlipidemia, Osteoarthritis ( OA), Sleep Apnea/CPAP/BIPAP Additional Past Medical History / Comment(s): Coronary artery disease with a previous coronary artery bypass surgery, chronic atrial fibrillation maintained on anticoagulation, COPD, end-stage renal disease and the currently the patient is on hemodialysis, nephrolithiasis and kidney stones, Charley urinary tract infection along with previous E. coli urinary tract infection, macular degeneration, gout, chronic back pain, chronic degenerative disc disease, skin cancer of a squamous cell type, osteoarthritis, obstructive sleep apnea maintained on CPAP on outpatient basis, hyperlipidemia, diabetes mellitus, chronic hypotension maintained on midodrine on outpatient basis History of Any Multi-Drug Resistant Organisms: None Reported, C-DIFF Year Discovered:: C.diff retested negative 12/10/16 (C.diff was positive 11/27/16) MDRO Source:: Stool Past Surgical History: Coronary Bypass/CABG, Joint Replacement, Orthopedic Surgery, Tonsillectomy Additional Past Surgical History / Comment(s): Coronary artery bypass surgery bilateral cataract surgery, laser eye surgery for macular degeneration, colonoscopy with polypectomy, bilateral knee replacement, eye surgery involving the tear ducts with placement of implants, ORIF for a right ankle fracture with insertion of plate and screws, insertion of a permacath for dialysis access. Past Anesthesia/Blood Transfusion Reactions: No Reported Reaction Past Psychological History: Anxiety, Depression Additional Psychological History / Comment(s): paxil Smoking Status: Former smoker Past Alcohol Use History: Daily Additional Past Alcohol Use History / Comment(s): started smoking at age 17 later on in life swithced to cigars then quit 2008. pt admits to 3 drinks a day( whiskey) Past Drug Use History: None Reported - Past Family History Mother Family Medical History: Cancer Additional Family Medical History / Comment(s): kidney cancer Father Family Medical History: Cancer, Prostate Disorder Additional Family Medical History / Comment(s): prostate cancer Brother(s) History Unknown: Yes Medications and Allergies Home Medications Medication Instructions Recorded Confirmed Type Albuterol Sulfate [Proair Hfa] 2 puff INHALATION RT-QID PRN 10/16/16 12/09/16 History Allopurinol [Zyloprim] 100 mg PO QAM 10/16/16 12/09/16 History Amiodarone HCl [Cordarone] 100 mg PO HS 10/16/16 12/09/16 History Budesonide [Pulmicort Flexhaler] 2 puff INHALATION RT-DAILY 10/16/16 12/09/16 History Cholecalciferol [Vitamin D3] 1,000 unit PO DAILY 10/16/16 12/09/16 History Fish Oil/Dha/Epa [Fish Oil 1,200 1 cap PO HS 10/16/16 12/09/16 History mg Fish Oil] Furosemide [Lasix] [address] [facility] 10/16/16 12/09/16 History Lansoprazole [Prevacid] 15 mg PO DAILY 10/16/16 12/09/16 History Lisinopril [Prinivil] [address] [facility] 10/16/16 12/09/16 History Magnesium Oxide 400 mg PO BID 10/16/16 12/09/16 History Metoprolol Tartrate [Lopressor] [address] [facility] 10/16/16 12/09/16 History PARoxetine [Paxil] 20 mg PO DAILY 10/16/16 12/09/16 History Pravastatin Sodium [Pravachol] 20 mg PO 10/16/16 12/09/16 History Vit C/E/Zinc/Lutein/Zeaxanthin 1 tab PO BID 10/16/16 12/09/16 History [Ocuvite Eye [facility]] Vitamin E (Dl,Tocopheryl Acet) 400 unit PO BID 10/16/16 12/09/16 History [Vitamin E] Albuterol Nebulized [Ventolin 2.5 mg INHALATION RT-Q6H PRN 11/26/16 12/09/16 History Nebulized] Ondansetron [Zofran] 4 mg PO Q8H PRN 12/09/16 12/09/16 History Periguard Oint 1 applic TOPICAL TID 12/09/16 12/09/16 History Allergies Allergy/AdvReac Type Severity Reaction Status Date / Time No Known Allergies Allergy Verified 12/09/16 10:35 Surgical - Exam Vital Signs Temp Pulse Resp BP Pulse Ox 97.0 F L 83 18 65/55 95 12/09/16 10:47 12/09/16 10:47 12/09/16 10:47 12/09/16 10:47 12/09/16 10:47 - General well developed, no distress - Eyes PERRL - ENT normal pinna - Neck no masses - Respiratory normal expansion - Cardiovascular Rhythm: regular - Abdomen Mildly distended with ascites Abdomen: soft Results - Labs 12/13/16 05:15 12/13/16 05:15 Abnormal Lab Results - Last 24 Hours (Table) 12/12/16 12/12/16 12/12/16 Range/Units 11:46 16:44 16:57 WBC (3.8-10.6) k/uL RBC 3.43 L (4.30-5.90) m/uL Hgb 10.7 L (13.0-17.5) gm/dL Hct 36.2 L (39.0-53.0) % MCV 105.5 H (80.0-100.0) fL MCHC 29.5 L (31.0-37.0) g/dL RDW 17.3 H (11.5-15.5) % Plt Count 132 L (150-450) k/uL Sodium (137-145) mmol/L Potassium (3.5-5.1) mmol/L BUN (9-20) mg/dL Creatinine (0.66-1.25) mg/dL Glucose (74-99) mg/dL POC Glucose (mg/dL) 110 H 179 H (75-99) mg/dL Calcium (8.4-10.2) mg/dL Phosphorus (2.5-4.5) mg/dL Delta Bilirubin (0.0-0.2) mg/dL Total Protein (6.3-8.2) g/dL Albumin (3.5-5.0) g/dL Amylase (30-110) U/L Lipase (23-300) U/L 12/12/16 12/12/16 12/13/16 Range/Units 16:57 20:16 05:15 WBC 3.6 L (3.8-10.6) k/uL RBC 2.95 L (4.30-5.90) m/uL Hgb 9.3 L (13.0-17.5) gm/dL Hct 30.7 L (39.0-53.0) % MCV 104.0 H (80.0-100.0) fL MCHC 30.2 L (31.0-37.0) g/dL RDW 17.3 H (11.5-15.5) % Plt Count 104 L (150-450) k/uL Sodium 135 L (137-145) mmol/L Potassium 3.3 L (3.5-5.1) mmol/L BUN 6 L (9-20) mg/dL Creatinine 2.43 H (0.66-1.25) mg/dL Glucose 179 H (74-99) mg/dL POC Glucose (mg/dL) 124 H (75-99) mg/dL Calcium 7.4 L (8.4-10.2) mg/dL Phosphorus (2.5-4.5) mg/dL Delta Bilirubin 0.4 H (0.0-0.2) mg/dL Total Protein 4.7 L (6.3-8.2) g/dL Albumin 2.2 L (3.5-5.0) g/dL Amylase <30 L (30-110) U/L Lipase 328 H (23-300) U/L 12/13/16 12/13/16 Range/Units 05:15 07:46 WBC (3.8-10.6) k/uL RBC (4.30-5.90) m/uL Hgb (13.0-17.5) gm/dL Hct (39.0-53.0) % MCV (80.0-100.0) fL MCHC (31.0-37.0) g/dL RDW (11.5-15.5) % Plt Count (150-450) k/uL Sodium 134 L (137-145) mmol/L Potassium (3.5-5.1) mmol/L BUN 8 L (9-20) mg/dL Creatinine 2.64 H (0.66-1.25) mg/dL Glucose 148 H (74-99) mg/dL POC Glucose (mg/dL) 138 H (75-99) mg/dL Calcium 7.1 L (8.4-10.2) mg/dL Phosphorus 1.9 L (2.5-4.5) mg/dL Delta Bilirubin (0.0-0.2) mg/dL Total Protein (6.3-8.2) g/dL Albumin (3.5-5.0) g/dL Amylase (30-110) U/L Lipase (23-300) U/L Microbiology - Last 24 Hours (Table) 12/10/16 10:09 Blood Culture - Preliminary Blood No Growth after 48 hours 12/11/16 12:02 Gram Stain - Preliminary Ascites Fluid Body Fluid Culture - Preliminary Diabetes panel 12/12/16 12/13/16 Range/Units 16:57 05:15 Sodium 135 L 134 L (137-145) mmol/L Potassium 3.3 L 3.6 (3.5-5.1) mmol/L Chloride 100 101 (98-107) mmol/L Carbon Dioxide 27 27 (22-30) mmol/L BUN 6 L 8 L (9-20) mg/dL Creatinine 2.43 H 2.64 H (0.66-1.25) mg/dL Glucose 179 H 148 H (74-99) mg/dL Calcium 7.4 L 7.1 L (8.4-10.2) mg/dL AST 26 (17-59) U/L ALT 55 (21-72) U/L Alkaline Phosphatase 114 (38-126) U/L Total Protein 4.7 L (6.3-8.2) g/dL Albumin 2.2 L (3.5-5.0) g/dL Calcium panel 12/12/16 12/13/16 Range/Units 16:57 05:15 Calcium 7.4 L 7.1 L (8.4-10.2) mg/dL Phosphorus 1.9 L (2.5-4.5) mg/dL Albumin 2.2 L (3.5-5.0) g/dL Pituitary panel 12/12/16 12/13/16 Range/Units 16:57 05:15 Sodium 135 L 134 L (137-145) mmol/L Potassium 3.3 L 3.6 (3.5-5.1) mmol/L Chloride 100 101 (98-107) mmol/L Carbon Dioxide 27 27 (22-30) mmol/L BUN 6 L 8 L (9-20) mg/dL Creatinine 2.43 H 2.64 H (0.66-1.25) mg/dL Glucose 179 H 148 H (74-99) mg/dL Calcium 7.4 L 7.1 L (8.4-10.2) mg/dL Adrenal panel 12/12/16 12/13/16 Range/Units 16:57 05:15 Sodium 135 L 134 L (137-145) mmol/L Potassium 3.3 L 3.6 (3.5-5.1) mmol/L Chloride 100 101 (98-107) mmol/L Carbon Dioxide 27 27 (22-30) mmol/L BUN 6 L 8 L (9-20) mg/dL Creatinine 2.43 H 2.64 H (0.66-1.25) mg/dL Glucose 179 H 148 H (74-99) mg/dL Calcium 7.4 L 7.1 L (8.4-10.2) mg/dL Total Bilirubin 0.7 (0.2-1.3) mg/dL AST 26 (17-59) U/L ALT 55 (21-72) U/L Alkaline Phosphatase 114 (38-126) U/L Total Protein 4.7 L (6.3-8.2) g/dL Albumin 2.2 L (3.5-5.0) g/dL Assessment and Plan Plan: Resolved abdominal pain. Patient will be observed. He is currently tolerating a regular diet.
--- NOTE | 2016-12-13 11:47 | PN ---
DATE OF SERVICE: 12/12/2016 INTERVAL HISTORY: Mr. Zayas is a 76-year-old gentleman with a past medical history of coronary artery disease, COPD, heart failure, CKD who was recently started on hemodialysis, admitted to the hospital with a chief complaint of weakness. The patient's blood pressure has been low and so currently he is in the ICU with pressor support. Further work-up for sepsis has been negative with culture showing no growth by the preliminary report. Patient's labs show no leukocytosis. Even though the patient's blood pressure has been running on the lower side, the patient is completely asymptomatic. He is lying in his bed, appears to be in no acute distress. He does not have any complaints. REVIEW OF SYSTEMS: CONSTITUTIONAL: Denies having any fevers, chills or rigors. ANALYST MICROBIOLOGY LAB: No complaints of dizziness or syncopal episodes. CARDIAC: No chest pain. No palpitations. GI: No abdominal pain, nausea, vomiting, or diarrhea. Patient's medications have been reviewed. On examination, patient's vital signs temperature 97.4, heart rate 90 to 110, respiratory rate 20 to 26, blood pressure 90-110/50s to 60s, saturating at 97% on 2 liters of nasal cannula. GENERAL EXAMINATION: Obese male lying in bed, appears to be in no acute distress. HEAD: Atraumatic, normocephalic. EYES: Pupils, round, and reactive to light. ENT: Mucous membranes are moist. NECK: No JVD. No thyromegaly. CARDIAC: S1, S2 heard. LUNGS: Bilateral breath sounds are positive. No wheezes or crackles. ABDOMEN: Soft. Bowel sounds normal. EXTREMITIES: Trace pedal edema. ANALYST MICROBIOLOGY LAB: Alert, awake, oriented x3. No focal deficits. LABS: White count 4.4, hemoglobin 10.7, platelets 132, sodium 135, potassium 3.5, chloride 100, bicarb 27, BUN 6, creatinine 2.43. The patient has blood cultures and acetic fluid cultures showing no growth. ASSESSMENT: 1. Acute hypotension most likely secondary to volume depletion as the patient is receiving hemodialysis and also had 6 liters of acetic fluid removed and so far sepsis work-up has been negative. 2. Ascites. Patient's LFTs were within normal limits, unclear why the patient has ascites but 6 liters of fluid was removed. 3. History of chronic atrial fibrillation. 4. ESRD on dialysis. 5. Recent urinary tract infection with yunior and Escherichia coli. 6. History of gout. 7. Chronic obstructive pulmonary disease. 8. Coronary artery disease, status post coronary artery bypass graft in the past. PLAN: The patient's blood pressure has been on the lower side but he is completely asymptomatic. We will try to wean him off Levophed and we will follow-up pending blood cultures and ascitic fluid cultures. We will continue with the rest of his medication regimen and further recommendations to follow depending on the progress of the patient.
[2016-12-13] MEDS: CHOLECALCIFEROL 1,000 UNIT TAB PO SCH (12:31)
[2016-12-13] MEDS: AMIODARONE 200 MG TAB PO SCH ×2 (12:32→20:22)
[2016-12-13] MEDS: NOREPINEPHRINE 4 MG in SODIUM CHLORIDE 0.9% 250 ML IV SCH (12:32)
--- NOTE | 2016-12-13 13:11 | PN ---
CHIEF COMPLAINT: Atrial fibrillation. A 76-year-old gentleman who is admitted to hospital with complex medical problems including end-stage renal disease on hemodialysis, urinary tract infection, C. difficile colitis, hypotension, ascites, status post paracentesis that cardiology got involved because of atrial fibrillation. He went into A. fib with RVR yesterday due to which Cardiology was called in, started on IV amiodarone following which he converted to sinus rhythm. This morning he is free of symptoms. On exam, vital signs are stable. Chest exam reveals diminished air entry at the bases. Heart exam reveals first and second heart sounds. No gallop. Abdomen appears distended. Exam of extremities reveals trace edema. Labs show a hemoglobin of 9.3, platelet count is 104. Potassium is 3.6. Creatinine is 2.6. ASSESSMENT: Atrial fibrillation with rapid ventricular rate. Patient is currently in sinus rhythm on apixaban 2.5 b.i.d. and amiodarone 200 b.i.d. which we will continue.
--- NOTE | 2016-12-13 13:23 | P.PN ---
Subjective 76-year-old male patient with end-stage renal disease is currently on hemodialysis. Note that the patient was started on hemodialysis earlier this year and he was being dialyzed 3 times a week. He is known to run a low blood pressure in general and his systolic blood pressure had been in the mid 80s and the patient had been treated with midodrine. He has a permacath in his right upper chest area/subclavian and the patient was being treated recently for a candidal urine checked infection with Diflucan and C. diff colitis with oral Flagyl. The patient comes in yesterday to the hospital because of feeling weak and he was also noted to be hypotensive above and beyond his usual blood pressure. At one point he was noted to have a systolic blood pressure in the mid 60s. His admission blood pressure was 71/47. Despite this, he was not having any significant change in mental status. He was given IV fluids and he was on a 75 mL an hour of normal saline which nephrology cut down to 50 mL an hour and he was started on norepinephrine infusion which was running this morning as 7 g. A critically consultation was requested. The patient was evaluated to the bedside. No change in mental status. He reported that he still had become more firm and less watery. However, the patient was noted to have exceeded abdominal distention with some increased firmness. No nausea. No vomiting. No fever. No chills. No change in mental status. No headaches. No cough or sputum production. No chest tightness. No wheezing. Chest x-ray shows limited effusion the lung bases bilaterally otherwise there is no evidence of any pneumonia or airspace disease. The patient had an echocardiogram earlier this morning that showed preserved LV function and the rest of the full report is still pending for now. No evidence of any pericardial effusion. He was not placed on any antibiotics. Blood cultures of been sent this morning. Diflucan was resumed. On 12/11/2016 the patient is being seen in follow-up. After coming off pressors , this morning the patient was placed back on 2 mics of norepinephrine infusion. His systolic blood pressures the mid 90s. His abdomen is still distended and there is large amount of ascites on the CAT scan of the abdomen along with changes consistent with liver cirrhosis. As such, a large fold and paracentesis was done in total of 6 L of ascitic fluid was drained. The fluid will be sent for analysis. We will also check for spontaneous bacterial bacterial peritonitis. The patient is afebrile. The stool for C. diff came back negative. The candidal urinary tract infection is being treated with Diflucan. The patient has normalized his lactic acid level. No other significant events over the past 24 hours. On 12/13/2016 the patient is being seen in follow-up. Note that this patient is an incisional disease and he has liver cirrhosis. He underwent a large volume paracentesis with a total of 6 L of fluid was removed from his abdomen. In follow-up he was doing well. Yesterday evening he started developing a right -sided abdominal pain. At that point his blood work was repeated. Liver function tests, amylase and lipase were all within normal limits. Note that the fluid that was aspirated from the patient's abdomen showed no evidence of any spontaneous bacterial peritonitis. Meanwhile, a repeat CAT scan of the abdomen was done and it showed ascites. The puncture site is showing some limited leak and the fluid is clean. The patient was started on IV Zosyn. Surgical consultation was also obtained. He is still having paroxysmal atrial fibrillation and is anticoagulated. He has low-grade hypotension and he is only a few mics of the low-fat for hemodynamic support. No other complaints otherwise for now. His abdominal pannus subsided significantly on today's evaluation. Objective - Vital Signs Vital signs: Vital Signs Temp 97.5 F L 12/13/16 10:00 Pulse 76 12/13/16 12:00 Resp 20 12/13/16 12:00 BP 78/46 12/13/16 12:00 Pulse Ox 97 12/13/16 12:00 Intake & Output 12/12/16 12/13/16 12/13/16 18:59 06:59 18:59 Intake Total 1551.456 1989.484 339.871 Output Total 1502 3 230 Balance 342.358 1740.484 109.871 Weight 98.7 kg Intake: IV 600 512.5 102.5 Piperacillin-Tazobactam 3 12.5 12.5 .375 gm In Dextrose/Water 1 50ml.bag @ 12.5 mls/hr IVPB Q12H [facility] Rx#: [id number] Sodium Chloride 0.9% 1, 600 500 90 000 ml @ 10 mls/hr IV . Q24H [facility] Rx#:[id number] Intake, IV Titration 353.177 626.984 237.371 Amount Amiodarone 450 mg In 133.2 393.634 94.355 Dextrose 5% in Water 250 ml @ 1 MG/MIN 34.53 mls/ hr IV .Q7H31M [facility] Rx#: [id number] Dextrose 5% in Water 100 100 ml @ 618 mls/hr IV .Q10M ONE with Amiodarone 150 mg Rx#:[id number] Magnesium Sulfate-D5w Pmx 100 1 gm In Dextrose/Water 1 100ml.bag @ 100 mls/hr IVPB ONCE ONE Rx#: [id number] Norepinephrine 4 mg In 69.977 133.35 26.416 Sodium Chloride 0.9% 250 ml @ Titrate IV .Q0M [facility] Rx#:[id number] Piperacillin-Tazobactam 3 16.6 .375 gm In Dextrose/Water 1 50ml.bag @ 12.5 mls/hr IVPB Q12H [facility] Rx#: [id number] cefTRIAXone 1,000 mg In 50 100 Sodium Chloride 0.9% 50 ml @ 100 mls/hr IVPB Q12H [facility] Rx#:[id number] Oral 720 Output: Drainage 180 Right Abdomen 180 Urine 0 0 50 Stool 2 3 Other 1500 Other: # Voids 1 1 # Bowel Movements 1 1 1 - Exam Head exam was generally normal. There was no scleral icterus or corneal arcus. Mucous membranes were moist.Neck was supple and without jugular venous distension, thyromegaly, or carotid bruits. Carotids were easily palpable bilaterally. There was no adenopathy. The permacath exit site over the right anterior chest is clean and intact.Cardiac exam revealed the PMI to be normally situated and sized. The rhythm was irregular and no extrasystoles were noted during several minutes of auscultation. The first and second heart sounds were normal and physiologic splitting of the second heart sound was noted. There were no murmurs, rubs, clicks, or gallops. Patient's rhythm is irregular secondary to atrial fibrillation.Lungs were clear to auscultation and percussion , and with normal diaphragmatic excursion. No wheezes or rales were noted. Abdomen is less distended soft there is mild direct tenderness no rebound tenderness or guarding. Bowel sounds are hypoactive.Examination of the extremities revealed easily palpable radial, femoral and pedal pulses. There was no cyanosis, clubbing or edema. - Labs CBC & Chem 7: 12/13/16 05:15 12/13/16 05:15 Labs: Abnormal Lab Results - Last 24 Hours (Table) 12/12/16 12/12/16 12/12/16 Range/Units 16:44 16:57 16:57 WBC (3.8-10.6) k/uL RBC 3.43 L (4.30-5.90) m/uL Hgb 10.7 L (13.0-17.5) gm/dL Hct 36.2 L (39.0-53.0) % MCV 105.5 H (80.0-100.0) fL MCHC 29.5 L (31.0-37.0) g/dL RDW 17.3 H (11.5-15.5) % Plt Count 132 L (150-450) k/uL Sodium 135 L (137-145) mmol/L Potassium 3.3 L (3.5-5.1) mmol/L BUN 6 L (9-20) mg/dL Creatinine 2.43 H (0.66-1.25) mg/dL Glucose 179 H (74-99) mg/dL POC Glucose (mg/dL) 179 H (75-99) mg/dL Calcium 7.4 L (8.4-10.2) mg/dL Phosphorus (2.5-4.5) mg/dL Delta Bilirubin 0.4 H (0.0-0.2) mg/dL Total Protein 4.7 L (6.3-8.2) g/dL Albumin 2.2 L (3.5-5.0) g/dL Amylase <30 L (30-110) U/L Lipase 328 H (23-300) U/L 12/12/16 12/13/16 12/13/16 Range/Units 20:16 05:15 05:15 WBC 3.6 L (3.8-10.6) k/uL RBC 2.95 L (4.30-5.90) m/uL Hgb 9.3 L (13.0-17.5) gm/dL Hct 30.7 L (39.0-53.0) % MCV 104.0 H (80.0-100.0) fL MCHC 30.2 L (31.0-37.0) g/dL RDW 17.3 H (11.5-15.5) % Plt Count 104 L (150-450) k/uL Sodium 134 L (137-145) mmol/L Potassium (3.5-5.1) mmol/L BUN 8 L (9-20) mg/dL Creatinine 2.64 H (0.66-1.25) mg/dL Glucose 148 H (74-99) mg/dL POC Glucose (mg/dL) 124 H (75-99) mg/dL Calcium 7.1 L (8.4-10.2) mg/dL Phosphorus 1.9 L (2.5-4.5) mg/dL Delta Bilirubin (0.0-0.2) mg/dL Total Protein (6.3-8.2) g/dL Albumin (3.5-5.0) g/dL Amylase (30-110) U/L Lipase (23-300) U/L 12/13/16 12/13/16 Range/Units 07:46 11:20 WBC (3.8-10.6) k/uL RBC (4.30-5.90) m/uL Hgb (13.0-17.5) gm/dL Hct (39.0-53.0) % MCV (80.0-100.0) fL MCHC (31.0-37.0) g/dL RDW (11.5-15.5) % Plt Count (150-450) k/uL Sodium (137-145) mmol/L Potassium (3.5-5.1) mmol/L BUN (9-20) mg/dL Creatinine (0.66-1.25) mg/dL Glucose (74-99) mg/dL POC Glucose (mg/dL) 138 H 158 H (75-99) mg/dL Calcium (8.4-10.2) mg/dL Phosphorus (2.5-4.5) mg/dL Delta Bilirubin (0.0-0.2) mg/dL Total Protein (6.3-8.2) g/dL Albumin (3.5-5.0) g/dL Amylase (30-110) U/L Lipase (23-300) U/L Microbiology - Last 24 Hours (Table) 12/10/16 10:09 Blood Culture - Preliminary Blood No Growth after 72 hours 12/11/16 12:02 Gram Stain - Preliminary Ascites Fluid Body Fluid Culture - Preliminary 12/11/16 12:02 Anaerobic Culture - Preliminary Ascites Fluid Assessment and Plan Plan: Assessment 1 acute hypotension. The patient runs a low blood pressure at baseline however there has been further drop in his blood pressure and this obviously raises some concerns knowing that the patient become more weak and somewhat symptomatic. Currently the patient is on pressors and norepinephrine infusion is running at 7 mics. The exact cause for this further drop in the blood pressure is not known. Obviously septic causes need to be ruled out. Hypovolemia is not the cause specially the patient was having C. diff colitis and possibly getting intravascularly depleted. Cardiogenic causes of felt to be less likely. In terms of sepsis, potential sources could be lines, skin, abdomen nontender the patient's abdomen is somewhat distended compared to his baseline. This is to be further investigated in one concern is colitis secondary to C. diff. On 12/13/2016, the patient has had already extensive evaluation regards to his hypotension and base other comorbidities. In summary, he is on a lower dose of pressors and he is only on 1-2 mics of levo fed. At times levo fed is also being discontinued. He is was resuscitated. C. diff evaluation came back negative. Echocardiogram was essentially within normal limits and there was no evidence of any underlying cardiomyopathy. It's very much likely that his liver cirrhosis contributing to a very low systemic vascular resistance and causing this patient to be quite hypotensive on a chronic basis. Note that his hypotension is not associated with any mental status change. He is completely asymptomatic in that regard. Blood cultures have become negative. The abdominal fluid was drained and there is no evidence of any spontaneous for care peritonitis. 2 coronary artery disease with previous bypass surgery 3 chronic atrial fibrillation 4 COPD 5 End stage renal disease on hemodialysis 6 liver cirrhosis with large ascites status post large volume paracentesis. Subsequently the patient developed some right upper quadrant pain for which a repeat CAT scan of the abdomen was done showing again ascites. No evidence of any spontaneous bacterial peritonitis. Liver function tests and amylase and lipase are all within normal limits. Pain has subsided for now. Gen. surgery consultation was obtained. Doubt any ischemic colitis. Doubt mesenteric ischemia from atrial fibrillation. The patient remains anticoagulated. 7 urine checked infection with previous infections with Charley and E. coli 8 macular degeneration 9 gout 10 chronic back pain 11 COPD 12 diabetes mellitus 13 hyperlipidemia 14 skin cancer 15 impaired performance and functional status secondary to above-mentioned comorbidities. 16 nephrolithiasis, kidney stones Plan Keep the patient in the intensive care unit. Monitor the abdominal pain. Surgical consultation has been obtained. The patient has no fever or any signs of septicemia. Continued IV Zosyn. Wean off the pressors. Dialysis per nephrology. We'll continue to follow. I have consulted GI regarding his liver cirrhosis. Gen. surgeries also on the case.
[2016-12-13 16:31] LABS: Glucose,Whole Blood 128 mg/dL (75-99)
[2016-12-13] MEDS: ALBUTEROL NEBULIZED 2.5 MG/3 ML INHALATION PRN (19:55)
[2016-12-13 20:07] LABS: Glucose,Whole Blood 188 mg/dL (75-99)
[2016-12-13] MEDS: PRAVASTATIN SODIUM 20 MG TAB PO SCH (20:22)
--- NOTE | 2016-12-14 01:59 | P.CONS ---
History of Present Illness - Reason for Consult Consult date: 12/13/16 - History of Present Illness The patient is a 76-year old male known to our service where he was evaluated in the past for abnormal liver enzymes and ascites that were believed to be secondary to excessive alcohol drinking and alcoholic liver disease. The patient stopped drinking alcohol in July 2016. He had evidence of kidney disease back then and since that time he has developed ESRD and is on hemodialysis and is followed by Dr Obando. The patient presented with hypotention and weakness and has required pressor support initially. Had large volume paracentesis and there is no evidence of SBP. The patient is currently on zosyn. Surgical evaluation was completed because of abdominal pain which is resolving. CT showed evidence of cirrhosis. Review of Systems Constitutional: Denied fever, chills or unintentional weight loss Neurologic: No headahes, double vision or sensory or motor changes Cardiopulmonary: No chest pains, SOB or palpitations Gastrointestinal: See PI above Genitourinary: No hematuria, dysuria or frequency Endocrine: No polyphagia or polydypsia Hematology: No bleeding tendency or bruising Skin: No rashes Psychiatric: No anxiety or depression Past Medical History Past Medical History: Asthma, Coronary Artery Disease (CAD), Cancer, Heart Failure, COPD, Diabetes Mellitus, GERD/Reflux, Hyperlipidemia, Osteoarthritis ( OA), Sleep Apnea/CPAP/BIPAP Additional Past Medical History / Comment(s): Coronary artery disease with a previous coronary artery bypass surgery, chronic atrial fibrillation maintained on anticoagulation, COPD, end-stage renal disease and the currently the patient is on hemodialysis, nephrolithiasis and kidney stones, Charley urinary tract infection along with previous E. coli urinary tract infection, macular degeneration, gout, chronic back pain, chronic degenerative disc disease, skin cancer of a squamous cell type, osteoarthritis, obstructive sleep apnea maintained on CPAP on outpatient basis, hyperlipidemia, diabetes mellitus, chronic hypotension maintained on midodrine on outpatient basis History of Any Multi-Drug Resistant Organisms: None Reported, C-DIFF Year Discovered:: C.diff retested negative 12/10/16 (C.diff was positive 11/27/16) MDRO Source:: Stool Past Surgical History: Coronary Bypass/CABG, Joint Replacement, Orthopedic Surgery, Tonsillectomy Additional Past Surgical History / Comment(s): Coronary artery bypass surgery bilateral cataract surgery, laser eye surgery for macular degeneration, colonoscopy with polypectomy, bilateral knee replacement, eye surgery involving the tear ducts with placement of implants, ORIF for a right ankle fracture with insertion of plate and screws, insertion of a permacath for dialysis access. Past Anesthesia/Blood Transfusion Reactions: No Reported Reaction Past Psychological History: Anxiety, Depression Additional Psychological History / Comment(s): paxil Smoking Status: Former smoker Past Alcohol Use History: Daily Additional Past Alcohol Use History / Comment(s): started smoking at age 17 later on in life swithced to cigars then quit 2008. pt admits to 3 drinks a day( whiskey) Past Drug Use History: None Reported - Past Family History Mother Family Medical History: Cancer Additional Family Medical History / Comment(s): kidney cancer Father Family Medical History: Cancer, Prostate Disorder Additional Family Medical History / Comment(s): prostate cancer Brother(s) History Unknown: Yes Medications and Allergies Home Medications Medication Instructions Recorded Confirmed Type Albuterol Sulfate [Proair Hfa] 2 puff INHALATION RT-QID PRN 10/16/16 01/15/17 History Allopurinol [Zyloprim] 100 mg PO DAILY 10/16/16 01/15/17 History Cholecalciferol [Vitamin D3] 1,000 unit PO DAILY 10/16/16 01/15/17 History Fish Oil/Dha/Epa [Fish Oil 1,200 1 cap PO HS 10/16/16 01/15/17 History mg Fish Oil] Magnesium Oxide 400 mg PO BID 10/16/16 01/15/17 History PARoxetine [Paxil] 20 mg PO DAILY 10/16/16 01/15/17 History Pravastatin Sodium [Pravachol] 20 mg PO HS 10/16/16 01/15/17 History Albuterol Nebulized [Ventolin 2.5 mg INHALATION RT-Q6H PRN 11/26/16 01/15/17 History Nebulized] Ondansetron [Zofran] 4 mg PO Q8H PRN 12/09/16 01/15/17 History INSULIN LISPRO (humaLOG) [humaLOG See Protocol SQ ACHS 01/05/17 01/15/17 History (formulary)] Levothyroxine Sodium [Synthroid] 50 mcg PO HS 01/05/17 01/15/17 History Midodrine HCl [ProAmatine] 10 mg PO AC-TID 01/05/17 01/15/17 History Nepro 1 can PO TID-W/MEALS 01/05/17 01/15/17 History Tamsulosin [Flomax] 0.4 mg PO DAILY 01/15/17 01/15/17 History Allergies Allergy/AdvReac Type Severity Reaction Status Date / Time No Known Allergies Allergy Verified 01/15/17 13:43 Physical Exam Vitals: Vital Signs Temp Pulse Resp BP Pulse Ox 12/13/16 20:07 75 12/13/16 19:56 74 100 12/13/16 19:00 90 14 86/47 97 12/13/16 18:30 76 17 68/58 97 12/13/16 18:00 90 16 83/41 99 12/13/16 17:30 74 15 80/47 12/13/16 17:00 77 17 90/52 97 12/13/16 16:30 70 13 78/47 12/13/16 16:00 73 19 89/48 99 12/13/16 15:30 66 17 88/62 12/13/16 15:00 71 16 73/44 99 12/13/16 14:30 69 14 82/45 12/13/16 14:00 69 12 76/54 100 12/13/16 13:30 89 23 83/50 12/13/16 13:00 97.9 F 81 14 83/51 100 12/13/16 12:30 75 19 80/44 12/13/16 12:00 76 20 78/46 97 12/13/16 11:30 76 14 77/42 12/13/16 11:00 70 10 L 80/47 96 12/13/16 10:30 94 15 84/49 12/13/16 10:00 97.5 F L 72 14 84/49 100 12/13/16 09:30 64 16 81/46 100 12/13/16 09:00 71 20 80/40 99 12/13/16 08:30 82 20 77/43 100 12/13/16 08:00 65 12 69/40 100 12/13/16 07:30 80 17 81/41 99 12/13/16 07:00 72 13 79/47 99 12/13/16 06:30 68 12 88/42 100 12/13/16 06:00 72 16 87/43 100 12/13/16 05:30 67 13 73/44 100 12/13/16 05:00 74 40 H 88/40 98 12/13/16 04:30 68 14 88/41 99 12/13/16 04:00 98.2 F 65 12 81/43 99 12/13/16 03:30 66 12 88/43 99 12/13/16 03:00 130 H 46 H 83/42 12/13/16 02:30 69 18 83/44 99 12/13/16 02:00 76 15 84/45 99 12/13/16 01:30 80 30 H 85/46 98 12/13/16 01:00 85 28 H 81/45 99 12/13/16 00:30 106 H 13 88/45 100 12/13/16 00:00 98.8 F 106 H 23 83/45 12/12/16 23:30 75 22 83/46 98 Intake and Output 12/13/16 12/13/16 12/14/16 14:59 22:59 06:59 Intake Total 599.871 340 Output Total 300 70 Balance 299.871 270 Intake: IV 122.5 100 Piperacillin-Tazobactam 3 12.5 50 .375 gm In Dextrose/Water 1 50ml.bag @ 12.5 mls/hr IVPB Q12H [facility] Rx#: [id number] Sodium Chloride 0.9% 1, 110 50 000 ml @ 10 mls/hr IV . Q24H [facility] Rx#:[id number] Intake, IV Titration 237.371 Amount Amiodarone 450 mg In 94.355 Dextrose 5% in Water 250 ml @ 1 MG/MIN 34.53 mls/ hr IV .Q7H31M [facility] Rx#: [id number] Magnesium Sulfate-D5w Pmx 100 1 gm In Dextrose/Water 1 100ml.bag @ 100 mls/hr IVPB ONCE ONE Rx#: [id number] Norepinephrine 4 mg In 26.416 Sodium Chloride 0.9% 250 ml @ Titrate IV .Q0M [facility] Rx#:[id number] Piperacillin-Tazobactam 3 16.6 .375 gm In Dextrose/Water 1 50ml.bag @ 12.5 mls/hr IVPB Q12H [facility] Rx#: [id number] Oral 240 240 Output: Drainage 250 70 Right Abdomen 250 70 Urine 50 Other: # Voids 1 # Bowel Movements 1 1 General appearance: The patient is alert, oriented, in no acute distress. HET: Head is normocephalic and atraumatic. Pupils are equal and reactive. Oropharynx is clear without lesions. Neck: Supple without lymphadenopathy. Trachea midline. Heart: S1 S2. Regular rate and rhythm. Lungs: No crackles or wheezes are heard. Abdomen: Soft, diffuse upper epigastric pain, nondistended with bowel sounds. No peritoneal signs. No palpable organomegaly or masses. Extremities: Normal skin color and turgor. No cyanosis, rash, ulceration, clubbing, or edema. Radial and pedal pulses are 2/4 bilaterally. Neurological: No focal deficits. Strength and sensation are grossly intact. Results CBC & Chem 7: 12/18/16 06:09 12/18/16 06:09 Labs: Abnormal Lab Results - Last 24 Hours (Table) 12/13/16 12/13/16 12/13/16 Range/Units 05:15 05:15 07:46 WBC 3.6 L (3.8-10.6) k/uL RBC 2.95 L (4.30-5.90) m/uL Hgb 9.3 L (13.0-17.5) gm/dL Hct 30.7 L (39.0-53.0) % MCV 104.0 H (80.0-100.0) fL MCHC 30.2 L (31.0-37.0) g/dL RDW 17.3 H (11.5-15.5) % Plt Count 104 L (150-450) k/uL Sodium 134 L (137-145) mmol/L BUN 8 L (9-20) mg/dL Creatinine 2.64 H (0.66-1.25) mg/dL Glucose 148 H (74-99) mg/dL POC Glucose (mg/dL) 138 H (75-99) mg/dL Calcium 7.1 L (8.4-10.2) mg/dL Phosphorus 1.9 L (2.5-4.5) mg/dL 12/13/16 12/13/16 12/13/16 Range/Units 11:20 16:29 20:05 WBC (3.8-10.6) k/uL RBC (4.30-5.90) m/uL Hgb (13.0-17.5) gm/dL Hct (39.0-53.0) % MCV (80.0-100.0) fL MCHC (31.0-37.0) g/dL RDW (11.5-15.5) % Plt Count (150-450) k/uL Sodium (137-145) mmol/L BUN (9-20) mg/dL Creatinine (0.66-1.25) mg/dL Glucose (74-99) mg/dL POC Glucose (mg/dL) 158 H 128 H 188 H (75-99) mg/dL Calcium (8.4-10.2) mg/dL Phosphorus (2.5-4.5) mg/dL Microbiology - Last 24 Hours (Table) 12/10/16 10:09 Blood Culture - Preliminary Blood No Growth after 72 hours 12/11/16 12:02 Gram Stain - Preliminary Ascites Fluid Body Fluid Culture - Preliminary 12/11/16 12:02 Anaerobic Culture - Preliminary Ascites Fluid Assessment and Plan Plan: 76-year old male with multiple medical problems, including alcoholic liver disease with cirrhosis and portal hypertension and ascites. Patient has ESRD on hemodialysis which should help deal with his ascites, at least in part, with paracentesis in addition as needed. Patient has not been drinking alcohol since July 2016 and his liver enzymes are normal at this time. No evidence of GI bleeding, SBP or encephalopathy. Has history of diarrhea, C.dificile negative at this time. Will follow with you and make additional recommendations based on his course.
[2016-12-14] MEDS: PIPERACILLIN-TAZOBACTAM 3.375 GM in DEXTROSE/WATER 1 50ML.BAG IVPB SCH ×2 (05:05→21:12)
[2016-12-14] MEDS: LEVOTHYROXINE 50 MCG TAB PO SCH (05:07)
[2016-12-14 07:42] LABS: Glucose,Whole Blood 106 mg/dL (75-99)
[2016-12-14] MEDS: BUDESONIDE 0.5 MG/2 ML NEBU INHALATION SCH ×2 (07:59→21:24)
[2016-12-14 08:22] LABS: Anisocytosis Slight; Basophils % (A) 1 %; CH 31.1; CHCM 30.1; Eosinophils # (A) 0.1 k/uL (0-0.7); Eosinophils % (A) 1 %; HCT 32.2 % (39.0-53.0); HDW 2.74; HGB 9.7 gm/dL (13.0-17.5); Hypochromasia Marked; Luc # (Auto) 0.15; Luc % (Auto) 4; Lymphocytes # (A) 0.9 k/uL (1.0-4.8); Lymphocytes % (A) 23 %; MCH 31.5 pg (25.0-35.0); MCHC 30.2 g/dL (31.0-37.0); MCV 104.2 fL (80.0-100.0); Macrocytosis Moderate; Mean Platelet Volume 7.9; Monocytes # (A) 0.4 k/uL (0-1.0); Monocytes % (A) 12 %; Neutrophils # (A) 2.2 k/uL (1.3-7.7); Neutrophils % (A) 59 %; RBC 3.09 m/uL (4.30-5.90); RDW 16.9 % (11.5-15.5); WBC 3.7 k/uL (3.8-10.6); WBC (Perox) 3.81
[2016-12-14] MEDS: TAMSULOSIN 0.4 MG CAP.ER.24H PO SCH (08:26)
[2016-12-14] MEDS: PANTOPRAZOLE 40 MG TABLET PO SCH (08:26)
[2016-12-14] MEDS: MIDODRINE 5 MG TAB PO SCH ×3 (08:26→18:13)
[2016-12-14] MEDS: ALLOPURINOL 100 MG TAB PO SCH (08:26)
[2016-12-14] MEDS: APIXABAN 2.5 MG TABLET PO SCH ×2 (08:26→21:12)
[2016-12-14] MEDS: VIT A,C & E-LUTEIN-MINERALS 1 EACH TAB PO SCH (08:27)
[2016-12-14] MEDS: PARoxetine 20 MG TAB PO SCH (08:27)
[2016-12-14] MEDS: VITAMIN E (DL,TOCOPHERYL ACET) 400 UNIT CAP PO SCH (08:27)
[2016-12-14] MEDS: MAGNESIUM OXIDE 400 MG TAB PO SCH ×2 (08:27→21:12)
[2016-12-14] MEDS: AMIODARONE 200 MG TAB PO SCH ×2 (08:27→21:11)
[2016-12-14] MEDS: FLUCONAZOLE 100 MG TAB PO SCH (08:27)
[2016-12-14] MEDS: INSULIN LISPRO (humaLOG) 300 UNIT/3 ML VIAL SQ SCH ×4 (08:28→21:22)
[2016-12-14 08:46] LABS: Manual Review Performed
[2016-12-14 09:01] LABS: Calcium 7.7 mg/dL (8.4-10.2); Magnesium 1.9 mg/dL (1.6-2.3); Potassium 3.5 mmol/L (3.5-5.1)
[2016-12-14] MEDS: SODIUM CHLORIDE 0.9% 1,000 ML IV SCH ×2 (10:41→21:08)
--- NOTE | 2016-12-14 11:11 | PN ---
DATE OF SERVICE: 12/14/2016 The patient is seen for follow-up for end-stage renal disease. He is scheduled for hemodialysis today. He is currently comfortable, awake, alert and oriented x3. He has been tolerating oral intake very well. Patient continues to have drainage from the site of the paracentesis. He has an ostomy bag on it. He was evaluated by GI for underlying liver cirrhosis. On examination today, blood pressure 83/44, heart rate 65 per minute. He is afebrile. Examination of the heart S1 and S2. Examination of the lungs, decreased breath sounds in bases. Abdomen is soft, distended. There is underlying ascites with some abdominal wall edema noted as well. Examination of lower extremities shows edema 2+ bilaterally. Chronic skin changes are noted. [employer] exam is grossly intact. Patient is moving all 4 extremities. Labs show sodium 135, potassium 3.5, hemoglobin 9.7 g/dL. ASSESSMENT: 1. End-stage renal disease on hemodialysis on a Wednesday, Wednesday, Wednesday schedule. We will arrange for hemodialysis today. 2. Chronic hypotension with no evidence of infection, maintained on Midodrine. 3. Ascites status post paracentesis of about 6 liters with continuous drainage noted at the site of the paracentesis, currently with an ostomy bag. 4. Chronic liver disease, status post evaluation by GI. 5. Anemia of chronic disease with no active bleeding noted at this time. We will start the patient on Aranesp. Echocardiogram has been unremarkable and cortisol level in the earlier part of November was at 10. PLAN: Hemodialysis today. Consider cosyntropin stimulation test. Try to wean off Levophed.
[2016-12-14 11:53] LABS: Glucose,Whole Blood 129 mg/dL (75-99)
[2016-12-14] MEDS ORDERED: DARBEPOETIN ALFA 40 MCG/0.4 ML SYRINGE SQ SCH (12:00)
[2016-12-14] MEDS: CHOLECALCIFEROL 1,000 UNIT TAB PO SCH (12:21)
--- NOTE | 2016-12-14 13:42 | PN ---
A 76-year-old gentleman that I had been asked to see because of atrial fibrillation yesterday. Patient was on IV amiodarone which I switched to p.o. This morning, he remains in sinus rhythm. His predominant problem continues to be the hypotension. He is free of any symptoms. On exam, heart rate is 70 beats per minute, blood pressures is 94/54, respiratory rate is 18, O2 sat is 98%. There is no jugular venous distention. Chest exam reveals good air entry bilaterally. Heart exam reveals first and second heart sounds. No gallop. Exam of the extremities did not reveal edema. Peripheral pulses are felt. Patient is on Cordarone 200 b.i.d., Eliquis 2.5 b.i.d., Pravachol and also on IV antibiotics along with midodrine. ASSESSMENT: 1. Persistent atrial fibrillation. 2. Hypotension. PLAN: Patient will continue with his current medications. I am going to follow up with you.
--- NOTE | 2016-12-14 14:59 | P.PN ---
Subjective Principal diagnosis: Acute hypotension 76-year-old male patient with end-stage renal disease is currently on hemodialysis. Note that the patient was started on hemodialysis earlier this year and he was being dialyzed 3 times a week. He is known to run a low blood pressure in general and his systolic blood pressure had been in the mid 80s and the patient had been treated with midodrine. He has a permacath in his right upper chest area/subclavian and the patient was being treated recently for a candidal urine checked infection with Diflucan and C. diff colitis with oral Flagyl. The patient comes in yesterday to the hospital because of feeling weak and he was also noted to be hypotensive above and beyond his usual blood pressure. At one point he was noted to have a systolic blood pressure in the mid 60s. His admission blood pressure was 71/47. Despite this, he was not having any significant change in mental status. He was given IV fluids and he was on a 75 mL an hour of normal saline which nephrology cut down to 50 mL an hour and he was started on norepinephrine infusion which was running this morning as 7 g. A critically consultation was requested. The patient was evaluated to the bedside. No change in mental status. He reported that he still had become more firm and less watery. However, the patient was noted to have exceeded abdominal distention with some increased firmness. No nausea. No vomiting. No fever. No chills. No change in mental status. No headaches. No cough or sputum production. No chest tightness. No wheezing. Chest x-ray shows limited effusion the lung bases bilaterally otherwise there is no evidence of any pneumonia or airspace disease. The patient had an echocardiogram earlier this morning that showed preserved LV function and the rest of the full report is still pending for now. No evidence of any pericardial effusion. He was not placed on any antibiotics. Blood cultures of been sent this morning. Diflucan was resumed. On 12/11/2016 the patient is being seen in follow-up. After coming off pressors , this morning the patient was placed back on 2 mics of norepinephrine infusion. His systolic blood pressures the mid 90s. His abdomen is still distended and there is large amount of ascites on the CAT scan of the abdomen along with changes consistent with liver cirrhosis. As such, a large fold and paracentesis was done in total of 6 L of ascitic fluid was drained. The fluid will be sent for analysis. We will also check for spontaneous bacterial bacterial peritonitis. The patient is afebrile. The stool for C. diff came back negative. The candidal urinary tract infection is being treated with Diflucan. The patient has normalized his lactic acid level. No other significant events over the past 24 hours. On 12/13/2016 the patient is being seen in follow-up. Note that this patient is an incisional disease and he has liver cirrhosis. He underwent a large volume paracentesis with a total of 6 L of fluid was removed from his abdomen. In follow-up he was doing well. Yesterday evening he started developing a right -sided abdominal pain. At that point his blood work was repeated. Liver function tests, amylase and lipase were all within normal limits. Note that the fluid that was aspirated from the patient's abdomen showed no evidence of any spontaneous bacterial peritonitis. Meanwhile, a repeat CAT scan of the abdomen was done and it showed ascites. The puncture site is showing some limited leak and the fluid is clean. The patient was started on IV Zosyn. Surgical consultation was also obtained. He is still having paroxysmal atrial fibrillation and is anticoagulated. He has low-grade hypotension and he is only a few mics of the low-fat for hemodynamic support. No other complaints otherwise for now. His abdominal pannus subsided significantly on today's evaluation. On 12/14/2016, patient seems to be doing better, in no distress, relatively asymptomatic, his blood pressure remains marginal, ascites seems to be under control, continues to have significant swelling in the lower extremities. Last chest x-ray from yesterday showed no acute changes. And no evidence of congestive heart failure. No pleural effusion. Dialysis catheter remains in place. Patient remains in atrial fibrillation, but his rate seems to be well- controlled. He remains on eliquis and on Cordarone. Labs were reviewed WBC count is 3.7 hemoglobin is 9.7 electrolytes are normal creatinine is 3.01. Objective - Vital Signs Vital signs: Vital Signs Temp 98 F 12/14/16 13:00 Pulse 88 12/14/16 14:00 Resp 16 12/14/16 14:00 BP 75/49 12/14/16 14:00 Pulse Ox 99 12/14/16 14:00 Intake & Output 12/13/16 12/14/16 12/14/16 18:59 06:59 18:59 Intake Total 929.871 135.0 684.606 Output Total 370 253 101 Balance 559.871 -118.0 583.606 Weight 98.7 kg 98.7 kg Intake: IV 212.5 135.0 122.5 Piperacillin-Tazobactam 3 62.5 25.0 62.5 .375 gm In Dextrose/Water 1 50ml.bag @ 12.5 mls/hr IVPB Q12H [facility] Rx#: [id number] Sodium Chloride 0.9% 1, 150 110 60 000 ml @ 10 mls/hr IV . Q24H [facility] Rx#:[id number] Intake, IV Titration 237.371 82.106 Amount Amiodarone 450 mg In 94.355 Dextrose 5% in Water 250 ml @ 1 MG/MIN 34.53 mls/ hr IV .Q7H31M [facility] Rx#: [id number] Magnesium Sulfate-D5w Pmx 100 1 gm In Dextrose/Water 1 100ml.bag @ 100 mls/hr IVPB ONCE ONE Rx#: [id number] Norepinephrine 4 mg In 26.416 82.106 Sodium Chloride 0.9% 250 ml @ Titrate IV .Q0M [facility] Rx#:[id number] Piperacillin-Tazobactam 3 16.6 .375 gm In Dextrose/Water 1 50ml.bag @ 12.5 mls/hr IVPB Q12H [facility] Rx#: [id number] Oral 480 480 Output: Drainage 320 250 100 Right Abdomen 320 250 100 Urine 50 0 0 Stool 3 1 Other: Voiding Method Incontinent # Voids 1 1 1 # Bowel Movements 1 1 - Exam Physical Exam: Revealed a 76-year-old in no distress HEENT:[Neck is supple.] [No neck masses.] [No thyromegaly.] [No JVD.] Chest: [Clear throughout, no crackles, no rhonchi, no wheezes.] Cardiac Exam: [Irregular irregular rhythm Normal S1 and S2, no S3 gallop, no murmur.] Abdomen: [Soft, nontender, no megaly, no rebound, no guarding, normal bowel sounds. Positive ascites is suspected] Extremities: [No clubbing, 2+ bipedal edema, no cyanosis.] Neurological Exam: [No focal neurologic deficit.] - Labs CBC & Chem 7: 02/06/17 07:46 12/14/16 07:46 Labs: Abnormal Lab Results - Last 24 Hours (Table) 12/13/16 12/13/16 12/14/16 Range/Units 16:29 20:05 07:33 WBC (3.8-10.6) k/uL RBC (4.30-5.90) m/uL Hgb (13.0-17.5) gm/dL Hct (39.0-53.0) % MCV (80.0-100.0) fL MCHC (31.0-37.0) g/dL RDW (11.5-15.5) % Plt Count (150-450) k/uL Lymphocytes # (1.0-4.8) k/uL Sodium (137-145) mmol/L Creatinine (0.66-1.25) mg/dL POC Glucose (mg/dL) 128 H 188 H 106 H (75-99) mg/dL Calcium (8.4-10.2) mg/dL 12/14/16 12/14/16 12/14/16 Range/Units 07:46 07:46 11:49 WBC 3.7 L (3.8-10.6) k/uL RBC 3.09 L (4.30-5.90) m/uL Hgb 9.7 L (13.0-17.5) gm/dL Hct 32.2 L (39.0-53.0) % MCV 104.2 H (80.0-100.0) fL MCHC 30.2 L (31.0-37.0) g/dL RDW 16.9 H (11.5-15.5) % Plt Count 103 L (150-450) k/uL Lymphocytes # 0.9 L (1.0-4.8) k/uL Sodium 135 L (137-145) mmol/L Creatinine 3.01 H (0.66-1.25) mg/dL POC Glucose (mg/dL) 129 H (75-99) mg/dL Calcium 7.7 L (8.4-10.2) mg/dL Microbiology - Last 24 Hours (Table) 12/10/16 10:09 Blood Culture - Preliminary Blood No Growth after 96 hours 12/11/16 12:02 Gram Stain - Preliminary Ascites Fluid Body Fluid Culture - Preliminary 12/11/16 12:02 Anaerobic Culture - Preliminary Ascites Fluid Assessment and Plan Plan: 1 acute hypotension. The patient runs a low blood pressure at baseline however there has been further drop in his blood pressure and this obviously raises some concerns knowing that the patient become more weak and somewhat symptomatic. Currently the patient is on pressors and norepinephrine infusion is running at 7 mics. The exact cause for this further drop in the blood pressure is not known. Obviously septic causes need to be ruled out. Hypovolemia is not the cause specially the patient was having C. diff colitis and possibly getting intravascularly depleted. Cardiogenic causes of felt to be less likely. In terms of sepsis, potential sources could be lines, skin, abdomen nontender the patient's abdomen is somewhat distended compared to his baseline. This is to be further investigated in one concern is colitis secondary to C. diff. On 12/13/2016, the patient has had already extensive evaluation regards to his hypotension and base other comorbidities. In summary, he is on a lower dose of pressors and he is only on 1-2 mics of levo fed. At times levo fed is also being discontinued. He is was resuscitated. C. diff evaluation came back negative. Echocardiogram was essentially within normal limits and there was no evidence of any underlying cardiomyopathy. It's very much likely that his liver cirrhosis contributing to a very low systemic vascular resistance and causing this patient to be quite hypotensive on a chronic basis. Note that his hypotension is not associated with any mental status change. He is completely asymptomatic in that regard. Blood cultures have become negative. The abdominal fluid was drained and there is no evidence of any spontaneous for care peritonitis. On 12/14/2016, patient seems to be doing well overall, remains on the same medications as listed, blood pressure remains marginal. 2 coronary artery disease with previous bypass surgery 3 chronic atrial fibrillation 4 COPD 5 End stage renal disease on hemodialysis 6 liver cirrhosis with large ascites status post large volume paracentesis. Subsequently the patient developed some right upper quadrant pain for which a repeat CAT scan of the abdomen was done showing again ascites. No evidence of any spontaneous bacterial peritonitis. Liver function tests and amylase and lipase are all within normal limits. Pain has subsided for now. Gen. surgery consultation was obtained. Doubt any ischemic colitis. Doubt mesenteric ischemia from atrial fibrillation. The patient remains anticoagulated. 7 urine checked infection with previous infections with Charley and E. coli 8 macular degeneration 9 gout 10 chronic back pain 11 COPD 12 diabetes mellitus 13 hyperlipidemia 14 skin cancer 15 impaired performance and functional status secondary to above-mentioned comorbidities. 16 nephrolithiasis, kidney stones Plan Keep the patient in the intensive care unit. Monitor the abdominal pain. Surgical consultation has been obtained. The patient has no fever or any signs of septicemia. Continued IV Zosyn. Wean off the pressors. Dialysis per nephrology. We'll continue to follow. GI consultation was noted. Not much was added or recommended beyond what we are doing at this point. Prognosis remains poor and guarded. We'll continue to follow. Time with Patient: Less than 30
--- NOTE | 2016-12-14 15:39 | PN ---
INTERVAL HISTORY: Mr. Zayas is a 76 -year-old gentleman with a past medical history of coronary artery disease, COPD, heart failure, chronic kidney disease, recently started on dialysis, admitted to the hospital with a chief complaint of weakness. Patient's blood pressure has been low and he is currently in the ICU with pressure support. Patient's work-up for sepsis has been negative so far. The cultures showing no growth. The patient's labs show no leukocytosis. Even though the patient's blood pressure has been on the lower side, the patient is completely asymptomatic. He is sitting up in the bed, appears to be no acute distress. He does not have any complaints. REVIEW OF SYSTEMS: CONSTITUTIONAL: No fevers, chills or rigors. RESPIRATORY: No cough. No difficulty in breathing. CARDIAC: No chest pain or palpitations. GI: No abdominal pain, nausea, vomiting, or diarrhea. Patient did have paracentesis done and 6 liters of ascitic fluid has been drained and on interviewing the patient, the patient states that he has alcohol abuse and he drinks every day, so that might be the reason for his liver cirrhosis. The patient's medications have been reviewed. He is on: 1. [place]. 2. Ventolin. 3. Allopurinol. 4. Amiodarone. 5. Eliquis. 6. Pulmicort. 7. Vitamin D3. 8. Diflucan. 9. Dilaudid. 10. Sliding scale of insulin. 11. Synthroid. 12. Midodrine. 13. Multivitamin. 14. Narcan. 15. Levophed. 16. Zofran. 17. Protonix. 18. Zosyn. 19. Pravastatin. 20. Flomax. 21. Vitamin E. Vital signs: Temperature is 97.9, heart rate of 75, respiratory rate 14, blood pressure 60 to 80/40 to 60, saturating at 100% on 2 liters of nasal cannula. GENERAL EXAMINATION: The patient is obese, lying in bed, appears to be no acute distress. HEAD: Atraumatic, normocephalic. EYES: Pupils, round, and reactive to light. NECK: No JVD. No thyromegaly. CARDIOVASCULAR: S1, S2 heard. LUNGS: Bilateral breath sounds are positive. No wheeze or crackles. ABDOMEN: Soft. Patient has a drain in place as he has been leaking from the paracentesis site and no signs of infection around the paracentesis site. EXTREMITIES: Trace pedal edema. [employer]: Alert, awake, oriented x3. No focal deficits. Patient's labs: White count of 3.6, hemoglobin 9.3, platelets 104, sodium 134, potassium 3.6, chloride 101, bicarb 27, BUN 8, creatinine 2.64. ASSESSMENT AND PLAN: 1. Acute hypotension most likely secondary to volume depletion as the patient was started on hemodialysis recently and also patient had 6 liters of ascitic fluid removed. So far the patient's sepsis work-up has been negative. 2. Ascites secondary to cirrhosis of the liver due to chronic alcohol use. 3. History of chronic atrial fibrillation. 4. End stage renal disease on hemodialysis. 5. Recent urinary tract infection with Charley and Escherichia coli. 6. History of gout. 7. Chronic obstructive pulmonary disease. 8. Coronary artery disease, status post coronary artery bypass graft in the past. PLAN: Plan is to continue the patient on the antibiotics empirically as we still are not sure what the reason for his hypotension is so we will continue with Diflucan and Zosyn as he had previous infections with E. coli and charley. The patient is completely asymptomatic with his blood pressure being very low, we will try to wean him off of Levophed. Surgical consult was obtained as there was suspicion for ischemic colitis due to his history of atrial fibrillation. We will continue with anticoagulation. Overall prognosis is guarded. The treatment care plan was discussed with the patient and also his stepson who was at the bedside and further recommendations to follow depending on the progress of the patient.
[2016-12-14] MEDS ORDERED: PIPERACILLIN-TAZOBACTAM 3.375 GM in DEXTROSE/WATER 1 50ML.BAG IVPB SCH (16:00)
[2016-12-14 16:51] LABS: Glucose,Whole Blood 119 mg/dL (75-99)
--- NOTE | 2016-12-14 17:38 | P.PN ---
Subjective Principal diagnosis: Alcoholic cirrhosis Patient is a 76-year-old male with history of alcoholic cirrhosis. Patient is status post paracentesis with 6 L of fluid on 12/11/2016. Upon examination, patient is feeling better. Patient states he is leaking fluid from the insertion site and he is feeling like he is filling up with fluid again. Denies nausea, vomiting, or abdominal pain. Afebrile. Objective - Vital Signs Vital signs: Vital Signs Temp 97.8 F 12/14/16 17:00 Pulse 81 12/14/16 17:00 Resp 18 12/14/16 17:00 BP 80/45 12/14/16 17:00 Pulse Ox 97 12/14/16 17:00 Intake & Output 12/13/16 12/14/16 12/14/16 18:59 06:59 18:59 Intake Total 929.871 135.0 724.606 Output Total 370 253 161 Balance 559.871 -118.0 563.606 Weight 98.7 kg 98.7 kg Intake: IV 212.5 135.0 162.5 Piperacillin-Tazobactam 3 62.5 25.0 62.5 .375 gm In Dextrose/Water 1 50ml.bag @ 12.5 mls/hr IVPB Q12H [facility] Rx#: [id number] Sodium Chloride 0.9% 1, 150 110 100 000 ml @ 10 mls/hr IV . Q24H [facility] Rx#:[id number] Intake, IV Titration 237.371 82.106 Amount Amiodarone 450 mg In 94.355 Dextrose 5% in Water 250 ml @ 1 MG/MIN 34.53 mls/ hr IV .Q7H31M [facility] Rx#: [id number] Magnesium Sulfate-D5w Pmx 100 1 gm In Dextrose/Water 1 100ml.bag @ 100 mls/hr IVPB ONCE ONE Rx#: [id number] Norepinephrine 4 mg In 26.416 82.106 Sodium Chloride 0.9% 250 ml @ Titrate IV .Q0M [facility] Rx#:[id number] Piperacillin-Tazobactam 3 16.6 .375 gm In Dextrose/Water 1 50ml.bag @ 12.5 mls/hr IVPB Q12H [facility] Rx#: [id number] Oral 480 480 Output: Drainage 320 250 160 Right Abdomen 320 250 160 Urine 50 0 0 Stool 3 1 Other: Voiding Method Incontinent # Voids 1 1 1 # Bowel Movements 1 1 - Exam GENERAL: Pt awake and alert, in no acute distress. LUNGS: Breath sounds clear to auscultation bilaterally. No wheezes, rales, or rhonchi. HEART: Heart S1, S2, no S3 or S4. Irregularly irregular. No murmurs, rubs or gallops. ABDOMEN: Soft, nontender, distended, normoactive bowel sounds. No guarding, no rebound. Ascites present. NEUROLOGICAL: Pt oriented x 3. - Labs CBC & Chem 7: 12/14/16 07:46 12/14/16 07:46 Labs: Abnormal Lab Results - Last 24 Hours (Table) 12/13/16 12/14/16 12/14/16 Range/Units 20:05 07:33 07:46 WBC 3.7 L (3.8-10.6) k/uL RBC 3.09 L (4.30-5.90) m/uL Hgb 9.7 L (13.0-17.5) gm/dL Hct 32.2 L (39.0-53.0) % MCV 104.2 H (80.0-100.0) fL MCHC 30.2 L (31.0-37.0) g/dL RDW 16.9 H (11.5-15.5) % Plt Count 103 L (150-450) k/uL Lymphocytes # 0.9 L (1.0-4.8) k/uL Sodium (137-145) mmol/L Creatinine (0.66-1.25) mg/dL POC Glucose (mg/dL) 188 H 106 H (75-99) mg/dL Calcium (8.4-10.2) mg/dL 12/14/16 12/14/16 12/14/16 Range/Units 07:46 11:49 16:41 WBC (3.8-10.6) k/uL RBC (4.30-5.90) m/uL Hgb (13.0-17.5) gm/dL Hct (39.0-53.0) % MCV (80.0-100.0) fL MCHC (31.0-37.0) g/dL RDW (11.5-15.5) % Plt Count (150-450) k/uL Lymphocytes # (1.0-4.8) k/uL Sodium 135 L (137-145) mmol/L Creatinine 3.01 H (0.66-1.25) mg/dL POC Glucose (mg/dL) 129 H 119 H (75-99) mg/dL Calcium 7.7 L (8.4-10.2) mg/dL Microbiology - Last 24 Hours (Table) 12/10/16 10:09 Blood Culture - Preliminary Blood No Growth after 96 hours 12/11/16 12:02 Gram Stain - Preliminary Ascites Fluid Body Fluid Culture - Preliminary Assessment and Plan Plan: Impression: 1. Liver cirrhosis with ascites status post large volume paracentesis. Computed tomography scan of abdomen post paracentesis showing ascites again. No abdominal pain at this time. Plan: Continue to monitor patient. Continue soft diet. Continue IV antibiotics. Continue medical management. The above impression and plan have been discussed and directed by Dr. Rousseau. Kd MACHADO acting as scribe for Dr. Rousseau.
[2016-12-14] MEDS: HYDROmorphone 1 MG/ML 1 ML SYRINGE IVP PRN (19:27)
[2016-12-14] MEDS: PRAVASTATIN SODIUM 20 MG TAB PO SCH (21:12)
[2016-12-14 21:23] LABS: Glucose,Whole Blood 143 mg/dL (75-99)
[2016-12-14] MEDS: ALBUTEROL NEBULIZED 2.5 MG/3 ML INHALATION PRN (21:25)
[2016-12-15] MEDS: VIT A,C & E-LUTEIN-MINERALS 1 EACH TAB PO SCH ×3 (01:34→19:17)
[2016-12-15] MEDS: VITAMIN E (DL,TOCOPHERYL ACET) 400 UNIT CAP PO SCH ×3 (01:35→19:17)
[2016-12-15] MEDS: HYDROmorphone 1 MG/ML 1 ML SYRINGE IVP PRN ×2 (02:47→11:56)
[2016-12-15] MEDS: LEVOTHYROXINE 50 MCG TAB PO SCH (06:31)
[2016-12-15 06:43] LABS: Anisocytosis Slight; Basophils % (A) 1 %; CH 30.8; CHCM 29.6; Eosinophils # (A) 0.1 k/uL (0-0.7); Eosinophils % (A) 2 %; HCT 32.7 % (39.0-53.0); HDW 2.64; HGB 9.8 gm/dL (13.0-17.5); Hypochromasia Marked; Luc # (Auto) 0.14; Luc % (Auto) 4; Lymphocytes # (A) 0.8 k/uL (1.0-4.8); Lymphocytes % (A) 24 %; MCH 31.5 pg (25.0-35.0); MCHC 29.9 g/dL (31.0-37.0); MCV 105.2 fL (80.0-100.0); Macrocytosis Moderate; Mean Platelet Volume 8.2; Monocytes # (A) 0.3 k/uL (0-1.0); Monocytes % (A) 9 %; Neutrophils % (A) 60 %; RBC 3.11 m/uL (4.30-5.90); RDW 16.6 % (11.5-15.5); WBC 3.3 k/uL (3.8-10.6); WBC (Perox) 3.67
[2016-12-15 06:56] LABS: Calcium 7.4 mg/dL (8.4-10.2); Magnesium 1.8 mg/dL (1.6-2.3); Phosphorous 1.9 mg/dL (2.5-4.5)
[2016-12-15 06:59] LABS: Potassium 3.7 mmol/L (3.5-5.1)
[2016-12-15 07:02] LABS: Manual Review Performed
[2016-12-15] MEDS: BUDESONIDE 0.5 MG/2 ML NEBU INHALATION SCH ×2 (07:37→20:53)
--- NOTE | 2016-12-15 07:41 | P.PN ---
Subjective Principal diagnosis: Hypertension with ascites. 76-year-old white male essentially admitted for hypotension. The patient has an underlying history of ascites and had recent paracentesis. Surgery with GI and appropriate trim setter is consulted. Appreciate input. He is a symptomatically but his systolic remains in the 76 range. No significant headache or shortness of breath. Did explain to him it is probably most likely related to liver failure and element of hepatorenal syndrome which is causing his hypotension. He remains on low-dose pressors at this time. Objective - Vital Signs Vital signs: Vital Signs Temp 97.5 F L 12/15/16 04:00 Pulse 87 12/15/16 07:00 Resp 12 12/15/16 07:00 BP 77/38 12/15/16 07:00 Pulse Ox 99 12/15/16 07:00 Intake & Output 12/14/16 12/15/16 12/15/16 18:59 06:59 18:59 Intake Total 974.606 580.954 Output Total 161 700 Balance 813.606 -119.046 Weight 98.7 kg 101 kg Intake: IV 172.5 90 Piperacillin-Tazobactam 3 62.5 .375 gm In Dextrose/Water 1 50ml.bag @ 12.5 mls/hr IVPB Q12H [facility] Rx#: [id number] Sodium Chloride 0.9% 1, 110 90 000 ml @ 10 mls/hr IV . Q24H [facility] Rx#:[id number] Intake, IV Titration 82.106 130.954 Amount Norepinephrine 4 mg In 82.106 80.954 Sodium Chloride 0.9% 250 ml @ Titrate IV .Q0M [facility] Rx#:[id number] Piperacillin-Tazobactam 3 50.0 .375 gm In Dextrose/Water 1 50ml.bag @ 12.5 mls/hr IVPB Q12HR [facility] Rx#: [id number] Oral 720 360 Output: Drainage 160 Right Abdomen 160 Urine 0 Stool 1 Other 700 Other: Voiding Method Incontinent # Voids 1 # Bowel Movements 1 - Constitutional General appearance: Present: obese - EENT Eyes: Absent: abnormal pupil - Respiratory Respiratory: bilateral: diminished - Cardiovascular Rhythm: irregularly irregular Heart sounds: normal: S1, S2 - Gastrointestinal General gastrointestinal: Present: soft - Integumentary Integumentary: Absent: rash - Neurologic Neurologic: Present: CNII-XII intact - Musculoskeletal Musculoskeletal: Present: generalized weakness - Labs CBC & Chem 7: 12/15/16 06:30 12/15/16 06:30 Labs: Abnormal Lab Results - Last 24 Hours (Table) 12/14/16 12/14/16 12/14/16 Range/Units 07:33 07:46 07:46 WBC 3.7 L (3.8-10.6) k/uL RBC 3.09 L (4.30-5.90) m/uL Hgb 9.7 L (13.0-17.5) gm/dL Hct 32.2 L (39.0-53.0) % MCV 104.2 H (80.0-100.0) fL MCHC 30.2 L (31.0-37.0) g/dL RDW 16.9 H (11.5-15.5) % Plt Count 103 L (150-450) k/uL Lymphocytes # 0.9 L (1.0-4.8) k/uL Sodium 135 L (137-145) mmol/L Creatinine 3.01 H (0.66-1.25) mg/dL Glucose (74-99) mg/dL POC Glucose (mg/dL) 106 H (75-99) mg/dL Calcium 7.7 L (8.4-10.2) mg/dL Phosphorus (2.5-4.5) mg/dL 12/14/16 12/14/16 12/14/16 Range/Units 11:49 16:41 21:21 WBC (3.8-10.6) k/uL RBC (4.30-5.90) m/uL Hgb (13.0-17.5) gm/dL Hct (39.0-53.0) % MCV (80.0-100.0) fL MCHC (31.0-37.0) g/dL RDW (11.5-15.5) % Plt Count (150-450) k/uL Lymphocytes # (1.0-4.8) k/uL Sodium (137-145) mmol/L Creatinine (0.66-1.25) mg/dL Glucose (74-99) mg/dL POC Glucose (mg/dL) 129 H 119 H 143 H (75-99) mg/dL Calcium (8.4-10.2) mg/dL Phosphorus (2.5-4.5) mg/dL 12/15/16 12/15/16 Range/Units 06:30 06:30 WBC 3.3 L (3.8-10.6) k/uL RBC 3.11 L (4.30-5.90) m/uL Hgb 9.8 L (13.0-17.5) gm/dL Hct 32.7 L (39.0-53.0) % MCV 105.2 H (80.0-100.0) fL MCHC 29.9 L (31.0-37.0) g/dL RDW 16.6 H (11.5-15.5) % Plt Count 82 L (150-450) k/uL Lymphocytes # 0.8 L (1.0-4.8) k/uL Sodium (137-145) mmol/L Creatinine 1.97 H (0.66-1.25) mg/dL Glucose 115 H (74-99) mg/dL POC Glucose (mg/dL) (75-99) mg/dL Calcium 7.4 L (8.4-10.2) mg/dL Phosphorus 1.9 L (2.5-4.5) mg/dL Microbiology - Last 24 Hours (Table) 12/10/16 10:09 Blood Culture - Preliminary Blood No Growth after 96 hours 12/11/16 12:02 Gram Stain - Preliminary Ascites Fluid Body Fluid Culture - Preliminary Assessment and Plan (1) Hypotension Status: Acute (2) [id number] renal failure Status: Acute (3) CAD (coronary artery disease) Status: Acute (4) Falls Status: Acute (5) Persistent atrial fibrillation Status: Acute (6) Weakness Status: Acute Plan: Slowly wean off of pressors. Dialysis remains in place. Appreciate input from consultants. Check CBC and CMP in a.m. Prognosis remains guarded secondary to his multiple comorbidities renal failure , liver failure and history of atrial fibrillation with appropriate ejection fraction.
[2016-12-15 08:18] LABS: Glucose,Whole Blood 105 mg/dL (75-99)
[2016-12-15] MEDS: MAGNESIUM OXIDE 400 MG TAB PO SCH ×2 (08:50→19:17)
[2016-12-15] MEDS: MIDODRINE 5 MG TAB PO SCH ×3 (08:50→19:16)
[2016-12-15] MEDS: PANTOPRAZOLE 40 MG TABLET PO SCH (08:50)
[2016-12-15] MEDS: TAMSULOSIN 0.4 MG CAP.ER.24H PO SCH (08:50)
[2016-12-15] MEDS: PARoxetine 20 MG TAB PO SCH (08:51)
[2016-12-15] MEDS: FLUCONAZOLE 100 MG TAB PO SCH (08:51)
[2016-12-15] MEDS: ALLOPURINOL 100 MG TAB PO SCH (08:51)
[2016-12-15] MEDS: APIXABAN 2.5 MG TABLET PO SCH ×2 (08:51→19:16)
[2016-12-15] MEDS: AMIODARONE 200 MG TAB PO SCH ×2 (08:52→19:16)
[2016-12-15] MEDS: PIPERACILLIN-TAZOBACTAM 3.375 GM in DEXTROSE/WATER 1 50ML.BAG IVPB SCH ×2 (08:53→21:44)
[2016-12-15] MEDS: INSULIN LISPRO (humaLOG) 300 UNIT/3 ML VIAL SQ SCH ×4 (08:54→21:50)
[2016-12-15] MEDS: SODIUM CHLORIDE 0.9% 1,000 ML IV SCH (08:57)
--- NOTE | 2016-12-15 11:42 | P.PN ---
Subjective Principal diagnosis: Acute hypotension 76-year-old male patient with end-stage renal disease is currently on hemodialysis. Note that the patient was started on hemodialysis earlier this year and he was being dialyzed 3 times a week. He is known to run a low blood pressure in general and his systolic blood pressure had been in the mid 80s and the patient had been treated with midodrine. He has a permacath in his right upper chest area/subclavian and the patient was being treated recently for a candidal urine checked infection with Diflucan and C. diff colitis with oral Flagyl. The patient comes in yesterday to the hospital because of feeling weak and he was also noted to be hypotensive above and beyond his usual blood pressure. At one point he was noted to have a systolic blood pressure in the mid 60s. His admission blood pressure was 71/47. Despite this, he was not having any significant change in mental status. He was given IV fluids and he was on a 75 mL an hour of normal saline which nephrology cut down to 50 mL an hour and he was started on norepinephrine infusion which was running this morning as 7 g. A critically consultation was requested. The patient was evaluated to the bedside. No change in mental status. He reported that he still had become more firm and less watery. However, the patient was noted to have exceeded abdominal distention with some increased firmness. No nausea. No vomiting. No fever. No chills. No change in mental status. No headaches. No cough or sputum production. No chest tightness. No wheezing. Chest x-ray shows limited effusion the lung bases bilaterally otherwise there is no evidence of any pneumonia or airspace disease. The patient had an echocardiogram earlier this morning that showed preserved LV function and the rest of the full report is still pending for now. No evidence of any pericardial effusion. He was not placed on any antibiotics. Blood cultures of been sent this morning. Diflucan was resumed. On 12/11/2016 the patient is being seen in follow-up. After coming off pressors , this morning the patient was placed back on 2 mics of norepinephrine infusion. His systolic blood pressures the mid 90s. His abdomen is still distended and there is large amount of ascites on the CAT scan of the abdomen along with changes consistent with liver cirrhosis. As such, a large fold and paracentesis was done in total of 6 L of ascitic fluid was drained. The fluid will be sent for analysis. We will also check for spontaneous bacterial bacterial peritonitis. The patient is afebrile. The stool for C. diff came back negative. The candidal urinary tract infection is being treated with Diflucan. The patient has normalized his lactic acid level. No other significant events over the past 24 hours. On 12/13/2016 the patient is being seen in follow-up. Note that this patient is an incisional disease and he has liver cirrhosis. He underwent a large volume paracentesis with a total of 6 L of fluid was removed from his abdomen. In follow-up he was doing well. Yesterday evening he started developing a right -sided abdominal pain. At that point his blood work was repeated. Liver function tests, amylase and lipase were all within normal limits. Note that the fluid that was aspirated from the patient's abdomen showed no evidence of any spontaneous bacterial peritonitis. Meanwhile, a repeat CAT scan of the abdomen was done and it showed ascites. The puncture site is showing some limited leak and the fluid is clean. The patient was started on IV Zosyn. Surgical consultation was also obtained. He is still having paroxysmal atrial fibrillation and is anticoagulated. He has low-grade hypotension and he is only a few mics of the low-fat for hemodynamic support. No other complaints otherwise for now. His abdominal pannus subsided significantly on today's evaluation. On 12/14/2016, patient seems to be doing better, in no distress, relatively asymptomatic, his blood pressure remains marginal, ascites seems to be under control, continues to have significant swelling in the lower extremities. Last chest x-ray from yesterday showed no acute changes. And no evidence of congestive heart failure. No pleural effusion. Dialysis catheter remains in place. Patient remains in atrial fibrillation, but his rate seems to be well- controlled. He remains on eliquis and on Cordarone. Labs were reviewed WBC count is 3.7 hemoglobin is 9.7 electrolytes are normal creatinine is 3.01. On 12/15/2016, patient continues to do clinically well, blood pressure is marginal , but the patient is asymptomatic. Patient is not on any pressors at this point. Continues to have ascites, and oozing of the fluid from the previous puncture site were and the patient had paracentesis. Continues to have swelling in the lower extremities. Chest x-ray is relatively unremarkable. And there is no evidence of congestive heart failure. Labs were reviewed his creatinine is 1.97, and that significantly improved compared to 3.01 yesterday. Hemoglobin is 9.8. And basic metabolic profile is normal. Objective - Vital Signs Vital signs: Vital Signs Temp 98.4 F 12/15/16 08:00 Pulse 92 12/15/16 10:00 Resp 14 12/15/16 10:00 BP 80/47 12/15/16 10:00 Pulse Ox 96 12/15/16 10:00 Intake & Output 12/14/16 12/15/16 12/15/16 18:59 06:59 18:59 Intake Total 974.606 580.954 40 Output Total 161 700 240 Balance 813.606 -119.046 -200 Weight 98.7 kg 101 kg Intake: IV 172.5 90 40 Piperacillin-Tazobactam 3 62.5 .375 gm In Dextrose/Water 1 50ml.bag @ 12.5 mls/hr IVPB Q12H JAMES Rx#: [id number] Sodium Chloride 0.9% 1, 110 90 40 000 ml @ 10 mls/hr IV . Q24H JAMES Rx#:[id number] Intake, IV Titration 82.106 130.954 Amount Norepinephrine 4 mg In 82.106 80.954 Sodium Chloride 0.9% 250 ml @ Titrate IV .Q0M JAMES Rx#:[id number] Piperacillin-Tazobactam 3 50.0 .375 gm In Dextrose/Water 1 50ml.bag @ 12.5 mls/hr IVPB Q12HR JAMES Rx#: [id number] Oral 720 360 Output: Drainage 160 40 Right Abdomen 160 40 Urine 0 200 Stool 1 Other 700 Other: Voiding Method Incontinent Incontinent # Voids 1 1 # Bowel Movements 1 1 - Exam Physical Exam: Revealed a 76-year-old in no distress HEENT:[Neck is supple.] [No neck masses.] [No thyromegaly.] [No JVD.] Chest: [Clear throughout, no crackles, no rhonchi, no wheezes.] Cardiac Exam: [Irregular irregular rhythm Normal S1 and S2, no S3 gallop, no murmur.] Abdomen: [Soft, nontender, no megaly, no rebound, no guarding, normal bowel sounds. Positive ascites is suspected] Extremities: [No clubbing, 2+ bipedal edema, no cyanosis.] Neurological Exam: [No focal neurologic deficit.] - Labs CBC & Chem 7: 12/15/16 06:30 12/15/16 06:30 Labs: Abnormal Lab Results - Last 24 Hours (Table) 12/14/16 12/14/16 12/14/16 Range/Units 11:49 16:41 21:21 WBC (3.8-10.6) k/uL RBC (4.30-5.90) m/uL Hgb (13.0-17.5) gm/dL Hct (39.0-53.0) % MCV (80.0-100.0) fL MCHC (31.0-37.0) g/dL RDW (11.5-15.5) % Plt Count (150-450) k/uL Lymphocytes # (1.0-4.8) k/uL Creatinine (0.66-1.25) mg/dL Glucose (74-99) mg/dL POC Glucose (mg/dL) 129 H 119 H 143 H (75-99) mg/dL Calcium (8.4-10.2) mg/dL Phosphorus (2.5-4.5) mg/dL 12/15/16 12/15/16 12/15/16 Range/Units 06:30 06:30 08:16 WBC 3.3 L (3.8-10.6) k/uL RBC 3.11 L (4.30-5.90) m/uL Hgb 9.8 L (13.0-17.5) gm/dL Hct 32.7 L (39.0-53.0) % MCV 105.2 H (80.0-100.0) fL MCHC 29.9 L (31.0-37.0) g/dL RDW 16.6 H (11.5-15.5) % Plt Count 82 L (150-450) k/uL Lymphocytes # 0.8 L (1.0-4.8) k/uL Creatinine 1.97 H (0.66-1.25) mg/dL Glucose 115 H (74-99) mg/dL POC Glucose (mg/dL) 105 H (75-99) mg/dL Calcium 7.4 L (8.4-10.2) mg/dL Phosphorus 1.9 L (2.5-4.5) mg/dL Microbiology - Last 24 Hours (Table) 12/11/16 12:02 Gram Stain - Final Ascites Fluid Body Fluid Culture - Final 12/11/16 12:02 Anaerobic Culture - Final Ascites Fluid 12/10/16 10:09 Blood Culture - Preliminary Blood No Growth after 96 hours Assessment and Plan Plan: 1 acute hypotension. The patient runs a low blood pressure at baseline however there has been further drop in his blood pressure and this obviously raises some concerns knowing that the patient become more weak and somewhat symptomatic. Currently the patient is on pressors and norepinephrine infusion is running at 7 mics. The exact cause for this further drop in the blood pressure is not known. Obviously septic causes need to be ruled out. Hypovolemia is not the cause specially the patient was having C. diff colitis and possibly getting intravascularly depleted. Cardiogenic causes of felt to be less likely. In terms of sepsis, potential sources could be lines, skin, abdomen nontender the patient's abdomen is somewhat distended compared to his baseline. This is to be further investigated in one concern is colitis secondary to C. diff. On 12/13/2016, the patient has had already extensive evaluation regards to his hypotension and base other comorbidities. In summary, he is on a lower dose of pressors and he is only on 1-2 mics of levo fed. At times levo fed is also being discontinued. He is was resuscitated. C. diff evaluation came back negative. Echocardiogram was essentially within normal limits and there was no evidence of any underlying cardiomyopathy. It's very much likely that his liver cirrhosis contributing to a very low systemic vascular resistance and causing this patient to be quite hypotensive on a chronic basis. Note that his hypotension is not associated with any mental status change. He is completely asymptomatic in that regard. Blood cultures have become negative. The abdominal fluid was drained and there is no evidence of any spontaneous for care peritonitis. On 12/14/2016, patient seems to be doing well overall, remains on the same medications as listed, blood pressure remains marginal. On 12/15/2016, patient continues to do well, and I plan to transfer him out of the ICU to a cardiac floor today. 2 coronary artery disease with previous bypass surgery 3 chronic atrial fibrillation 4 COPD 5 End stage renal disease on hemodialysis 6 liver cirrhosis with large ascites status post large volume paracentesis. Subsequently the patient developed some right upper quadrant pain for which a repeat CAT scan of the abdomen was done showing again ascites. No evidence of any spontaneous bacterial peritonitis. Liver function tests and amylase and lipase are all within normal limits. Pain has subsided for now. Gen. surgery consultation was obtained. Doubt any ischemic colitis. Doubt mesenteric ischemia from atrial fibrillation. The patient remains anticoagulated. 7 urine checked infection with previous infections with Charley and E. coli 8 macular degeneration 9 gout 10 chronic back pain 11 COPD 12 diabetes mellitus 13 hyperlipidemia 14 skin cancer 15 impaired performance and functional status secondary to above-mentioned comorbidities. 16 nephrolithiasis, kidney stones Plan: Continue present treatment plan, continue all supportive care measures, continue antibiotics, decision about dialysis will be decided by nephrology, and I will make arrangements for the patient to transfer to [facility] today. Time with Patient: Less than 30
[2016-12-15] MEDS: CHOLECALCIFEROL 1,000 UNIT TAB PO SCH (11:55)
[2016-12-15 12:02] LABS: Glucose,Whole Blood 99 mg/dL (75-99)
--- NOTE | 2016-12-15 13:59 | P.PN ---
Subjective Principal diagnosis: Alcoholic cirrhosis Patient is a 76-year-old male with history of alcoholic cirrhosis. Patient is status post paracentesis with 6 L of fluid on 12/11/2016. Upon examination, patient is feeling well. Patient complains of mild abdominal tenderness. Denies nausea, vomiting, or abdominal pain. Afebrile. Objective - Vital Signs Vital signs: Vital Signs Temp 98.2 F 12/15/16 12:00 Pulse 95 12/15/16 13:00 Resp 18 12/15/16 13:00 BP 78/43 12/15/16 13:00 Pulse Ox 97 12/15/16 11:00 Intake & Output 12/14/16 12/15/16 12/15/16 18:59 06:59 18:59 Intake Total 974.606 580.954 40 Output Total 161 700 271 Balance 813.606 -119.046 -231 Weight 98.7 kg 101 kg Intake: IV 172.5 90 40 Piperacillin-Tazobactam 3 62.5 .375 gm In Dextrose/Water 1 50ml.bag @ 12.5 mls/hr IVPB Q12H JAMES Rx#: [id number] Sodium Chloride 0.9% 1, 110 90 40 000 ml @ 10 mls/hr IV . Q24H JAMES Rx#:[id number] Intake, IV Titration 82.106 130.954 Amount Norepinephrine 4 mg In 82.106 80.954 Sodium Chloride 0.9% 250 ml @ Titrate IV .Q0M JAMES Rx#:[id number] Piperacillin-Tazobactam 3 50.0 .375 gm In Dextrose/Water 1 50ml.bag @ 12.5 mls/hr IVPB Q12HR JAMES Rx#: [id number] Oral 720 360 Output: Drainage 160 70 Right Abdomen 160 70 Urine 0 200 Stool 1 1 Other 700 Other: Voiding Method Incontinent Incontinent # Voids 1 1 # Bowel Movements 1 1 - Exam GENERAL: Pt awake and alert, in no acute distress. LUNGS: Breath sounds clear to auscultation bilaterally. No wheezes, rales, or rhonchi. HEART: Heart S1, S2, no S3 or S4. Irregularly irregular. No murmurs, rubs or gallops. ABDOMEN: Soft, nontender, distended, normoactive bowel sounds. No guarding, no rebound. Ascites present. NEUROLOGICAL: Pt oriented x 3. - Labs CBC & Chem 7: 12/15/16 06:30 12/15/16 06:30 Labs: Abnormal Lab Results - Last 24 Hours (Table) 12/14/16 12/14/16 12/15/16 Range/Units 16:41 21:21 06:30 WBC 3.3 L (3.8-10.6) k/uL RBC 3.11 L (4.30-5.90) m/uL Hgb 9.8 L (13.0-17.5) gm/dL Hct 32.7 L (39.0-53.0) % MCV 105.2 H (80.0-100.0) fL MCHC 29.9 L (31.0-37.0) g/dL RDW 16.6 H (11.5-15.5) % Plt Count 82 L (150-450) k/uL Lymphocytes # 0.8 L (1.0-4.8) k/uL Creatinine (0.66-1.25) mg/dL Glucose (74-99) mg/dL POC Glucose (mg/dL) 119 H 143 H (75-99) mg/dL Calcium (8.4-10.2) mg/dL Phosphorus (2.5-4.5) mg/dL 12/15/16 12/15/16 Range/Units 06:30 08:16 WBC (3.8-10.6) k/uL RBC (4.30-5.90) m/uL Hgb (13.0-17.5) gm/dL Hct (39.0-53.0) % MCV (80.0-100.0) fL MCHC (31.0-37.0) g/dL RDW (11.5-15.5) % Plt Count (150-450) k/uL Lymphocytes # (1.0-4.8) k/uL Creatinine 1.97 H (0.66-1.25) mg/dL Glucose 115 H (74-99) mg/dL POC Glucose (mg/dL) 105 H (75-99) mg/dL Calcium 7.4 L (8.4-10.2) mg/dL Phosphorus 1.9 L (2.5-4.5) mg/dL Microbiology - Last 24 Hours (Table) 12/10/16 10:09 Blood Culture - Preliminary Blood No Growth after 120 hours 12/11/16 12:02 Gram Stain - Final Ascites Fluid Body Fluid Culture - Final 12/11/16 12:02 Anaerobic Culture - Final Ascites Fluid Assessment and Plan Plan: Impression: 1. Liver cirrhosis with ascites status post large volume paracentesis. Computed tomography scan of abdomen post paracentesis showing ascites again. No abdominal pain at this time. Plan: Continue to monitor patient. Continue soft diet. Continue IV antibiotics. Continue medical management. The above impression and plan have been discussed and directed by Dr. Rousseau. Kd MACHADO acting as scribe for Dr. Rousseau.
--- NOTE | 2016-12-15 16:48 | PN ---
A 76-year-old gentleman with hypotension, doing much better. Blood pressures have come up. No longer on pressors. Remains in sinus rhythm on amiodarone. On exam, comfortable at rest. Vital signs are stable. Blood pressure is in the 70s systolic. There is no jugular venous distention. Chest reveals good air entry bilaterally. Heart reveals first and second heart sounds. No gallop. Abdomen is soft. Extremities did not reveal edema. Peripheral pulses are felt. ASSESSMENT: Paroxysmal atrial fibrillation. Patient is on amiodarone and apixaban, which I am going to continue.
[2016-12-15 17:10] LABS: Glucose,Whole Blood 161 mg/dL (75-99)
[2016-12-15] MEDS: PRAVASTATIN SODIUM 20 MG TAB PO SCH (19:17)
--- NOTE | 2016-12-15 20:13 | PN ---
The patient is seen for follow-up for end-stage renal disease. He was dialyzed yesterday. He tolerated his treatment fairly well. He is currently comfortable. The patient will likely be transferred out of the ICU. On examination, blood pressure is 83/53. He is afebrile. Examination of the heart S1 and S2. Examination of the lungs: Decreased breath sounds in bases. Abdomen is soft, obese with drainage at the site of the colostomy noted. Examination of lower extremities shows chronic skin changes, chronic edema. Labs show sodium 137, potassium 3.7. Hemoglobin 9.8, creatinine 1.97. ASSESSMENT: 1. End-stage renal disease on hemodialysis on a Wednesday, Wednesday, Wednesday schedule. 2. Maintained on midodrine. Patient had been on Levophed. Currently he is off of Levophed. 3. Anemia of chronic disease, maintained on Aranesp. 4. Ascites, status post paracentesis with continued drainage from the site of the paracentesis. 5. Dyslipidemia. 6. Paroxysmal atrial fibrillation, maintained on amiodarone and anticoagulation in the form of Eliquis. 7. Hyperuricemia, maintained on allopurinol. 8. Hypothyroidism. PLAN: Hemodialysis in a.m.
[2016-12-15] MEDS: ALBUTEROL NEBULIZED 2.5 MG/3 ML INHALATION PRN (20:53)
[2016-12-15 21:51] LABS: Glucose,Whole Blood 136 mg/dL (75-99)
[2016-12-16] MEDS: PANTOPRAZOLE 40 MG TABLET PO SCH (06:48)
[2016-12-16] MEDS: MIDODRINE 5 MG TAB PO SCH ×3 (06:48→16:21)
[2016-12-16] MEDS: INSULIN LISPRO (humaLOG) 300 UNIT/3 ML VIAL SQ SCH ×4 (06:48→21:39)
[2016-12-16] MEDS: LEVOTHYROXINE 50 MCG TAB PO SCH (06:48)
[2016-12-16 06:49] LABS: Glucose,Whole Blood 114 mg/dL (75-99)
[2016-12-16 07:22] LABS: Anisocytosis Slight; Basophils % (A) 1 %; CH 31.1; CHCM 30.6; Eosinophils % (A) 1 %; HCT 28.6 % (39.0-53.0); HGB 8.8 gm/dL (13.0-17.5); Hypochromasia Moderate; Luc # (Auto) 0.09; Luc % (Auto) 3; Lymphocytes # (A) 0.9 k/uL (1.0-4.8); Lymphocytes % (A) 26 %; MCH 31.5 pg (25.0-35.0); MCHC 30.8 g/dL (31.0-37.0); MCV 102.5 fL (80.0-100.0); Macrocytosis Moderate; Mean Platelet Volume 8.5; Monocytes # (A) 0.3 k/uL (0-1.0); Monocytes % (A) 10 %; Neutrophils # (A) 2.1 k/uL (1.3-7.7); Neutrophils % (A) 60 %; RBC 2.79 m/uL (4.30-5.90); RDW 16.7 % (11.5-15.5); WBC 3.4 k/uL (3.8-10.6); WBC (Perox) 3.78
[2016-12-16 07:26] LABS: Calcium 7.7 mg/dL (8.4-10.2); Magnesium 1.8 mg/dL (1.6-2.3); Phosphorous 1.8 mg/dL (2.5-4.5); Potassium 3.6 mmol/L (3.5-5.1); Total Bilirubin 0.6 mg/dL (0.2-1.3)
[2016-12-16] MEDS: TAMSULOSIN 0.4 MG CAP.ER.24H PO SCH (08:02)
[2016-12-16] MEDS: APIXABAN 2.5 MG TABLET PO SCH ×2 (08:02→21:33)
[2016-12-16] MEDS: AMIODARONE 200 MG TAB PO SCH ×2 (08:02→21:33)
[2016-12-16] MEDS: ALLOPURINOL 100 MG TAB PO SCH (08:02)
[2016-12-16] MEDS: VIT A,C & E-LUTEIN-MINERALS 1 EACH TAB PO SCH ×2 (08:03→21:33)
[2016-12-16] MEDS: FLUCONAZOLE 100 MG TAB PO SCH (08:03)
[2016-12-16] MEDS: MAGNESIUM OXIDE 400 MG TAB PO SCH ×2 (08:03→21:33)
[2016-12-16] MEDS: PARoxetine 20 MG TAB PO SCH (08:04)
[2016-12-16] MEDS: VITAMIN E (DL,TOCOPHERYL ACET) 400 UNIT CAP PO SCH ×2 (08:04→21:33)
[2016-12-16] MEDS: SODIUM CHLORIDE 0.9% 1,000 ML IV SCH (08:04)
--- NOTE | 2016-12-16 08:04 | P.PN ---
Subjective Principal diagnosis: Hypertension with ascites. The patient is a 76-year-old white male essentially admitted for acute on chronic renal failure with hypotension related to ascites and chronic liver disease. Paracentesis has been done but ascites is now returning. He states he is willing to start physical therapy if possible. He does have generalized weakness. His belly seems more distended to me today. Objective - Vital Signs Vital signs: Vital Signs Temp 97 F L 12/16/16 07:59 Pulse 81 12/16/16 07:59 Resp 18 12/16/16 07:59 BP 90/45 12/16/16 07:59 Pulse Ox 96 12/16/16 07:59 Intake & Output 12/15/16 12/16/16 12/16/16 18:59 06:59 18:59 Intake Total 50 40 Output Total 341 1 Balance -291 39 Weight 101 kg Intake: IV 50 40 Sodium Chloride 0.9% 1, 50 40 000 ml @ 10 mls/hr IV . Q24H JAMES Rx#:[id number] Output: Drainage 140 Right Abdomen 140 Urine 200 0 Stool 1 1 Other: Voiding Method Incontinent Incontinent # Voids 1 1 # Bowel Movements 1 1 - Constitutional General appearance: Present: obese - EENT Eyes: Absent: abnormal pupil - Respiratory Respiratory: bilateral: CTA - Cardiovascular Rhythm: irregularly irregular Heart sounds: normal: S1, S2 - Gastrointestinal General gastrointestinal: Present: distended, soft. Absent: tenderness - Psychiatric Psychiatric: Present: A&O x's 3 - Labs CBC & Chem 7: 12/16/16 06:28 12/16/16 06:23 Labs: Abnormal Lab Results - Last 24 Hours (Table) 12/15/16 12/15/16 12/15/16 Range/Units 08:16 17:06 21:49 WBC (3.8-10.6) k/uL RBC (4.30-5.90) m/uL Hgb (13.0-17.5) gm/dL Hct (39.0-53.0) % MCV (80.0-100.0) fL MCHC (31.0-37.0) g/dL RDW (11.5-15.5) % Plt Count (150-450) k/uL Sodium (137-145) mmol/L Creatinine (0.66-1.25) mg/dL Glucose (74-99) mg/dL POC Glucose (mg/dL) 105 H 161 H 136 H (75-99) mg/dL Calcium (8.4-10.2) mg/dL Phosphorus (2.5-4.5) mg/dL Total Protein (6.3-8.2) g/dL Albumin (3.5-5.0) g/dL 12/16/16 12/16/16 12/16/16 Range/Units 06:23 06:28 06:48 WBC 3.4 L (3.8-10.6) k/uL RBC 2.79 L (4.30-5.90) m/uL Hgb 8.8 L (13.0-17.5) gm/dL Hct 28.6 L (39.0-53.0) % MCV 102.5 H (80.0-100.0) fL MCHC 30.8 L (31.0-37.0) g/dL RDW 16.7 H (11.5-15.5) % Plt Count 94 L (150-450) k/uL Sodium 135 L (137-145) mmol/L Creatinine 2.52 H (0.66-1.25) mg/dL Glucose 100 H (74-99) mg/dL POC Glucose (mg/dL) 114 H (75-99) mg/dL Calcium 7.7 L (8.4-10.2) mg/dL Phosphorus 1.8 L (2.5-4.5) mg/dL Total Protein 4.0 L (6.3-8.2) g/dL Albumin 1.7 L (3.5-5.0) g/dL Microbiology - Last 24 Hours (Table) 12/10/16 10:09 Blood Culture - Preliminary Blood No Growth after 120 hours 12/11/16 12:02 Gram Stain - Final Ascites Fluid Body Fluid Culture - Final 12/11/16 12:02 Anaerobic Culture - Final Ascites Fluid Assessment and Plan (1) Hypotension Status: Acute (2) [id number] renal failure Status: Acute (3) CAD (coronary artery disease) Status: Acute (4) Falls Status: Acute (5) Persistent atrial fibrillation Status: Acute (6) Weakness Status: Acute Plan: Slowly wean off of pressors. Dialysis remains in place. Appreciate input from consultants. Check CBC and CMP in a.m. Prognosis remains guarded secondary to his multiple comorbidities renal failure , liver failure and history of atrial fibrillation with appropriate ejection fraction.
[2016-12-16 08:07] LABS: Manual Review Performed
[2016-12-16 08:08] LABS: Target Cells Present
[2016-12-16] MEDS: BUDESONIDE 0.5 MG/2 ML NEBU INHALATION SCH ×2 (08:20→19:59)
[2016-12-16] MEDS: PIPERACILLIN-TAZOBACTAM 3.375 GM in DEXTROSE/WATER 1 50ML.BAG IVPB SCH ×2 (08:47→21:32)
[2016-12-16] MEDS: CHOLECALCIFEROL 1,000 UNIT TAB PO SCH (11:17)
[2016-12-16 12:05] LABS: Glucose,Whole Blood 126 mg/dL (75-99)
--- NOTE | 2016-12-16 12:58 | P.PN ---
Subjective Principal diagnosis: Acute hypotension 76-year-old male patient with end-stage renal disease is currently on hemodialysis. Note that the patient was started on hemodialysis earlier this year and he was being dialyzed 3 times a week. He is known to run a low blood pressure in general and his systolic blood pressure had been in the mid 80s and the patient had been treated with midodrine. He has a permacath in his right upper chest area/subclavian and the patient was being treated recently for a candidal urine checked infection with Diflucan and C. diff colitis with oral Flagyl. The patient comes in yesterday to the hospital because of feeling weak and he was also noted to be hypotensive above and beyond his usual blood pressure. At one point he was noted to have a systolic blood pressure in the mid 60s. His admission blood pressure was 71/47. Despite this, he was not having any significant change in mental status. He was given IV fluids and he was on a 75 mL an hour of normal saline which nephrology cut down to 50 mL an hour and he was started on norepinephrine infusion which was running this morning as 7 g. A critically consultation was requested. The patient was evaluated to the bedside. No change in mental status. He reported that he still had become more firm and less watery. However, the patient was noted to have exceeded abdominal distention with some increased firmness. No nausea. No vomiting. No fever. No chills. No change in mental status. No headaches. No cough or sputum production. No chest tightness. No wheezing. Chest x-ray shows limited effusion the lung bases bilaterally otherwise there is no evidence of any pneumonia or airspace disease. The patient had an echocardiogram earlier this morning that showed preserved LV function and the rest of the full report is still pending for now. No evidence of any pericardial effusion. He was not placed on any antibiotics. Blood cultures of been sent this morning. Diflucan was resumed. On 12/11/2016 the patient is being seen in follow-up. After coming off pressors , this morning the patient was placed back on 2 mics of norepinephrine infusion. His systolic blood pressures the mid 90s. His abdomen is still distended and there is large amount of ascites on the CAT scan of the abdomen along with changes consistent with liver cirrhosis. As such, a large fold and paracentesis was done in total of 6 L of ascitic fluid was drained. The fluid will be sent for analysis. We will also check for spontaneous bacterial bacterial peritonitis. The patient is afebrile. The stool for C. diff came back negative. The candidal urinary tract infection is being treated with Diflucan. The patient has normalized his lactic acid level. No other significant events over the past 24 hours. On 12/13/2016 the patient is being seen in follow-up. Note that this patient is an incisional disease and he has liver cirrhosis. He underwent a large volume paracentesis with a total of 6 L of fluid was removed from his abdomen. In follow-up he was doing well. Yesterday evening he started developing a right -sided abdominal pain. At that point his blood work was repeated. Liver function tests, amylase and lipase were all within normal limits. Note that the fluid that was aspirated from the patient's abdomen showed no evidence of any spontaneous bacterial peritonitis. Meanwhile, a repeat CAT scan of the abdomen was done and it showed ascites. The puncture site is showing some limited leak and the fluid is clean. The patient was started on IV Zosyn. Surgical consultation was also obtained. He is still having paroxysmal atrial fibrillation and is anticoagulated. He has low-grade hypotension and he is only a few mics of the low-fat for hemodynamic support. No other complaints otherwise for now. His abdominal pannus subsided significantly on today's evaluation. On 12/14/2016, patient seems to be doing better, in no distress, relatively asymptomatic, his blood pressure remains marginal, ascites seems to be under control, continues to have significant swelling in the lower extremities. Last chest x-ray from yesterday showed no acute changes. And no evidence of congestive heart failure. No pleural effusion. Dialysis catheter remains in place. Patient remains in atrial fibrillation, but his rate seems to be well- controlled. He remains on eliquis and on Cordarone. Labs were reviewed WBC count is 3.7 hemoglobin is 9.7 electrolytes are normal creatinine is 3.01. On 12/15/2016, patient continues to do clinically well, blood pressure is marginal , but the patient is asymptomatic. Patient is not on any pressors at this point. Continues to have ascites, and oozing of the fluid from the previous puncture site were and the patient had paracentesis. Continues to have swelling in the lower extremities. Chest x-ray is relatively unremarkable. And there is no evidence of congestive heart failure. Labs were reviewed his creatinine is 1.97, and that significantly improved compared to 3.01 yesterday. Hemoglobin is 9.8. And basic metabolic profile is normal. Seen again on 12/16/2016, continues to do relatively well, patient is generally weak, seems to be a bit depressed about his overall clinical status. Patient is unhappy with his physical therapy, he just feels that he cannot do it. Labs were reviewed WBC count of 3.4 hemoglobin is 8.8 Summary normal BUN is 14 creatinine is 2.52 Objective - Vital Signs Vital signs: Vital Signs Temp 97 F L 12/16/16 07:59 Pulse 82 12/16/16 11:15 Resp 17 12/16/16 11:15 BP 91/52 12/16/16 11:15 Pulse Ox 96 12/16/16 11:15 Intake & Output 12/15/16 12/16/16 12/16/16 18:59 06:59 18:59 Intake Total 50 40 236 Output Total 341 1 Balance -291 39 236 Weight 101 kg Intake: IV 50 40 Sodium Chloride 0.9% 1, 50 40 000 ml @ 10 mls/hr IV . Q24H [facility] Rx#:[id number] Oral 236 Output: Drainage 140 Right Abdomen 140 Urine 200 0 Stool 1 1 Other: Voiding Method Incontinent Incontinent Incontinent # Voids 1 1 # Bowel Movements 1 1 - Exam Physical Exam: Revealed a 76-year-old in no distress HEENT:[Neck is supple.] [No neck masses.] [No thyromegaly.] [No JVD.] Chest: [Clear throughout, no crackles, no rhonchi, no wheezes.] Cardiac Exam: [Irregular irregular rhythm Normal S1 and S2, no S3 gallop, no murmur.] Abdomen: [Soft, nontender, no megaly, no rebound, no guarding, normal bowel sounds. Positive ascites is suspected] Extremities: [No clubbing, 2+ bipedal edema, no cyanosis.] Neurological Exam: [No focal neurologic deficit.] - Labs CBC & Chem 7: 12/16/16 06:28 12/16/16 06:23 Labs: Abnormal Lab Results - Last 24 Hours (Table) 12/15/16 12/15/16 12/16/16 Range/Units 17:06 21:49 06:23 WBC (3.8-10.6) k/uL RBC (4.30-5.90) m/uL Hgb (13.0-17.5) gm/dL Hct (39.0-53.0) % MCV (80.0-100.0) fL MCHC (31.0-37.0) g/dL RDW (11.5-15.5) % Plt Count (150-450) k/uL Lymphocytes # (1.0-4.8) k/uL Sodium 135 L (137-145) mmol/L Creatinine 2.52 H (0.66-1.25) mg/dL Glucose 100 H (74-99) mg/dL POC Glucose (mg/dL) 161 H 136 H (75-99) mg/dL Calcium 7.7 L (8.4-10.2) mg/dL Phosphorus 1.8 L (2.5-4.5) mg/dL Total Protein 4.0 L (6.3-8.2) g/dL Albumin 1.7 L (3.5-5.0) g/dL 12/16/16 12/16/16 12/16/16 Range/Units 06:28 06:48 11:59 WBC 3.4 L (3.8-10.6) k/uL RBC 2.79 L (4.30-5.90) m/uL Hgb 8.8 L (13.0-17.5) gm/dL Hct 28.6 L (39.0-53.0) % MCV 102.5 H (80.0-100.0) fL MCHC 30.8 L (31.0-37.0) g/dL RDW 16.7 H (11.5-15.5) % Plt Count 94 L (150-450) k/uL Lymphocytes # 0.9 L (1.0-4.8) k/uL Sodium (137-145) mmol/L Creatinine (0.66-1.25) mg/dL Glucose (74-99) mg/dL POC Glucose (mg/dL) 114 H 126 H (75-99) mg/dL Calcium (8.4-10.2) mg/dL Phosphorus (2.5-4.5) mg/dL Total Protein (6.3-8.2) g/dL Albumin (3.5-5.0) g/dL Microbiology - Last 24 Hours (Table) 12/10/16 10:09 Blood Culture - Final Blood No Growth after 144 hours 12/11/16 12:02 Gram Stain - Final Ascites Fluid Body Fluid Culture - Final 12/11/16 12:02 Anaerobic Culture - Final Ascites Fluid Assessment and Plan Plan: 1 acute hypotension. The patient runs a low blood pressure at baseline however there has been further drop in his blood pressure and this obviously raises some concerns knowing that the patient become more weak and somewhat symptomatic. Currently the patient is on pressors and norepinephrine infusion is running at 7 mics. The exact cause for this further drop in the blood pressure is not known. Obviously septic causes need to be ruled out. Hypovolemia is not the cause specially the patient was having C. diff colitis and possibly getting intravascularly depleted. Cardiogenic causes of felt to be less likely. In terms of sepsis, potential sources could be lines, skin, abdomen nontender the patient's abdomen is somewhat distended compared to his baseline. This is to be further investigated in one concern is colitis secondary to C. diff. On 12/13/2016, the patient has had already extensive evaluation regards to his hypotension and base other comorbidities. In summary, he is on a lower dose of pressors and he is only on 1-2 mics of levo fed. At times levo fed is also being discontinued. He is was resuscitated. C. diff evaluation came back negative. Echocardiogram was essentially within normal limits and there was no evidence of any underlying cardiomyopathy. It's very much likely that his liver cirrhosis contributing to a very low systemic vascular resistance and causing this patient to be quite hypotensive on a chronic basis. Note that his hypotension is not associated with any mental status change. He is completely asymptomatic in that regard. Blood cultures have become negative. The abdominal fluid was drained and there is no evidence of any spontaneous for care peritonitis. On 12/14/2016, patient seems to be doing well overall, remains on the same medications as listed, blood pressure remains marginal. On 12/15/2016, patient continues to do well, and I plan to transfer him out of the ICU to a cardiac floor today. On 12/16/2016, patient is about the same, and I believe we should address discharge planning knowing in fact that the patient's overall prognosis is poor considering his multiple comorbidities. 2 coronary artery disease with previous bypass surgery 3 chronic atrial fibrillation 4 COPD 5 End stage renal disease on hemodialysis 6 liver cirrhosis with large ascites status post large volume paracentesis. Subsequently the patient developed some right upper quadrant pain for which a repeat CAT scan of the abdomen was done showing again ascites. No evidence of any spontaneous bacterial peritonitis. Liver function tests and amylase and lipase are all within normal limits. Pain has subsided for now. Gen. surgery consultation was obtained. Doubt any ischemic colitis. Doubt mesenteric ischemia from atrial fibrillation. The patient remains anticoagulated. 7 urine checked infection with previous infections with Charley and E. coli 8 macular degeneration 9 gout 10 chronic back pain 11 COPD 12 diabetes mellitus 13 hyperlipidemia 14 skin cancer 15 impaired performance and functional status secondary to above-mentioned comorbidities. 16 nephrolithiasis, kidney stones Plan: Continue present supportive care measures, suggest discharge planning to a rehab facility. Time with Patient: Less than 30
--- NOTE | 2016-12-16 13:42 | P.PN ---
Subjective Principal diagnosis: Alcoholic cirrhosis Patient is a 76-year-old male with history of alcoholic cirrhosis. Patient is status post paracentesis with 6 L of fluid on 12/11/2016. Upon examination, patient is feeling well. Patient complains of mild abdominal tenderness, unchanged from yesterday. Patient is passing flatus with bowel movements. Denies nausea, vomiting, or abdominal pain. Afebrile. Objective - Vital Signs Vital signs: Vital Signs Temp 97 F L 12/16/16 07:59 Pulse 82 12/16/16 11:15 Resp 17 12/16/16 11:15 BP 91/52 12/16/16 11:15 Pulse Ox 96 12/16/16 11:15 Intake & Output 12/15/16 12/16/16 12/16/16 18:59 06:59 18:59 Intake Total 50 40 236 Output Total 341 1 Balance -291 39 236 Weight 101 kg Intake: IV 50 40 Sodium Chloride 0.9% 1, 50 40 000 ml @ 10 mls/hr IV . Q24H [facility] Rx#:[id number] Oral 236 Output: Drainage 140 Right Abdomen 140 Urine 200 0 Stool 1 1 Other: Voiding Method Incontinent Incontinent Incontinent # Voids 1 1 # Bowel Movements 1 1 - Exam GENERAL: Pt awake and alert, in no acute distress. LUNGS: Breath sounds clear to auscultation bilaterally. No wheezes, rales, or rhonchi. HEART: Heart S1, S2, no S3 or S4. Irregularly irregular. No murmurs, rubs or gallops. ABDOMEN: Soft, nontender, distended, normoactive bowel sounds. No guarding, no rebound. Ascites present. NEUROLOGICAL: Pt oriented x 3. - Labs CBC & Chem 7: 12/16/16 06:28 12/16/16 06:23 Labs: Abnormal Lab Results - Last 24 Hours (Table) 12/15/16 12/15/16 12/16/16 Range/Units 17:06 21:49 06:23 WBC (3.8-10.6) k/uL RBC (4.30-5.90) m/uL Hgb (13.0-17.5) gm/dL Hct (39.0-53.0) % MCV (80.0-100.0) fL MCHC (31.0-37.0) g/dL RDW (11.5-15.5) % Plt Count (150-450) k/uL Lymphocytes # (1.0-4.8) k/uL Sodium 135 L (137-145) mmol/L Creatinine 2.52 H (0.66-1.25) mg/dL Glucose 100 H (74-99) mg/dL POC Glucose (mg/dL) 161 H 136 H (75-99) mg/dL Calcium 7.7 L (8.4-10.2) mg/dL Phosphorus 1.8 L (2.5-4.5) mg/dL Total Protein 4.0 L (6.3-8.2) g/dL Albumin 1.7 L (3.5-5.0) g/dL 12/16/16 12/16/16 12/16/16 Range/Units 06:28 06:48 11:59 WBC 3.4 L (3.8-10.6) k/uL RBC 2.79 L (4.30-5.90) m/uL Hgb 8.8 L (13.0-17.5) gm/dL Hct 28.6 L (39.0-53.0) % MCV 102.5 H (80.0-100.0) fL MCHC 30.8 L (31.0-37.0) g/dL RDW 16.7 H (11.5-15.5) % Plt Count 94 L (150-450) k/uL Lymphocytes # 0.9 L (1.0-4.8) k/uL Sodium (137-145) mmol/L Creatinine (0.66-1.25) mg/dL Glucose (74-99) mg/dL POC Glucose (mg/dL) 114 H 126 H (75-99) mg/dL Calcium (8.4-10.2) mg/dL Phosphorus (2.5-4.5) mg/dL Total Protein (6.3-8.2) g/dL Albumin (3.5-5.0) g/dL Microbiology - Last 24 Hours (Table) 12/10/16 10:09 Blood Culture - Final Blood No Growth after 144 hours 12/11/16 12:02 Gram Stain - Final Ascites Fluid Body Fluid Culture - Final 12/11/16 12:02 Anaerobic Culture - Final Ascites Fluid Assessment and Plan Plan: Impression: 1. Liver cirrhosis with ascites status post large volume paracentesis. Computed tomography scan of abdomen post paracentesis showing ascites again. No abdominal pain at this time. Plan: Continue to monitor patient. Continue soft diet. Continue medical management. Patient is not a surgical candidate at this time. We'll continue to follow patient PRN. The above impression and plan have been discussed and directed by Dr. Rousseau. Kd MACHADO acting as scribe for Dr. Rousseau.
--- NOTE | 2016-12-16 14:12 | PN ---
This is a 76-year-old gentleman who is admitted to hospital with hypotension and has had runs of atrial fibrillation. He remains in sinus rhythm on amiodarone. Doing well and is stable from cardiac standpoint. On exam, comfortable at rest. Vital signs are stable. Chest exam reveals diminished air entry at the bases. Heart exam reveals first and second heart sounds regular rhythm. No murmur. Exam of the extremities reveals 1+ edema. Peripheral pulses are palpable. Labs show a hemoglobin of 8.8, platelet count is 94. Potassium is 3.6. Creatinine is 2.5. ASSESSMENT: 1. Paroxysmal atrial fibrillation. 2. Hypotension. PLAN: Patient will continue the amiodarone, Pravachol and Eliquis.
--- NOTE | 2016-12-16 14:38 | PN ---
Patient is seen for follow-up for end-stage renal disease. He is currently ( ) the ICU. Doing fairly okay. The patient is awake, alert, oriented x3. Eating fairly well. Continues to have drainage from his abdomen at the site of paracentesis. On examination, heart rate 81 per minute. He is afebrile. Blood pressure is 90/45. Examination of the heart S1 and S2. Examination of the lungs: Bilateral breath sounds are heard, decreased breath sounds at the bases. ABDOMEN: Soft, distended. Ascites is noted with drainage noted at the site of the paracentesis. Examination of lower extremities shows chronic skin changes. Edema 1+ bilaterally. Labs show sodium 135, potassium 3.6. Hemoglobin 8.8 g/dL. ASSESSMENT: 1. End-stage renal disease on hemodialysis. Patient will be maintained on a Wednesday, Wednesday, Wednesday schedule as outpatient. 2. Hypotension, currently improved. No evidence of infection identified and patient is maintained on Midodrine. He is off of Levophed as his cortisol level was not low. No major abnormality noted on echocardiogram. 3. Chronic liver disease with ascites status post paracentesis of about 6 liters. 4. Anemia of chronic disease, maintained on Aranesp. 5. Paroxysmal atrial fibrillation, maintained on amiodarone and anticoagulation in the form of Eliquis. 6. Hyperuricemia on allopurinol. PLAN: Hemodialysis today, goal UF of about 1 liter. Patient has been talked to regarding his overall prognosis and his underlying comorbidities, and the fact that it will ( ) to continue to dialyze him as outpatient with low blood pressures. At this time he wants to continue with renal replacement therapy.
[2016-12-16 16:53] LABS: Glucose,Whole Blood 110 mg/dL (75-99)
[2016-12-16] MEDS ORDERED: HEPARIN SODIUM,PORCINE 5,000 UNIT/ML 1 ML VIAL IV NR (19:45)
[2016-12-16] MEDS: PRAVASTATIN SODIUM 20 MG TAB PO SCH (21:33)
[2016-12-16 21:37] LABS: Glucose,Whole Blood 91 mg/dL (75-99)
[2016-12-17] MEDS: HYDROcodone/APAP 5-325MG 1 EACH TAB PO PRN (02:37)
[2016-12-17 05:51] LABS: Glucose,Whole Blood 91 mg/dL (75-99)
[2016-12-17] MEDS: INSULIN LISPRO (humaLOG) 300 UNIT/3 ML VIAL SQ SCH ×4 (06:29→21:13)
[2016-12-17] MEDS: MIDODRINE 5 MG TAB PO SCH ×3 (06:30→17:23)
[2016-12-17] MEDS: LEVOTHYROXINE 50 MCG TAB PO SCH (06:30)
[2016-12-17] MEDS: PANTOPRAZOLE 40 MG TABLET PO SCH (06:30)
[2016-12-17 07:31] LABS: Calcium 7.7 mg/dL (8.4-10.2); Magnesium 1.5 mg/dL (1.6-2.3); Phosphorous 1.6 mg/dL (2.5-4.5); Potassium 3.6 mmol/L (3.5-5.1)
[2016-12-17 07:46] LABS: Anisocytosis Slight; Basophils % (A) 1 %; CH 31.2; CHCM 30.8; Eosinophils % (A) 1 %; HCT 30.3 % (39.0-53.0); HDW 2.63; HGB 9.2 gm/dL (13.0-17.5); Hypochromasia Moderate; Luc # (Auto) 0.15; Luc % (Auto) 4; Lymphocytes # (A) 1.1 k/uL (1.0-4.8); Lymphocytes % (A) 31 %; MCH 31.2 pg (25.0-35.0); MCHC 30.5 g/dL (31.0-37.0); MCV 102.1 fL (80.0-100.0); Macrocytosis Slight; Mean Platelet Volume 8.7; Monocytes # (A) 0.4 k/uL (0-1.0); Monocytes % (A) 11 %; Neutrophils # (A) 1.9 k/uL (1.3-7.7); Neutrophils % (A) 53 %; RBC 2.96 m/uL (4.30-5.90); RDW 16.4 % (11.5-15.5); WBC 3.6 k/uL (3.8-10.6); WBC (Perox) 3.79
--- NOTE | 2016-12-17 07:50 | P.PN ---
Subjective Principal diagnosis: The patient is here essentially for ascites. This is a continue progress on a 76-year-old white male essentially admitted for generalized weakness anemia of chronic disease and renal failure and element of ascites. He hasn't underlying history of gout. He states significant weakness and refused physical therapy yesterday. Voiding difficulties otherwise stated. Objective - Vital Signs Vital signs: Vital Signs Temp 97.1 F L 12/17/16 04:00 Pulse 67 12/17/16 04:00 Resp 18 12/17/16 04:00 BP 86/49 12/17/16 04:00 Pulse Ox 95 12/17/16 04:00 Intake & Output 12/16/16 12/17/16 12/17/16 18:59 06:59 18:59 Intake Total 316 Output Total 10 Balance 316 -10 Weight 101 kg Intake: IV 80 Sodium Chloride 0.9% 1, 80 000 ml @ 10 mls/hr IV . Q24H [facility] Rx#:[id number] Oral 236 Output: Drainage 10 Right Abdomen 10 Other: Voiding Method Incontinent Incontinent # Voids 1 0 # Bowel Movements 2 - Constitutional General appearance: Present: obese - EENT Eyes: Absent: abnormal pupil - Respiratory Respiratory: bilateral: diminished - Cardiovascular Rhythm: irregularly irregular Heart sounds: normal: S1, S2 - Gastrointestinal General gastrointestinal: Present: distended, soft - Neurologic Neurologic: Present: CNII-XII intact - Musculoskeletal Musculoskeletal: Present: generalized weakness - Labs CBC & Chem 7: 12/16/16 06:28 12/17/16 06:44 Labs: Abnormal Lab Results - Last 24 Hours (Table) 12/16/16 12/16/16 12/16/16 Range/Units 06:28 11:59 16:51 WBC 3.4 L (3.8-10.6) k/uL RBC 2.79 L (4.30-5.90) m/uL Hgb 8.8 L (13.0-17.5) gm/dL Hct 28.6 L (39.0-53.0) % MCV 102.5 H (80.0-100.0) fL MCHC 30.8 L (31.0-37.0) g/dL RDW 16.7 H (11.5-15.5) % Plt Count 94 L (150-450) k/uL Lymphocytes # 0.9 L (1.0-4.8) k/uL Sodium (137-145) mmol/L Creatinine (0.66-1.25) mg/dL POC Glucose (mg/dL) 126 H 110 H (75-99) mg/dL Calcium (8.4-10.2) mg/dL Phosphorus (2.5-4.5) mg/dL Magnesium (1.6-2.3) mg/dL 12/17/16 Range/Units 06:44 WBC (3.8-10.6) k/uL RBC (4.30-5.90) m/uL Hgb (13.0-17.5) gm/dL Hct (39.0-53.0) % MCV (80.0-100.0) fL MCHC (31.0-37.0) g/dL RDW (11.5-15.5) % Plt Count (150-450) k/uL Lymphocytes # (1.0-4.8) k/uL Sodium 136 L (137-145) mmol/L Creatinine 1.99 H (0.66-1.25) mg/dL POC Glucose (mg/dL) (75-99) mg/dL Calcium 7.7 L (8.4-10.2) mg/dL Phosphorus 1.6 L (2.5-4.5) mg/dL Magnesium 1.5 L (1.6-2.3) mg/dL Microbiology - Last 24 Hours (Table) 12/10/16 10:09 Blood Culture - Final Blood No Growth after 144 hours Assessment and Plan (1) Hypotension Status: Acute (2) [id number] renal failure Status: Acute (3) CAD (coronary artery disease) Status: Acute (4) Falls Status: Acute (5) Persistent atrial fibrillation Status: Acute (6) Weakness Status: Acute Plan: We'll go ahead and anticipate transfer back to [facility] after dialysis in a.m. Ascites-worrisome with his underlying history of chronic alcoholism. Persistent atrial fibrillation-stable. Magnesium is low. We'll go ahead and place on appropriate protocol today. Labs are otherwise noted. See orders otherwise. Time with Patient: Less than 30
[2016-12-17] MEDS ORDERED: Magnesium Replacement Protocol 1 EACH MISC MISCELLANE PRN (07:51)
[2016-12-17] MEDS: AMIODARONE 200 MG TAB PO SCH ×2 (07:58→21:11)
[2016-12-17] MEDS: PIPERACILLIN-TAZOBACTAM 3.375 GM in DEXTROSE/WATER 1 50ML.BAG IVPB SCH ×2 (07:59→20:59)
[2016-12-17] MEDS: MAGNESIUM OXIDE 400 MG TAB PO SCH ×2 (07:59→21:11)
[2016-12-17] MEDS: ALLOPURINOL 100 MG TAB PO SCH (07:59)
[2016-12-17] MEDS: VIT A,C & E-LUTEIN-MINERALS 1 EACH TAB PO SCH ×2 (07:59→21:11)
[2016-12-17] MEDS: FLUCONAZOLE 100 MG TAB PO SCH (07:59)
[2016-12-17] MEDS: TAMSULOSIN 0.4 MG CAP.ER.24H PO SCH (07:59)
[2016-12-17] MEDS: APIXABAN 2.5 MG TABLET PO SCH ×2 (07:59→21:11)
[2016-12-17] MEDS: PARoxetine 20 MG TAB PO SCH (08:00)
[2016-12-17] MEDS: VITAMIN E (DL,TOCOPHERYL ACET) 400 UNIT CAP PO SCH ×2 (08:00→21:11)
[2016-12-17] MEDS: SODIUM CHLORIDE 0.9% 1,000 ML IV SCH (08:00)
[2016-12-17 08:40] LABS: Manual Review Performed; Target Cells Present
[2016-12-17] MEDS: BUDESONIDE 0.5 MG/2 ML NEBU INHALATION SCH ×2 (09:27→20:47)
[2016-12-17] MEDS: ALBUTEROL NEBULIZED 2.5 MG/3 ML INHALATION PRN (09:27)
--- NOTE | 2016-12-17 11:15 | P.PN ---
Subjective Patient is seen in follow-up for end-stage renal disease. He is maintained on hemodialysis on a Wednesday schedule. Currently resting in bed. Denies any chest pain or shortness of breath. Tolerated dialysis well yesterday. No active complaints at this time. Vital signs are stable. General: The patient appeared well nourished and normally developed. HEENT: Head exam is unremarkable. Neck is without jugular venous distension. LUNGS: Lungs are clear to auscultation and percussion. Breath sounds decreased. HEART: Rate and Rhythm are regular. First and second heart sounds normal. No murmurs, rubs or gallops. ABDOMEN: Abdominal exam reveals normal bowel sounds. Non-tender and non- distended. No evidence of peritonitis. EXTREMITITES: 1+ edema. Objective - Vital Signs Vital signs: Vital Signs Temp 97 F L 12/17/16 07:56 Pulse 78 12/17/16 09:50 Resp 18 12/17/16 07:56 BP 90/53 12/17/16 07:56 Pulse Ox 98 12/17/16 07:56 Intake & Output 12/16/16 12/17/16 12/17/16 18:59 06:59 18:59 Intake Total 316 280 Output Total 10 Balance 316 -10 280 Weight 101 kg Intake: IV 80 Sodium Chloride 0.9% 1, 80 000 ml @ 10 mls/hr IV . Q24H [facility] Rx#:[id number] Oral 236 280 Output: Drainage 10 Right Abdomen 10 Other: Voiding Method Incontinent Incontinent Incontinent # Voids 1 0 # Bowel Movements 2 1 - Labs CBC & Chem 7: 12/17/16 06:45 12/17/16 06:44 Labs: Abnormal Lab Results - Last 24 Hours (Table) 12/16/16 12/16/16 12/17/16 Range/Units 11:59 16:51 06:44 WBC (3.8-10.6) k/uL RBC (4.30-5.90) m/uL Hgb (13.0-17.5) gm/dL Hct (39.0-53.0) % MCV (80.0-100.0) fL MCHC (31.0-37.0) g/dL RDW (11.5-15.5) % Plt Count (150-450) k/uL Sodium 136 L (137-145) mmol/L Creatinine 1.99 H (0.66-1.25) mg/dL POC Glucose (mg/dL) 126 H 110 H (75-99) mg/dL Calcium 7.7 L (8.4-10.2) mg/dL Phosphorus 1.6 L (2.5-4.5) mg/dL Magnesium 1.5 L (1.6-2.3) mg/dL 12/17/16 Range/Units 06:45 WBC 3.6 L (3.8-10.6) k/uL RBC 2.96 L (4.30-5.90) m/uL Hgb 9.2 L (13.0-17.5) gm/dL Hct 30.3 L (39.0-53.0) % MCV 102.1 H (80.0-100.0) fL MCHC 30.5 L (31.0-37.0) g/dL RDW 16.4 H (11.5-15.5) % Plt Count 99 L (150-450) k/uL Sodium (137-145) mmol/L Creatinine (0.66-1.25) mg/dL POC Glucose (mg/dL) (75-99) mg/dL Calcium (8.4-10.2) mg/dL Phosphorus (2.5-4.5) mg/dL Magnesium (1.6-2.3) mg/dL Microbiology - Last 24 Hours (Table) 12/10/16 10:09 Blood Culture - Final Blood No Growth after 144 hours Assessment and Plan Plan: Assessment: #1. End-stage renal disease maintained on hemodialysis on a Wednesday schedule. #2. Hypotension maintained on Midodrine. Asymptomatic. #3. Chronic liver disease status post paracentesis. #4. Anemia of chronic kidney disease. Plan: Hemodialysis tomorrow with goal 1-1-1/2 L ultrafiltration as blood pressure tolerates. Maintain Midodrine. Maintain Aranesp. Stable to be discharged back to [facility] from nephrology standpoint.
[2016-12-17 12:11] LABS: Glucose,Whole Blood 130 mg/dL (75-99)
--- NOTE | 2016-12-17 12:24 | P.PN ---
Subjective This is a very pleasant 76-year-old gentleman who presented here in 12/09/2016 with complaints of progressive weakness. He does have end-stage renal disease and is on hemodialysis 3 days a week. He had recently been treated for candidal urinary tract infection with Diflucan and C. difficile colitis with oral Flagyl. Upon admission he was found to be quite hypotensive and required fluid resuscitation and norepinephrine infusions. He was initially seen in the intensive care unit. The patient did have significant ascites and a paracentesis was performed by Dr. Nettles yesterday in 6 L of fluid was removed. He is seen again today 12/17/2016 in follow-up. He is currently on the selective care unit. He is awake and alert in no acute distress. He denies any worsening shortness of breath, cough or congestion. No chest pain, palpitations lightheadedness or dizziness. No significant abdominal discomfort. He is maintaining good O2 saturations in the mid 90s on room air. Afebrile. Today's chest x-ray reveals stable small to moderate bilateral pleural effusions. Objective - Vital Signs Vital signs: Vital Signs Temp 97 F L 12/17/16 07:56 Pulse 78 12/17/16 09:50 Resp 18 12/17/16 07:56 BP 90/53 12/17/16 07:56 Pulse Ox 98 12/17/16 07:56 Intake & Output 12/16/16 12/17/16 12/17/16 18:59 06:59 18:59 Intake Total 316 280 Output Total 10 Balance 316 -10 280 Weight 101 kg Intake: IV 80 Sodium Chloride 0.9% 1, 80 000 ml @ 10 mls/hr IV . Q24H [facility] Rx#:[id number] Oral 236 280 Output: Drainage 10 Right Abdomen 10 Other: Voiding Method Incontinent Incontinent Incontinent # Voids 1 0 # Bowel Movements 2 1 - Exam GENERAL EXAM: Alert, comfortable in no apparent distress. HEAD: Normocephalic. EYES: Normal reaction of pupils, equal size. NOSE: Clear with pink turbinates. THROAT: No erythema or exudates. NECK: No masses, no JVD. CHEST: No chest wall deformity. Right permacath dressing dry and intact. LUNGS: Equal air entry with no crackles, wheeze, rhonchi or dullness. CVS: S1 and S2 normal with no audible murmurs, irregular rhythm. ABDOMEN: Soft, normal bowel sounds, no guarding or rigidity. Extremities: There is trace peripheral edema. No clubbing, no cyanosis. Peripheral pulses are intact. - Labs CBC & Chem 7: 12/17/16 06:45 12/17/16 06:44 Labs: Abnormal Lab Results - Last 24 Hours (Table) 12/16/16 12/17/16 12/17/16 Range/Units 16:51 06:44 06:45 WBC 3.6 L (3.8-10.6) k/uL RBC 2.96 L (4.30-5.90) m/uL Hgb 9.2 L (13.0-17.5) gm/dL Hct 30.3 L (39.0-53.0) % MCV 102.1 H (80.0-100.0) fL MCHC 30.5 L (31.0-37.0) g/dL RDW 16.4 H (11.5-15.5) % Plt Count 99 L (150-450) k/uL Sodium 136 L (137-145) mmol/L Creatinine 1.99 H (0.66-1.25) mg/dL POC Glucose (mg/dL) 110 H (75-99) mg/dL Calcium 7.7 L (8.4-10.2) mg/dL Phosphorus 1.6 L (2.5-4.5) mg/dL Magnesium 1.5 L (1.6-2.3) mg/dL 12/17/16 Range/Units 12:04 WBC (3.8-10.6) k/uL RBC (4.30-5.90) m/uL Hgb (13.0-17.5) gm/dL Hct (39.0-53.0) % MCV (80.0-100.0) fL MCHC (31.0-37.0) g/dL RDW (11.5-15.5) % Plt Count (150-450) k/uL Sodium (137-145) mmol/L Creatinine (0.66-1.25) mg/dL POC Glucose (mg/dL) 130 H (75-99) mg/dL Calcium (8.4-10.2) mg/dL Phosphorus (2.5-4.5) mg/dL Magnesium (1.6-2.3) mg/dL Microbiology - Last 24 Hours (Table) 12/10/16 10:09 Blood Culture - Final Blood No Growth after 144 hours Assessment and Plan Plan: i LeandraAP impression: #1 Acute hypotension. The patient runs a low blood pressure at baseline and there was initial further drops requiring norepinephrine. He is currently receiving hemodialysis. There was some concern regarding sepsis. C. difficile screen was ruled out. Cardiogenic causes were felt to be less likely. The patient is awake and alert and in no acute distress. His clinical picture does not always correlate with his cuff blood pressures. #2 Ascites, status post paracentesis with 6 L of fluid removed. Pathology revealed a very rare possible mesothelial cell. Essentially nondiagnostic. No clear evidence of SIPP. #3 Coronary artery disease with previous coronary artery bypass grafting. Two- dimensional echocardiogram did not reveal any significant LV dysfunction or pericardial effusion. #4 Chronic atrial fibrillation, anticoagulated with Eliquis. #5 End-stage renal disease currently receiving hemodialysis. #6 Nephrolithiasis. #7 Urinary tract infections with previous infections with Charley and E. coli. #8 Macular degeneration. #9 History of gout. #10 Chronic back pain. #11 Chronic obstructive pulmonary disease, currently inactive and stable. Plan: The patient was seen and evaluated by Dr. Romeo. The patient is stable from the pulmonary standpoint. No oxygen supplementation requirements. Today's chest x-ray reveals stable bilateral pleural effusions. Blood cultures reveal no growth to date. We will continue his current medications. We will increase his activity as tolerated. We'll continue to follow make further recommendations based on his clinical status. The plan is for possible transfer to an extended care facility tomorrow.
[2016-12-17] MEDS: MAGNESIUM SULFATE-D5W PMX 1 GM in DEXTROSE/WATER 1 100ML.BAG IVPB SCH ×2 (12:39→13:44)
[2016-12-17] MEDS: CHOLECALCIFEROL 1,000 UNIT TAB PO SCH (12:39)
--- NOTE | 2016-12-17 14:34 | P.PN ---
Subjective Principal diagnosis: Weakness This is a pleasant 76-year-old gentleman who initially presented to the hospital the beginning of this month with symptoms of progressive weakness. He has a history of end-stage renal disease on hemodialysis, patient was also found to be quite hypotensive requiring fluid and norepinephrine infusion on admission here. Patient also had significant ascites and underwent a paracentesis. He is now being followed on the telemetry unit, awake and alert, denies any shortness of breath, no chest discomfort. Chest x-ray performed today revealed small to moderate bilateral pleural effusions. Patient has also been in and out of atrial fibrillation, for this reason cardiology consultation had been requested. Overall he is doing well from a cardiology standpoint. He is currently on amiodarone, Pravachol, and Eliquis which we would recommend to continue. Blood pressure 90/50 with heart rate in the 70s. Objective - Vital Signs Vital signs: Vital Signs Temp 97 F L 12/17/16 07:56 Pulse 70 12/17/16 12:00 Resp 18 12/17/16 12:00 BP 90/45 12/17/16 12:00 Pulse Ox 99 12/17/16 12:00 Intake & Output 12/16/16 12/17/16 12/17/16 18:59 06:59 18:59 Intake Total 316 660 Output Total 10 Balance 316 -10 660 Weight 101 kg Intake: IV 80 180 Magnesium Sulfate-D5w Pmx 100 1 gm In Dextrose/Water 1 100ml.bag @ 100 mls/hr IVPB Q1H [facility] Rx#: [id number] Sodium Chloride 0.9% 1, 80 80 000 ml @ 10 mls/hr IV . Q24H [facility] Rx#:[id number] Oral 236 480 Output: Drainage 10 Right Abdomen 10 Other: Voiding Method Incontinent Incontinent Incontinent # Voids 1 0 # Bowel Movements 2 1 - Exam PHYSICAL EXAMINATION: HEENT: Head is atraumatic, normocephalic. Pupils equal, round. Neck is supple. There is no elevated jugular venous pressure. HEART EXAMINATION: Heart S1, S2 normal. No murmur or gallop heard. CHEST EXAMINATION: Lungs are clear with mild diminished air entry to bilateral bases. ABDOMEN: Soft, nontender. Bowel sounds are heard. No organomegaly noted. EXTREMITIES: 2+ peripheral pulses with trace evidence of peripheral edema and no calf tenderness noted. NEUROLOGIC patient is awake, alert and oriented -3. . - Labs CBC & Chem 7: 12/17/16 06:45 12/17/16 06:44 Labs: Abnormal Lab Results - Last 24 Hours (Table) 12/16/16 12/17/16 12/17/16 Range/Units 16:51 06:44 06:45 WBC 3.6 L (3.8-10.6) k/uL RBC 2.96 L (4.30-5.90) m/uL Hgb 9.2 L (13.0-17.5) gm/dL Hct 30.3 L (39.0-53.0) % MCV 102.1 H (80.0-100.0) fL MCHC 30.5 L (31.0-37.0) g/dL RDW 16.4 H (11.5-15.5) % Plt Count 99 L (150-450) k/uL Sodium 136 L (137-145) mmol/L Creatinine 1.99 H (0.66-1.25) mg/dL POC Glucose (mg/dL) 110 H (75-99) mg/dL Calcium 7.7 L (8.4-10.2) mg/dL Phosphorus 1.6 L (2.5-4.5) mg/dL Magnesium 1.5 L (1.6-2.3) mg/dL 12/17/16 Range/Units 12:04 WBC (3.8-10.6) k/uL RBC (4.30-5.90) m/uL Hgb (13.0-17.5) gm/dL Hct (39.0-53.0) % MCV (80.0-100.0) fL MCHC (31.0-37.0) g/dL RDW (11.5-15.5) % Plt Count (150-450) k/uL Sodium (137-145) mmol/L Creatinine (0.66-1.25) mg/dL POC Glucose (mg/dL) 130 H (75-99) mg/dL Calcium (8.4-10.2) mg/dL Phosphorus (2.5-4.5) mg/dL Magnesium (1.6-2.3) mg/dL Microbiology - Last 24 Hours (Table) 12/10/16 10:09 Blood Culture - Final Blood No Growth after 144 hours Assessment and Plan (1) Ascites Status: Acute (2) History of coronary artery bypass graft Status: Acute (3) End stage renal disease on dialysis Status: Acute (4) UTI (urinary tract infection) Status: Acute (5) COPD (chronic obstructive pulmonary disease) Status: Acute (6) Paroxysmal atrial fibrillation Status: Acute (7) Hypotension Status: Acute Plan: From cardiology's perspective, we will recommend to continue the patient on amiodarone, Eliquis 2-1/2 mg one tablet by mouth twice a day, along with pravastatin 20 mg daily. DNP note has been reviewed, I agree with a documented findings and plan of care. Patient was seen and examined.
[2016-12-17 15:25] VITALS: BMI 35.9
[2016-12-17 16:52] LABS: Glucose,Whole Blood 128 mg/dL (75-99)
[2016-12-17 20:54] LABS: Glucose,Whole Blood 113 mg/dL (75-99)
[2016-12-17] MEDS: PRAVASTATIN SODIUM 20 MG TAB PO SCH (21:11)
[2016-12-18 06:02] VITALS: TEMP 97.7
[2016-12-18] MEDS: MIDODRINE 5 MG TAB PO SCH ×3 (06:25→17:22)
[2016-12-18] MEDS: LEVOTHYROXINE 50 MCG TAB PO SCH (06:25)
[2016-12-18] MEDS: PANTOPRAZOLE 40 MG TABLET PO SCH (06:25)
[2016-12-18] MEDS: INSULIN LISPRO (humaLOG) 300 UNIT/3 ML VIAL SQ SCH ×3 (06:26→17:21)
[2016-12-18 06:27] LABS: Glucose,Whole Blood 92 mg/dL (75-99)
[2016-12-18 06:38] LABS: Anisocytosis Slight; CH 31.3; CHCM 30.7; HCT 29.3 % (39.0-53.0); HDW 2.59; Hypochromasia Moderate; MCH 31.6 pg (25.0-35.0); MCHC 30.8 g/dL (31.0-37.0); MCV 102.4 fL (80.0-100.0); Macrocytosis Slight; Mean Platelet Volume 8.6; RBC 2.86 m/uL (4.30-5.90); RDW 16.3 % (11.5-15.5); WBC 4.4 k/uL (3.8-10.6)
[2016-12-18 07:19] LABS: Calcium 8.1 mg/dL (8.4-10.2); Magnesium 2.2 mg/dL (1.6-2.3); Potassium 3.6 mmol/L (3.5-5.1); Total Bilirubin 0.5 mg/dL (0.2-1.3); Total Protein 4.1 g/dL (6.3-8.2)
[2016-12-18] MEDS: BUDESONIDE 0.5 MG/2 ML NEBU INHALATION SCH (07:33)
--- NOTE | 2016-12-18 08:23 | P.DS ---
Providers Date of admission: 12/09/16 14:15 Attending physician: Renato Titus Consults: 12/09/16 14:51 Consult Physician Urgent Consulting Provider: Rubén Felder Consult Reason/Comments: prolonged QT Do you want consulting provider notified?: Yes 12/09/16 23:54 Consult Physician Urgent Consulting Provider: Trav Da Silva Consult Reason/Comments: icu management Do you want consulting provider notified?: Yes 12/13/16 11:59 Consult Physician Urgent Consulting Provider: Raheem Mendoza Consult Reason/Comments: afib Do you want consulting provider notified?: Already Contacted Primary care physician: Harpal Becker - Discharge Diagnosis(es) (1) Hypotension Current Visit: Yes Status: Acute (2) [id number] renal failure Current Visit: No Status: Acute (3) CAD (coronary artery disease) Current Visit: No Status: Acute (4) Falls Current Visit: No Status: Acute (5) Persistent atrial fibrillation Current Visit: No Status: Acute (6) Weakness Current Visit: No Status: Acute (7) Ascites Current Visit: Yes Status: Acute (8) COPD (chronic obstructive pulmonary disease) Current Visit: Yes Status: Acute (9) End stage renal disease on dialysis Current Visit: Yes Status: Acute (10) Paroxysmal atrial fibrillation Current Visit: Yes Status: Acute Hospital Course: This is 76-year-old white male essentially admitted for overt weakness and shortness of breath. He was found have significant ascites which is most likely related to history of significant ethanol use. He is on that hemodialysis for end-stage renal disease and this was continued. Paracentesis was done removing about 6 L of fluid. The patient is significantly weak. 2 days prior to discharge, the patient did wish to have complete CODE STATUS as a full code. However, discharge planning has discussed with the family the possibility and initiation of hospice if changing her mind is noted. The patient's prognosis is guarded secondary to his end-stage renal disease and significant ascites. Multiple consultants on during his hospitalization including cardiology, nephrology with gastroenterology. The patient will be discharged with appropriate rehab secondary to his weakness. Patient Condition at Discharge: Fair Plan - Discharge Summary New Discharge Prescriptions: Amiodarone [Cordarone] 200 mg PO BID #60 tab Hydrocodone/Acetaminophen [[place] 5-325] 1 tab PO BID PRN #60 tablet PRN Reason: Pain Midodrine [ProAmatine] 10 mg PO AC-TID #90 tab Discharge Medication List Albuterol Sulfate [Proair Hfa] 2 puff INHALATION RT-QID PRN 10/16/16 [History] Allopurinol [Zyloprim] 100 mg PO QAM 10/16/16 [History] Amiodarone HCl [Cordarone] 100 mg PO HS 10/16/16 [History] Budesonide [Pulmicort Flexhaler] 2 puff INHALATION RT-DAILY 10/16/16 [History] Cholecalciferol [Vitamin D3] 1,000 unit PO DAILY 10/16/16 [History] Fish Oil/Dha/Epa [Fish Oil 1,200 mg Fish Oil] 1 cap PO HS 10/16/16 [History] Furosemide [Lasix] [facility] 10/16/16 [History] Lansoprazole [Prevacid] 15 mg PO DAILY 10/16/16 [History] Lisinopril [Prinivil] 5 mg PO [facility] 10/16/16 [History] Magnesium Oxide 400 mg PO BID 10/16/16 [History] Metoprolol Tartrate [Lopressor] [facility] 10/16/16 [History] PARoxetine [Paxil] 20 mg PO DAILY 10/16/16 [History] Pravastatin Sodium [Pravachol] 20 mg PO HS 10/16/16 [History] Vit C/E/Zinc[facility]Lutein[facility]Zeaxanthin [facility] 1 tab PO BID [History] Vitamin E (Dl,Tocopheryl Acet) [Vitamin E] 400 unit PO BID 10/16/16 [History] Apixaban [Eliquis] 2.5 mg PO BID #60 tab 10/25/16 [Rx] Tamsulosin [Flomax] 0.4 mg PO PC-BRKFST #30 cap.er.24h 10/25/16 [Rx] Albuterol Nebulized [Ventolin Nebulized] 2.5 mg INHALATION RT-Q6H PRN 11/26/16 [ History] Fluconazole [Diflucan] 100 mg PO DAILY #10 tab 12/01/16 [Rx] metroNIDAZOLE [Flagyl] 500 mg PO QID #28 tab 12/01/16 [Rx] Ondansetron [Zofran] 4 mg PO Q8H PRN 12/09/16 [History] Periguard Oint 1 applic TOPICAL TID 12/09/16 [History] Amiodarone [Cordarone] 200 mg PO BID #60 tab 12/18/16 [Rx] Darbepoetin Stoney [Aranesp] 40 mcg SQ Q7D syringe 12/18/16 [Rx] Hydrocodone/Acetaminophen [[place] 5-325] 1 tab PO BID PRN #60 tablet 12/18/16 [Rx ] Midodrine [ProAmatine] 10 mg PO AC-TID #90 tab 12/18/16 [Rx] Follow up Appointment(s)/Referral(s): Anuj Bobby MD [STAFF PHYSICIAN] - 1 Week Harpal Becker MD [Primary Care Provider] - 1-2 days Discharge Disposition: TRANSFER TO SNF/ECF
[2016-12-18] MEDS: PIPERACILLIN-TAZOBACTAM 3.375 GM in DEXTROSE/WATER 1 50ML.BAG IVPB SCH (08:57)
[2016-12-18] MEDS: VITAMIN E (DL,TOCOPHERYL ACET) 400 UNIT CAP PO SCH (08:58)
[2016-12-18] MEDS: APIXABAN 2.5 MG TABLET PO SCH (08:58)
[2016-12-18] MEDS: FLUCONAZOLE 100 MG TAB PO SCH (08:58)
[2016-12-18] MEDS: ALLOPURINOL 100 MG TAB PO SCH (08:58)
[2016-12-18] MEDS: VIT A,C & E-LUTEIN-MINERALS 1 EACH TAB PO SCH (08:58)
[2016-12-18] MEDS: MAGNESIUM OXIDE 400 MG TAB PO SCH (08:58)
[2016-12-18] MEDS: AMIODARONE 200 MG TAB PO SCH (08:58)
[2016-12-18] MEDS: SODIUM CHLORIDE 0.9% 1,000 ML IV SCH (08:59)
[2016-12-18] MEDS: CHOLECALCIFEROL 1,000 UNIT TAB PO SCH (08:59)
[2016-12-18] MEDS: PARoxetine 20 MG TAB PO SCH (08:59)
[2016-12-18] MEDS: TAMSULOSIN 0.4 MG CAP.ER.24H PO SCH (08:59)
[2016-12-18 10:04] VITALS: RESP 18
--- NOTE | 2016-12-18 10:58 | P.PN ---
Subjective Principal diagnosis: Weakness This is a pleasant 76-year-old gentleman who initially presented to the hospital the beginning of this month with symptoms of progressive weakness. He has a history of end-stage renal disease on hemodialysis, patient was also found to be quite hypotensive requiring fluid and norepinephrine infusion on admission here. Patient also had significant ascites and underwent a paracentesis. He is now being followed on the telemetry unit, awake and alert, denies any shortness of breath, no chest discomfort. Patient has also been in and out of atrial fibrillation, for this reason cardiology consultation had been requested. Overall he is doing well from a cardiology standpoint. He is currently on amiodarone, Pravachol, and Eliquis which we would recommend to continue. Blood pressure 90/50 with heart rate in the 70s. Objective - Vital Signs Vital signs: Vital Signs Temp 97.7 F 12/18/16 08:00 Pulse 105 H 12/18/16 08:00 Resp 18 12/18/16 08:00 BP 102/60 12/18/16 08:00 Pulse Ox 97 12/18/16 08:00 Intake & Output 12/17/16 12/18/16 12/18/16 18:59 06:59 18:59 Intake Total 1060 500 Output Total 1 3 1 Balance 1059 497 -1 Weight 101 kg 99.5 kg Intake: IV 180 260 Magnesium Sulfate-D5w Pmx 100 100 1 gm In Dextrose/Water 1 100ml.bag @ 100 mls/hr IVPB Q1H [facility] Rx#: [id number] Sodium Chloride 0.9% 1, 80 160 000 ml @ 10 mls/hr IV . Q24H [facility] Rx#:[id number] Oral 880 240 Output: Urine 0 0 Stool 1 3 1 Other: Voiding Method Incontinent Incontinent Incontinent # Voids 0 0 # Bowel Movements 1 - Exam PHYSICAL EXAMINATION: HEENT: Head is atraumatic, normocephalic. Pupils equal, round. Neck is supple. There is no elevated jugular venous pressure. HEART EXAMINATION: Heart S1, S2 normal. No murmur or gallop heard. CHEST EXAMINATION: Lungs are clear with mild diminished air entry to bilateral bases. ABDOMEN: Soft, nontender. Bowel sounds are heard. No organomegaly noted. EXTREMITIES: 2+ peripheral pulses with trace evidence of peripheral edema and no calf tenderness noted. NEUROLOGIC patient is awake, alert and oriented -3. . - Labs CBC & Chem 7: 12/18/16 06:09 12/18/16 06:09 Labs: Abnormal Lab Results - Last 24 Hours (Table) 12/17/16 12/17/16 12/17/16 Range/Units 12:04 16:48 20:52 RBC (4.30-5.90) m/uL Hgb (13.0-17.5) gm/dL Hct (39.0-53.0) % MCV (80.0-100.0) fL MCHC (31.0-37.0) g/dL RDW (11.5-15.5) % Plt Count (150-450) k/uL Sodium (137-145) mmol/L Creatinine (0.66-1.25) mg/dL POC Glucose (mg/dL) 130 H 128 H 113 H (75-99) mg/dL Calcium (8.4-10.2) mg/dL Total Protein (6.3-8.2) g/dL Albumin (3.5-5.0) g/dL 12/18/16 12/18/16 Range/Units 06:09 06:09 RBC 2.86 L (4.30-5.90) m/uL Hgb 9.0 L (13.0-17.5) gm/dL Hct 29.3 L (39.0-53.0) % MCV 102.4 H (80.0-100.0) fL MCHC 30.8 L (31.0-37.0) g/dL RDW 16.3 H (11.5-15.5) % Plt Count 116 L (150-450) k/uL Sodium 135 L (137-145) mmol/L Creatinine 2.73 H (0.66-1.25) mg/dL POC Glucose (mg/dL) (75-99) mg/dL Calcium 8.1 L (8.4-10.2) mg/dL Total Protein 4.1 L (6.3-8.2) g/dL Albumin 1.9 L (3.5-5.0) g/dL Assessment and Plan (1) Ascites Status: Acute (2) History of coronary artery bypass graft Status: Acute (3) End stage renal disease on dialysis Status: Acute (4) UTI (urinary tract infection) Status: Acute (5) COPD (chronic obstructive pulmonary disease) Status: Acute (6) Paroxysmal atrial fibrillation Status: Acute (7) Hypotension Status: Acute Plan: From cardiology's perspective, we will recommend to continue the patient on amiodarone, Eliquis 2-1/2 mg one tablet by mouth twice a day, along with pravastatin 20 mg daily. A follow-up appointment will be made in the office post discharge. DNP note has been reviewed, I agree with a documented findings and plan of care. Patient was seen and examined.
[2016-12-18 12:25] LABS: Glucose,Whole Blood 105 mg/dL (75-99)
--- NOTE | 2016-12-18 14:27 | PN ---
Patient is seen for follow-up for end-stage renal disease. He is currently lying in bed. He is comfortable, not in any acute distress. A small bedsore is noted. On examination, blood pressure was 102/60, heart rate 105 to 81 per minute. He is afebrile. Examination of the heart S1 and S2. Examination of the lungs: Bilateral breath sounds are heard. Decreased breath sounds in bases. Abdomen is soft, distended with ascites, nontender. Examination of lower extremities shows chronic skin changes. Edema 1+ bilaterally. Labs show sodium 135, potassium 3.6. Hemoglobin at 9 g/dL. ASSESSMENT: 1. End-stage renal disease on hemodialysis on a Wednesday, Wednesday, Wednesday schedule as outpatient. 2. Ascites with underlying chronic liver disease, status post paracentesis with leaking at the site of the paracentesis. 3. Hypotension, currently improved. Patient remains on midodrine. 4. Chronic atrial fibrillation with controlled ventricular response. PLAN: Hemodialysis today with goal UF of about 1 to 1.5 liters as tolerated.
[2016-12-18 17:11] LABS: Glucose,Whole Blood 113 mg/dL (75-99)
[2016-12-18 17:41] VITALS: BP 109/65; PULSE 78
[2016-12-18] MEDS ORDERED: HEPARIN SODIUM,PORCINE 5,000 UNIT/ML 1 ML VIAL ONE (18:30)
== END 2016-12-18 19:26 | DRG 432 ==
LOC: EC 10:30 → 6SEL 14:15 → 6ICU 12-10 00:34 → 6SEL 12-15 22:15
PROVIDERS: ADMIT Family Medicine; ATTEND Family Medicine
PROC: 5A1D60Z (ICD-10-PCS; principal; 2016-12-10)
PROC: 0W9G3ZZ Drainage of Peritoneal Cavity, Percutaneous Approach (ICD-10-PCS; 2016-12-11)
DX: K70.31 Alcoholic cirrhosis of liver with ascites (principal); K76.7 Hepatorenal syndrome; I13.2 Hypertensive heart and chronic kidney disease with heart failure and with stage 5 chronic kidney disease, or end stage renal disease; N17.9 Acute kidney failure, unspecified; N18.6 End stage renal disease; I95.89 Other hypotension; I48.1 Persistent atrial fibrillation; K72.90 Hepatic failure, unspecified without coma; E11.22 Type 2 diabetes mellitus with diabetic chronic kidney disease; E86.1 Hypovolemia; I48.0 Paroxysmal atrial fibrillation; E83.39 Other disorders of phosphorus metabolism; F32.9 Major depressive disorder, single episode, unspecified; I15.9 Secondary hypertension, unspecified; I48.2 Chronic atrial fibrillation; E03.9 Hypothyroidism, unspecified; E78.5 Hyperlipidemia, unspecified; D63.1 Anemia in chronic kidney disease; E87.6 Hypokalemia; F41.9 Anxiety disorder, unspecified; G47.33 Obstructive sleep apnea (adult) (pediatric); G89.29 Other chronic pain; H35.30 Unspecified macular degeneration; H54.8 Legal blindness, as defined in USA; I25.10 Atherosclerotic heart disease of native coronary artery without angina pectoris; Z99.2 Dependence on renal dialysis; I50.9 Heart failure, unspecified; J44.9 Chronic obstructive pulmonary disease, unspecified; J45.909 Unspecified asthma, uncomplicated; K21.9 Gastro-esophageal reflux disease without esophagitis; L89.90 Pressure ulcer of unspecified site, unspecified stage; M10.9 Gout, unspecified; Z79.01 Long term (current) use of anticoagulants; Z80.51 Family history of malignant neoplasm of kidney; Z85.828 Personal history of other malignant neoplasm of skin; Z87.440 Personal history of urinary (tract) infections; Z87.442 Personal history of urinary calculi; Z87.891 Personal history of nicotine dependence; Z93.3 Colostomy status; Z95.1 Presence of aortocoronary bypass graft; Z96.653 Presence of artificial knee joint, bilateral
CPT/HCPCS: 36415; 71010; 71020; 74176; 80048; 80053; 80299; 82042; 82150; 82248; 82550; 82553; 82945; 83036; 83605; 83690; 83735; 84100; 84132; 84157; 84439; 84443; 84481; 84484; 85025; 85027; 85610; 85730; 86704; 86705; 86706; 87040; 87070; 87075; 87205; 87324; 87340; 87493; 87522; 88305; 89050; 90935; 93005; 93308; 94640; 96360; 96361; 99285

== ENCOUNTER 2017-01-05 22:04 | Inpatient (IN) | payer MEDICARE, BC ==
[2017-01-05] MEDS ORDERED: IPRATROPIUM-ALBUTEROL 3 ML NEB INHALATION STA (22:35)
--- NOTE | 2017-01-05 22:38 | ED ---
General Adult HPI - General Chief complaint: Shortness of Breath Stated complaint: Dyspnea Time Seen by Provider: 01/05/17 22:25 Source: patient, family, EMS, RN notes reviewed Mode of arrival: EMS Limitations: no limitations - History of Present Illness Initial comments: Patient is a pleasant 76-year-old male presenting to the emergency department complaining of shortness of breath. Symptoms have been also present today. Patient has had some mild symptoms for a couple of days. Patient does have a cough with some clear sputum. No fever. Patient does have a history of COPD. Patient also has a history of ascites however they're unclear if he has liver disease. - Related Data Home Medications Medication Instructions Recorded Confirmed Albuterol Sulfate [Proair Hfa] 2 puff INHALATION RT-QID PRN 10/16/16 01/05/17 Allopurinol [Zyloprim] 100 mg PO DAILY 10/16/16 01/05/17 Cholecalciferol [Vitamin D3] 1,000 unit PO DAILY 10/16/16 01/05/17 Fish Oil/Dha/Epa [Fish Oil 1,200 1 cap PO HS 10/16/16 01/05/17 mg Fish Oil] Lansoprazole [Prevacid] 15 mg PO DAILY 10/16/16 01/05/17 Magnesium Oxide 400 mg PO BID 10/16/16 01/05/17 PARoxetine [Paxil] 20 mg PO DAILY 10/16/16 01/05/17 Pravastatin Sodium [Pravachol] 20 mg PO HS 10/16/16 01/05/17 Vit C/E/Zinc/Lutein/Zeaxanthin 1 tab PO BID 10/16/16 01/05/17 [[facility]] Vitamin E (Dl,Tocopheryl Acet) 400 unit PO BID 10/16/16 01/05/17 [Vitamin E] Albuterol Nebulized [Ventolin 2.5 mg INHALATION RT-Q6H PRN 11/26/16 01/05/17 Nebulized] Ondansetron [Zofran] 4 mg PO Q8H PRN 12/09/16 01/05/17 Budesonide [Pulmicort Flexhaler] 2 puff INHALATION RT-DAILY 01/05/17 01/05/17 INSULIN LISPRO (humaLOG) [HumaLOG] See Protocol SQ ACHS 01/05/17 01/05/17 Levothyroxine Sodium [Synthroid] 50 mcg PO HS 01/05/17 01/05/17 Midodrine HCl [ProAmatine] 10 mg PO AC-TID 01/05/17 01/05/17 Nepro 1 can PO TID-W/MEALS 01/05/17 01/05/17 Previous Rx's Medication Instructions Recorded Apixaban [Eliquis] 2.5 mg PO BID #60 tab 10/25/16 Tamsulosin [Flomax] 0.4 mg PO PC-BRKFST #30 cap.er.24h 10/25/16 Amiodarone [Cordarone] 200 mg PO BID #60 tab 12/18/16 Hydrocodone/Acetaminophen [[place] 1 tab PO BID PRN #60 tablet 12/18/16 5-325] Allergies Allergy/AdvReac Type Severity Reaction Status Date / Time No Known Allergies Allergy Verified 01/05/17 22:34 Review of Systems ROS Statement: Those systems with pertinent positive or pertinent negative responses have been documented in the HPI. ROS Other: All systems not noted in ROS Statement are negative. Constitutional: Denies: fever Eyes: Denies: eye pain ENT: Denies: ear pain Respiratory: Reports: cough, dyspnea Cardiovascular: Denies: chest pain Endocrine: Reports: fatigue Gastrointestinal: Reports: abdominal pain (Distention) Genitourinary: Denies: dysuria Musculoskeletal: Denies: back pain Skin: Denies: rash Neurological: Denies: weakness Past Medical History Past Medical History: Asthma, Coronary Artery Disease (CAD), Cancer, Heart Failure, COPD, Diabetes Mellitus, GERD/Reflux, Hyperlipidemia, Osteoarthritis ( OA), Sleep Apnea/CPAP/BIPAP Additional Past Medical History / Comment(s): Coronary artery disease with a previous coronary artery bypass surgery, chronic atrial fibrillation maintained on anticoagulation, COPD, end-stage renal disease and the currently the patient is on hemodialysis, nephrolithiasis and kidney stones, Charley urinary tract infection along with previous E. coli urinary tract infection, macular degeneration, gout, chronic back pain, chronic degenerative disc disease, skin cancer of a squamous cell type, osteoarthritis, obstructive sleep apnea maintained on CPAP on outpatient basis, hyperlipidemia, diabetes mellitus, chronic hypotension maintained on midodrine on outpatient basis History of Any Multi-Drug Resistant Organisms: None Reported, C-DIFF Date of last positivie culture/infection: C.diff retested negative 12/10/16 ( C.diff was positive 11/27/16) MDRO Source:: Stool Past Surgical History: Coronary Bypass/CABG, Joint Replacement, Orthopedic Surgery, Tonsillectomy Additional Past Surgical History / Comment(s): Coronary artery bypass surgery bilateral cataract surgery, laser eye surgery for macular degeneration, colonoscopy with polypectomy, bilateral knee replacement, eye surgery involving the tear ducts with placement of implants, ORIF for a right ankle fracture with insertion of plate and screws, insertion of a permacath for dialysis access. Past Anesthesia/Blood Transfusion Reactions: No Reported Reaction Past Psychological History: Anxiety, Depression Additional Psychological History / Comment(s): paxil Smoking Status: Former smoker Past Alcohol Use History: None Reported Additional Past Alcohol Use History / Comment(s): started smoking at age 17 later on in life swithced to cigars then quit 2008. pt admits to 3 drinks a day( whiskey) Past Drug Use History: None Reported - Past Family History Mother Family Medical History: Cancer Additional Family Medical History / Comment(s): kidney cancer Father Family Medical History: Cancer, Prostate Disorder Additional Family Medical History / Comment(s): prostate cancer Brother(s) History Unknown: Yes General Exam Limitations: no limitations General appearance: alert, in no apparent distress Head exam: Present: atraumatic Eye exam: Present: normal appearance, PERRL ENT exam: Present: normal oropharynx Neck exam: Present: normal inspection Respiratory exam: Present: wheezes (Mild expiratory) Cardiovascular Exam: Present: regular rate, normal rhythm GI/Abdominal exam: Present: soft, distended (Ascites), tenderness (Diffuse) Extremities exam: Present: normal inspection Neurological exam: Present: alert Psychiatric exam: Present: normal affect, normal mood Skin exam: Absent: rash Course Vital Signs 01/05/17 01/05/17 01/05/17 22:08 22:51 23:05 Temperature 98.3 F Pulse Rate 85 96 82 Respiratory 20 24 Rate Blood Pressure 101/58 106/58 O2 Sat by Pulse 96 93 L Oximetry 01/05/17 23:16 Temperature Pulse Rate 89 Respiratory Rate Blood Pressure O2 Sat by Pulse Oximetry EKG Findings - EKG Comments: EKG Findings:: Normal sinus rhythm at 84. MA 188. QRS 72. QT 434. QTC 512. Normal axis. Poor R-wave progression. Low QRS voltage. No acute ST change. Medical Decision Making - Medical Decision Making Patient reexamined and resting comfortably in bed. Patient states he did have dialysis today. Patient updated on results and plan. Case was discussed in detail with Dr. Kapoor, who will admit his patient with consult for interventional radiology for paracentesis. - Lab Data Result diagrams: 01/05/17 22:20 01/05/17 22:20 Lab Results 01/05/17 01/05/17 01/05/17 Range/Units 22:20 22:20 22:20 WBC 5.2 (3.8-10.6) k/uL RBC 3.98 L (4.30-5.90) m/uL Hgb 12.7 L D (13.0-17.5) gm/dL Hct 40.4 (39.0-53.0) % MCV 101.6 H (80.0-100.0) fL MCH 31.8 (25.0-35.0) pg MCHC 31.3 (31.0-37.0) g/dL RDW 15.7 H (11.5-15.5) % Plt Count 159 (150-450) k/uL Neutrophils % 72 % Lymphocytes % 17 % Monocytes % 8 % Eosinophils % 0 % Basophils % 1 % Neutrophils # 3.8 (1.3-7.7) k/uL Lymphocytes # 0.9 L (1.0-4.8) k/uL Monocytes # 0.4 (0-1.0) k/uL Eosinophils # 0.0 (0-0.7) k/uL Basophils # 0.0 (0-0.2) k/uL Hypochromasia Slight Macrocytosis Slight PT (9.0-12.0) sec INR (<1.1) APTT (22.0-30.0) sec Sodium 133 L (137-145) mmol/L Potassium 3.2 L (3.5-5.1) mmol/L Chloride 93 L (98-107) mmol/L Carbon Dioxide 31 H (22-30) mmol/L Anion Gap 9 mmol/L BUN 7 L (9-20) mg/dL Creatinine 2.52 H (0.66-1.25) mg/dL Est GFR (MDRD) Af Amer 30 (>60 ml/min/1.73 sqM) Est GFR (MDRD) Non-Af 25 (>60 ml/min/1.73 sqM) Glucose 97 (74-99) mg/dL Calcium 8.1 L (8.4-10.2) mg/dL Total Bilirubin 0.7 (0.2-1.3) mg/dL AST 39 (17-59) U/L ALT 25 (21-72) U/L Alkaline Phosphatase 116 (38-126) U/L Total Creatine Kinase 21 L (55-170) U/L CK-MB (CK-2) 1.9 (0.0-2.4) ng/mL CK-MB (CK-2) Rel Index 9.0 Troponin I <0.012 (0.000-0.034) ng/mL NT-Pro-B Natriuret Pep pg/mL Total Protein 5.4 L (6.3-8.2) g/dL Albumin 2.6 L (3.5-5.0) g/dL 01/05/17 01/05/17 Range/Units 22:20 22:20 WBC (3.8-10.6) k/uL RBC (4.30-5.90) m/uL Hgb (13.0-17.5) gm/dL Hct (39.0-53.0) % MCV (80.0-100.0) fL MCH (25.0-35.0) pg MCHC (31.0-37.0) g/dL RDW (11.5-15.5) % Plt Count (150-450) k/uL Neutrophils % % Lymphocytes % % Monocytes % % Eosinophils % % Basophils % % Neutrophils # (1.3-7.7) k/uL Lymphocytes # (1.0-4.8) k/uL Monocytes # (0-1.0) k/uL Eosinophils # (0-0.7) k/uL Basophils # (0-0.2) k/uL Hypochromasia Macrocytosis PT 14.0 H (9.0-12.0) sec INR 1.4 (<1.1) APTT 27.9 (22.0-30.0) sec Sodium (137-145) mmol/L Potassium (3.5-5.1) mmol/L Chloride (98-107) mmol/L Carbon Dioxide (22-30) mmol/L Anion Gap mmol/L BUN (9-20) mg/dL Creatinine (0.66-1.25) mg/dL Est GFR (MDRD) Af Amer (>60 ml/min/1.73 sqM) Est GFR (MDRD) Non-Af (>60 ml/min/1.73 sqM) Glucose (74-99) mg/dL Calcium (8.4-10.2) mg/dL Total Bilirubin (0.2-1.3) mg/dL AST (17-59) U/L ALT (21-72) U/L Alkaline Phosphatase (38-126) U/L Total Creatine Kinase (55-170) U/L CK-MB (CK-2) (0.0-2.4) ng/mL CK-MB (CK-2) Rel Index Troponin I (0.000-0.034) ng/mL NT-Pro-B Natriuret Pep 8560 pg/mL Total Protein (6.3-8.2) g/dL Albumin (3.5-5.0) g/dL - Radiology Data Radiology results: image reviewed (Chest x-ray shows posterior effusion.) Disposition Clinical Impression: Ascites, Dyspnea Disposition: ADMITTED IP TO THIS HOSP
[2017-01-05 22:51] LABS: Basophils % (A) 1 %; CH 31.7; CHCM 31.5; Eosinophils % (A) 0 %; HCT 40.4 % (39.0-53.0); HDW 2.89; Hypochromasia Slight; Luc # (Auto) 0.13; Luc % (Auto) 2; Lymphocytes # (A) 0.9 k/uL (1.0-4.8); Lymphocytes % (A) 17 %; MCH 31.8 pg (25.0-35.0); MCHC 31.3 g/dL (31.0-37.0); MCV 101.6 fL (80.0-100.0); Macrocytosis Slight; Mean Platelet Volume 7.5; Monocytes # (A) 0.4 k/uL (0-1.0); Monocytes % (A) 8 %; Neutrophils # (A) 3.8 k/uL (1.3-7.7); Neutrophils % (A) 72 %; RBC 3.98 m/uL (4.30-5.90); RDW 15.7 % (11.5-15.5); WBC 5.2 k/uL (3.8-10.6)
[2017-01-05 22:52] LABS: HGB 12.7 gm/dL (13.0-17.5)
[2017-01-05 23:00] LABS: Calcium 8.1 mg/dL (8.4-10.2); INR 1.4 (<1.1); Partial Thromboplastin Time 27.9 sec (22.0-30.0); Potassium 3.2 mmol/L (3.5-5.1); Total Bilirubin 0.7 mg/dL (0.2-1.3); Total Protein 5.4 g/dL (6.3-8.2)
[2017-01-05 23:25] LABS: Creatine Kinase 21 U/L (55-170)
[2017-01-05 23:36] LABS: Creatine Kinase MB 1.9 ng/mL (0.0-2.4); Troponin I <0.012 ng/mL (0.000-0.034)
--- NOTE | 2017-01-05 23:56 | XR ---
EXAM: XR Chest, 2 Views. CLINICAL HISTORY: Reason: difficulty breathing TECHNIQUE: Frontal and lateral views of the chest. COMPARISON: 12/13/2016. FINDINGS: Stable cardiomediastinal silhouette. Normal pulmonary vasculature. Sternotomy wires. Stable dual lumen right internal jugular venous catheter. On the lateral view, there is evidence of posterior pleural effusion which may be on the right side. Lungs are clear. Degenerative changes of the spine. IMPRESSION: 1. Pleural effusion on the lateral view may be on the right side. No focal consolidation.
[2017-01-06] MEDS ORDERED: NALOXONE 0.4 MG/ML 1 ML VIAL IV PRN (00:14)
[2017-01-06] MEDS ORDERED: IPRATROPIUM-ALBUTEROL 3 ML NEB INHALATION PRN (00:16)
[2017-01-06] MEDS: SODIUM CHLORIDE 0.9% 1,000 ML IV SCH (00:50)
[2017-01-06] MEDS: IPRATROPIUM-ALBUTEROL 3 ML NEB INHALATION SCH ×4 (08:31→20:24)
[2017-01-06] MEDS: PANTOPRAZOLE 40 MG/10 ML VIAL IV SCH (09:20)
[2017-01-06] MEDS ORDERED: ALBUTEROL NEBULIZED 2.5 MG/3 ML INHALATION PRN (10:51)
[2017-01-06] MEDS ORDERED: HYDROcodone/APAP 5-325MG 1 EACH TAB PO PRN (10:51)
[2017-01-06] MEDS: ONDANSETRON 4 MG/2 ML VIAL IVP PRN ×2 (12:11→21:23)
[2017-01-06] MEDS ORDERED: NON-FORMULARY DRUG (Nepro 1 CAN) PO SCH (12:30)
--- NOTE | 2017-01-06 13:25 | P.HPIM ---
History of Present Illness H&P Date: 01/06/17 Chief Complaint: Abdominal distention This is a 76-year-old gentleman with very complex past medical history noted below significant for alcoholic liver disease with recurrent ascites who was transferred to the emergency room from [facility] for worsening abdominal distention and large ascites. Patient said that he was having difficulty breathing secondary to his large abdomen. He had multiple hospitalizations in the recent past. Last time he underwent paracentesis was approximately 4-6 weeks ago. He denies any fever or chills. No significant abdominal pain. He is having regular bowel movement. Review of Systems Review of system: 14 points review of systems were obtained and were negative except to what were mentioned in the HPI. Past Medical History Past Medical History: Asthma, Coronary Artery Disease (CAD), Cancer, Heart Failure, COPD, Diabetes Mellitus, GERD/Reflux, Hyperlipidemia, Osteoarthritis ( OA), Sleep Apnea/CPAP/BIPAP Additional Past Medical History / Comment(s): Coronary artery disease with a previous coronary artery bypass surgery, chronic atrial fibrillation maintained on anticoagulation, COPD, end-stage renal disease and the currently the patient is on hemodialysis, nephrolithiasis and kidney stones, Charley urinary tract infection along with previous E. coli urinary tract infection, macular degeneration, gout, chronic back pain, chronic degenerative disc disease, skin cancer of a squamous cell type, osteoarthritis, obstructive sleep apnea maintained on CPAP on outpatient basis, hyperlipidemia, diabetes mellitus, chronic hypotension maintained on midodrine on outpatient basis History of Any Multi-Drug Resistant Organisms: None Reported, C-DIFF Date of last positivie culture/infection: C.diff retested negative 12/10/16 ( C.diff was positive 11/27/16) MDRO Source:: Stool Past Surgical History: Coronary Bypass/CABG, Joint Replacement, Orthopedic Surgery, Tonsillectomy Additional Past Surgical History / Comment(s): Coronary artery bypass surgery bilateral cataract surgery, laser eye surgery for macular degeneration, colonoscopy with polypectomy, bilateral knee replacement, eye surgery involving the tear ducts with placement of implants, ORIF for a right ankle fracture with insertion of plate and screws, insertion of a permacath for dialysis access. Past Anesthesia/Blood Transfusion Reactions: No Reported Reaction Past Psychological History: Anxiety, Depression Additional Psychological History / Comment(s): paxil Smoking Status: Former smoker Past Alcohol Use History: None Reported Additional Past Alcohol Use History / Comment(s): started smoking at age 17 later on in life swithced to cigars then quit 2008. pt admits to 3 drinks a day( whiskey) Past Drug Use History: None Reported - Past Family History Mother Family Medical History: Cancer Additional Family Medical History / Comment(s): kidney cancer Father Family Medical History: Cancer, Prostate Disorder Additional Family Medical History / Comment(s): prostate cancer Brother(s) History Unknown: Yes Family Medical History: Unable to Obtain Medications and Allergies Home Medications Medication Instructions Recorded Confirmed Type Albuterol Sulfate [Proair Hfa] 2 puff INHALATION RT-QID PRN 10/16/16 01/05/17 History Allopurinol [Zyloprim] 100 mg PO DAILY 10/16/16 01/05/17 History Cholecalciferol [Vitamin D3] 1,000 unit PO DAILY 10/16/16 01/05/17 History Fish Oil/Dha/Epa [Fish Oil 1,200 1 cap PO HS 10/16/16 01/05/17 History mg Fish Oil] Lansoprazole [Prevacid] 15 mg PO DAILY 10/16/16 01/05/17 History Magnesium Oxide 400 mg PO BID 10/16/16 01/05/17 History PARoxetine [Paxil] 20 mg PO DAILY 10/16/16 01/05/17 History Pravastatin Sodium [Pravachol] 20 mg PO HS 10/16/16 01/05/17 History Vit C/E/Zinc/Lutein/Zeaxanthin 1 tab PO BID 10/16/16 01/05/17 History [[facility]] Vitamin E (Dl,Tocopheryl Acet) 400 unit PO BID 10/16/16 01/05/17 History [Vitamin E] Albuterol Nebulized [Ventolin 2.5 mg INHALATION RT-Q6H PRN 11/26/16 01/05/17 History Nebulized] Ondansetron [Zofran] 4 mg PO Q8H PRN 12/09/16 01/05/17 History Budesonide [Pulmicort Flexhaler] 2 puff INHALATION RT-DAILY 01/05/17 01/05/17 History INSULIN LISPRO (humaLOG) [HumaLOG] See Protocol SQ ACHS 01/05/17 01/05/17 History Levothyroxine Sodium [Synthroid] 50 mcg PO HS 01/05/17 01/05/17 History Midodrine HCl [ProAmatine] 10 mg PO AC-TID 01/05/17 01/05/17 History Nepro 1 can PO TID-W/MEALS 01/05/17 01/05/17 History Allergies Allergy/AdvReac Type Severity Reaction Status Date / Time No Known Allergies Allergy Verified 01/05/17 22:34 Physical Exam Vitals: Vital Signs Temp Pulse Pulse Resp BP BP Pulse Ox 01/06/17 13:17 76 01/06/17 08:05 98.0 F 75 18 98/59 93 L 01/06/17 04:30 18 01/06/17 01:20 98.3 F 76 12 107/57 94 L 01/06/17 00:40 98.8 F 88 18 101/56 95 Intake and Output 01/05/17 01/06/17 01/06/17 22:59 06:59 14:59 Intake Total 100 Balance 100 Intake: Intake, IV Titration 100 Amount Sodium Chloride 0.9% 1, 100 000 ml @ 20 mls/hr IV . Q24H [facility] Rx#:[id number] Other: Voiding Method Urinal Urinal Weight 88 kg General: The patient is awake and alert, in no distress Eye: there is normal conjunctiva bilaterally. Neck: The neck is supple, there is no JVD. Cardiovascular: Normal S1-S2, no S3-S4, no murmurs. Respiratory: Lungs clear to auscultation bilaterally Gastrointestinal: Abdomen is significantly distended with evidence of large ascites Musculoskeletal: There is +2-3 pedal edema. Neurological:. Speech is normal. Skin: Skin is warm and dry Results CBC & Chem 7: 01/05/17 22:20 01/05/17 22:20 Thrombosis Risk Factor Assmnt - Choose All That Apply Any of the Below Risk Factors Present?: Yes Each Factor Represents 1 point: Obesity (BMI >25) Other Risk Factors: Yes Each Risk Factor Represents 3 Points: Age 75 years or older Thrombosis Risk Factor Assessment Total Risk Factor Score: 4 Thrombosis Risk Factor Assessment Level: Moderate Risk Assessment and Plan Plan: 1. Large recurrent ascites: Awaiting paracentesis by interventional radiology plan for tomorrow to have anticoagulation on hold for 24-48 hours 2. Alcoholic liver cirrhosis 3. End-stage renal disease on hemodialysis 4. Paroxysmal atrial fibrillation on anticoagulation with Eliquis, currently on hold for paracentesis 5. Chronic hypotension maintained on Midodrin 6. History of C. diff colitis with no clinical evidence of recurrence 7. Vitamin D deficiency 8. Physical debility: Patient will return to [facility] for rehab when medically clear Today, I reviewed his medication list and lab work results. Awaiting paracentesis tomorrow. Continue to hold anticoagulation for now. Consult nephrology for dialysis. Repeat lab work in the morning. Continue current regimen otherwise.
[2017-01-06] MEDS: MIDODRINE 5 MG TAB PO SCH ×2 (14:06→17:56)
[2017-01-06] MEDS: BUDESONIDE 0.5 MG/2 ML NEBU INHALATION SCH (20:24)
[2017-01-06] MEDS ORDERED: APIXABAN 2.5 MG TABLET PO SCH (21:00)
[2017-01-06] MEDS: LEVOTHYROXINE 50 MCG TAB PO SCH (21:37)
[2017-01-06] MEDS: PRAVASTATIN SODIUM 20 MG TAB PO SCH (21:37)
[2017-01-06] MEDS: AMIODARONE 200 MG TAB PO SCH (21:37)
[2017-01-06] MEDS: MAGNESIUM OXIDE 400 MG TAB PO SCH (21:37)
[2017-01-06] MEDS: MORPHINE SULFATE 2 MG/ML SYRINGE IVP PRN (22:34)
[2017-01-07] MEDS: IPRATROPIUM-ALBUTEROL 3 ML NEB INHALATION SCH ×4 (07:33→21:24)
[2017-01-07] MEDS: BUDESONIDE 0.5 MG/2 ML NEBU INHALATION SCH ×2 (07:33→21:24)
--- NOTE | 2017-01-07 08:15 | XR ---
EXAMINATION TYPE: XR chest 2V DATE OF EXAM: 01/07/2017 8:10 AM COMPARISON: 01/05/2017 HISTORY: Shortness of breath TECHNIQUE: Frontal and lateral views of the chest are obtained. FINDINGS: Large bore central venous line unchanged in position. Scattered senescent parenchymal changes noted. Hyperinflation compatible with COPD. No evidence for infiltrate. No evidence for atelectasis. Decreasing pleural effusion. Heart size is stable. Mediastinal structures are stable and grossly unremarkable. No evidence for hilar prominence. Degenerative changes dorsal spine. IMPRESSION: 1. No evidence for acute pulmonary disease.Decreasing pleural effusion.
[2017-01-07] MEDS: PANTOPRAZOLE 40 MG/10 ML VIAL IV SCH (08:23)
[2017-01-07] MEDS: MIDODRINE 5 MG TAB PO SCH ×3 (08:23→17:45)
[2017-01-07] MEDS: ALLOPURINOL 100 MG TAB PO SCH (08:23)
[2017-01-07] MEDS: TAMSULOSIN 0.4 MG CAP.ER.24H PO SCH (08:23)
[2017-01-07] MEDS: PARoxetine 20 MG TAB PO SCH (08:24)
[2017-01-07] MEDS: AMIODARONE 200 MG TAB PO SCH ×2 (08:24→20:54)
[2017-01-07] MEDS: MAGNESIUM OXIDE 400 MG TAB PO SCH ×2 (08:24→20:55)
[2017-01-07] MEDS ORDERED: NON-FORMULARY DRUG (Lansoprazole [Prevacid] 15 MG) PO SCH (09:00)
[2017-01-07 09:10] LABS: INR 1.4 (<1.1); Prothrombin Time 14.1 sec (9.0-12.0)
[2017-01-07 09:11] LABS: Basophils % (A) 0 %; CH 31.4; CHCM 30.9; Eosinophils % (A) 0 %; HCT 40.3 % (39.0-53.0); HDW 2.89; HGB 12.2 gm/dL (13.0-17.5); Hypochromasia Moderate; Luc # (Auto) 0.17; Luc % (Auto) 3; Lymphocytes # (A) 1.1 k/uL (1.0-4.8); Lymphocytes % (A) 20 %; MCH 30.9 pg (25.0-35.0); MCHC 30.2 g/dL (31.0-37.0); MCV 102.3 fL (80.0-100.0); Macrocytosis Slight; Mean Platelet Volume 7.4; Monocytes # (A) 0.5 k/uL (0-1.0); Monocytes % (A) 9 %; Neutrophils # (A) 3.8 k/uL (1.3-7.7); Neutrophils % (A) 68 %; RBC 3.94 m/uL (4.30-5.90); RDW 15.8 % (11.5-15.5); WBC 5.6 k/uL (3.8-10.6); WBC (Perox) 6.05
[2017-01-07 09:19] LABS: Calcium 8.3 mg/dL (8.4-10.2); Magnesium 1.9 mg/dL (1.6-2.3); Phosphorous 2.8 mg/dL (2.5-4.5); Potassium 3.8 mmol/L (3.5-5.1); Total Bilirubin 0.8 mg/dL (0.2-1.3); Total Protein 5.4 g/dL (6.3-8.2)
[2017-01-07] MEDS: MORPHINE SULFATE 2 MG/ML SYRINGE IVP PRN (11:21)
[2017-01-07] MEDS: SODIUM CHLORIDE 0.9% 1,000 ML IV SCH (11:44)
--- NOTE | 2017-01-07 13:32 | CONS ---
DATE OF CONSULTATION: 01/07/2017 REASON FOR CONSULTATION: End-stage renal disease. HISTORY OF PRESENT ILLNESS: Patient is a 76-year-old white male with history of end-stage renal disease on hemodialysis on a Wednesday, Wednesday, Wednesday schedule. He was admitted to the hospital with complaints of increased abdominal distention and abdominal pain. Patient has had recurrent ascites. He has had a paracentesis before. His blood pressure always runs on the lower side and they have not been able to get fluid off easily as outpatient. Patient is maintained on midodrine. He was last dialyzed on Wednesday. He missed his treatment on Wednesday and at this time he is not keen to have a make-up treatment. He wishes to have his next dialysis scheduled tomorrow, which will be his routine day. Patient is more concerned at this time about his abdominal distention and ascites. He is scheduled for paracentesis later on today. PAST MEDICAL HISTORY: End-stage renal disease, history of C. difficile colitis, coronary artery disease, COPD, osteoarthritis, sleep apnea, type 2 diabetes, COPD, macular degeneration, C. difficile colitis as mentioned November 27, 2016. PAST SURGICAL HISTORY: Coronary artery bypass surgery, colonoscopy, polypectomy, cataract surgery, laser eye surgery, ORIF right ankle, PermCath placement for dialysis. SOCIAL HISTORY: The patient is a former smoker, no history of drug abuse or alcohol abuse. REVIEW OF SYSTEMS: As per HPI. Other systems negative. No history of fever, nausea, vomiting, diarrhea, chest pains or shortness of breath. Medications at home prior to admission included Paxil, Prevacid, magnesium, ( ), albuterol, Pravachol, vitamin E, Zofran, Ventolin, insulin, Synthroid, midodrine. ALLERGIES: None. On examination, the patient is comfortable, awake. He is not in any acute distress. Alert and oriented x3. Blood pressure 91/50, heart rate 94 per minute. He is afebrile. EXAMINATION OF THE HEART: S1 and S2. EXAMINATION OF THE LUNGS: Bilateral breath sounds are heard. Decreased breath sounds at the bases. ABDOMEN: Soft, nontender, distended with ascites. Examination of lower extremities shows edema and chronic skin changes. Edema is about 1+ bilaterally. Labs show sodium 134, potassium 3.8. Hemoglobin 12.2 g/dL. ASSESSMENT: 1. End-stage renal disease on hemodialysis on a Wednesday, Wednesday, Wednesday schedule via [facility]. Patient will be dialyzed tomorrow. 2. Ascites with most likely underlying chronic liver disease. Patient is scheduled for paracentesis. Etiology for liver cirrhosis is likely alcohol versus some element of ( ) cirrhosis. 3. Paroxysmal atrial fibrillation. 4. History of Clostridium difficile colitis, no ongoing diarrhea at this time. PLAN: Hemodialysis tomorrow. Continue current medications. Thank you for this consultation. Will continue to follow the patient with you during his hospitalization.
--- NOTE | 2017-01-07 14:25 | P.PN ---
Subjective Principal diagnosis: Large ascites Patient is scheduled for paracentesis today Objective - Vital Signs Vital signs: Vital Signs Temp 98.3 F 01/07/17 08:22 Pulse 85 01/07/17 14:06 Resp 14 01/07/17 14:06 BP 80/44 01/07/17 14:06 Pulse Ox 97 01/07/17 14:06 Intake & Output 01/06/17 01/07/17 01/07/17 18:59 06:59 18:59 Intake Total 50 Balance 50 Weight 88 kg Intake: Oral 50 Other: Voiding Method Urinal Urinal Urinal # Voids 2 1 # Bowel Movements 1 1 - Labs CBC & Chem 7: 01/07/17 08:35 01/07/17 08:35 Labs: Abnormal Lab Results - Last 24 Hours (Table) 01/07/17 01/07/17 01/07/17 Range/Units 08:35 08:35 08:35 RBC 3.94 L (4.30-5.90) m/uL Hgb 12.2 L (13.0-17.5) gm/dL MCV 102.3 H (80.0-100.0) fL MCHC 30.2 L (31.0-37.0) g/dL RDW 15.8 H (11.5-15.5) % PT 14.1 H (9.0-12.0) sec Sodium 134 L (137-145) mmol/L Chloride 95 L (98-107) mmol/L Creatinine 3.57 H (0.66-1.25) mg/dL Glucose 119 H (74-99) mg/dL Calcium 8.3 L (8.4-10.2) mg/dL Total Protein 5.4 L (6.3-8.2) g/dL Albumin 2.6 L (3.5-5.0) g/dL Assessment and Plan Plan: 1. Large recurrent ascites: Awaiting paracentesis by interventional radiology today 2. Alcoholic liver cirrhosis 3. End-stage renal disease on hemodialysis 4. Paroxysmal atrial fibrillation on anticoagulation with Eliquis, currently on hold for paracentesis 5. Chronic hypotension maintained on Midodrin 6. History of C. diff colitis with no clinical evidence of recurrence 7. Vitamin D deficiency 8. Physical debility: Patient will return to [facility] for rehab when medically clear Today, I reviewed his medication list and lab work results. Awaiting paracentesis. Plan for dialysis tomorrow. Repeat lab work in the morning. Continue current regimen otherwise. Discharged to [facility] tomorrow.
[2017-01-07] MEDS: ALBUMIN HUMAN 25% 50 ML in EMPTY BAG 1 BAG IVPB SCH ×4 (14:34→16:07)
[2017-01-07] MEDS: CHOLECALCIFEROL 1,000 UNIT TAB PO SCH (15:00)
--- NOTE | 2017-01-07 15:06 | US ---
EXAMINATION TYPE: US paracentesis abd w/image DATE OF EXAM: 01/07/2017 2:34 PM COMPARISON: NONE HISTORY: Ascites. PROCEDURE: Maximal barrier technique was utilized. The skin overlying a suitable pocket of fluid was localized with ultrasound and the overlying skin was prepped and draped. Ultrasound was utilized with sterile technique. Lidocaine was used for local anesthesia and a skin arnie made with a scalpel. Catheter was advanced under direct ultrasound guidance into a suitable pocket of fluid and approximately 10 liters of serous fluid were removed. Catheter was withdrawn and hemostasis achieved. There is no immediat e complication; the patient is discharged in stable condition. IMPRESSION: STATUS POST ULTRASOUND GUIDED PARACENTESIS FOR PALLIATION OF ASCITES. THIS PROCEDURE WA S PERFORMED BY THE UNDERSIGNED.
[2017-01-07 16:26] LABS: Hemoglobin A1C 4.8 % (4.2-6.1)
[2017-01-07 16:55] LABS: Glucose,Whole Blood 137 mg/dL (75-99)
[2017-01-07] MEDS: INSULIN LISPRO (humaLOG) 300 UNIT/3 ML VIAL SQ SCH ×2 (17:45→20:54)
[2017-01-07 17:53] VITALS: RESP 18
[2017-01-07 20:40] LABS: Glucose,Whole Blood 102 mg/dL (75-99)
[2017-01-07] MEDS: PRAVASTATIN SODIUM 20 MG TAB PO SCH (20:54)
[2017-01-07] MEDS: LEVOTHYROXINE 50 MCG TAB PO SCH (20:54)
[2017-01-08] MEDS: SODIUM CHLORIDE 0.9% 1,000 ML IV SCH (05:11)
[2017-01-08 07:18] LABS: Basophils % (A) 0 %; CH 31.6; CHCM 31.4; Eosinophils % (A) 1 %; HCT 34.6 % (39.0-53.0); HGB 10.9 gm/dL (13.0-17.5); Hypochromasia Slight; Luc # (Auto) 0.16; Luc % (Auto) 2; Lymphocytes % (A) 16 %; MCH 31.8 pg (25.0-35.0); MCHC 31.4 g/dL (31.0-37.0); MCV 101.5 fL (80.0-100.0); Macrocytosis Slight; Mean Platelet Volume 7.6; Monocytes # (A) 0.5 k/uL (0-1.0); Monocytes % (A) 7 %; Neutrophils % (A) 74 %; RBC 3.41 m/uL (4.30-5.90); RDW 15.7 % (11.5-15.5); WBC 6.7 k/uL (3.8-10.6); WBC (Perox) 7.25
[2017-01-08 07:25] LABS: Glucose,Whole Blood 89 mg/dL (75-99)
[2017-01-08] MEDS: INSULIN LISPRO (humaLOG) 300 UNIT/3 ML VIAL SQ SCH ×3 (08:07→17:51)
[2017-01-08] MEDS: MIDODRINE 5 MG TAB PO SCH ×2 (08:11→12:36)
[2017-01-08] MEDS: AMIODARONE 200 MG TAB PO SCH (08:11)
[2017-01-08] MEDS: MAGNESIUM OXIDE 400 MG TAB PO SCH (08:11)
[2017-01-08] MEDS: TAMSULOSIN 0.4 MG CAP.ER.24H PO SCH (08:11)
[2017-01-08] MEDS: ALLOPURINOL 100 MG TAB PO SCH (08:12)
[2017-01-08] MEDS: PARoxetine 20 MG TAB PO SCH (08:12)
[2017-01-08] MEDS: PANTOPRAZOLE 40 MG/10 ML VIAL IV SCH (08:12)
[2017-01-08 08:52] LABS: Magnesium 1.8 mg/dL (1.6-2.3); Phosphorous 2.6 mg/dL (2.5-4.5); Potassium 3.6 mmol/L (3.5-5.1); Total Bilirubin 0.6 mg/dL (0.2-1.3); Total Protein 4.6 g/dL (6.3-8.2)
[2017-01-08 09:21] VITALS: BP 90/52; TEMP 98.1
[2017-01-08] MEDS: IPRATROPIUM-ALBUTEROL 3 ML NEB INHALATION SCH ×3 (09:37→15:36)
[2017-01-08] MEDS: BUDESONIDE 0.5 MG/2 ML NEBU INHALATION SCH (09:37)
[2017-01-08 11:42] LABS: Glucose,Whole Blood 107 mg/dL (75-99)
[2017-01-08 14:16] VITALS: BMI 27.7
--- NOTE | 2017-01-08 14:28 | P.DS ---
Providers Date of admission: 01/06/17 00:14 Expected date of discharge: 01/08/17 Attending physician: Harpal Becker Consults: 01/06/17 10:50 Consult Physician Routine Consulting Provider: Sara Obando Consult Reason/Comments: ESRD Do you want consulting provider notified?: Yes [facility] Course: This is a 76-year-old gentleman with a very complex past medical history noted below who presented to the hospital with worsening dyspnea and abdominal distention. Patient was found to have a large ascites and was admitted for therapeutic paracentesis. His clinical condition improved significantly throughout his hospital stay. He will be discharged in stable condition back to ECF. Below is a list of his medical problems addressed during this hospitalization. 1. Large recurrent ascites: Status post paracentesis with approximately 10 L of fluid removed 2. Alcoholic liver cirrhosis 3. End-stage renal disease on hemodialysis 4. Paroxysmal atrial fibrillation on anticoagulation with Eliquis 5. Chronic hypotension maintained on Midodrin 6. History of C. diff colitis with no clinical evidence of recurrence 7. Vitamin D deficiency 8. Physical debility: Patient will return to ECF for rehab when medically clear Plan - Discharge Summary New Discharge Prescriptions: Hydrocodone/Acetaminophen [[place] 5-325] 1 tab PO BID PRN #60 tablet PRN Reason: Pain Discharge Medication List Albuterol Sulfate [Proair Hfa] 2 puff INHALATION RT-QID PRN 10/16/16 [History] Allopurinol [Zyloprim] 100 mg PO DAILY 10/16/16 [History] Cholecalciferol [Vitamin D3] 1,000 unit PO DAILY 10/16/16 [History] Fish Oil/Dha/Epa [Fish Oil 1,200 mg Fish Oil] 1 cap PO HS 10/16/16 [History] Lansoprazole [Prevacid] 15 mg PO DAILY 10/16/16 [History] Magnesium Oxide 400 mg PO BID 10/16/16 [History] PARoxetine [Paxil] 20 mg PO DAILY 10/16/16 [History] Pravastatin Sodium [Pravachol] 20 mg PO HS 10/16/16 [History] Apixaban [Eliquis] 2.5 mg PO BID #60 tab 10/25/16 [Rx] Tamsulosin [Flomax] 0.4 mg PO PC-BRKFST #30 cap.er.24h 10/25/16 [Rx] Albuterol Nebulized [Ventolin Nebulized] 2.5 mg INHALATION RT-Q6H PRN 11/26/16 [ History] Ondansetron [Zofran] 4 mg PO Q8H PRN 12/09/16 [History] Amiodarone [Cordarone] 200 mg PO BID #60 tab 12/18/16 [Rx] INSULIN LISPRO (humaLOG) [humaLOG (formulary)] See Protocol SQ ACHS 01/05/17 [ History] Levothyroxine Sodium [Synthroid] 50 mcg PO HS 01/05/17 [History] Midodrine HCl [ProAmatine] 10 mg PO AC-TID 01/05/17 [History] Nepro 1 can PO TID-W/MEALS 01/05/17 [History] Hydrocodone/Acetaminophen [[place] 5-325] 1 tab PO BID PRN #60 tablet 01/08/17 [Rx ] Ipratropium-Albuterol Nebulize [Duoneb 0.5 mg-3 mg/3 ml Soln] 3 ml INHALATION RT -QID PRN #0 ampul.neb 01/08/17 [Rx] Follow up Appointment(s)/Referral(s): Harpal Becker MD [Primary Care Provider] - 1-2 days Discharge Disposition: TRANSFER TO SNF/ECF
[2017-01-08] MEDS ORDERED: HEPARIN SODIUM,PORCINE 5,000 UNIT/ML 1 ML VIAL ONE (15:00)
[2017-01-08 15:38] VITALS: PULSE 80
[2017-01-08] MEDS: CHOLECALCIFEROL 1,000 UNIT TAB PO SCH (17:51)
--- NOTE | 2017-01-08 18:51 | PN ---
Patient is seen for follow-up for end-stage renal disease. He is currently lying in bed. Patient is status post paracentesis. He had about 9 liters of fluid removed. He denies any other complaints. He states he is feeling much better. Patient is scheduled for hemodialysis today. On examination, blood pressure is 90/52, heart rate of 75 per minute. He is afebrile. Examination of the heart: S1, S2. Examination of the lungs: Decreased breath sounds in bases. ABDOMEN: Soft, nontender with much decreased ascites. Examination of lower extremities shows chronic skin changes, edema 1+ bilaterally. DIRECTOR PAID MEDIA exam is grossly intact. Labs show sodium 133, potassium 3.6. Hemoglobin 10.9 g/dL. ASSESSMENT: 1. End-stage renal disease on hemodialysis on a Wednesday, Wednesday, Wednesday schedule. The patient will be dialyzed today. It appears that he is scheduled for discharge after his dialysis. 2. Severe ascites, status post paracentesis. 3. Alcoholic liver cirrhosis. 4. Paroxysmal atrial fibrillation, maintained on anticoagulation. 5. History of Clostridium difficile colitis. 6. Generalized debility. PLAN: Hemodialysis today and patient can be discharged post dialysis.
[2017-01-09] MEDS ORDERED: PANTOPRAZOLE 40 MG TABLET PO SCH (09:00)
== END 2017-01-08 18:30 | DRG 432 ==
LOC: EC 22:04 → 5MS5E 01-06 00:14 → 5ONC 01-06 00:38
PROVIDERS: ADMIT Internal Medicine; ATTEND Internal Medicine
PROC: 0W9G3ZZ Drainage of Peritoneal Cavity, Percutaneous Approach (ICD-10-PCS; principal; 2017-01-07)
PROC: 5A1D00Z (ICD-10-PCS; 2017-01-08)
DX: K70.31 Alcoholic cirrhosis of liver with ascites (principal); N18.6 End stage renal disease; I95.89 Other hypotension; E11.22 Type 2 diabetes mellitus with diabetic chronic kidney disease; I48.0 Paroxysmal atrial fibrillation; J44.9 Chronic obstructive pulmonary disease, unspecified; E55.9 Vitamin D deficiency, unspecified; J45.909 Unspecified asthma, uncomplicated; I25.10 Atherosclerotic heart disease of native coronary artery without angina pectoris; K21.9 Gastro-esophageal reflux disease without esophagitis; E78.5 Hyperlipidemia, unspecified; M19.90 Unspecified osteoarthritis, unspecified site; M10.9 Gout, unspecified; H35.30 Unspecified macular degeneration; G47.33 Obstructive sleep apnea (adult) (pediatric); F32.9 Major depressive disorder, single episode, unspecified; F41.9 Anxiety disorder, unspecified; I50.9 Heart failure, unspecified; G89.29 Other chronic pain; M54.9 Dorsalgia, unspecified; Z95.1 Presence of aortocoronary bypass graft; Z99.2 Dependence on renal dialysis; Z87.442 Personal history of urinary calculi; Z87.440 Personal history of urinary (tract) infections; Z86.19 Personal history of other infectious and parasitic diseases; Z87.891 Personal history of nicotine dependence; Z96.653 Presence of artificial knee joint, bilateral; Z98.42 Cataract extraction status, left eye; Z98.41 Cataract extraction status, right eye; Z85.828 Personal history of other malignant neoplasm of skin; Z79.01 Long term (current) use of anticoagulants; Z79.4 Long term (current) use of insulin; Z79.51 Long term (current) use of inhaled steroids; Z79.899 Other long term (current) drug therapy
CPT/HCPCS: 36415; 49083; 71020; 80053; 82550; 82553; 83036; 83735; 83880; 84100; 84484; 85025; 85610; 85730; 90935; 93005; 94640; 96374; 99285

== ENCOUNTER 2017-01-15 12:51 | Inpatient (IN) | payer MEDICARE, BC ==
--- NOTE | 2017-01-15 13:09 | ED ---
Fall HPI - General Stated Complaint: Fall Time Seen by Provider: 01/15/17 13:00 Source: patient, EMS, RN notes reviewed, old records reviewed Mode of arrival: EMS - History of Present Illness Initial Comments: This is a 76-year-old male who was just getting home from a senior care today when he got a car got lightheaded and fell to the ground. He sustained a skin tear to left forearm. He had no loss of consciousness is no complaints of headache neck pain fevers chills nausea vomiting sweats or other symptoms per paramedics she did have a blood pressure 120 systolic but when he tried to stand him up to get him on a stretcher he did feel lightheaded and almost passed out again. He is a dialysis patient he normally is Wednesday dialysis because of the fact that he was sent home today his next dialysis is scheduled for tomorrow. He denies any fevers chills or other symptoms again no focal deficits patient also states she has a shortness of breath prior to the episode. He was given a DuoNeb by EMS on the way into the hospital. He was feeling better after this. MD Complaint: fall - Related Data Home Medications Medication Instructions Recorded Confirmed Albuterol Sulfate [Proair Hfa] 2 puff INHALATION RT-QID PRN 10/16/16 01/15/17 Allopurinol [Zyloprim] 100 mg PO DAILY 10/16/16 01/15/17 Cholecalciferol [Vitamin D3] 1,000 unit PO DAILY 10/16/16 01/15/17 Fish Oil/Dha/Epa [Fish Oil 1,200 1 cap PO HS 10/16/16 01/15/17 mg Fish Oil] Lansoprazole [Prevacid] 15 mg PO DAILY 10/16/16 01/15/17 Magnesium Oxide 400 mg PO BID 10/16/16 01/15/17 PARoxetine [Paxil] 20 mg PO DAILY 10/16/16 01/15/17 Pravastatin Sodium [Pravachol] 20 mg PO HS 10/16/16 01/15/17 Albuterol Nebulized [Ventolin 2.5 mg INHALATION RT-Q6H PRN 11/26/16 01/15/17 Nebulized] Ondansetron [Zofran] 4 mg PO Q8H PRN 12/09/16 01/15/17 INSULIN LISPRO (humaLOG) [humaLOG See Protocol SQ ACHS 01/05/17 01/15/17 (formulary)] Levothyroxine Sodium [Synthroid] 50 mcg PO HS 01/05/17 01/15/17 Midodrine HCl [ProAmatine] 10 mg PO AC-TID 01/05/17 01/15/17 Nepro 1 can PO TID-W/MEALS 01/05/17 01/15/17 Tamsulosin [Flomax] 0.4 mg PO DAILY 01/15/17 01/15/17 Previous Rx's Medication Instructions Recorded Apixaban [Eliquis] 2.5 mg PO BID #60 tab 10/25/16 Amiodarone [Cordarone] 200 mg PO BID #60 tab 12/18/16 Hydrocodone/Acetaminophen [[place] 1 tab PO BID PRN #60 tablet 01/08/17 5-325] Ipratropium-Albuterol Nebulize 3 ml INHALATION RT-QID PRN #0 01/08/17 [Duoneb 0.5 mg-3 mg/3 ml Soln] ampul.neb Allergies Allergy/AdvReac Type Severity Reaction Status Date / Time No Known Allergies Allergy Verified 01/15/17 13:43 Review of Systems ROS Statement: Those systems with pertinent positive or pertinent negative responses have been documented in the HPI. ROS Other: All systems not noted in ROS Statement are negative. Past Medical History Past Medical History: Asthma, Coronary Artery Disease (CAD), Cancer, Heart Failure, COPD, Diabetes Mellitus, GERD/Reflux, Hyperlipidemia, Osteoarthritis ( OA), Sleep Apnea/CPAP/BIPAP Additional Past Medical History / Comment(s): Coronary artery disease with a previous coronary artery bypass surgery, chronic atrial fibrillation maintained on anticoagulation, COPD, end-stage renal disease and the currently the patient is on hemodialysis, nephrolithiasis and kidney stones, Charley urinary tract infection along with previous E. coli urinary tract infection, macular degeneration, gout, chronic back pain, chronic degenerative disc disease, skin cancer of a squamous cell type, osteoarthritis, obstructive sleep apnea maintained on CPAP on outpatient basis, hyperlipidemia, diabetes mellitus, chronic hypotension maintained on midodrine on outpatient basis History of Any Multi-Drug Resistant Organisms: None Reported, C-DIFF Date of last positivie culture/infection: C.diff retested negative 12/10/16 ( C.diff was positive 11/27/16) MDRO Source:: Stool Past Surgical History: Coronary Bypass/CABG, Joint Replacement, Orthopedic Surgery, Tonsillectomy Additional Past Surgical History / Comment(s): Coronary artery bypass surgery bilateral cataract surgery, laser eye surgery for macular degeneration, colonoscopy with polypectomy, bilateral knee replacement, eye surgery involving the tear ducts with placement of implants, ORIF for a right ankle fracture with insertion of plate and screws, insertion of a permacath for dialysis access. Past Anesthesia/Blood Transfusion Reactions: No Reported Reaction Past Psychological History: Anxiety, Depression Additional Psychological History / Comment(s): paxil Smoking Status: Former smoker Past Alcohol Use History: None Reported Additional Past Alcohol Use History / Comment(s): started smoking at age 17 later on in life swithced to cigars then quit 2008. pt admits to 3 drinks a day( whiskey) Past Drug Use History: None Reported - Past Family History Mother Family Medical History: Cancer Additional Family Medical History / Comment(s): kidney cancer Father Family Medical History: Cancer, Prostate Disorder Additional Family Medical History / Comment(s): prostate cancer Brother(s) History Unknown: Yes Family Medical History: Unable to Obtain General Exam - General Exam Comments Initial Comments: This is a well-developed well-nourished awake alert oriented 3 male his [place] Coma Scale of 15 General appearance: alert, in no apparent distress Head exam: Present: atraumatic, normocephalic, normal inspection Eye exam: Present: normal appearance, PERRL, EOMI. Absent: scleral icterus, conjunctival injection, periorbital swelling ENT exam: Present: mucous membranes dry Neck exam: Present: normal inspection. Absent: tenderness, meningismus, lymphadenopathy Respiratory exam: Present: other (Lately diminished breath sounds bilaterally no focal consolidations). Absent: respiratory distress, wheezes, rales, rhonchi , stridor Cardiovascular Exam: Present: regular rate, normal rhythm, normal heart sounds. Absent: systolic murmur, diastolic murmur, rubs, gallop, clicks GI/Abdominal exam: Present: soft, normal bowel sounds. Absent: distended, tenderness, guarding, rebound, rigid Extremities exam: Present: full ROM, normal capillary refill, other (Also the left forearm no active bleeding at this time an old injury to the right forearm. Stasis changes). Absent: tenderness, pedal edema, joint swelling, calf tenderness Back exam: Present: normal inspection Neurological exam: Present: alert, oriented X3, CN II-XII intact Psychiatric exam: Present: normal affect, normal mood Skin exam: Present: warm, dry, intact, normal color. Absent: rash Course Vital Signs 01/15/17 01/15/17 01/15/17 13:01 13:46 14:52 Temperature 97.0 F L Pulse Rate 88 83 81 Respiratory 18 20 18 Rate Blood Pressure 88/50 90/55 89/52 O2 Sat by Pulse 100 95 94 L Oximetry 01/15/17 01/15/17 01/15/17 15:25 16:12 17:31 Temperature Pulse Rate 90 79 85 Respiratory 18 18 18 Rate Blood Pressure 92/55 112/66 93/50 O2 Sat by Pulse 95 97 94 L Oximetry - Reevaluation(s) Reevaluation #1: 01/15/17 13:45 EKG shows no acute change when compared to one dated 01/05/17 Medical Decision Making - Medical Decision Making Attempts were made on several occasions to a width patient without difficulty. He became very nauseous and one attempt. He had no chest pain. I did recommend admission the patient did not want to be admitted we had multiple discussions about this he finally decided he would stay. He also expressed desire to become a hospice patient. He will be admitted with consultation by nephrology. - Lab Data Result diagrams: 01/15/17 13:07 01/15/17 13:07 Lab Results 01/15/17 01/15/17 01/15/17 Range/Units 13:07 13:07 13:07 WBC 8.7 (3.8-10.6) k/uL RBC 4.02 L (4.30-5.90) m/uL Hgb 12.6 L (13.0-17.5) gm/dL Hct 40.5 (39.0-53.0) % MCV 100.6 H (80.0-100.0) fL MCH 31.4 (25.0-35.0) pg MCHC 31.2 (31.0-37.0) g/dL RDW 15.0 (11.5-15.5) % Plt Count 185 (150-450) k/uL Neutrophils % 76 % Lymphocytes % 16 % Monocytes % 5 % Eosinophils % 1 % Basophils % 0 % Neutrophils # 6.6 (1.3-7.7) k/uL Lymphocytes # 1.4 (1.0-4.8) k/uL Monocytes # 0.4 (0-1.0) k/uL Eosinophils # 0.0 (0-0.7) k/uL Basophils # 0.0 (0-0.2) k/uL Hypochromasia Slight Macrocytosis Slight PT (9.0-12.0) sec INR (<1.1) APTT (22.0-30.0) sec Sodium 131 L (137-145) mmol/L Potassium 3.9 (3.5-5.1) mmol/L Chloride 94 L (98-107) mmol/L Carbon Dioxide 27 (22-30) mmol/L Anion Gap 10 mmol/L BUN 15 (9-20) mg/dL Creatinine 3.27 H (0.66-1.25) mg/dL Est GFR (MDRD) Af Amer 22 (>60 ml/min/1.73 sqM) Est GFR (MDRD) Non-Af 19 (>60 ml/min/1.73 sqM) Glucose 118 H (74-99) mg/dL Calcium 8.1 L (8.4-10.2) mg/dL Magnesium 1.9 (1.6-2.3) mg/dL Total Bilirubin 1.1 (0.2-1.3) mg/dL AST 47 (17-59) U/L ALT 26 (21-72) U/L Alkaline Phosphatase 108 (38-126) U/L Total Creatine Kinase 33 L (55-170) U/L CK-MB (CK-2) 1.7 (0.0-2.4) ng/mL CK-MB (CK-2) Rel Index 5.2 Troponin I 0.012 (0.000-0.034) ng/mL Total Protein 5.6 L (6.3-8.2) g/dL Albumin 2.5 L (3.5-5.0) g/dL 01/15/17 Range/Units 13:07 WBC (3.8-10.6) k/uL RBC (4.30-5.90) m/uL Hgb (13.0-17.5) gm/dL Hct (39.0-53.0) % MCV (80.0-100.0) fL MCH (25.0-35.0) pg MCHC (31.0-37.0) g/dL RDW (11.5-15.5) % Plt Count (150-450) k/uL Neutrophils % % Lymphocytes % % Monocytes % % Eosinophils % % Basophils % % Neutrophils # (1.3-7.7) k/uL Lymphocytes # (1.0-4.8) k/uL Monocytes # (0-1.0) k/uL Eosinophils # (0-0.7) k/uL Basophils # (0-0.2) k/uL Hypochromasia Macrocytosis PT 15.7 H (9.0-12.0) sec INR 1.6 (<1.1) APTT 32.1 H (22.0-30.0) sec Sodium (137-145) mmol/L Potassium (3.5-5.1) mmol/L Chloride (98-107) mmol/L Carbon Dioxide (22-30) mmol/L Anion Gap mmol/L BUN (9-20) mg/dL Creatinine (0.66-1.25) mg/dL Est GFR (MDRD) Af Amer (>60 ml/min/1.73 sqM) Est GFR (MDRD) Non-Af (>60 ml/min/1.73 sqM) Glucose (74-99) mg/dL Calcium (8.4-10.2) mg/dL Magnesium (1.6-2.3) mg/dL Total Bilirubin (0.2-1.3) mg/dL AST (17-59) U/L ALT (21-72) U/L Alkaline Phosphatase (38-126) U/L Total Creatine Kinase (55-170) U/L CK-MB (CK-2) (0.0-2.4) ng/mL CK-MB (CK-2) Rel Index Troponin I (0.000-0.034) ng/mL Total Protein (6.3-8.2) g/dL Albumin (3.5-5.0) g/dL - EKG Data -: EKG Interpreted by Me (rate was 86 QRS of 76 QT/QTC of 444/531 low-voltage poor R-wave progression) - Radiology Data Radiology results: report reviewed (Imaging shows no acute findings there is a small effusion right knee.), image reviewed Disposition Clinical Impression: Near syncope, Hypotension, Chronic renal failure Disposition: ADMITTED IP TO THIS HOSP Condition: Stable
[2017-01-15] MEDS ORDERED: SODIUM CHLORIDE 0.9% 250 ML IV STA (13:10)
[2017-01-15 13:56] LABS: Basophils % (A) 0 %; CH 31.4; CHCM 31.4; Eosinophils % (A) 1 %; HCT 40.5 % (39.0-53.0); HGB 12.6 gm/dL (13.0-17.5); Hypochromasia Slight; Luc # (Auto) 0.21; Luc % (Auto) 3; Lymphocytes # (A) 1.4 k/uL (1.0-4.8); Lymphocytes % (A) 16 %; MCH 31.4 pg (25.0-35.0); MCHC 31.2 g/dL (31.0-37.0); MCV 100.6 fL (80.0-100.0); Macrocytosis Slight; Mean Platelet Volume 8.2; Monocytes # (A) 0.4 k/uL (0-1.0); Monocytes % (A) 5 %; Neutrophils # (A) 6.6 k/uL (1.3-7.7); Neutrophils % (A) 76 %; RBC 4.02 m/uL (4.30-5.90); WBC 8.7 k/uL (3.8-10.6); WBC (Perox) 8.92
[2017-01-15 14:00] LABS: INR 1.6 (<1.1); Partial Thromboplastin Time 32.1 sec (22.0-30.0); Prothrombin Time 15.7 sec (9.0-12.0)
[2017-01-15 14:11] LABS: Calcium 8.1 mg/dL (8.4-10.2); Magnesium 1.9 mg/dL (1.6-2.3); Potassium 3.9 mmol/L (3.5-5.1); Total Bilirubin 1.1 mg/dL (0.2-1.3); Total Protein 5.6 g/dL (6.3-8.2)
--- NOTE | 2017-01-15 14:19 | XR ---
EXAMINATION TYPE: XR chest 2V DATE OF EXAM: 01/15/2017 2:11 PM COMPARISON: 01/07/2017 HISTORY: 76-year-old male difficulty breathing TECHNIQUE: AP and lateral views FINDINGS: Right-sided double-lumen hemodialysis catheter with tips at the cavoatrial junction. Heart is normal size. Atherosclerotic arch calcifications. There are trace effusions on the lateral view. No consolid ation. Prominent bony hyperostosis at the right first rib end as seen previously. No consolidation se en. Endplate spondylosis throughout the thoracic spine. IMPRESSION: Trace pleural effusions. Correlate for some degree of fluid overload. No mihai pulmonary vascular con gestion or pulmonary edema.
[2017-01-15 14:23] LABS: Creatine Kinase MB 1.7 ng/mL (0.0-2.4); Troponin I 0.012 ng/mL (0.000-0.034)
--- NOTE | 2017-01-15 15:37 | XR ---
EXAMINATION TYPE: XR knee complete RT DATE OF EXAM ORDERED: 01/15/2017 3:33 PM HISTORY: Pain. COMPARISON: Previous study dated 03/23/2013. FINDINGS: There is a right knee arthroplasty in place. Prosthetic elements appear in good position. No fracture or dislocation is seen. There is a small joint effusion. There is vascular calcification as well as vascular clips present. IMPRESSION: STATUS POST RIGHT KNEE ARTHROPLASTY. THERE IS A SMALL KNEE JOINT EFFUSION.
[2017-01-15] MEDS ORDERED: ONDANSETRON 4 MG/2 ML VIAL IVP STA (17:11)
[2017-01-15] MEDS ORDERED: fentaNYL (PF) 50 MCG/ML 2 ML AMP IV STA (17:35)
[2017-01-15] MEDS ORDERED: NALOXONE 0.4 MG/ML 1 ML VIAL IV PRN (17:47)
[2017-01-15] MEDS ORDERED: ONDANSETRON 4 MG TAB PO PRN (17:50)
[2017-01-15] MEDS ORDERED: SODIUM CHLORIDE 0.9% 1,000 ML IV SCH (18:00)
[2017-01-15] MEDS: IPRATROPIUM-ALBUTEROL 3 ML NEB INHALATION SCH ×2 (19:00→23:29)
[2017-01-15 20:42] LABS: Glucose,Whole Blood 159 mg/dL (75-99)
[2017-01-15] MEDS ORDERED: PRAVASTATIN SODIUM 20 MG TAB PO SCH (21:00)
[2017-01-15] MEDS ORDERED: LEVOTHYROXINE 50 MCG TAB PO SCH (21:00)
[2017-01-15] MEDS ORDERED: NON-FORMULARY DRUG (Fish Oil/Dha/Epa [Fish Oil 1,200 Mg Fish Oil] 1 CAP) PO SCH (21:00)
[2017-01-15] MEDS: APIXABAN 2.5 MG TABLET PO SCH (22:15)
[2017-01-15] MEDS: AMIODARONE 200 MG TAB PO SCH (22:15)
[2017-01-15] MEDS: MAGNESIUM OXIDE 400 MG TAB PO SCH (22:15)
[2017-01-16 00:50] VITALS: RESP 18
[2017-01-16 01:05] VITALS: TEMP 97.1
[2017-01-16] MEDS: IPRATROPIUM-ALBUTEROL 3 ML NEB INHALATION SCH ×4 (04:14→12:36)
[2017-01-16] MEDS: MIDODRINE 5 MG TAB PO SCH ×2 (06:29→12:20)
[2017-01-16 06:39] LABS: Glucose,Whole Blood 111 mg/dL (75-99)
[2017-01-16] MEDS ORDERED: NON-FORMULARY DRUG (Nepro 1 CAN) PO SCH (07:30)
--- NOTE | 2017-01-16 08:42 | CONS ---
DATE OF CONSULTATION: 01/16/2017 REASON FOR CONSULTATION: End-stage renal disease. HISTORY OF PRESENT ILLNESS: Patient is a 76-year-old white male with history of end-stage renal disease on hemodialysis on a Wednesday, Wednesday, Wednesday schedule. Patient was discharged from the long-term yesterday and was going home, but unfortunately fell and developed a skin tear on his left forearm. He was brought into the hospital. No major fractures have been noted. He did not have his dialysis as it was rescheduled for today, since he was being discharged from the rehab facility yesterday. Currently patient is lying in bed comfortably. He denies any significant complaints. No nausea, vomiting, abdominal pain or diarrhea. PAST MEDICAL HISTORY: End-stage renal disease, alcoholic liver disease, COPD, recurrent ascites, osteoarthritis, history of prostatic carcinoma, type 2 diabetes, nephrolithiasis, recent urinary tract infection, macular degeneration, gout, hyperlipidemia, recent C. difficile colitis in December 2016. PAST SURGICAL HISTORY: Coronary artery bypass surgery, cataract surgery, laser surgery, colonoscopy, polypectomy, knee arthroplasty, eye surgery, ORIF right ankle, PermCath placement for dialysis. SOCIAL HISTORY: This patient is an ex-smoker. No history of drug abuse or alcohol abuse. REVIEW OF SYSTEMS: As per HPI. Other systems negative. Medications are reviewed. On examination, the patient is currently comfortable, awake, alert, oriented. He is not in any acute distress. Blood pressure is 93/50, heart rate 113 per minute. He is afebrile. EXAMINATION OF THE HEART: S1 and S2. EXAMINATION OF THE LUNGS: Bilateral breath sounds are heard. ABDOMEN: Soft, distended with ascites. Examination of the lower extremities shows superficial wound in his right lower extremity on the marshall. Trace edema left lower extremity. BAR ATTENDANT exam is grossly intact. Labs show potassium 3.9, sodium 131, hemoglobin 12.6. ASSESSMENT: 1. End-stage renal disease on hemodialysis on a Wednesday, Wednesday, Wednesday schedule. The patient will be dialyzed today. He could be discharged after dialysis and follow up as outpatient on Wednesday. 2. Status post fall with scraping on the left forearm, which is currently wrapped. 3. Hypothyroidism. 4. History of liver cirrhosis with recurrent ascites. Etiology is likely alcohol. 5. Atrial fibrillation, maintained on Eliquis. PLAN: Hemodialysis today. Possible discharge after dialysis if otherwise stable.
[2017-01-16] MEDS ORDERED: CHOLECALCIFEROL 1,000 UNIT TAB PO SCH (09:00)
[2017-01-16] MEDS ORDERED: PARoxetine 20 MG TAB PO SCH (09:00)
[2017-01-16] MEDS ORDERED: TAMSULOSIN 0.4 MG CAP.ER.24H PO SCH (09:00)
[2017-01-16] MEDS ORDERED: PANTOPRAZOLE 40 MG TABLET PO SCH (09:00)
[2017-01-16] MEDS: AMIODARONE 200 MG TAB PO SCH (09:32)
[2017-01-16] MEDS: MAGNESIUM OXIDE 400 MG TAB PO SCH (09:32)
[2017-01-16] MEDS: APIXABAN 2.5 MG TABLET PO SCH (09:32)
[2017-01-16 10:16] VITALS: BMI 26.3
[2017-01-16 11:51] LABS: Glucose,Whole Blood 110 mg/dL (75-99)
[2017-01-16 12:13] VITALS: BP 78/50
[2017-01-16 12:40] VITALS: PULSE 80
--- NOTE | 2017-01-16 15:17 | P.HPIM ---
History of Present Illness H&P Date: 01/16/17 (DC summary as well) This is 76-year-old gentleman currently on ESRD who was recently apparently seen in the hospital for hypotension was resuscitated in the intensive care unit thereafter sent to a detention. Patient apparently was discharged yesterday went home and felt before even walking into the house. Patient hit his knee. Patient was brought back in to the hospital. States that he has been in and out of hospitals for the last few months and is tired of fighting against his illness. States that he would like to pass away with his family around him. He does not want to be in and out of the hospitals any longer. His only wish was to go home at this time. Patient denies having any headaches, blurry vision, nausea, vomiting, diarrhea. Patient states that he feels weak which has been his complaint for a long time and he does not like this feeling at this time. Review of Systems All systems: negative (Noted in HPI) Past Medical History Past Medical History: Asthma, Coronary Artery Disease (CAD), Cancer, Heart Failure, COPD, Diabetes Mellitus, GERD/Reflux, Hyperlipidemia, Osteoarthritis ( OA), Sleep Apnea/CPAP/BIPAP Additional Past Medical History / Comment(s): Coronary artery disease with a previous coronary artery bypass surgery, chronic atrial fibrillation maintained on anticoagulation, COPD, end-stage renal disease and the currently the patient is on hemodialysis,"ascities/cirrhosis", nephrolithiasis and kidney stones, Charley urinary tract infection along with previous E. coli urinary tract infection, macular degeneration, gout, chronic back pain, chronic degenerative disc disease, skin cancer of a squamous cell type, osteoarthritis, obstructive sleep apnea maintained on CPAP on outpatient basis, hyperlipidemia, diabetes mellitus, chronic hypotension maintained on midodrine on outpatient basis, c- diff 11-27-16,retested 12-10-16 was negative. History of Any Multi-Drug Resistant Organisms: None Reported Date of last positivie culture/infection: C.diff retested negative 12/10/16 ( C.diff was positive 11/27/16) MDRO Source:: Stool Past Surgical History: Coronary Bypass/CABG, Joint Replacement, Orthopedic Surgery, Tonsillectomy Additional Past Surgical History / Comment(s): Coronary artery bypass surgery bilateral cataract surgery, laser eye surgery for macular degeneration, colonoscopy with polypectomy, bilateral knee replacement, eye surgery involving the tear ducts with placement of implants, ORIF for a right ankle fracture with insertion of plate and screws, insertion of a permacath for dialysis access.paracentesis. Past Anesthesia/Blood Transfusion Reactions: No Reported Reaction Past Psychological History: Anxiety, Depression Additional Psychological History / Comment(s): pt just was released from [facility] today then ended up here. was to have home care nurse and pt. uses cane when up but also has metal walker and 2 4 wheeled rolling walkers w/seats, shower chair,bsc, has a high rise toilet, assist rails. pt lives with his , 2 dogs. has 3 steps into house and house is one level. served in the [employer] when younger. worked for [employer] Smoking Status: Former smoker Past Alcohol Use History: Daily Additional Past Alcohol Use History / Comment(s): started smoking at age 17 later on in life swithced to cigars then quit 2008. pt admits to 3 healthy size drinks a day(whiskey). quit 5 months ago Past Drug Use History: None Reported - Past Family History Mother Family Medical History: Cancer Additional Family Medical History / Comment(s): kidney cancer Father Family Medical History: Cancer, Prostate Disorder Additional Family Medical History / Comment(s): prostate cancer Brother(s) History Unknown: Yes Family Medical History: Unable to Obtain Medications and Allergies Home Medications Medication Instructions Recorded Confirmed Type Albuterol Sulfate [Proair Hfa] 2 puff INHALATION RT-QID PRN 10/16/16 01/15/17 History Allopurinol [Zyloprim] 100 mg PO DAILY 10/16/16 01/15/17 History Cholecalciferol [Vitamin D3] 1,000 unit PO DAILY 10/16/16 01/15/17 History Fish Oil/Dha/Epa [Fish Oil 1,200 1 cap PO HS 10/16/16 01/15/17 History mg Fish Oil] Magnesium Oxide 400 mg PO BID 10/16/16 01/15/17 History PARoxetine [Paxil] 20 mg PO DAILY 10/16/16 01/15/17 History Pravastatin Sodium [Pravachol] 20 mg PO HS 10/16/16 01/15/17 History Albuterol Nebulized [Ventolin 2.5 mg INHALATION RT-Q6H PRN 11/26/16 01/15/17 History Nebulized] Ondansetron [Zofran] 4 mg PO Q8H PRN 12/09/16 01/15/17 History INSULIN LISPRO (humaLOG) [humaLOG See Protocol SQ ACHS 01/05/17 01/15/17 History (formulary)] Levothyroxine Sodium [Synthroid] 50 mcg PO HS 01/05/17 01/15/17 History Midodrine HCl [ProAmatine] 10 mg PO AC-TID 01/05/17 01/15/17 History Nepro 1 can PO TID-W/MEALS 01/05/17 01/15/17 History Tamsulosin [Flomax] 0.4 mg PO DAILY 01/15/17 01/15/17 History Allergies Allergy/AdvReac Type Severity Reaction Status Date / Time No Known Allergies Allergy Verified 01/15/17 13:43 Physical Exam Vitals: Vital Signs Temp Pulse Pulse Resp BP BP Pulse Ox 01/16/17 12:38 80 18 01/16/17 12:00 71 18 78/50 98 01/16/17 08:00 72 18 87/54 97 01/16/17 06:28 80 18 91/56 97 01/16/17 04:00 18 01/16/17 00:00 97.1 F L 113 H 18 93/50 94 L 01/15/17 23:40 80 01/15/17 23:29 80 01/15/17 21:00 92 L 01/15/17 20:00 96.6 F L 87 18 98/57 88 L 01/15/17 19:15 97.0 F L 88 17 104/52 96 01/15/17 19:14 78 01/15/17 19:02 78 01/15/17 18:23 82 17 101/59 97 Intake and Output 01/16/17 01/16/17 01/16/17 06:59 14:59 22:59 Intake Total 60 Balance 60 Intake: IV 60 Sodium Chloride 0.9% 1, 60 000 ml @ 20 mls/hr IV . Q24H [facility] Rx#:[id number] Other: Voiding Method Urinal # Voids 0 1 # Bowel Movements 0 1 Weight 74 kg 74 kg Patient Weight 01/17/17 07:59 Weight 74 kg Gen. appearance alert oriented 3 does not appear to be in distress Lungs crackles at the bases good air movement currently on 4 L of supplement oxygen Heart S1-S2 heart slightly tachycardic Abdomen soft nontender organomegaly bowel sounds intact Neurologically moves all 4 extremity is Extremities right knee is tender to palpation however there is no effusion that is palpated. Results CBC & Chem 7: 01/15/17 13:07 01/15/17 13:07 Labs: Abnormal Lab Results - Last 24 Hours (Table) 01/15/17 01/16/17 01/16/17 Range/Units 20:41 06:37 11:31 POC Glucose (mg/dL) 159 H 111 H 110 H (75-99) mg/dL Assessment and Plan Plan: #1 hypotension or graft #2 ESRD on hemodialysis #3 peripheral neuropathy #4 diabetes most type II #5 history of atrial fib relation #6 COPD #Acute hypoxic respiratory failure #7 history of hypertension Plan Patient's goals of care are comfort measures only. Patient wants to go home hence we'll discharge the patient is an ambulance. Patient and his family will meet with hospice for home hospice at this time. Patient will be prescribed a comfort medications including Roxanol Ativan and scopolamine. Hemodialysis will permanently be discontinued at this time. This was discussed with the patient is in agreement with the above plan.
== END 2017-01-16 16:20 | disposition hospice, home (50) | DRG 312 ==
LOC: EC 12:51 → 6SEL 17:47
PROVIDERS: ADMIT Family Medicine; ATTEND Family Medicine
DX: I95.3 Hypotension of hemodialysis (principal); J96.01 Acute respiratory failure with hypoxia; I13.2 Hypertensive heart and chronic kidney disease with heart failure and with stage 5 chronic kidney disease, or end stage renal disease; N18.6 End stage renal disease; E11.22 Type 2 diabetes mellitus with diabetic chronic kidney disease; E11.42 Type 2 diabetes mellitus with diabetic polyneuropathy; I50.9 Heart failure, unspecified; Z51.5 Encounter for palliative care; Z66 Do not resuscitate; K70.9 Alcoholic liver disease, unspecified; K70.31 Alcoholic cirrhosis of liver with ascites; J45.909 Unspecified asthma, uncomplicated; M10.9 Gout, unspecified; E03.9 Hypothyroidism, unspecified; E78.5 Hyperlipidemia, unspecified; F32.9 Major depressive disorder, single episode, unspecified; F41.9 Anxiety disorder, unspecified; G47.33 Obstructive sleep apnea (adult) (pediatric); H35.30 Unspecified macular degeneration; I25.10 Atherosclerotic heart disease of native coronary artery without angina pectoris; I48.2 Chronic atrial fibrillation; K21.9 Gastro-esophageal reflux disease without esophagitis; S51.812A Laceration without foreign body of left forearm, initial encounter; J44.9 Chronic obstructive pulmonary disease, unspecified; Z87.891 Personal history of nicotine dependence; Z99.2 Dependence on renal dialysis; Z95.1 Presence of aortocoronary bypass graft; Z96.653 Presence of artificial knee joint, bilateral; Z87.442 Personal history of urinary calculi; Z85.828 Personal history of other malignant neoplasm of skin; Z87.440 Personal history of urinary (tract) infections; Z85.46 Personal history of malignant neoplasm of prostate; Z79.01 Long term (current) use of anticoagulants; Z79.4 Long term (current) use of insulin; Z79.899 Other long term (current) drug therapy; W19.XXXA Unspecified fall, initial encounter; G89.29 Other chronic pain; M19.90 Unspecified osteoarthritis, unspecified site
CPT/HCPCS: 36415; 71020; 80053; 82550; 82553; 83735; 84484; 85025; 85610; 85730; 93005; 94640; 96374; 96375; 99285